=== PATIENT | female | born 1960 | race Caucasian/White ===

== ENCOUNTER 2016-11-09 13:39 | Emergency (ER) | payer BC ==
[~2016-11-09 13:39] MED LIST: ALPR0.5T6 PO; CALC-316 PO; RALO60TA PO; VENTOLIN HFA18 GM IH; VITA1CAP PO
--- NOTE | 2016-11-09 14:18 | RAD ---
Portable chest, 11/09/2016: History: Cough Comparison is made to a study from 11/04/2015. The patient positioning is lordotic. The heart size and pulmonary vascularity are normal. There is a calcified granuloma in the left base. No acute infiltrates are seen. There is no evidence of pleural fluid. The bony structures are unremarkable. IMPRESSION: No acute cardiopulmonary abnormality is detected.
[2016-11-09 14:31] LABS: OBC FLU VALID
[2016-11-09] MEDS ORDERED: FENTANYL PF 100 MCG/2 ML VIAL. IV ONE (14:45)
[2016-11-09 15:07] LABS: BASO # 0.1 x10^3/uL (0.0-0.2); BASO % 1 % (0-3); EOS % 1 % (0-3); HEMATOCRIT 35.2 % (36.0-47.0); HEMOGLOBIN 12.2 g/dL (12.0-15.5); LYMPH # 1.9 x10^3/uL (1.0-4.8); LYMPH % 22 % (24-48); MEAN CORPUSCULAR HEMOGLOBIN 34 pg (25-35); MEAN CORPUSCULAR HGB CONC 35 g/dL (31-37); MEAN CORPUSCULAR VOLUME 97 fL (79-100); MONO % 12 % (0-9); NEUT % 64 % (31-73); PLATELET COUNT 367 x10^3/uL (140-400); RED BLOOD COUNT 3.64 x10^6/uL (3.50-5.40); RED CELL DISTRIBUTION WIDTH 11.9 % (11.5-14.5); WHITE BLOOD COUNT 8.4 x10^3/uL (4.0-11.0)
--- NOTE | 2016-11-09 15:09 | EKG ---
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
[2016-11-09 15:19] LABS: CALCIUM 8.9 mg/dL (8.5-10.1); CREATININE 0.7 mg/dL (0.6-1.0); GFR 86.2; POTASSIUM 4.9 mmol/L (3.5-5.1)
[2016-11-09] MEDS ORDERED: IOHEXOL 300 MG/ML 75 ML VIAL IV ONE (16:00)
[2016-11-09] MEDS ORDERED: CONTRAST GIVEN MC PRN (16:00)
--- NOTE | 2016-11-09 16:47 | RAD ---
Indication: Left-sided chest pain and rib pain. Axial imaging through the chest was performed after the administration of intravenous contrast and utilizing the CT angiography protocol. Multiplanar, 3-D and MIP reformations were also performed. Evaluation of the pulmonary arterial system is without evidence of thromboembolism. No filling defects are identified. The thoracic aorta is unremarkable. No dissection is identified. No axillary, hilar or mediastinal lymphadenopathy is seen. There are calcified lymph nodes in the left hilum consistent with prior granulomatous exposure. No pericardial or pleural fluid is identified. Parenchymal evaluation demonstrate a calcified granuloma in the left lower lobe. No infiltrates are identified. There is a tiny subpleural nodule in the right upper lobe laterally, image 39. The upper abdomen is unremarkable. The bony structures are nonacute. Impression: No evidence of pulmonary embolism or thoracic aortic dissection. PQRS Compliance Statement: One or more of the following individualized dose reduction techniques were utilized for this examination: 1. Automated exposure control 2. Adjustment of the mA and/or kV according to patient size 3. Use of iterative reconstruction technique
[2016-11-09] MEDS ORDERED: IBUP-1060 PO (17:10)
--- NOTE | 2016-11-09 17:11 | PHYS DOC ---
Past Medical History Past Medical History: No Pertinent History, Bronchitis Past Surgical History: Cholecystectomy, , Hysterectomy, Tonsillectomy Alcohol Use: Occasionally Drug Use: None Adult General Chief Complaint Chief Complaint: FEVER HPI HPI 55-year-old female who's had significant left chest wall pain that she states is worse with deep breathing. She states this is been present for the last several days. She denies any significant cough. Patient does state she has an albuterol inhaler that she uses as needed. She does state she has mild shortness of breath with her symptoms. She denies any history of cardiac disease. Patient denies any significant smoking history. Currently she rates her pain a 7 out of 10 on the pain scale. Review of Systems Review of Systems Constitutional: Denies fever or chills [] Eyes: Denies change in visual acuity, redness, or eye pain [] HENT: Denies nasal congestion or sore throat [] Respiratory: Denies cough, has shortness of breath [] Cardiovascular: No additional information not addressed in HPI [] GI: Denies abdominal pain, nausea, vomiting, bloody stools or diarrhea [] : Denies dysuria or hematuria [] Musculoskeletal: Denies back pain or joint pain [] Integument: Denies rash or skin lesions [] Neurologic: Denies headache, focal weakness or sensory changes [] Endocrine: Denies polyuria or polydipsia [] Current Medications Current Medications Current Medications Medications (Trade) Dose Ordered Sig/[facility] Start Time Stop Time Status Last Admin Dose Admin Fentanyl Citrate (Fentanyl 2ml Vial) 50 mcg 1X ONCE 11/09/16 14:45 11/09/16 14:46 DC 11/09/16 15:29 50 MCG Info (Do NOT chart on this entry -- for MONITORING) 1 each PRN DAILY PRN 11/09/16 16:00 11/11/16 15:59 Iohexol (Omnipaque 300 Mg/ml) 75 ml 1X ONCE 11/09/16 16:00 11/09/16 16:01 DC 11/09/16 16:28 75 ML Allergies Allergies Allergies Coded Allergies Type Severity Reaction Last Updated Verified No Known Drug Allergies 09/28/16 No Physical Exam Physical Exam Constitutional: Well developed, well nourished, no acute distress, non-toxic appearance. [] HENT: Normocephalic, atraumatic, bilateral external ears normal, oropharynx moist, no oral exudates, nose normal. [] Eyes: PERRLA, EOMI, conjunctiva normal, no discharge. [] Neck: Normal range of motion, no tenderness, supple, no stridor. [] Cardiovascular:Heart rate regular rhythm, no murmur [] Lungs & Thorax: Bilateral breath sounds clear to auscultation [] Abdomen: Bowel sounds normal, soft, no tenderness, no masses, no pulsatile masses. [] Skin: Warm, dry, no erythema, no rash. [] Back: No tenderness, no CVA tenderness. [] Extremities: No tenderness, no cyanosis, no clubbing, ROM intact, no edema. [] Neurologic: Alert and oriented X 3, normal motor function, normal sensory function, no focal deficits noted. [] Psychologic: Affect normal, judgement normal, mood normal. [] Current Patient Data Vital Signs Vital Signs Date Time Temp Pulse Resp B/P Pulse Ox O2 Delivery O2 Flow Rate FiO2 11/09/16 15:30 80 99 Room Air 11/09/16 13:49 98.0 20 98.0 Lab Values Laboratory Tests Test 11/09/16 14:00 11/09/16 14:55 Influenza Type A Antigen Negative (NEGATIVE) Influenza Type B Antigen Negative (NEGATIVE) White Blood Count 8.4x10^3/uL (4.0-11.0) Red Blood Count 3.64x10^6/uL (3.50-5.40) Hemoglobin 12.2g/dL (12.0-15.5) Hematocrit 35.2% (36.0-47.0) L Mean Corpuscular Volume 97fL (79-100) Mean Corpuscular Hemoglobin 34pg (25-35) Mean Corpuscular Hemoglobin Concent 35g/dL (31-37) Red Cell Distribution Width 11.9% (11.5-14.5) Platelet Count 367x10^3/uL (140-400) Neutrophils (%) (Auto) 64% (31-73) Lymphocytes (%) (Auto) 22% (24-48) L Monocytes (%) (Auto) 12% (0-9) H Eosinophils (%) (Auto) 1% (0-3) Basophils (%) (Auto) 1% (0-3) Neutrophils # (Auto) 5.4x10^3uL (1.8-7.7) Lymphocytes # (Auto) 1.9x10^3/uL (1.0-4.8) Monocytes # (Auto) 1.0x10^3/uL (0.0-1.1) Eosinophils # (Auto) 0.1x10^3/uL (0.0-0.7) Basophils # (Auto) 0.1x10^3/uL (0.0-0.2) D-Dimer (Herlinda) 0.55ug/mlFEU (0.00-0.50) H Sodium Level 131mmol/L (136-145) L Potassium Level 4.9mmol/L (3.5-5.1) Chloride Level 95mmol/L (98-107) L Carbon Dioxide Level 26mmol/L (21-32) Anion Gap 10 (6-14) Blood Urea Nitrogen 11mg/dL (7-20) Creatinine 0.7mg/dL (0.6-1.0) Estimated GFR (Cockcroft-Gault) 86.2 Glucose Level 99mg/dL (70-99) Calcium Level 8.9mg/dL (8.5-10.1) Troponin I Quantitative < 0.017ng/mL (0.000-0.055) Laboratory Tests 11/09/16 14:55 Laboratory Tests 11/09/16 14:55 EKG EKG EKG as interpreted by fl shows a sinus rhythm with a rightward axis and an approximate rate of 82 bpm. There are no acute ischemic findings on this EKG. Radiology/Procedures Radiology/Procedures CTA of the chest as interpreted by the radiologist: Axial imaging through the chest was performed after the administration of intravenous contrast and utilizing the CT angiography protocol. Multiplanar, 3-D and MIP reformations were also performed. Evaluation of the pulmonary arterial system is without evidence of thromboembolism. No filling defects are identified. The thoracic aorta is unremarkable. No dissection is identified. No axillary, hilar or mediastinal lymphadenopathy is seen. There are calcified lymph nodes in the left hilum consistent with prior granulomatous exposure. No pericardial or pleural fluid is identified. Parenchymal evaluation demonstrate a calcified granuloma in the left lower lobe. No infiltrates are identified. There is a tiny subpleural nodule in the right upper lobe laterally, image 39. The upper abdomen is unremarkable. The bony structures are nonacute. One view of the chest as interpreted by me did not reveal an acute cardiopulmonary process. Course & Med Decision Making Course & Med Decision Making Pertinent Labs and Imaging studies reviewed. (See chart for details) This 55-year-old female who is having ongoing pleuritic type chest pain and a positive d-dimer had a CT of her chest that was negative for any acute abnormality including pulmonary embolism. A portable 1 view her chest also did not reveal any acute abnormalities. EKG reveal any acute signs of ischemia. Her laboratory workup including a set of cardiac enzymes was also negative. I'll be discharging patient home to follow closely with her primary care doctor next several days as I believe her symptoms are likely inflammatory in nature and will be treated with Motrin with strict instruction return if she notes any worsening of her pain or shortness of breath. She should continue to use her inhaler at home as needed. Upon my reassessment, the patient feels much improved after a dose of fentanyl. Patient is still very concerned that she is having ongoing chest pain and would like something to help her rest tonight. For this I will prescribe a course of [place]. I also offered admission to the patient as I stated I could not be 100 percent certain that her symptoms are not cardiac in etiology. She states she would not like to stay in the hospital at this time and I counseled her that she should return if she develops any worsening of her chest pain and to follow closely with Dr. Bender. Additionally, Dr. eBnder was contacted and the department and the case was discussed. He is very agreeable this plan. She was discharged without incident. Dragon Disclaimer Dragon Disclaimer This electronic medical record was generated, in whole or in part, using a voice recognition dictation system. Departure Departure Impression: Primary Impression: Chest pain Disposition: HOME, SELF-CARE Condition: STABLE Referrals: FEMI BENDER MD (PCP) Patient Instructions: Chest Wall Pain, Costochondritis, [id number] Additional Instructions: Please take your motrin as needed for your pain. Continue to take your inhaler as needed. Return to the ER if you develop any worsening of your symptoms. Scripts Hydrocodone/Apap 5-325 ([place] 5-325 Tablet)1 Each Tablet1 Tab PO PRN Q6HRS PRN PAIN #8 TAB Prov:SY BREAUX DO 11/09/16 Ibuprofen 800 Mg [id number] Mg PO PRN Q6HRS PRN INFLAMMATION #14 TAB Prov:SY BREAUX DO 11/09/16 SY BREAUX DO Nov 09, 2016 17:11
[2016-11-09] MEDS ORDERED: HYDR-971 PO (17:25)
[2016-11-09 17:30] VITALS: BP 122/70
--- NOTE | 2016-11-10 06:35 | EKG ---
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
== END 2016-11-09 17:48 | disposition home or self-care (01) ==
LOC: ER 13:39
DX: R07.89 Other chest pain (principal)
CPT/HCPCS: 36415; 71010; 71275; 80048; 84484; 85027; 85379; 87804; 93005; 96374; 99285; J3010; Q9967

== ENCOUNTER → 2018-02-09 | Outpatient (CLI) | payer BC | END | disposition home or self-care (01) | LOC: KCIC US 13:22 | DX: I65.23 Occlusion and stenosis of bilateral carotid arteries (principal); Z87.891 Personal history of nicotine dependence | CPT/HCPCS: 93880 ==

== ENCOUNTER → 2018-02-25 | Outpatient (CLI) | payer BC ==
[2018-02-25] MEDS: REGADENOSON 0.4 MG/5 ML DISP.SYRIN. IV (09:47)
== END | disposition home or self-care (01) ==
LOC: NM 07:10
DX: F43.9 Reaction to severe stress, unspecified (principal); R55 Syncope and collapse; R61 Generalized hyperhidrosis; Z87.891 Personal history of nicotine dependence
CPT/HCPCS: 78452; 93017; 96374; 96375; 96376; A9500; J2785

== ENCOUNTER → 2018-07-11 | Outpatient (CLI) | payer BC ==
[2018-07-07 11:00] VITALS: BP 142/108
[~2018-07-11] MED LIST changes: +GABA-585 PO; +HYDR-971 PO; +IBUP-1060 PO; +PROAIR HFA8.5 GM INH
== END | disposition home or self-care (01) ==
LOC: PMGWOUND 08:08
PROVIDERS: ATTEND Emergency Medicine Undersea and Hyperbaric Medicine
DX: T81.31XD Disruption of external operation (surgical) wound, not elsewhere classified, subsequent encounter (principal); F41.9 Anxiety disorder, unspecified; F17.210 Nicotine dependence, cigarettes, uncomplicated; J43.9 Emphysema, unspecified; M81.0 Age-related osteoporosis without current pathological fracture; M19.90 Unspecified osteoarthritis, unspecified site; Z90.49 Acquired absence of other specified parts of digestive tract; Z90.710 Acquired absence of both cervix and uterus; Y83.8 Other surgical procedures as the cause of abnormal reaction of the patient, or of later complication, without mention of misadventure at the time of the procedure
CPT/HCPCS: 97605

== ENCOUNTER → 2018-07-13 | Outpatient (CLI) | payer BC ==
[2018-07-07 11:00] VITALS: BP 142/108
== END | disposition home or self-care (01) ==
LOC: PMGWOUND 09:03
PROVIDERS: ATTEND Preventive Medicine Undersea and Hyperbaric Medicine
DX: T81.31XD Disruption of external operation (surgical) wound, not elsewhere classified, subsequent encounter (principal); F41.9 Anxiety disorder, unspecified; F17.210 Nicotine dependence, cigarettes, uncomplicated; J43.9 Emphysema, unspecified; M19.90 Unspecified osteoarthritis, unspecified site; Z90.49 Acquired absence of other specified parts of digestive tract; M81.0 Age-related osteoporosis without current pathological fracture; Z90.710 Acquired absence of both cervix and uterus; Y83.8 Other surgical procedures as the cause of abnormal reaction of the patient, or of later complication, without mention of misadventure at the time of the procedure
CPT/HCPCS: 97605

== ENCOUNTER → 2018-07-15 | Outpatient (CLI) | payer BC ==
[2018-07-07 11:00] VITALS: BP 142/108
== END | disposition home or self-care (01) ==
LOC: PMGWOUND 07:57
PROVIDERS: ATTEND Preventive Medicine Undersea and Hyperbaric Medicine
DX: T81.31XD Disruption of external operation (surgical) wound, not elsewhere classified, subsequent encounter (principal); F41.9 Anxiety disorder, unspecified; F17.210 Nicotine dependence, cigarettes, uncomplicated; J43.9 Emphysema, unspecified; M19.90 Unspecified osteoarthritis, unspecified site; M81.0 Age-related osteoporosis without current pathological fracture; Z90.49 Acquired absence of other specified parts of digestive tract; Z90.710 Acquired absence of both cervix and uterus; Y83.8 Other surgical procedures as the cause of abnormal reaction of the patient, or of later complication, without mention of misadventure at the time of the procedure
CPT/HCPCS: 97605

== ENCOUNTER → 2018-07-18 | Outpatient (CLI) | payer BC ==
[2018-07-07 11:00] VITALS: BP 142/108
== END | disposition home or self-care (01) ==
LOC: PMGWOUND 07:54
PROVIDERS: ATTEND Emergency Medicine Undersea and Hyperbaric Medicine
DX: T81.31XD Disruption of external operation (surgical) wound, not elsewhere classified, subsequent encounter (principal); F41.9 Anxiety disorder, unspecified; J43.9 Emphysema, unspecified; F17.210 Nicotine dependence, cigarettes, uncomplicated; M19.90 Unspecified osteoarthritis, unspecified site; M81.0 Age-related osteoporosis without current pathological fracture; Z90.710 Acquired absence of both cervix and uterus; Z90.49 Acquired absence of other specified parts of digestive tract; Y83.5 Amputation of limb(s) as the cause of abnormal reaction of the patient, or of later complication, without mention of misadventure at the time of the procedure
CPT/HCPCS: 97605

== ENCOUNTER → 2018-07-20 | Outpatient (CLI) | payer BC ==
[2018-07-07 11:00] VITALS: BP 142/108
== END | disposition home or self-care (01) ==
LOC: PMGWOUND 07:42
PROVIDERS: ATTEND Emergency Medicine Undersea and Hyperbaric Medicine
DX: T81.31XD Disruption of external operation (surgical) wound, not elsewhere classified, subsequent encounter (principal); F41.9 Anxiety disorder, unspecified; F17.210 Nicotine dependence, cigarettes, uncomplicated; J43.9 Emphysema, unspecified; M19.90 Unspecified osteoarthritis, unspecified site; M81.0 Age-related osteoporosis without current pathological fracture; Z90.49 Acquired absence of other specified parts of digestive tract; Z90.710 Acquired absence of both cervix and uterus; Y83.8 Other surgical procedures as the cause of abnormal reaction of the patient, or of later complication, without mention of misadventure at the time of the procedure
CPT/HCPCS: 97605

== ENCOUNTER → 2018-07-22 | Outpatient (CLI) | payer BC ==
[2018-07-07 11:00] VITALS: BP 142/108
== END | disposition home or self-care (01) ==
LOC: PMGWOUND 07:56
PROVIDERS: ATTEND Preventive Medicine Undersea and Hyperbaric Medicine
DX: T81.31XD Disruption of external operation (surgical) wound, not elsewhere classified, subsequent encounter (principal); F41.9 Anxiety disorder, unspecified; J43.9 Emphysema, unspecified; M19.90 Unspecified osteoarthritis, unspecified site; M81.0 Age-related osteoporosis without current pathological fracture; F17.210 Nicotine dependence, cigarettes, uncomplicated; Z90.49 Acquired absence of other specified parts of digestive tract; Z90.710 Acquired absence of both cervix and uterus; Y83.8 Other surgical procedures as the cause of abnormal reaction of the patient, or of later complication, without mention of misadventure at the time of the procedure
CPT/HCPCS: 97605

== ENCOUNTER → 2018-07-25 | Outpatient (CLI) | payer BC ==
[2018-07-07 11:00] VITALS: BP 142/108
== END | disposition home or self-care (01) ==
LOC: PMGWOUND 07:44
PROVIDERS: ATTEND Emergency Medicine Undersea and Hyperbaric Medicine
DX: T81.31XD Disruption of external operation (surgical) wound, not elsewhere classified, subsequent encounter (principal); F41.9 Anxiety disorder, unspecified; F17.210 Nicotine dependence, cigarettes, uncomplicated; J43.9 Emphysema, unspecified; M19.90 Unspecified osteoarthritis, unspecified site; M81.0 Age-related osteoporosis without current pathological fracture; Z90.710 Acquired absence of both cervix and uterus; Z90.49 Acquired absence of other specified parts of digestive tract; Z90.79 Acquired absence of other genital organ(s); Z90.722 Acquired absence of ovaries, bilateral; Y83.8 Other surgical procedures as the cause of abnormal reaction of the patient, or of later complication, without mention of misadventure at the time of the procedure
CPT/HCPCS: 97605

== ENCOUNTER → 2018-07-27 | Outpatient (CLI) | payer BC ==
[2018-07-07 11:00] VITALS: BP 142/108
== END | disposition home or self-care (01) ==
LOC: PMGWOUND 08:01
PROVIDERS: ATTEND Preventive Medicine Undersea and Hyperbaric Medicine
DX: T81.31XD Disruption of external operation (surgical) wound, not elsewhere classified, subsequent encounter (principal); F41.9 Anxiety disorder, unspecified; J43.9 Emphysema, unspecified; F17.210 Nicotine dependence, cigarettes, uncomplicated; M19.90 Unspecified osteoarthritis, unspecified site; M81.0 Age-related osteoporosis without current pathological fracture; Z90.710 Acquired absence of both cervix and uterus; Z90.89 Acquired absence of other organs; Z90.49 Acquired absence of other specified parts of digestive tract; Z90.722 Acquired absence of ovaries, bilateral; Y83.8 Other surgical procedures as the cause of abnormal reaction of the patient, or of later complication, without mention of misadventure at the time of the procedure
CPT/HCPCS: 97605

== ENCOUNTER → 2018-07-29 | Outpatient (CLI) | payer BC ==
[2018-07-07 11:00] VITALS: BP 142/108
== END | disposition home or self-care (01) ==
LOC: PMGWOUND 07:34
PROVIDERS: ATTEND Preventive Medicine Undersea and Hyperbaric Medicine
DX: T81.31XD Disruption of external operation (surgical) wound, not elsewhere classified, subsequent encounter (principal); F41.9 Anxiety disorder, unspecified; J43.9 Emphysema, unspecified; F17.210 Nicotine dependence, cigarettes, uncomplicated; M19.90 Unspecified osteoarthritis, unspecified site; M81.0 Age-related osteoporosis without current pathological fracture; Z90.49 Acquired absence of other specified parts of digestive tract; Z90.710 Acquired absence of both cervix and uterus; Z90.89 Acquired absence of other organs; Z90.722 Acquired absence of ovaries, bilateral; Y83.8 Other surgical procedures as the cause of abnormal reaction of the patient, or of later complication, without mention of misadventure at the time of the procedure
CPT/HCPCS: 97605

== ENCOUNTER → 2018-08-01 | Outpatient (CLI) | payer BC ==
[2018-07-07 11:00] VITALS: BP 142/108
== END | disposition home or self-care (01) ==
LOC: PMGWOUND 07:54
PROVIDERS: ATTEND Emergency Medicine Undersea and Hyperbaric Medicine
DX: T81.31XD Disruption of external operation (surgical) wound, not elsewhere classified, subsequent encounter (principal); F41.9 Anxiety disorder, unspecified; J43.9 Emphysema, unspecified; F17.210 Nicotine dependence, cigarettes, uncomplicated; M19.90 Unspecified osteoarthritis, unspecified site; M81.0 Age-related osteoporosis without current pathological fracture; Z90.49 Acquired absence of other specified parts of digestive tract; Z90.710 Acquired absence of both cervix and uterus; Y83.8 Other surgical procedures as the cause of abnormal reaction of the patient, or of later complication, without mention of misadventure at the time of the procedure
CPT/HCPCS: 97605

== ENCOUNTER → 2018-08-03 | Outpatient (CLI) | payer BC ==
[2018-07-07 11:00] VITALS: BP 142/108
== END | disposition home or self-care (01) ==
LOC: PMGWOUND 07:49
PROVIDERS: ATTEND Preventive Medicine Undersea and Hyperbaric Medicine
DX: T81.31XD Disruption of external operation (surgical) wound, not elsewhere classified, subsequent encounter (principal); F41.9 Anxiety disorder, unspecified; F17.210 Nicotine dependence, cigarettes, uncomplicated; J43.9 Emphysema, unspecified; M81.0 Age-related osteoporosis without current pathological fracture; M19.90 Unspecified osteoarthritis, unspecified site; Z90.710 Acquired absence of both cervix and uterus; Z90.49 Acquired absence of other specified parts of digestive tract; Y83.8 Other surgical procedures as the cause of abnormal reaction of the patient, or of later complication, without mention of misadventure at the time of the procedure
CPT/HCPCS: 97605

== ENCOUNTER → 2018-08-05 | Outpatient (CLI) | payer BC ==
[2018-07-07 11:00] VITALS: BP 142/108
== END | disposition home or self-care (01) ==
LOC: PMGWOUND 07:36
PROVIDERS: ATTEND Preventive Medicine Undersea and Hyperbaric Medicine
DX: T81.31XD Disruption of external operation (surgical) wound, not elsewhere classified, subsequent encounter (principal); F41.9 Anxiety disorder, unspecified; J43.9 Emphysema, unspecified; F17.210 Nicotine dependence, cigarettes, uncomplicated; M81.0 Age-related osteoporosis without current pathological fracture; M19.90 Unspecified osteoarthritis, unspecified site; Z90.710 Acquired absence of both cervix and uterus; Z90.49 Acquired absence of other specified parts of digestive tract; Y83.8 Other surgical procedures as the cause of abnormal reaction of the patient, or of later complication, without mention of misadventure at the time of the procedure
CPT/HCPCS: 99213

== ENCOUNTER → 2018-08-08 | Outpatient (CLI) | payer BC ==
[2018-07-07 11:00] VITALS: BP 142/108
== END | disposition home or self-care (01) ==
LOC: PMGWOUND 08:03
PROVIDERS: ATTEND Emergency Medicine Undersea and Hyperbaric Medicine
DX: T81.31XD Disruption of external operation (surgical) wound, not elsewhere classified, subsequent encounter (principal); F41.9 Anxiety disorder, unspecified; J43.9 Emphysema, unspecified; F17.210 Nicotine dependence, cigarettes, uncomplicated; M81.0 Age-related osteoporosis without current pathological fracture; M19.90 Unspecified osteoarthritis, unspecified site; Z90.710 Acquired absence of both cervix and uterus; Z90.49 Acquired absence of other specified parts of digestive tract; Y83.8 Other surgical procedures as the cause of abnormal reaction of the patient, or of later complication, without mention of misadventure at the time of the procedure
CPT/HCPCS: 97605

== ENCOUNTER → 2018-08-10 | Outpatient (CLI) | payer BC ==
[2018-07-07 11:00] VITALS: BP 142/108
== END | disposition home or self-care (01) ==
LOC: PMGWOUND 07:59
PROVIDERS: ATTEND Preventive Medicine Undersea and Hyperbaric Medicine
DX: T81.31XD Disruption of external operation (surgical) wound, not elsewhere classified, subsequent encounter (principal); F41.9 Anxiety disorder, unspecified; J43.9 Emphysema, unspecified; F17.210 Nicotine dependence, cigarettes, uncomplicated; M19.90 Unspecified osteoarthritis, unspecified site; M81.0 Age-related osteoporosis without current pathological fracture; Z90.710 Acquired absence of both cervix and uterus; Z90.49 Acquired absence of other specified parts of digestive tract; X58.XXXD Exposure to other specified factors, subsequent encounter
CPT/HCPCS: 97605

== ENCOUNTER → 2018-08-12 | Outpatient (CLI) | payer BC ==
[2018-07-07 11:00] VITALS: BP 142/108
== END | disposition home or self-care (01) ==
LOC: PMGWOUND 07:52
PROVIDERS: ATTEND Preventive Medicine Undersea and Hyperbaric Medicine
DX: T81.31XD Disruption of external operation (surgical) wound, not elsewhere classified, subsequent encounter (principal); F41.9 Anxiety disorder, unspecified; J43.9 Emphysema, unspecified; F17.210 Nicotine dependence, cigarettes, uncomplicated; M19.90 Unspecified osteoarthritis, unspecified site; M81.0 Age-related osteoporosis without current pathological fracture; Z90.710 Acquired absence of both cervix and uterus; Z90.49 Acquired absence of other specified parts of digestive tract; Y83.8 Other surgical procedures as the cause of abnormal reaction of the patient, or of later complication, without mention of misadventure at the time of the procedure
CPT/HCPCS: 97605

== ENCOUNTER → 2018-08-15 | Outpatient (CLI) | payer BC ==
[2018-07-07 11:00] VITALS: BP 142/108
== END | disposition home or self-care (01) ==
LOC: PMGWOUND 08:06
PROVIDERS: ATTEND Emergency Medicine Undersea and Hyperbaric Medicine
DX: T81.31XD Disruption of external operation (surgical) wound, not elsewhere classified, subsequent encounter (principal); F41.9 Anxiety disorder, unspecified; J43.9 Emphysema, unspecified; M19.90 Unspecified osteoarthritis, unspecified site; M81.0 Age-related osteoporosis without current pathological fracture; F17.210 Nicotine dependence, cigarettes, uncomplicated; Z90.710 Acquired absence of both cervix and uterus; Z90.49 Acquired absence of other specified parts of digestive tract; Y83.8 Other surgical procedures as the cause of abnormal reaction of the patient, or of later complication, without mention of misadventure at the time of the procedure
CPT/HCPCS: 97605

== ENCOUNTER → 2018-08-17 | Outpatient (CLI) | payer BC ==
[2018-07-07 11:00] VITALS: BP 142/108
== END | disposition home or self-care (01) ==
LOC: PMGWOUND 07:57
PROVIDERS: ATTEND Preventive Medicine Undersea and Hyperbaric Medicine
DX: T81.31XD Disruption of external operation (surgical) wound, not elsewhere classified, subsequent encounter (principal); F41.9 Anxiety disorder, unspecified; J43.9 Emphysema, unspecified; F17.210 Nicotine dependence, cigarettes, uncomplicated; M81.0 Age-related osteoporosis without current pathological fracture; M19.90 Unspecified osteoarthritis, unspecified site; Z90.710 Acquired absence of both cervix and uterus; Z90.49 Acquired absence of other specified parts of digestive tract
CPT/HCPCS: 97605

== ENCOUNTER → 2018-08-19 | Outpatient (CLI) | payer BC ==
[2018-07-07 11:00] VITALS: BP 142/108
== END | disposition home or self-care (01) ==
LOC: PMGWOUND 07:57
PROVIDERS: ATTEND Preventive Medicine Undersea and Hyperbaric Medicine
DX: T81.31XD Disruption of external operation (surgical) wound, not elsewhere classified, subsequent encounter (principal); F41.9 Anxiety disorder, unspecified; J43.9 Emphysema, unspecified; M19.90 Unspecified osteoarthritis, unspecified site; F17.210 Nicotine dependence, cigarettes, uncomplicated; M81.0 Age-related osteoporosis without current pathological fracture; Z90.710 Acquired absence of both cervix and uterus; Z90.49 Acquired absence of other specified parts of digestive tract; Y83.8 Other surgical procedures as the cause of abnormal reaction of the patient, or of later complication, without mention of misadventure at the time of the procedure
CPT/HCPCS: 97605

== ENCOUNTER → 2018-08-22 | Outpatient (CLI) | payer BC ==
[2018-07-07 11:00] VITALS: BP 142/108
== END | disposition home or self-care (01) ==
LOC: PMGWOUND 07:58
PROVIDERS: ATTEND Emergency Medicine Undersea and Hyperbaric Medicine
DX: T81.31XD Disruption of external operation (surgical) wound, not elsewhere classified, subsequent encounter (principal); F41.9 Anxiety disorder, unspecified; J43.9 Emphysema, unspecified; M19.90 Unspecified osteoarthritis, unspecified site; M81.0 Age-related osteoporosis without current pathological fracture; F17.210 Nicotine dependence, cigarettes, uncomplicated; Z90.710 Acquired absence of both cervix and uterus; Z90.49 Acquired absence of other specified parts of digestive tract; Y83.8 Other surgical procedures as the cause of abnormal reaction of the patient, or of later complication, without mention of misadventure at the time of the procedure
CPT/HCPCS: 97597

== ENCOUNTER → 2018-08-24 | Outpatient (CLI) | payer BC ==
[2018-07-07 11:00] VITALS: BP 142/108
== END | disposition home or self-care (01) ==
LOC: PMGWOUND 07:57
PROVIDERS: ATTEND Preventive Medicine Undersea and Hyperbaric Medicine
DX: T81.31XD Disruption of external operation (surgical) wound, not elsewhere classified, subsequent encounter (principal); F41.9 Anxiety disorder, unspecified; J43.9 Emphysema, unspecified; M19.90 Unspecified osteoarthritis, unspecified site; M81.0 Age-related osteoporosis without current pathological fracture; F17.210 Nicotine dependence, cigarettes, uncomplicated; Z90.710 Acquired absence of both cervix and uterus; Z90.49 Acquired absence of other specified parts of digestive tract; Y83.8 Other surgical procedures as the cause of abnormal reaction of the patient, or of later complication, without mention of misadventure at the time of the procedure
CPT/HCPCS: 97605

== ENCOUNTER → 2018-08-26 | Outpatient (CLI) | payer BC ==
[2018-07-07 11:00] VITALS: BP 142/108
== END | disposition home or self-care (01) ==
LOC: PMGWOUND 07:50
PROVIDERS: ATTEND Preventive Medicine Undersea and Hyperbaric Medicine
DX: T81.31XD Disruption of external operation (surgical) wound, not elsewhere classified, subsequent encounter (principal); F41.9 Anxiety disorder, unspecified; J43.9 Emphysema, unspecified; M19.90 Unspecified osteoarthritis, unspecified site; F17.210 Nicotine dependence, cigarettes, uncomplicated; M81.0 Age-related osteoporosis without current pathological fracture; Z90.710 Acquired absence of both cervix and uterus; Z90.49 Acquired absence of other specified parts of digestive tract; Y83.8 Other surgical procedures as the cause of abnormal reaction of the patient, or of later complication, without mention of misadventure at the time of the procedure
CPT/HCPCS: 97605

== ENCOUNTER → 2018-08-29 | Outpatient (CLI) | payer BC ==
[2018-07-07 11:00] VITALS: BP 142/108
[~2018-08-29] MED LIST changes: +HYDR-3164 PO; -HYDR-971 PO
== END | disposition home or self-care (01) ==
LOC: PMGWOUND 08:05
PROVIDERS: ATTEND Emergency Medicine Undersea and Hyperbaric Medicine
DX: T81.31XD Disruption of external operation (surgical) wound, not elsewhere classified, subsequent encounter (principal); F41.9 Anxiety disorder, unspecified; J43.9 Emphysema, unspecified; M19.90 Unspecified osteoarthritis, unspecified site; F17.210 Nicotine dependence, cigarettes, uncomplicated; M81.0 Age-related osteoporosis without current pathological fracture; Z90.710 Acquired absence of both cervix and uterus; Z90.49 Acquired absence of other specified parts of digestive tract; Y83.8 Other surgical procedures as the cause of abnormal reaction of the patient, or of later complication, without mention of misadventure at the time of the procedure
CPT/HCPCS: 97605

== ENCOUNTER → 2018-09-01 | Outpatient (CLI) | payer BC ==
[2018-07-07 11:00] VITALS: BP 142/108
== END | disposition home or self-care (01) ==
LOC: PMGWOUND 08:18
PROVIDERS: ATTEND Emergency Medicine Undersea and Hyperbaric Medicine
DX: T81.31XD Disruption of external operation (surgical) wound, not elsewhere classified, subsequent encounter (principal); F41.9 Anxiety disorder, unspecified; J43.9 Emphysema, unspecified; M19.90 Unspecified osteoarthritis, unspecified site; F17.210 Nicotine dependence, cigarettes, uncomplicated; I25.10 Atherosclerotic heart disease of native coronary artery without angina pectoris; Z90.710 Acquired absence of both cervix and uterus; Z90.49 Acquired absence of other specified parts of digestive tract; Y83.8 Other surgical procedures as the cause of abnormal reaction of the patient, or of later complication, without mention of misadventure at the time of the procedure
CPT/HCPCS: 97605

== ENCOUNTER → 2018-09-05 | Outpatient (CLI) | payer BC ==
[2018-07-07 11:00] VITALS: BP 142/108
== END | disposition home or self-care (01) ==
LOC: PMGWOUND 08:09
PROVIDERS: ATTEND Emergency Medicine Undersea and Hyperbaric Medicine
DX: T81.31XD Disruption of external operation (surgical) wound, not elsewhere classified, subsequent encounter (principal); F41.9 Anxiety disorder, unspecified; J43.9 Emphysema, unspecified; M19.90 Unspecified osteoarthritis, unspecified site; F17.210 Nicotine dependence, cigarettes, uncomplicated; M81.0 Age-related osteoporosis without current pathological fracture; I25.10 Atherosclerotic heart disease of native coronary artery without angina pectoris; Z90.710 Acquired absence of both cervix and uterus; Z90.49 Acquired absence of other specified parts of digestive tract; Y83.8 Other surgical procedures as the cause of abnormal reaction of the patient, or of later complication, without mention of misadventure at the time of the procedure
CPT/HCPCS: 99214; G0463

== ENCOUNTER → 2018-09-07 | Outpatient (CLI) | payer BC ==
[2018-07-07 11:00] VITALS: BP 142/108
== END | disposition home or self-care (01) ==
LOC: PMGWOUND 08:03
PROVIDERS: ATTEND Preventive Medicine Undersea and Hyperbaric Medicine
DX: T81.31XD Disruption of external operation (surgical) wound, not elsewhere classified, subsequent encounter (principal); F41.9 Anxiety disorder, unspecified; J43.9 Emphysema, unspecified; M19.90 Unspecified osteoarthritis, unspecified site; F17.210 Nicotine dependence, cigarettes, uncomplicated; I25.10 Atherosclerotic heart disease of native coronary artery without angina pectoris; M81.0 Age-related osteoporosis without current pathological fracture; Z90.710 Acquired absence of both cervix and uterus; Z90.49 Acquired absence of other specified parts of digestive tract; Y83.8 Other surgical procedures as the cause of abnormal reaction of the patient, or of later complication, without mention of misadventure at the time of the procedure
CPT/HCPCS: 97605

== ENCOUNTER → 2018-09-12 | Outpatient (CLI) | payer BC ==
[2018-07-07 11:00] VITALS: BP 142/108
== END | disposition home or self-care (01) ==
LOC: PMGWOUND 08:02
PROVIDERS: ATTEND Emergency Medicine Undersea and Hyperbaric Medicine
DX: T81.31XD Disruption of external operation (surgical) wound, not elsewhere classified, subsequent encounter (principal); F41.9 Anxiety disorder, unspecified; J43.9 Emphysema, unspecified; F17.210 Nicotine dependence, cigarettes, uncomplicated; M19.90 Unspecified osteoarthritis, unspecified site; M81.0 Age-related osteoporosis without current pathological fracture; I25.10 Atherosclerotic heart disease of native coronary artery without angina pectoris; Z90.710 Acquired absence of both cervix and uterus; Z90.49 Acquired absence of other specified parts of digestive tract; Y83.8 Other surgical procedures as the cause of abnormal reaction of the patient, or of later complication, without mention of misadventure at the time of the procedure
CPT/HCPCS: 99213

== ENCOUNTER → 2018-09-14 | Outpatient (CLI) | payer BC ==
[2018-07-07 11:00] VITALS: BP 142/108
== END | disposition home or self-care (01) ==
LOC: PMGWOUND 07:59
PROVIDERS: ATTEND Preventive Medicine Undersea and Hyperbaric Medicine
DX: T81.31XD Disruption of external operation (surgical) wound, not elsewhere classified, subsequent encounter (principal); F41.9 Anxiety disorder, unspecified; J43.9 Emphysema, unspecified; F17.210 Nicotine dependence, cigarettes, uncomplicated; M19.90 Unspecified osteoarthritis, unspecified site; M81.0 Age-related osteoporosis without current pathological fracture; I25.10 Atherosclerotic heart disease of native coronary artery without angina pectoris; Z90.710 Acquired absence of both cervix and uterus; Z90.49 Acquired absence of other specified parts of digestive tract; Y83.8 Other surgical procedures as the cause of abnormal reaction of the patient, or of later complication, without mention of misadventure at the time of the procedure
CPT/HCPCS: 99214; G0463

== ENCOUNTER → 2018-09-19 | Outpatient (CLI) | payer BC ==
[2018-07-07 11:00] VITALS: BP 142/108
[~2018-09-19] MED LIST changes: +CONTRAST GIVEN. MC PRN; +IOHEXOL 240 MG/ML 50ML VIAL. PO ONE; +IOHEXOL 300 MG/ML 100ML VIAL. IV ONE
--- NOTE | 2018-09-19 15:52 | KCIC ---
CT abdomen and pelvis with contrast 09/19/2018 CLINICAL INDICATION: Rectal abscess, lower abdominal pain. COMPARISON: CT abdomen pelvis 06/27/2018. TECHNIQUE: Multiple CT images of the abdomen and pelvis were obtained following intravenous ministration of 67 mL Omnipaque 300. *One or more of the following individualized dose reduction techniques were utilized for this examination: 1. Automated exposure control. 2. Adjustment of the mA and/or kV according to patient size. 3. Use of iterative reconstruction technique. FINDINGS: Heart size is normal with coronary artery calcifications. There is a calcified granuloma in the posterior left lower lobe. Liver unremarkable. Cholecystectomy. No biliary ductal dilatation. Spleen is normal in size with multiple punctate calcified granulomas. Adrenal glands, pancreas and kidneys are unremarkable. Abdominal aorta normal in caliber with moderate aortoiliac calcified plaque. Major portal veins are patent. The small and large bowel loops are normal in caliber without obstruction. No abdominal free fluid. Moderately distended unopacified urinary bladder unremarkable. Hysterectomy with the vaginal cuff unremarkable. Resolution in perineal soft tissue gas. There is a residual left gluteal cleft broad-based ulcer with adjacent soft tissue extending adjacent to the left aspect of the anus, the left posterior perineal soft tissues and near the initial tuberosity without associated osteolysis or significant fluid component. Hypertrophic changes of the medial right pubis. Chronic moderate L2 compression deformity. IMPRESSION: 1. Significant improvement in left posterior perianal/perineal gas gas with residual left gluteal cleft ulcer and adjacent soft tissue thickening. If there is concern for perianal/perirectal fistula, MRI is recommended. Electronically signed by: Javi Mosley MD (09/19/2018 3:48 PM) [id number]
== END | disposition home or self-care (01) ==
LOC: KCIC CT 09:01
PROVIDERS: ATTEND Family Medicine
DX: K61.1 Rectal abscess (principal); R10.30 Lower abdominal pain, unspecified; Z90.49 Acquired absence of other specified parts of digestive tract
CPT/HCPCS: 74177; Q9966; Q9967

== ENCOUNTER → 2018-09-19 | Outpatient (CLI) | payer BC ==
[2018-07-07 11:00] VITALS: BP 142/108
[~2018-09-19] MED LIST changes: -CONTRAST GIVEN. MC PRN; -IOHEXOL 240 MG/ML 50ML VIAL. PO ONE; -IOHEXOL 300 MG/ML 100ML VIAL. IV ONE
== END | disposition home or self-care (01) ==
LOC: PMGWOUND 07:57
PROVIDERS: ATTEND Emergency Medicine Undersea and Hyperbaric Medicine
DX: T81.31XD Disruption of external operation (surgical) wound, not elsewhere classified, subsequent encounter (principal); F41.9 Anxiety disorder, unspecified; J43.9 Emphysema, unspecified; F17.210 Nicotine dependence, cigarettes, uncomplicated; M19.90 Unspecified osteoarthritis, unspecified site; M81.0 Age-related osteoporosis without current pathological fracture; I25.10 Atherosclerotic heart disease of native coronary artery without angina pectoris; Z90.710 Acquired absence of both cervix and uterus; Z90.49 Acquired absence of other specified parts of digestive tract; Y83.8 Other surgical procedures as the cause of abnormal reaction of the patient, or of later complication, without mention of misadventure at the time of the procedure
CPT/HCPCS: 99213

== ENCOUNTER → 2018-09-26 | Outpatient (CLI) | payer BC ==
[2018-07-07 11:00] VITALS: BP 142/108
== END | disposition home or self-care (01) ==
LOC: PMGWOUND 07:59
PROVIDERS: ATTEND Emergency Medicine Undersea and Hyperbaric Medicine
DX: T81.31XD Disruption of external operation (surgical) wound, not elsewhere classified, subsequent encounter (principal); F41.9 Anxiety disorder, unspecified; J43.9 Emphysema, unspecified; F32.9 Major depressive disorder, single episode, unspecified; M19.90 Unspecified osteoarthritis, unspecified site; F17.210 Nicotine dependence, cigarettes, uncomplicated; M81.0 Age-related osteoporosis without current pathological fracture; I25.10 Atherosclerotic heart disease of native coronary artery without angina pectoris; Z90.49 Acquired absence of other specified parts of digestive tract; Z90.710 Acquired absence of both cervix and uterus; Y83.8 Other surgical procedures as the cause of abnormal reaction of the patient, or of later complication, without mention of misadventure at the time of the procedure
CPT/HCPCS: 99214; G0463

== ENCOUNTER → 2018-10-03 | Outpatient (CLI) | payer BC ==
[2018-07-07 11:00] VITALS: BP 142/108
[~2018-10-03] MED LIST changes: +AMOX1TAB11 PO; +OXYC1TAB7 PO; +UMEC62.5 INH
--- NOTE | 2018-10-05 18:11 | HP ---
ADMIT DATE: 10/05/2018 CHIEF COMPLAINT: Perineal pain. HISTORY OF PRESENT ILLNESS: A 57-year-old white female had a large perineal abscess developed and required opening and drainage about 3 months ago at [place]. A culture was sent, polymicrobial. She received IV Unasyn for several weeks and wound VAC from June until about 5 weeks ago when the wound has nearly healed. She has been feeling very well until about 5 days ago when increasing pelvic pain prompted her to see in wound care clinic. She was placed on Augmentin 2 days ago, but her pain is not improved at all and she was seen again in the office and admitted. There has been no drainage, trauma, blood, pelvic or urinary or rectal symptoms or any other obvious component of the pain. PAST MEDICAL HISTORY: She had hysterectomy and cholecystectomy. ALLERGIES: She has no drug allergies. MEDICATIONS: She takes inhalers and Xanax. She has a history of anemia of chronic disease first found in January and was never evaluated with endoscopy. Last colonoscopy was in 2011 and EGD at that time as well. SOCIAL HISTORY: She is about a half pack a day smoker, smoked most of her life. She has a known diagnosis of COPD and nondrinker. She is employed, . FAMILY HISTORY: Unremarkable. REVIEW OF SYSTEMS: No other complaints. OBJECTIVE: ENT: Mild pallor, otherwise unremarkable. NECK: No nodes, masses or thyroid enlargement. LUNGS: Clear with decreased breath sounds. CARDIOVASCULAR: Regular rate. No tachycardia or murmur. BREASTS: Not examined. ABDOMEN: Soft, benign and nontender. Perineum, she is very tender in the area with around a 6 mm wound opening in the right perineal area. There is definite tenderness extending outward from that area, though there is no overt induration or fluctuance and no redness is seen in the gluteal area itself, unremarkable. RECTAL: Not done. NEUROLOGIC: Physiologic and nonfocal. ASSESSMENT: Recurrent perineal pain after large abscess drain and is nearly healed. Suspect most likely would be staphylococcal bacteria recurrence and would not be responsive to Augmentin. She also has underlying chronic obstructive pulmonary disease and anemia of chronic disease and relatively poor nutrition. PLAN: IV vancomycin and Unasyn. Pending clinical response, laboratory evaluation and ID consult. FEMI OSPINA MD DR: MYRA/kade JOB#: [id number] / [id number]
== END | disposition home or self-care (01) ==
LOC: PMGWOUND 08:24
PROVIDERS: ATTEND Emergency Medicine Undersea and Hyperbaric Medicine
DX: T81.31XD Disruption of external operation (surgical) wound, not elsewhere classified, subsequent encounter (principal); J43.9 Emphysema, unspecified; F41.9 Anxiety disorder, unspecified; F32.9 Major depressive disorder, single episode, unspecified; F17.210 Nicotine dependence, cigarettes, uncomplicated; M19.90 Unspecified osteoarthritis, unspecified site; M81.0 Age-related osteoporosis without current pathological fracture; I25.10 Atherosclerotic heart disease of native coronary artery without angina pectoris; Z90.49 Acquired absence of other specified parts of digestive tract; Z90.710 Acquired absence of both cervix and uterus; Y83.8 Other surgical procedures as the cause of abnormal reaction of the patient, or of later complication, without mention of misadventure at the time of the procedure
CPT/HCPCS: 99214; G0463

== ENCOUNTER → 2018-10-12 | Outpatient (CLI) | payer BC ==
[2018-10-06 19:00] VITALS: BP 143/54
[~2018-10-12] MED LIST changes: +ALBU2.5V8 INH; -PROAIR HFA8.5 GM INH
== END | disposition home or self-care (01) ==
LOC: PMGWOUND 08:50
PROVIDERS: ATTEND Preventive Medicine Undersea and Hyperbaric Medicine
DX: T81.31XD Disruption of external operation (surgical) wound, not elsewhere classified, subsequent encounter (principal); J43.9 Emphysema, unspecified; F41.9 Anxiety disorder, unspecified; M19.90 Unspecified osteoarthritis, unspecified site; F17.210 Nicotine dependence, cigarettes, uncomplicated; F32.9 Major depressive disorder, single episode, unspecified; M81.0 Age-related osteoporosis without current pathological fracture; I25.10 Atherosclerotic heart disease of native coronary artery without angina pectoris; Z90.49 Acquired absence of other specified parts of digestive tract; Z90.710 Acquired absence of both cervix and uterus; Y83.8 Other surgical procedures as the cause of abnormal reaction of the patient, or of later complication, without mention of misadventure at the time of the procedure
CPT/HCPCS: 97605

== ENCOUNTER → 2018-10-14 | Outpatient (CLI) | payer BC ==
[2018-10-06 19:00] VITALS: BP 143/54
[~2018-10-14] MED LIST changes: +GADOBUTROL 7.5 MMOL/7.5 ML VIAL IV ONE
--- NOTE | 2018-10-14 13:58 | RAD ---
MR of the right gluteal region with and without contrast HISTORY: Perirectal wound, post debridement and wound care. TECHNIQUE: Routine pre and postcontrast imaging is obtained. FINDINGS: There is a perirectal ulcer and cavity involving the perirectal skin, and extending laterally toward the ischium. The ulcer and cavity measure about 4.5 cm wide by 3.5 cm AP by 5.5 cm height. Mild enhancement within the surrounding soft tissues. The wound extends nearly to the cortical surface of the ischium with about 5 mm soft tissue. No evidence of bone marrow edema or significant marrow change within the ischium to indicate osteomyelitis. No evidence of an organized fluid collection or drainable abscess. There is distention of the urinary bladder. IMPRESSION: Well-defined perirectal wound with cavity. This approaches the ischium, but no evidence of acute osteomyelitis. No drainable abscess. Electronically signed by: Jonathan Sharp MD (10/14/2018 11:48 AM) [id number]
== END | disposition home or self-care (01) ==
LOC: PMGWOUND 07:47
PROVIDERS: ATTEND Preventive Medicine Undersea and Hyperbaric Medicine
DX: T81.31XD Disruption of external operation (surgical) wound, not elsewhere classified, subsequent encounter (principal); K61.1 Rectal abscess; J43.9 Emphysema, unspecified; F41.9 Anxiety disorder, unspecified; F32.9 Major depressive disorder, single episode, unspecified; G47.33 Obstructive sleep apnea (adult) (pediatric); M19.90 Unspecified osteoarthritis, unspecified site; M81.0 Age-related osteoporosis without current pathological fracture; F17.210 Nicotine dependence, cigarettes, uncomplicated; I25.10 Atherosclerotic heart disease of native coronary artery without angina pectoris; Z90.710 Acquired absence of both cervix and uterus; Z90.49 Acquired absence of other specified parts of digestive tract; Y83.8 Other surgical procedures as the cause of abnormal reaction of the patient, or of later complication, without mention of misadventure at the time of the procedure
CPT/HCPCS: 72197; 97605

== ENCOUNTER → 2018-10-17 | Outpatient (CLI) | payer BC ==
[2018-10-06 19:00] VITALS: BP 143/54
[~2018-10-17] MED LIST changes: -GADOBUTROL 7.5 MMOL/7.5 ML VIAL IV ONE
== END | disposition home or self-care (01) ==
LOC: PMGWOUND 07:51
PROVIDERS: ATTEND Emergency Medicine Undersea and Hyperbaric Medicine
DX: T81.31XD Disruption of external operation (surgical) wound, not elsewhere classified, subsequent encounter (principal); K61.1 Rectal abscess; J43.9 Emphysema, unspecified; F41.9 Anxiety disorder, unspecified; M10.9 Gout, unspecified; F32.9 Major depressive disorder, single episode, unspecified; M81.0 Age-related osteoporosis without current pathological fracture; F17.210 Nicotine dependence, cigarettes, uncomplicated; M19.90 Unspecified osteoarthritis, unspecified site; G47.33 Obstructive sleep apnea (adult) (pediatric); I25.10 Atherosclerotic heart disease of native coronary artery without angina pectoris; Z90.710 Acquired absence of both cervix and uterus; Z90.49 Acquired absence of other specified parts of digestive tract; Y83.8 Other surgical procedures as the cause of abnormal reaction of the patient, or of later complication, without mention of misadventure at the time of the procedure
CPT/HCPCS: 97605

== ENCOUNTER → 2018-10-19 | Outpatient (CLI) | payer BC ==
[2018-10-06 19:00] VITALS: BP 143/54
== END | disposition home or self-care (01) ==
LOC: PMGWOUND 08:00
PROVIDERS: ATTEND Preventive Medicine Undersea and Hyperbaric Medicine
DX: T81.31XD Disruption of external operation (surgical) wound, not elsewhere classified, subsequent encounter (principal); K61.1 Rectal abscess; F41.9 Anxiety disorder, unspecified; M10.9 Gout, unspecified; G47.33 Obstructive sleep apnea (adult) (pediatric); J43.9 Emphysema, unspecified; F32.9 Major depressive disorder, single episode, unspecified; M81.0 Age-related osteoporosis without current pathological fracture; F17.210 Nicotine dependence, cigarettes, uncomplicated; M19.90 Unspecified osteoarthritis, unspecified site; I25.10 Atherosclerotic heart disease of native coronary artery without angina pectoris; Z90.710 Acquired absence of both cervix and uterus; Z90.49 Acquired absence of other specified parts of digestive tract; Y83.8 Other surgical procedures as the cause of abnormal reaction of the patient, or of later complication, without mention of misadventure at the time of the procedure
CPT/HCPCS: 97605

== ENCOUNTER → 2018-10-21 | Outpatient (CLI) | payer BC ==
[2018-10-06 19:00] VITALS: BP 143/54
== END | disposition home or self-care (01) ==
LOC: PMGWOUND 08:02
PROVIDERS: ATTEND Preventive Medicine Undersea and Hyperbaric Medicine
DX: T81.31XD Disruption of external operation (surgical) wound, not elsewhere classified, subsequent encounter (principal); K61.1 Rectal abscess; F41.9 Anxiety disorder, unspecified; F32.9 Major depressive disorder, single episode, unspecified; M81.0 Age-related osteoporosis without current pathological fracture; J43.9 Emphysema, unspecified; M10.9 Gout, unspecified; G47.33 Obstructive sleep apnea (adult) (pediatric); M19.90 Unspecified osteoarthritis, unspecified site; F17.210 Nicotine dependence, cigarettes, uncomplicated; I25.10 Atherosclerotic heart disease of native coronary artery without angina pectoris; Z90.710 Acquired absence of both cervix and uterus; Z90.49 Acquired absence of other specified parts of digestive tract; Y83.8 Other surgical procedures as the cause of abnormal reaction of the patient, or of later complication, without mention of misadventure at the time of the procedure
CPT/HCPCS: 97605

== ENCOUNTER → 2018-10-24 | Outpatient (CLI) | payer BC ==
[2018-10-06 19:00] VITALS: BP 143/54
== END | disposition home or self-care (01) ==
LOC: PMGWOUND 08:02
PROVIDERS: ATTEND Emergency Medicine Undersea and Hyperbaric Medicine
DX: T81.31XD Disruption of external operation (surgical) wound, not elsewhere classified, subsequent encounter (principal); F41.9 Anxiety disorder, unspecified; F32.9 Major depressive disorder, single episode, unspecified; M81.0 Age-related osteoporosis without current pathological fracture; M19.90 Unspecified osteoarthritis, unspecified site; J43.9 Emphysema, unspecified; K61.1 Rectal abscess; M10.9 Gout, unspecified; F17.210 Nicotine dependence, cigarettes, uncomplicated; G47.33 Obstructive sleep apnea (adult) (pediatric); I25.10 Atherosclerotic heart disease of native coronary artery without angina pectoris; Z90.710 Acquired absence of both cervix and uterus; Z90.49 Acquired absence of other specified parts of digestive tract; Y83.8 Other surgical procedures as the cause of abnormal reaction of the patient, or of later complication, without mention of misadventure at the time of the procedure
CPT/HCPCS: 97605

== ENCOUNTER → 2018-10-26 | Outpatient (CLI) | payer BC ==
[2018-10-06 19:00] VITALS: BP 143/54
== END | disposition home or self-care (01) ==
LOC: PMGWOUND 08:00
PROVIDERS: ATTEND Emergency Medicine Undersea and Hyperbaric Medicine
DX: T81.31XD Disruption of external operation (surgical) wound, not elsewhere classified, subsequent encounter (principal); K61.1 Rectal abscess; J43.9 Emphysema, unspecified; F41.9 Anxiety disorder, unspecified; M10.9 Gout, unspecified; F32.9 Major depressive disorder, single episode, unspecified; F17.210 Nicotine dependence, cigarettes, uncomplicated; M81.0 Age-related osteoporosis without current pathological fracture; M19.90 Unspecified osteoarthritis, unspecified site; I25.10 Atherosclerotic heart disease of native coronary artery without angina pectoris; Z90.49 Acquired absence of other specified parts of digestive tract; Z90.710 Acquired absence of both cervix and uterus; Y83.8 Other surgical procedures as the cause of abnormal reaction of the patient, or of later complication, without mention of misadventure at the time of the procedure
CPT/HCPCS: 97597; 97605

== ENCOUNTER → 2018-10-28 | Outpatient (CLI) | payer BC ==
[2018-10-06 19:00] VITALS: BP 143/54
== END ==
LOC: PMGWOUND 07:50
PROVIDERS: ATTEND Preventive Medicine Undersea and Hyperbaric Medicine
DX: T81.31XD Disruption of external operation (surgical) wound, not elsewhere classified, subsequent encounter (principal); K61.1 Rectal abscess; M10.9 Gout, unspecified; J43.9 Emphysema, unspecified; F41.9 Anxiety disorder, unspecified; M19.90 Unspecified osteoarthritis, unspecified site; G47.33 Obstructive sleep apnea (adult) (pediatric); F17.210 Nicotine dependence, cigarettes, uncomplicated; F32.9 Major depressive disorder, single episode, unspecified; M81.0 Age-related osteoporosis without current pathological fracture; I25.10 Atherosclerotic heart disease of native coronary artery without angina pectoris; Z90.710 Acquired absence of both cervix and uterus; Z90.49 Acquired absence of other specified parts of digestive tract; Z71.0 Person encountering health services to consult on behalf of another person; Y83.8 Other surgical procedures as the cause of abnormal reaction of the patient, or of later complication, without mention of misadventure at the time of the procedure
CPT/HCPCS: 97605

== ENCOUNTER → 2018-10-31 | Outpatient (CLI) | payer BC ==
[2018-10-06 19:00] VITALS: BP 143/54
[~2018-10-31] MED LIST changes: +SULF1TAB24 PO; +THIA100T43 PO
== END | disposition home or self-care (01) ==
LOC: PMGWOUND 07:59
PROVIDERS: ATTEND Emergency Medicine Undersea and Hyperbaric Medicine
DX: T81.31XD Disruption of external operation (surgical) wound, not elsewhere classified, subsequent encounter (principal); K61.1 Rectal abscess; F41.9 Anxiety disorder, unspecified; F32.9 Major depressive disorder, single episode, unspecified; J43.9 Emphysema, unspecified; M10.9 Gout, unspecified; G47.33 Obstructive sleep apnea (adult) (pediatric); I25.10 Atherosclerotic heart disease of native coronary artery without angina pectoris; M19.90 Unspecified osteoarthritis, unspecified site; M81.0 Age-related osteoporosis without current pathological fracture; F17.210 Nicotine dependence, cigarettes, uncomplicated; Z90.49 Acquired absence of other specified parts of digestive tract; Z90.710 Acquired absence of both cervix and uterus; Y83.8 Other surgical procedures as the cause of abnormal reaction of the patient, or of later complication, without mention of misadventure at the time of the procedure
CPT/HCPCS: 97605

== ENCOUNTER → 2018-11-02 | Outpatient (CLI) | payer BC ==
[2018-10-06 19:00] VITALS: BP 143/54
[~2018-11-02] MED LIST changes: -SULF1TAB24 PO; -THIA100T43 PO
== END | disposition home or self-care (01) ==
LOC: PMGWOUND 07:56
PROVIDERS: ATTEND Preventive Medicine Undersea and Hyperbaric Medicine
DX: T81.31XD Disruption of external operation (surgical) wound, not elsewhere classified, subsequent encounter (principal); K61.1 Rectal abscess; F41.9 Anxiety disorder, unspecified; M10.9 Gout, unspecified; J43.9 Emphysema, unspecified; F32.9 Major depressive disorder, single episode, unspecified; F17.210 Nicotine dependence, cigarettes, uncomplicated; M81.0 Age-related osteoporosis without current pathological fracture; G47.33 Obstructive sleep apnea (adult) (pediatric); I25.10 Atherosclerotic heart disease of native coronary artery without angina pectoris; M19.90 Unspecified osteoarthritis, unspecified site; Z90.710 Acquired absence of both cervix and uterus; Z90.49 Acquired absence of other specified parts of digestive tract; Y83.8 Other surgical procedures as the cause of abnormal reaction of the patient, or of later complication, without mention of misadventure at the time of the procedure
CPT/HCPCS: 97605

== ENCOUNTER → 2018-11-04 | Outpatient (CLI) | payer BC ==
[2018-10-06 19:00] VITALS: BP 143/54
== END | disposition home or self-care (01) ==
LOC: PMGWOUND 07:52
PROVIDERS: ATTEND Preventive Medicine Undersea and Hyperbaric Medicine
DX: T81.31XD Disruption of external operation (surgical) wound, not elsewhere classified, subsequent encounter (principal); K61.1 Rectal abscess; F41.9 Anxiety disorder, unspecified; F32.9 Major depressive disorder, single episode, unspecified; J43.9 Emphysema, unspecified; M10.9 Gout, unspecified; M81.0 Age-related osteoporosis without current pathological fracture; F17.210 Nicotine dependence, cigarettes, uncomplicated; G47.33 Obstructive sleep apnea (adult) (pediatric); M19.90 Unspecified osteoarthritis, unspecified site; I25.10 Atherosclerotic heart disease of native coronary artery without angina pectoris; Z90.49 Acquired absence of other specified parts of digestive tract; Z90.710 Acquired absence of both cervix and uterus; Y83.8 Other surgical procedures as the cause of abnormal reaction of the patient, or of later complication, without mention of misadventure at the time of the procedure
CPT/HCPCS: 97605

== ENCOUNTER → 2018-11-07 | Outpatient (CLI) | payer BC ==
[2018-10-06 19:00] VITALS: BP 143/54
== END | disposition home or self-care (01) ==
LOC: PMGWOUND 07:55
PROVIDERS: ATTEND Emergency Medicine Undersea and Hyperbaric Medicine
DX: T81.31XD Disruption of external operation (surgical) wound, not elsewhere classified, subsequent encounter (principal); K61.1 Rectal abscess; J43.9 Emphysema, unspecified; F41.9 Anxiety disorder, unspecified; F17.210 Nicotine dependence, cigarettes, uncomplicated; M19.90 Unspecified osteoarthritis, unspecified site; F32.9 Major depressive disorder, single episode, unspecified; M81.0 Age-related osteoporosis without current pathological fracture; M10.9 Gout, unspecified; I25.10 Atherosclerotic heart disease of native coronary artery without angina pectoris; Z90.710 Acquired absence of both cervix and uterus; Z90.49 Acquired absence of other specified parts of digestive tract; Y83.8 Other surgical procedures as the cause of abnormal reaction of the patient, or of later complication, without mention of misadventure at the time of the procedure
CPT/HCPCS: 97605

== ENCOUNTER → 2018-11-10 | Outpatient (CLI) | payer BC ==
[2018-10-06 19:00] VITALS: BP 143/54
== END | disposition home or self-care (01) ==
LOC: PMGWOUND 08:04
PROVIDERS: ATTEND Emergency Medicine Undersea and Hyperbaric Medicine
DX: T81.31XD Disruption of external operation (surgical) wound, not elsewhere classified, subsequent encounter (principal); F41.9 Anxiety disorder, unspecified; J43.9 Emphysema, unspecified; M10.9 Gout, unspecified; K61.1 Rectal abscess; F32.9 Major depressive disorder, single episode, unspecified; F17.210 Nicotine dependence, cigarettes, uncomplicated; M81.0 Age-related osteoporosis without current pathological fracture; M19.90 Unspecified osteoarthritis, unspecified site; I25.10 Atherosclerotic heart disease of native coronary artery without angina pectoris; Z90.49 Acquired absence of other specified parts of digestive tract; Z90.710 Acquired absence of both cervix and uterus; Y83.8 Other surgical procedures as the cause of abnormal reaction of the patient, or of later complication, without mention of misadventure at the time of the procedure
CPT/HCPCS: 97605

== ENCOUNTER → 2018-11-23 | Outpatient (CLI) | payer BC ==
[2018-11-18 11:29] VITALS: BP 114/76
== END | disposition home or self-care (01) ==
LOC: PMGWOUND 08:14
PROVIDERS: ATTEND Preventive Medicine Undersea and Hyperbaric Medicine
DX: T81.31XD Disruption of external operation (surgical) wound, not elsewhere classified, subsequent encounter (principal); K61.1 Rectal abscess; F41.9 Anxiety disorder, unspecified; F32.9 Major depressive disorder, single episode, unspecified; J43.9 Emphysema, unspecified; M10.9 Gout, unspecified; G47.33 Obstructive sleep apnea (adult) (pediatric); M19.90 Unspecified osteoarthritis, unspecified site; M81.0 Age-related osteoporosis without current pathological fracture; I25.10 Atherosclerotic heart disease of native coronary artery without angina pectoris; F17.210 Nicotine dependence, cigarettes, uncomplicated; Z88.8 Allergy status to other drugs, medicaments and biological substances; Z90.710 Acquired absence of both cervix and uterus; Z90.49 Acquired absence of other specified parts of digestive tract; Z79.899 Other long term (current) drug therapy; Y83.8 Other surgical procedures as the cause of abnormal reaction of the patient, or of later complication, without mention of misadventure at the time of the procedure
CPT/HCPCS: 99214; G0463

== ENCOUNTER → 2018-11-25 | Outpatient (CLI) | payer BC ==
[2018-11-18 11:29] VITALS: BP 114/76
[~2018-11-25] MED LIST changes: +SULF1TAB24 PO; +THIA100T43 PO
== END | disposition home or self-care (01) ==
LOC: PMGWOUND 07:57
PROVIDERS: ATTEND Preventive Medicine Undersea and Hyperbaric Medicine
DX: T81.31XD Disruption of external operation (surgical) wound, not elsewhere classified, subsequent encounter (principal); K61.1 Rectal abscess; F41.9 Anxiety disorder, unspecified; F32.9 Major depressive disorder, single episode, unspecified; J43.9 Emphysema, unspecified; M10.9 Gout, unspecified; G47.33 Obstructive sleep apnea (adult) (pediatric); M19.90 Unspecified osteoarthritis, unspecified site; M81.0 Age-related osteoporosis without current pathological fracture; I25.10 Atherosclerotic heart disease of native coronary artery without angina pectoris; F17.210 Nicotine dependence, cigarettes, uncomplicated; Z88.8 Allergy status to other drugs, medicaments and biological substances; Z90.710 Acquired absence of both cervix and uterus; Z90.49 Acquired absence of other specified parts of digestive tract; Z79.899 Other long term (current) drug therapy; Y83.8 Other surgical procedures as the cause of abnormal reaction of the patient, or of later complication, without mention of misadventure at the time of the procedure
CPT/HCPCS: 99214; G0463

== ENCOUNTER → 2018-11-28 | Outpatient (CLI) | payer BC ==
[2018-11-18 11:29] VITALS: BP 114/76
== END | disposition home or self-care (01) ==
LOC: PMGWOUND 08:04
PROVIDERS: ATTEND Emergency Medicine Undersea and Hyperbaric Medicine
DX: T81.31XD Disruption of external operation (surgical) wound, not elsewhere classified, subsequent encounter (principal); F41.9 Anxiety disorder, unspecified; K61.1 Rectal abscess; M10.9 Gout, unspecified; J43.9 Emphysema, unspecified; G47.33 Obstructive sleep apnea (adult) (pediatric); M19.90 Unspecified osteoarthritis, unspecified site; F17.210 Nicotine dependence, cigarettes, uncomplicated; F32.9 Major depressive disorder, single episode, unspecified; I25.10 Atherosclerotic heart disease of native coronary artery without angina pectoris; Z90.710 Acquired absence of both cervix and uterus; Z90.49 Acquired absence of other specified parts of digestive tract; Y83.8 Other surgical procedures as the cause of abnormal reaction of the patient, or of later complication, without mention of misadventure at the time of the procedure
CPT/HCPCS: 99214; G0463

== ENCOUNTER → 2018-11-30 | Outpatient (CLI) | payer BC ==
[2018-11-18 11:29] VITALS: BP 114/76
== END | disposition home or self-care (01) ==
LOC: PMGWOUND 08:00
PROVIDERS: ATTEND Preventive Medicine Undersea and Hyperbaric Medicine
DX: T81.31XD Disruption of external operation (surgical) wound, not elsewhere classified, subsequent encounter (principal); F17.210 Nicotine dependence, cigarettes, uncomplicated; K61.1 Rectal abscess; M10.9 Gout, unspecified; J43.9 Emphysema, unspecified; F41.9 Anxiety disorder, unspecified; G47.33 Obstructive sleep apnea (adult) (pediatric); F32.9 Major depressive disorder, single episode, unspecified; M19.90 Unspecified osteoarthritis, unspecified site; M81.0 Age-related osteoporosis without current pathological fracture; I25.10 Atherosclerotic heart disease of native coronary artery without angina pectoris; Z90.710 Acquired absence of both cervix and uterus; Z90.49 Acquired absence of other specified parts of digestive tract; Y83.8 Other surgical procedures as the cause of abnormal reaction of the patient, or of later complication, without mention of misadventure at the time of the procedure
CPT/HCPCS: 99214; G0463

== ENCOUNTER → 2018-12-02 | Outpatient (CLI) | payer BC ==
[2018-11-18 11:29] VITALS: BP 114/76
[~2018-12-02] MED LIST changes: -SULF1TAB24 PO; -THIA100T43 PO
== END | disposition home or self-care (01) ==
LOC: PMGWOUND 08:08
PROVIDERS: ATTEND Preventive Medicine Undersea and Hyperbaric Medicine
DX: T81.31XD Disruption of external operation (surgical) wound, not elsewhere classified, subsequent encounter (principal); K61.1 Rectal abscess; M10.9 Gout, unspecified; J43.9 Emphysema, unspecified; I25.2 Old myocardial infarction; F41.9 Anxiety disorder, unspecified; M19.90 Unspecified osteoarthritis, unspecified site; G47.33 Obstructive sleep apnea (adult) (pediatric); F17.210 Nicotine dependence, cigarettes, uncomplicated; F32.9 Major depressive disorder, single episode, unspecified; M81.0 Age-related osteoporosis without current pathological fracture; I25.10 Atherosclerotic heart disease of native coronary artery without angina pectoris; Z90.49 Acquired absence of other specified parts of digestive tract; Z90.710 Acquired absence of both cervix and uterus; Y83.8 Other surgical procedures as the cause of abnormal reaction of the patient, or of later complication, without mention of misadventure at the time of the procedure
CPT/HCPCS: 99213

== ENCOUNTER → 2018-12-05 | Outpatient (CLI) | payer BC ==
[2018-11-18 11:29] VITALS: BP 114/76
== END | disposition home or self-care (01) ==
LOC: PMGWOUND 08:00
PROVIDERS: ATTEND Emergency Medicine Undersea and Hyperbaric Medicine
DX: T81.31XD Disruption of external operation (surgical) wound, not elsewhere classified, subsequent encounter (principal); K61.1 Rectal abscess; F41.9 Anxiety disorder, unspecified; M10.9 Gout, unspecified; J43.9 Emphysema, unspecified; I25.2 Old myocardial infarction; G47.33 Obstructive sleep apnea (adult) (pediatric); M19.90 Unspecified osteoarthritis, unspecified site; F17.210 Nicotine dependence, cigarettes, uncomplicated; F32.9 Major depressive disorder, single episode, unspecified; M81.0 Age-related osteoporosis without current pathological fracture; Z90.49 Acquired absence of other specified parts of digestive tract; Z90.710 Acquired absence of both cervix and uterus; Y83.8 Other surgical procedures as the cause of abnormal reaction of the patient, or of later complication, without mention of misadventure at the time of the procedure
CPT/HCPCS: 99213

== ENCOUNTER → 2018-12-07 | Outpatient (CLI) | payer BC ==
[2018-11-18 11:29] VITALS: BP 114/76
[~2018-12-07] MED LIST changes: +SULF1TAB24 PO; +THIA100T43 PO
== END | disposition home or self-care (01) ==
LOC: PMGWOUND 08:00
PROVIDERS: ATTEND Preventive Medicine Undersea and Hyperbaric Medicine
DX: T81.31XD Disruption of external operation (surgical) wound, not elsewhere classified, subsequent encounter (principal); K61.1 Rectal abscess; M10.9 Gout, unspecified; J43.9 Emphysema, unspecified; I25.2 Old myocardial infarction; F41.9 Anxiety disorder, unspecified; G47.33 Obstructive sleep apnea (adult) (pediatric); M19.90 Unspecified osteoarthritis, unspecified site; F17.210 Nicotine dependence, cigarettes, uncomplicated; F32.9 Major depressive disorder, single episode, unspecified; I25.10 Atherosclerotic heart disease of native coronary artery without angina pectoris; M81.0 Age-related osteoporosis without current pathological fracture; Z90.49 Acquired absence of other specified parts of digestive tract; Z90.710 Acquired absence of both cervix and uterus; Y83.8 Other surgical procedures as the cause of abnormal reaction of the patient, or of later complication, without mention of misadventure at the time of the procedure
CPT/HCPCS: 99214; G0463

== ENCOUNTER → 2018-12-09 | Outpatient (CLI) | payer BC ==
[2018-11-18 11:29] VITALS: BP 114/76
== END | disposition home or self-care (01) ==
LOC: PMGWOUND 07:58
PROVIDERS: ATTEND Preventive Medicine Undersea and Hyperbaric Medicine
DX: T81.31XD Disruption of external operation (surgical) wound, not elsewhere classified, subsequent encounter (principal); K61.1 Rectal abscess; M10.9 Gout, unspecified; J43.9 Emphysema, unspecified; I25.2 Old myocardial infarction; F41.9 Anxiety disorder, unspecified; G47.33 Obstructive sleep apnea (adult) (pediatric); M19.90 Unspecified osteoarthritis, unspecified site; F17.210 Nicotine dependence, cigarettes, uncomplicated; F32.9 Major depressive disorder, single episode, unspecified; M81.0 Age-related osteoporosis without current pathological fracture; I25.10 Atherosclerotic heart disease of native coronary artery without angina pectoris; Z90.49 Acquired absence of other specified parts of digestive tract; Z90.710 Acquired absence of both cervix and uterus; Y83.8 Other surgical procedures as the cause of abnormal reaction of the patient, or of later complication, without mention of misadventure at the time of the procedure
CPT/HCPCS: 99214; G0463

== ENCOUNTER → 2018-12-12 | Outpatient (CLI) | payer BC ==
[2018-11-18 11:29] VITALS: BP 114/76
== END | disposition home or self-care (01) ==
LOC: PMGWOUND 07:56
PROVIDERS: ATTEND Emergency Medicine Undersea and Hyperbaric Medicine
DX: T81.31XD Disruption of external operation (surgical) wound, not elsewhere classified, subsequent encounter (principal); K61.1 Rectal abscess; M10.9 Gout, unspecified; J43.9 Emphysema, unspecified; I25.2 Old myocardial infarction; F41.9 Anxiety disorder, unspecified; G47.33 Obstructive sleep apnea (adult) (pediatric); M19.90 Unspecified osteoarthritis, unspecified site; F17.210 Nicotine dependence, cigarettes, uncomplicated; F32.9 Major depressive disorder, single episode, unspecified; M81.0 Age-related osteoporosis without current pathological fracture; I25.10 Atherosclerotic heart disease of native coronary artery without angina pectoris; Z90.710 Acquired absence of both cervix and uterus; Z90.49 Acquired absence of other specified parts of digestive tract; Y83.8 Other surgical procedures as the cause of abnormal reaction of the patient, or of later complication, without mention of misadventure at the time of the procedure
CPT/HCPCS: 99213; G0463

== ENCOUNTER → 2018-12-14 | Outpatient (CLI) | payer BC ==
[2018-11-18 11:29] VITALS: BP 114/76
== END | disposition home or self-care (01) ==
LOC: PMGWOUND 07:58
PROVIDERS: ATTEND Preventive Medicine Undersea and Hyperbaric Medicine
DX: T81.31XD Disruption of external operation (surgical) wound, not elsewhere classified, subsequent encounter (principal); K61.1 Rectal abscess; M10.9 Gout, unspecified; J43.9 Emphysema, unspecified; I25.2 Old myocardial infarction; F41.9 Anxiety disorder, unspecified; G47.33 Obstructive sleep apnea (adult) (pediatric); M19.90 Unspecified osteoarthritis, unspecified site; F17.210 Nicotine dependence, cigarettes, uncomplicated; F32.9 Major depressive disorder, single episode, unspecified; M81.0 Age-related osteoporosis without current pathological fracture; I25.10 Atherosclerotic heart disease of native coronary artery without angina pectoris; Z90.710 Acquired absence of both cervix and uterus; Z90.49 Acquired absence of other specified parts of digestive tract; Y83.8 Other surgical procedures as the cause of abnormal reaction of the patient, or of later complication, without mention of misadventure at the time of the procedure
CPT/HCPCS: 99214; G0463

== ENCOUNTER → 2018-12-16 | Outpatient (CLI) | payer BC ==
[2018-11-18 11:29] VITALS: BP 114/76
== END | disposition home or self-care (01) ==
LOC: PMGWOUND 07:55
PROVIDERS: ATTEND Preventive Medicine Undersea and Hyperbaric Medicine
DX: T81.31XD Disruption of external operation (surgical) wound, not elsewhere classified, subsequent encounter (principal); K61.1 Rectal abscess; M10.9 Gout, unspecified; J43.9 Emphysema, unspecified; I25.2 Old myocardial infarction; F41.9 Anxiety disorder, unspecified; G47.33 Obstructive sleep apnea (adult) (pediatric); M19.90 Unspecified osteoarthritis, unspecified site; F17.210 Nicotine dependence, cigarettes, uncomplicated; F32.9 Major depressive disorder, single episode, unspecified; M81.0 Age-related osteoporosis without current pathological fracture; I25.10 Atherosclerotic heart disease of native coronary artery without angina pectoris; Z90.710 Acquired absence of both cervix and uterus; Z90.49 Acquired absence of other specified parts of digestive tract; Y83.8 Other surgical procedures as the cause of abnormal reaction of the patient, or of later complication, without mention of misadventure at the time of the procedure
CPT/HCPCS: 99213; G0463

== ENCOUNTER → 2018-12-19 | Outpatient (CLI) | payer BC ==
[2018-11-18 11:29] VITALS: BP 114/76
== END | disposition home or self-care (01) ==
LOC: PMGWOUND 07:51
PROVIDERS: ATTEND Preventive Medicine Undersea and Hyperbaric Medicine
DX: T81.31XD Disruption of external operation (surgical) wound, not elsewhere classified, subsequent encounter (principal); K61.1 Rectal abscess; M10.9 Gout, unspecified; J43.9 Emphysema, unspecified; I25.2 Old myocardial infarction; F41.9 Anxiety disorder, unspecified; G47.33 Obstructive sleep apnea (adult) (pediatric); F17.210 Nicotine dependence, cigarettes, uncomplicated; F32.9 Major depressive disorder, single episode, unspecified; M81.0 Age-related osteoporosis without current pathological fracture; M19.90 Unspecified osteoarthritis, unspecified site; I25.10 Atherosclerotic heart disease of native coronary artery without angina pectoris; Z90.710 Acquired absence of both cervix and uterus; Z90.49 Acquired absence of other specified parts of digestive tract; Y83.8 Other surgical procedures as the cause of abnormal reaction of the patient, or of later complication, without mention of misadventure at the time of the procedure
CPT/HCPCS: 99213; G0463

== ENCOUNTER → 2018-12-21 | Outpatient (CLI) | payer BC ==
[2018-11-18 11:29] VITALS: BP 114/76
== END | disposition home or self-care (01) ==
LOC: PMGWOUND 07:57
PROVIDERS: ATTEND Preventive Medicine Undersea and Hyperbaric Medicine
DX: T81.31XD Disruption of external operation (surgical) wound, not elsewhere classified, subsequent encounter (principal); K61.1 Rectal abscess; M10.9 Gout, unspecified; I25.2 Old myocardial infarction; J43.9 Emphysema, unspecified; F41.9 Anxiety disorder, unspecified; G47.33 Obstructive sleep apnea (adult) (pediatric); M19.90 Unspecified osteoarthritis, unspecified site; F17.210 Nicotine dependence, cigarettes, uncomplicated; F32.9 Major depressive disorder, single episode, unspecified; M81.0 Age-related osteoporosis without current pathological fracture; I25.10 Atherosclerotic heart disease of native coronary artery without angina pectoris; Z90.710 Acquired absence of both cervix and uterus; Z90.49 Acquired absence of other specified parts of digestive tract; Y83.8 Other surgical procedures as the cause of abnormal reaction of the patient, or of later complication, without mention of misadventure at the time of the procedure
CPT/HCPCS: 99213; G0463

== ENCOUNTER 2019-03-17 13:37 | Emergency (ER) | payer BC ==
[~2019-03-17] VITALS: Ht 160 cm; Wt 47.6 kg
[~2019-03-17 13:37] MED LIST changes: -SULF1TAB24 PO; -THIA100T43 PO
[2019-03-17 14:26] LABS: BASO % 1 % (0-3); EOS # 0.1 x10^3/uL (0.0-0.7); EOS % 2 % (0-3); HEMATOCRIT 36.4 % (36.0-47.0); HEMOGLOBIN 12.6 g/dL (12.0-15.5); LYMPH # 2.6 x10^3/uL (1.0-4.8); LYMPH % 34 % (24-48); MEAN CORPUSCULAR HEMOGLOBIN 31 pg (25-35); MEAN CORPUSCULAR HGB CONC 35 g/dL (31-37); MEAN CORPUSCULAR VOLUME 91 fL (79-100); MONO # 0.9 x10^3/uL (0.0-1.1); MONO % 13 % (0-9); NEUT # 3.8 x10^3uL (1.8-7.7); NEUT % 51 % (31-73); PLATELET COUNT 417 x10^3/uL (140-400); PROTHROMBIN TIME PATIENT 12.2 SEC (11.7-14.0); RED BLOOD COUNT 4.02 x10^6/uL (3.50-5.40); RED CELL DISTRIBUTION WIDTH 13.1 % (11.5-14.5); WHITE BLOOD COUNT 7.5 x10^3/uL (4.0-11.0)
--- NOTE | 2019-03-17 14:28 | RAD ---
CT HEAD INDICATION: Neuro deficit COMPARISON: None Available. Exposure: One or more of the following individualized dose reduction techniques were utilized for this examination: 1. Automated exposure control 2. Adjustment of the mA and/or kV according to patient size 3. Use of iterative reconstruction technique TECHNIQUE: 5 mm contiguous axial images were obtained from the skull base to the vertex in both bone and soft tissue algorithm. FINDINGS: Mild bilateral periventricular white matter hypodensities likely chronic small vessel ischemic disease. No evidence of acute intracranial hemorrhage. No extra-axial fluid collections. No mass effect or midline shift. Ventricular size is appropriate. Basal cisterns are patent. No fractures identified.[place]-white differentiation is preserved.Globes and orbits are within normal limits. Paranasal sinuses and mastoid air cells are clear. IMPRESSION: No acute intracranial findings. Electronically signed by: Vikas Harper MD (03/17/2019 2:25 PM) [place] [id number]
[2019-03-17 14:41] LABS: CALCIUM 9.4 mg/dL (8.5-10.1); CREATININE 0.6 mg/dL (0.6-1.0); POTASSIUM 4.2 mmol/L (3.5-5.1)
[2019-03-17 14:49] LABS: ALBUMIN 4.1 g/dL (3.4-5.0); ALBUMIN/GLOBULIN RATIO 1.1 (1.0-1.7); TOTAL BILIRUBIN 0.2 mg/dL (0.2-1.0); TOTAL PROTEIN 7.7 g/dL (6.4-8.2)
--- NOTE | 2019-03-17 14:54 | EKG ---
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
[2019-03-17 16:00] VITALS: BP 143/62
[2019-03-17] MEDS ORDERED: IV NORMAL SALINE 1000ML BAG 1,000 ML IV ONE (16:00)
[2019-03-17 16:09] LABS: BILIRUBIN,URINE NEGATIVE (NEG); CLARITY,URINE CLOUDY; COLOR,URINE YELLOW; NITRITE,URINE NEGATIVE (NEG); PH,URINE 6.5; PROTEIN,URINE NEGATIVE (NEG-TRACE); UROBILINOGEN,URINE 0.2 mg/dL (0.2 mg/dL)
--- NOTE | 2019-03-17 16:21 | PHYS DOC ---
Past Medical History Past Medical History: Anxiety, Bronchitis Past Surgical History: Cholecystectomy, , Hysterectomy, Tonsillectomy, Other Alcohol Use: Occasionally Drug Use: None Adult General Chief Complaint Chief Complaint: NEURO SYMPTOMS/DEFICITS HPI HPI Patient is a 58 year old female who presents with complaining of hand and leg numbness. Patient complaining of chronic numbness of bilateral hands and left leg that getting worse gradually for the last 1 week and today she was not able to walk without limping because of numbness of left lower extremity. Patient denies weakness, headache, nausea and vomiting, urinary symptoms, diarrhea and constipation. Patient taking gabapentin for chronic neuropathy currently. Review of Systems Review of Systems Constitutional: Denies fever or chills [] Eyes: Denies change in visual acuity, redness, or eye pain [] HENT: Denies nasal congestion or sore throat [] Respiratory: Denies cough or shortness of breath [] Cardiovascular: No additional information not addressed in HPI [] GI: Denies abdominal pain, nausea, vomiting, bloody stools or diarrhea [] : Denies dysuria or hematuria [] Musculoskeletal: Denies back pain or joint pain [] Integument: Denies rash or skin lesions [] Neurologic: Denies headache, focal weakness, reports sensory changes [] Endocrine: Denies polyuria or polydipsia [] All other systems were reviewed and found to be within normal limits, except as documented in this note. Current Medications Current Medications Current Medications Medications (Trade) Dose Ordered Sig/Tania Start Time Stop Time Status Last Admin Dose Admin Sodium Chloride 1,000 ml @ 1,000 mls/hr 1X ONCE 03/17/19 16:00 03/17/19 16:59 03/17/19 16:01 1,000 MLS/HR Allergies Allergies Allergies Coded Allergies Type Severity Reaction Last Updated Verified morphine Allergy Intermediate Rash 11/12/18 Yes Physical Exam Physical Exam Constitutional: Well developed, well nourished, mild distress, non-toxic appearance. [] HENT: Normocephalic, atraumatic. Eyes: PERRLA, EOMI, conjunctiva normal, no discharge. [] Neck: Normal range of motion, no tenderness, supple, no stridor. [] Cardiovascular:Heart rate regular rhythm, no murmur [] Lungs & Thorax: Bilateral breath sounds clear to auscultation [] Abdomen: Bowel sounds normal, soft, no tenderness, no masses, no pulsatile masses. [] Skin: Warm, dry, no erythema, no rash. [] Back: No tenderness, no CVA tenderness. [] Extremities: No tenderness, no cyanosis, no clubbing, ROM intact, no edema. [] Neurologic: Alert and oriented X 3, normal motor function, normal sensory function, no focal deficits noted, NIHSS of 0. [] Psychologic: Affect normal, judgement normal, mood normal. [] Current Patient Data Vital Signs Vital Signs Date Time Temp Pulse Resp B/P (MAP) Pulse Ox O2 Delivery O2 Flow Rate FiO2 03/17/19 15:00 76 20 91 03/17/19 13:41 98.4 124/65 (84) Room Air 98.4 Lab Values Laboratory Tests Test 03/17/19 14:00 White Blood Count 7.5 x10^3/uL (4.0-11.0) Red Blood Count 4.02 x10^6/uL (3.50-5.40) Hemoglobin 12.6 g/dL (12.0-15.5) Hematocrit 36.4 % (36.0-47.0) Mean Corpuscular Volume 91 fL (79-100) Mean Corpuscular Hemoglobin 31 pg (25-35) Mean Corpuscular Hemoglobin Concent 35 g/dL (31-37) Red Cell Distribution Width 13.1 % (11.5-14.5) Platelet Count 417 x10^3/uL (140-400) H Neutrophils (%) (Auto) 51 % (31-73) Lymphocytes (%) (Auto) 34 % (24-48) Monocytes (%) (Auto) 13 % (0-9) H Eosinophils (%) (Auto) 2 % (0-3) Basophils (%) (Auto) 1 % (0-3) Neutrophils # (Auto) 3.8 x10^3uL (1.8-7.7) Lymphocytes # (Auto) 2.6 x10^3/uL (1.0-4.8) Monocytes # (Auto) 0.9 x10^3/uL (0.0-1.1) Eosinophils # (Auto) 0.1 x10^3/uL (0.0-0.7) Basophils # (Auto) 0.0 x10^3/uL (0.0-0.2) Prothrombin Time 12.2 SEC (11.7-14.0) Prothrombin Time INR 0.9 (0.8-1.1) PTT 30 SEC (24-38) Sodium Level 129 mmol/L (136-145) L Potassium Level 4.2 mmol/L (3.5-5.1) Chloride Level 93 mmol/L (98-107) L Carbon Dioxide Level 26 mmol/L (21-32) Anion Gap 10 (6-14) Blood Urea Nitrogen 7 mg/dL (7-20) Creatinine 0.6 mg/dL (0.6-1.0) Estimated GFR (Cockcroft-Gault) 102.0 BUN/Creatinine Ratio 12 (6-20) Glucose Level 91 mg/dL (70-99) Lactic Acid Level 0.8 mmol/L (0.4-2.0) Calcium Level 9.4 mg/dL (8.5-10.1) Magnesium Level 2.0 mg/dL (1.8-2.4) Total Bilirubin 0.2 mg/dL (0.2-1.0) Aspartate Amino Transferase (AST) 22 U/L (15-37) Alanine Aminotransferase (ALT) 26 U/L (14-59) Alkaline Phosphatase 84 U/L (46-116) Creatine Kinase 184 U/L (26-192) Troponin I Quantitative < 0.017 ng/mL (0.000-0.055) TR-Icp-G-Type Natriuretic Peptide 127 pg/mL (0-124) H Total Protein 7.7 g/dL (6.4-8.2) Albumin 4.1 g/dL (3.4-5.0) Albumin/Globulin Ratio 1.1 (1.0-1.7) Laboratory Tests 03/17/19 14:00 Laboratory Tests 03/17/19 14:00 EKG EKG EKG interpreted by me. EKG at 1349 showed normal sinus rhythm at rate of 81, normal AL and QT intervals, poor R-wave progress in anteroseptal leads, no acute ST and T-wave abnormalities. Radiology/Procedures Radiology/Procedures [facility] [address] [place] [address] IMAGING REPORT Signed PATIENT: SHANIKA KHALIL ACCOUNT: [id number] : 1960 LOCATION: ER AGE: 58 SEX: F EXAM STATUS: REG ER ORD. PHYSICIAN: REGINA CONWAY MD REASON: neurodeficit PROCEDURE: CT HEAD WO CONTRAST CT HEAD INDICATION: Neuro deficit COMPARISON: None Available. Exposure: One or more of the following individualized dose reduction techniques were utilized for this examination: 1. Automated exposure control 2. Adjustment of the mA and/or kV according to patient size 3. Use of iterative reconstruction technique TECHNIQUE: 5 mm contiguous axial images were obtained from the skull base to the vertex in both bone and soft tissue algorithm. FINDINGS: Mild bilateral periventricular white matter hypodensities likely chronic small vessel ischemic disease. No evidence of acute intracranial hemorrhage. No extra-axial fluid collections. No mass effect or midline shift. Ventricular size is appropriate. Basal cisterns are patent. No fractures identified.Carrasquillo-white differentiation is preserved.Globes and orbits are within normal limits. Paranasal sinuses and mastoid air cells are clear. IMPRESSION: No acute intracranial findings. Electronically signed by: Vikas Harper MD (03/17/2019 2:25 PM) [facility] DICTATED and SIGNED BY: VIKAS HARPER MD DATE: 03/17/19 1425 Course & Med Decision Making Course & Med Decision Making Pertinent Labs and Imaging studies reviewed. (See chart for details) [] Dragon Disclaimer Dragon Disclaimer This electronic medical record was generated, in whole or in part, using a voice recognition dictation system. Departure Departure Impression: Primary Impression: Hyponatremia Additional Impressions: Urinary tract infection Paresthesia Tobacco abuse Tobacco abuse counseling Disposition: HOME, SELF-CARE (at 1648) Condition: IMPROVED Referrals: FEMI OSPINA MD (PCP) Patient Instructions: Hyponatremia, Paresthesia, Urinary Tract Infection Additional Instructions: Do not drink plain water or ice tea, drink plenty of Gatorade Follow-up with your primary care physician in 3-5 days Return to ER if not getting better Scripts Thiamine HCl (B-1) 100 Mg Tablet 100 MG PO DAILY, #30 TAB Prov: REGINA CONWAY MD 03/17/19 Sulfamethoxazole/Trimethoprim (BACTRIM DS TABLET) 1 Each Tablet 1 TAB PO BID for infection, #14 TAB Prov: REGINA CONWAY MD 03/17/19 Problem Qualifiers Additional Impressions: Urinary tract infection Urinary tract infection type: site unspecified Hematuria presence: without hematuria Qualified Codes: N39.0 - Urinary tract infection, site not specified REGINA CONWAY MD March 17, 2019 16:21
[2019-03-17 16:26] LABS: AMPHETAMINE/METHAMPHETAMINE NEG (NEG); BARBITURATES NEG (NEG); BENZODIAZEPINES POS (NEG); CANNABINOIDS NEG (NEG); COCAINE NEG (NEG); METHADONE NEG (NEG); OPIATES NEG (NEG); PHENCYCLIDINE NEG (NEG)
[2019-03-17 16:32] LABS: BACTERIA,URINE MODERATE /HPF (0-FEW); SQUAMOUS EPITHELIAL CELL,UR FEW /LPF; WBC,URINE >40 /HPF (0-4)
[2019-03-17 16:33] LABS: TRICHOMONAS,URINE PRESENT
[2019-03-17] MEDS ORDERED: cefTRIAXone IV Push 1 GM VIAL. IVP ONE (16:45)
[2019-03-17] MEDS ORDERED: THIA100T43 PO (16:51)
[2019-03-17] MEDS ORDERED: SULF1TAB24 PO (16:51)
== END 2019-03-17 17:08 | disposition home or self-care (01) ==
LOC: ER 13:37
DX: N39.0 Urinary tract infection, site not specified (principal); R20.2 Paresthesia of skin; E87.1 Hypo-osmolality and hyponatremia; Z71.6 Tobacco abuse counseling; G62.89 Other specified polyneuropathies; F41.9 Anxiety disorder, unspecified; Z90.49 Acquired absence of other specified parts of digestive tract; Z98.890 Other specified postprocedural states; Z90.710 Acquired absence of both cervix and uterus; Z90.89 Acquired absence of other organs; Z88.5 Allergy status to narcotic agent
CPT/HCPCS: 36415; 70450; 80053; 80307; 81001; 82550; 83605; 83735; 83880; 84484; 85025; 85610; 85730; 87086; 93005; 96374; 99285; J0696; J7030; 87186

== ENCOUNTER 2019-03-20 12:06 | Inpatient (IN) | payer BC ==
[~2019-03-20] VITALS: Ht 160 cm; Wt 47.8 kg
[~2019-03-20 12:06] MED LIST changes: +SULF1TAB24 PO; +THIA100T43 PO
--- NOTE | 2019-03-20 14:28 | HP ---
ADMIT DATE: 03/20/2019 CHIEF COMPLAINT: Inability to walk. HISTORY OF PRESENT ILLNESS: A 58-year-old white female who over the last 2 or 3 weeks has had increasing inability to operate her arms and legs normally with increasing numbness in both arms, sensation of weakness in her arms and legs, increasing difficulty with weakness to walk. She was seen in the ER 3 days prior to admission, low sodium was noted at 129, but no treatment made or diagnosis given and admission was not offered. In the office, she showed evidence of diffuse weakness, hyperreflexia and questions about the diagnosis and she was admitted for further evaluation and treatment. She has had some ongoing neck pain, but does not recall an injury to her neck or any recent headaches, speech difficulty, visual difficulty, bladder or bowel symptoms. She has never had evaluation of her neck for ____ before. PAST HISTORY: MEDICATIONS: Listed per the chart. No new medications. SOCIAL HISTORY: Smoker for many years; , not employed, not physically active because of her COPD, nondrinker. FAMILY HISTORY: Unremarkable. REVIEW OF SYSTEMS: No other notable problems. OBJECTIVE: ENT: All within normal limits. NECK: Decreased range of motion, nontender, no masses, or bruits were noted. LUNGS: Clear. CARDIOVASCULAR: Regular rate. No irregular beat or murmur. ABDOMEN: Scaphoid, soft, benign and nontender. NEUROLOGIC: She has evidence of hyperreflexia both in her arms and her legs at all reflexes areas tested. She had positive Isaias's sign; 2-3 beat clonus in both lower legs, generalized weakness and reduced sensation primarily in the legs more than the arms. Cerebellar function, cranial nerves and mental status all appear to be intact. Gait was impaired symmetrically. GENITOURINARY: Deferred. RECTAL: Deferred. Sphincter tone was not assessed. ASSESSMENT: Generalized weakness with evidence of upper motor neuron source, some degree of quadriplegia. Possibilities would include cervical lesion such as degenerative joint disease of her disk or perhaps even something like multiple sclerosis. Brain lesion seems less likely given the symmetrical findings. She also has ongoing chronic obstructive pulmonary disease, protein calorie malnutrition and mild hyponatremia, but suspect the sodium levels not involved in her current symptoms. PLAN: MRI of the brain and cervical cord both, neurologic consultation and further evaluation for diagnosis and treatment. FEMI OSPINA MD DR: Tiki JOB#: [id number] / [id number]
[2019-03-20 14:41] VITALS: BP 129/73
[2019-03-20] MEDS ORDERED: IBUPROFEN 400 MG TABLET. PO PRN (14:45)
[2019-03-20] MEDS ORDERED: oxyCODONE/APAP 5/325 1 TAB TABLET PO PRN (14:45)
[2019-03-20] MEDS ORDERED: ALBUTEROL SULFATE 2.5 MG/3 ML NEBU. INH PRN (14:45)
[2019-03-20] MEDS ORDERED: THIAMINE HCL 100 MG PO SCH (15:30)
[2019-03-20] MEDS ORDERED: THIAMINE 100 MG TABLET. PO SCH (15:30)
[2019-03-20] MEDS ORDERED: GABAPENTIN 100 MG CAPSULE. PO SCH (15:30)
[2019-03-20 15:39] LABS: HEMATOCRIT 35.5 % (36.0-47.0); HEMOGLOBIN 12.4 g/dL (12.0-15.5); RED BLOOD COUNT 3.93 x10^6/uL (3.50-5.40); RED CELL DISTRIBUTION WIDTH 13.1 % (11.5-14.5); WHITE BLOOD COUNT 8.5 x10^3/uL (4.0-11.0)
[2019-03-20 15:55] LABS: ALBUMIN 3.8 g/dL (3.4-5.0); ALBUMIN/GLOBULIN RATIO 1.1 (1.0-1.7); CALCIUM 9.1 mg/dL (8.5-10.1); CREATININE 0.8 mg/dL (0.6-1.0); GFR 73.2; POTASSIUM 4.4 mmol/L (3.5-5.1); TOTAL BILIRUBIN 0.3 mg/dL (0.2-1.0); TOTAL PROTEIN 7.2 g/dL (6.4-8.2)
[2019-03-20] MEDS ORDERED: traMADol 50 MG TABLET PO PRN (16:00)
[2019-03-20] MEDS: IPRATRPIUM/ALBUTEROL 0.5/2.5MG 3 ML NEBU. NEB SCH ×2 (16:08→20:29)
[2019-03-20] MEDS: NICOTINE 21MG PATCH. TD SCH (16:16)
[2019-03-20] MEDS ORDERED: SERTRALINE 50 MG TABLET. PO SCH (16:30)
--- NOTE | 2019-03-20 17:08 | PDOC2 ---
NEUROLOGY CONSULT Date of Admission Date of Admission DATE: 03/20/19 TIME: 16:58 Reason for Consult Reason for Consult: Weakness and hyperreflexia Referring Physician Referring Physician: Dr. Bender Source Source: Chart review, Patient History of Present Illness History of Present Illness The patient is a 58-year-old right-handed female who first started noticing some left leg numbness as long as 2 months ago. Over the past several weeks she has had increasing trouble with coordination of her arms and legs with numbness spreading in the both arms. She denies any neck pain. She was in the emergency department 3 days prior to admission where she was found to have hyponatremia, and she was sent home. The patient denies any head or spine injuries or any history of stroke, seizure, or head injury. In the past she has had no trouble with numbness, weakness, diplopia, dysphagia, dysarthria, cognitive change, or incontinence. Past Medical History Pulmonary: COPD Psych: Anxiety Musculoskeletal: Osteoarthritis Past Surgical History Past Surgical History: Appendectomy, Cholecystectomy, (2), Hysterect santiago, Other (resection of duodenal ulcer, buttocks wound infection) Family History Family History: Cancer Social History Social History , works at the [employer], quit smoking, occasional beer Current Medications Current Medications Current Medications Nicotine (Nicoderm Cq 21mg) 1 patch DAILY TD Last administered on 03/20/19at 16:16; Start 03/20/19 at 14:00 Albuterol Sulfate (Ventolin Neb Soln) 2.5 mg PRN Q6HRS PRN INH SHORTNESS OF BREATH; Start 03/20/19 at 14:45 Alprazolam (Xanax) 0.5 mg PRN TID PRN PO ANXIETY / AGITATION; Start 03/20/19 at 14:45 Gabapentin (Neurontin) 100 mg TID PO ; Start 03/20/19 at 15:30; Stop 03/20/19 at 15:53; Status DC Oxycodone/ Acetaminophen (Percocet 5/325) 1 tab PRN Q4HRS PRN PO PAIN; Start 03/20/19 at 14:45; Status Cancel Trimethoprim/ Sulfamethoxazole (Bactrim Ds) 1 tab BID PO ; Start 03/20/19 at 21:00 Ibuprofen (Motrin) 800 mg PRN Q6HRS PRN PO INFLAMMATION; Start 03/20/19 at 14:45; Status Cancel Non-Formulary Medication (Thiamine HCl (B-1)) 100 mg DAILY PO ; Start 03/20/19 at 15:30; Stop 03/20/19 at 15:30; Status DC Non-Formulary Medication (Umeclidinium Belford (Incruse Ellipta)) 1 puff DAILY INH ; Start 03/21/19 at 09:00; Status UNV Thiamine Mononitrate (Vitamin B-1) 100 mg DAILY PO ; Start 03/20/19 at 15:30 Albuterol/ Ipratropium (Duoneb) 3 ml RTQID NEB Last administered on 03/20/19at 16:08; Start 03/20/19 at 16:00 Gabapentin (Neurontin) 400 mg [id number] PO ; Start 03/20/19 at 17:00 Sertraline HCl (Zoloft) 50 mg DAILY PO ; Start 03/20/19 at 16:30 Tramadol HCl (Ultram) 50 mg PRN Q8HRS PRN PO PAIN; Start 03/20/19 at 16:00 Active Scripts Active B-1 (Thiamine HCl) 100 Mg Tablet 100 Mg PO DAILY Bactrim Ds Tablet (Sulfamethoxazole/Trimethoprim) 1 Each Tablet 1 Tab PO BID Ibuprofen 800 Mg Tablet 800 Mg PO PRN Q6HRS PRN Reported Incruse Ellipta (Umeclidinium Belford) 62.5 Mcg Blst.w.dev 1 Puff INH DAILY Oxycodone-Acetaminophen 5-325 (Oxycodone Hcl/Acetaminophen) 1 Each Tablet 1 Tab PO PRN Q4HRS PRN Proair Hfa Inhaler (Albuterol Sulfate) 8.5 Gm Hfa.aer.ad 1 Puff INH PRN Q6HRS PRN Gabapentin (Gabapentin) 100 Mg Capsule 100 Mg PO TID Alprazolam 0.5 Mg Tablet 0.5 Mg PO TID PRN Allergies Allergies: Coded Allergies: morphine (Verified Allergy, Intermediate, Rash, 11/12/18) Has tolerated oxycodone, hydrocodone, and hydromorphone ROS Review of System Negative for fever, chills, weight loss, chest pain, indigestion, hematochezia, melena, and dysuria. Positive for dyspnea. Full 14-point review of systems is negative. Physical Exam Physical Examination General: Well-developed, well-nourished white female in no acute distress HEENT: Normocephalic andatraumatic. Temporal arteriespulsatile and nontender. Neck: Supple without bruit, no meningismus Musculoskeletal: Stability:see neurologic. Gait exam:see neurologic. Tone:see neurologic.Strength:see neurologic. Neurological: Mental Status:intact, orientation, memory, attention span/concentration, language, fund of knowledge normal. Cranial Nerves:Pupils equal and reactive to light, extraocular movements areintact, visual olsen are full to confrontation. Facial sensation is normal. There is no facial asymmetry. Vestibulo-ocular reflex is intact. Palate elevates and tongue protrudes in midline. All other cranial related problems are negative except as mentioned before.Reflexes:2+, 3+ at knees, and symmetric with flexor plantar responses. Motor:5/5 strength with increased tone in legs, normal bulk. Coordination:Finger-nose finger and [id number]-[id number] testing are normal. Rapid alternating movements and fine finger movements are intact. Gait: spastic. Sensory:Stocking-glove loss Vitals VITALS Vital Signs Date Time Temp Pulse Resp B/P (MAP) Pulse Ox O2 Delivery O2 Flow Rate FiO2 03/20/19 16:48 Room Air 03/20/19 16:10 92 03/20/19 14:41 97.9 85 18 129/73 (91) 97.9 Labs Labs Laboratory Tests Test 03/20/19 15:30 White Blood Count 8.5 x10^3/uL (4.0-11.0) Red Blood Count 3.93 x10^6/uL (3.50-5.40) Hemoglobin 12.4 g/dL (12.0-15.5) Hematocrit 35.5 % (36.0-47.0) Mean Corpuscular Volume 90 fL (79-100) Mean Corpuscular Hemoglobin 31 pg (25-35) Mean Corpuscular Hemoglobin Concent 35 g/dL (31-37) Red Cell Distribution Width 13.1 % (11.5-14.5) Platelet Count 400 x10^3/uL (140-400) Sodium Level 131 mmol/L (136-145) Potassium Level 4.4 mmol/L (3.5-5.1) Chloride Level 96 mmol/L (98-107) Carbon Dioxide Level 26 mmol/L (21-32) Anion Gap 9 (6-14) Blood Urea Nitrogen 7 mg/dL (7-20) Creatinine 0.8 mg/dL (0.6-1.0) Estimated GFR (Cockcroft-Gault) 73.2 BUN/Creatinine Ratio 9 (6-20) Glucose Level 101 mg/dL (70-99) Calcium Level 9.1 mg/dL (8.5-10.1) Total Bilirubin 0.3 mg/dL (0.2-1.0) Aspartate Amino Transf (AST/SGOT) 25 U/L (15-37) Alanine Aminotransferase (ALT/SGPT) 27 U/L (14-59) Alkaline Phosphatase 81 U/L (46-116) Total Protein 7.2 g/dL (6.4-8.2) Albumin 3.8 g/dL (3.4-5.0) Albumin/Globulin Ratio 1.1 (1.0-1.7) Vitamin B12 Level 626 pg/mL (247-911) Thyroid Stimulating Hormone (TSH) 1.385 uIU/mL (0.358-3.74) Laboratory Tests Test 03/20/19 15:30 White Blood Count 8.5 x10^3/uL (4.0-11.0) Red Blood Count 3.93 x10^6/uL (3.50-5.40) Hemoglobin 12.4 g/dL (12.0-15.5) Hematocrit 35.5 % (36.0-47.0) Mean Corpuscular Volume 90 fL (79-100) Mean Corpuscular Hemoglobin 31 pg (25-35) Mean Corpuscular Hemoglobin Concent 35 g/dL (31-37) Red Cell Distribution Width 13.1 % (11.5-14.5) Platelet Count 400 x10^3/uL (140-400) Sodium Level 131 mmol/L (136-145) Potassium Level 4.4 mmol/L (3.5-5.1) Chloride Level 96 mmol/L (98-107) Carbon Dioxide Level 26 mmol/L (21-32) Anion Gap 9 (6-14) Blood Urea Nitrogen 7 mg/dL (7-20) Creatinine 0.8 mg/dL (0.6-1.0) Estimated GFR (Cockcroft-Gault) 73.2 BUN/Creatinine Ratio 9 (6-20) Glucose Level 101 mg/dL (70-99) Calcium Level 9.1 mg/dL (8.5-10.1) Total Bilirubin 0.3 mg/dL (0.2-1.0) Aspartate Amino Transf (AST/SGOT) 25 U/L (15-37) Alanine Aminotransferase (ALT/SGPT) 27 U/L (14-59) Alkaline Phosphatase 81 U/L (46-116) Total Protein 7.2 g/dL (6.4-8.2) Albumin 3.8 g/dL (3.4-5.0) Albumin/Globulin Ratio 1.1 (1.0-1.7) Vitamin B12 Level 626 pg/mL (247-911) Thyroid Stimulating Hormone (TSH) 1.385 uIU/mL (0.358-3.74) Images Images MRI of the brain is negative to my view, radiology interpretation pending, upper cervical spine looks normal too Assessment/Plan Assessment/Plan Impression: Signs and symptoms of cervical myelopathy. Also keep in consideration neuropathy with hyperreflexia related to anxiety, or even totally nonorganic cause. Recommendations: She will need sedation to complete the cervical MRI. Symptoms have been going on for up to several months, I think that it is safe to wait until tomorrow to accomplish this. I will check plain xray of cervical spine tonight I'm also holding off on empiric steroids Neurochecks Rehabilitation modalities. Thank you for letting me help with the patient's care. NEFTALY STOKES MD Mar 20, 2019 17:08
[2019-03-20] MEDS ORDERED: diazePAM 5 MG TABLET PO ONE (17:15)
[2019-03-20] MEDS: GABAPENTIN 400 MG CAPSULE. PO SCH ×2 (17:44→19:49)
--- NOTE | 2019-03-20 18:45 | RAD ---
EXAM: Chest, single view. HISTORY: Weakness. COMPARISON: 07/04/2018 FINDINGS: A frontal view of the chest is obtained. There is hyperinflation likely due to emphysema. There are few calcified granulomas. The heart is normal in size. There are healed rib fractures. There is no infiltrate, pleural effusion or pneumothorax. IMPRESSION: No acute pulmonary finding. Electronically signed by: Marleny Holcomb MD (03/20/2019 6:42 PM) [facility]
--- NOTE | 2019-03-20 18:47 | RAD ---
EXAM: Cervical spine, 3 views. HISTORY: Cervical myelopathy. COMPARISON: None. FINDINGS: 3 views of the cervical spine are obtained. There is moderate to severe anterolisthesis of C4 on C5, measuring 6 mm. There is disruption of the posterior laminar line and facet joints at this level. This appears to be chronic. There is bone demineralization. There is mild anterolisthesis of C5 on C6, measuring 3 mm. There is degenerative endplate remodeling with disc space narrowing and facet arthropathy predominantly at C4-C5, and to lesser extent, C6-C7. IMPRESSION: 1. Moderate to severe anterolisthesis of C4 on C5 with associated disruption of the posterior laminar line and facet joints. This is chronic in appearance. If there has been a history of recent trauma, CT or MRI is recommended to exclude concomitant fracture or ligamentous injury at assess spinal cord integrity. 2. Multilevel degenerative change of the cervical spine, primarily at C4-C5 and C6-C7. Electronically signed by: Marleny Holcomb MD (03/20/2019 6:45 PM) [facility]
[2019-03-20 19:00] VITALS: BP 115/59
[2019-03-20] MEDS: ALPRAZolam 0.5 MG TABLET PO PRN (19:49)
[2019-03-20] MEDS: SERTRALINE 50 MG TABLET. PO SCH (19:49)
[2019-03-20] MEDS ORDERED: SMZ/TMP 800/160MG TABLET. PO SCH (21:00)
[2019-03-20] MEDS: DEXAMETHASONE SOD PHOS 4 MG/ML VIAL IV SCH (21:58)
[2019-03-20 23:00] VITALS: BP 105/65
[2019-03-21] MEDS: DEXAMETHASONE SOD PHOS 4 MG/ML VIAL IV SCH ×4 (00:06→18:00)
[2019-03-21 03:00] VITALS: BP 105/36
[2019-03-21] MEDS: NICOTINE 21MG PATCH. TD SCH (06:25)
[2019-03-21] MEDS: ALPRAZolam 0.5 MG TABLET PO PRN ×2 (06:25→19:54)
[2019-03-21 07:00] VITALS: BP 124/70
[2019-03-21] MEDS: IPRATRPIUM/ALBUTEROL 0.5/2.5MG 3 ML NEBU. NEB SCH ×4 (07:01→19:24)
[2019-03-21] MEDS: GABAPENTIN 400 MG CAPSULE. PO SCH ×4 (08:35→19:54)
[2019-03-21] MEDS ORDERED: NON FORMULARY ITEM (Umeclidinium Bromide (Incruse Ellipta) 1 PUFF) INH SCH (09:00)
--- NOTE | 2019-03-21 09:03 | PDOC ---
Provider Note Provider Note pain and weakness less re decadron, UMN reflexes same but less clonus - discussed cerv source of sxs, NS consult and mri pending- cont same meds for now- NEEDS TO BE IN HOSPITAL as risk of op management/fall would be catastrophic re quadriplegia outcome FEMI OSPINA MD Mar 21, 2019 09:03
--- NOTE | 2019-03-21 09:42 | PDOC ---
PROGRESS NOTES Assessment Cervical spondylosis with myelopathy. Plan Cervical MRI with sedation. I have started dexamethasone. Await brain MRI radiologist's report Neurosurgery consulted [facility] modalities. Discussed with Dr. Bender Subjective feels better, but thinks she's always better in the morning Objective Vital Signs Date Time Temp Pulse Resp B/P (MAP) Pulse Ox O2 Delivery O2 Flow Rate FiO2 03/21/19 07:01 95 Room Air 03/21/19 07:00 98.1 109 18 124/70 (88) 98.1 Intake and Output 03/21/19 06:59 Intake Total 400 ml Balance 400 ml Intake Oral 400 ml # Voids 1 PHYSICAL EXAM Alert. Oriented to time, place and person. PERRL. EOMI. CN: no focal findings. Muscle tone: less spastic in legs Muscle strength: 5/5 DTR: 2+, 3+ at knees Plantar reflex: flexor Gait: not examined in bed. Sensory exam: stocking glove loss. No cerebellar signs elicited. Review of Relevant I have reviewed the following items amrit (where applicable) has been applied. Labs Laboratory Tests Test 03/20/19 15:30 White Blood Count 8.5 x10^3/uL (4.0-11.0) Red Blood Count 3.93 x10^6/uL (3.50-5.40) Hemoglobin 12.4 g/dL (12.0-15.5) Hematocrit 35.5 % (36.0-47.0) Mean Corpuscular Volume 90 fL (79-100) Mean Corpuscular Hemoglobin 31 pg (25-35) Mean Corpuscular Hemoglobin Concent 35 g/dL (31-37) Red Cell Distribution Width 13.1 % (11.5-14.5) Platelet Count 400 x10^3/uL (140-400) Sodium Level 131 mmol/L (136-145) Potassium Level 4.4 mmol/L (3.5-5.1) Chloride Level 96 mmol/L (98-107) Carbon Dioxide Level 26 mmol/L (21-32) Anion Gap 9 (6-14) Blood Urea Nitrogen 7 mg/dL (7-20) Creatinine 0.8 mg/dL (0.6-1.0) Estimated GFR (Cockcroft-Gault) 73.2 BUN/Creatinine Ratio 9 (6-20) Glucose Level 101 mg/dL (70-99) Calcium Level 9.1 mg/dL (8.5-10.1) Total Bilirubin 0.3 mg/dL (0.2-1.0) Aspartate Amino Transf (AST/SGOT) 25 U/L (15-37) Alanine Aminotransferase (ALT/SGPT) 27 U/L (14-59) Alkaline Phosphatase 81 U/L (46-116) Total Protein 7.2 g/dL (6.4-8.2) Albumin 3.8 g/dL (3.4-5.0) Albumin/Globulin Ratio 1.1 (1.0-1.7) Vitamin B12 Level 626 pg/mL (247-911) Thyroid Stimulating Hormone (TSH) 1.385 uIU/mL (0.358-3.74) Laboratory Tests Test 03/20/19 15:30 White Blood Count 8.5 x10^3/uL (4.0-11.0) Red Blood Count 3.93 x10^6/uL (3.50-5.40) Hemoglobin 12.4 g/dL (12.0-15.5) Hematocrit 35.5 % (36.0-47.0) Mean Corpuscular Volume 90 fL (79-100) Mean Corpuscular Hemoglobin 31 pg (25-35) Mean Corpuscular Hemoglobin Concent 35 g/dL (31-37) Red Cell Distribution Width 13.1 % (11.5-14.5) Platelet Count 400 x10^3/uL (140-400) Sodium Level 131 mmol/L (136-145) Potassium Level 4.4 mmol/L (3.5-5.1) Chloride Level 96 mmol/L (98-107) Carbon Dioxide Level 26 mmol/L (21-32) Anion Gap 9 (6-14) Blood Urea Nitrogen 7 mg/dL (7-20) Creatinine 0.8 mg/dL (0.6-1.0) Estimated GFR (Cockcroft-Gault) 73.2 BUN/Creatinine Ratio 9 (6-20) Glucose Level 101 mg/dL (70-99) Calcium Level 9.1 mg/dL (8.5-10.1) Total Bilirubin 0.3 mg/dL (0.2-1.0) Aspartate Amino Transf (AST/SGOT) 25 U/L (15-37) Alanine Aminotransferase (ALT/SGPT) 27 U/L (14-59) Alkaline Phosphatase 81 U/L (46-116) Total Protein 7.2 g/dL (6.4-8.2) Albumin 3.8 g/dL (3.4-5.0) Albumin/Globulin Ratio 1.1 (1.0-1.7) Vitamin B12 Level 626 pg/mL (247-911) Thyroid Stimulating Hormone (TSH) 1.385 uIU/mL (0.358-3.74) Medications Current Medications Nicotine (Nicoderm Cq 21mg) 1 patch DAILY TD Last administered on 03/21/19at 06:25; Start 03/20/19 at 14:00 Albuterol Sulfate (Ventolin Neb Soln) 2.5 mg PRN Q6HRS PRN INH SHORTNESS OF BREATH; Start 03/20/19 at 14:45 Alprazolam (Xanax) 0.5 mg PRN TID PRN PO ANXIETY / AGITATION Last administered on 03/21/19at 06:25; Start 03/20/19 at 14:45; Stop 03/21/19 at 09:01; Status DC Gabapentin (Neurontin) 100 mg TID PO ; Start 03/20/19 at 15:30; Stop 03/20/19 at 15:53; Status DC Oxycodone/ Acetaminophen (Percocet 5/325) 1 tab PRN Q4HRS PRN PO PAIN; Start 03/20/19 at 14:45; Status Cancel Trimethoprim/ Sulfamethoxazole (Bactrim Ds) 1 tab BID PO Last administered on 03/20/19at 19:49; Start 03/20/19 at 21:00; Stop 03/21/19 at 08:26; Status DC Ibuprofen (Motrin) 800 mg PRN Q6HRS PRN PO INFLAMMATION; Start 03/20/19 at 14:45; Status Cancel Non-Formulary Medication (Thiamine HCl (B-1)) 100 mg DAILY PO ; Start 03/20/19 at 15:30; Stop 03/20/19 at 15:30; Status DC Non-Formulary Medication (Umeclidinium [place] (Incruse Ellipta)) 1 puff DAILY INH ; Start 03/21/19 at 09:00; Status UNV Thiamine Mononitrate (Vitamin B-1) 100 mg DAILY PO Last administered on 03/20/19at 17:44; Start 03/20/19 at 15:30; Stop 03/21/19 at 08:26; Status DC Albuterol/ Ipratropium (Duoneb) 3 ml RTQID NEB Last administered on 03/21/19at 07:01; Start 03/20/19 at 16:00 Gabapentin (Neurontin) 400 mg [id number] PO Last administered on 03/21/19at 08:35; Start 03/20/19 at 17:00 Sertraline HCl (Zoloft) 50 mg DAILY PO ; Start 03/20/19 at 16:30; Stop 03/20/19 at 17:56; Status DC Tramadol HCl (Ultram) 50 mg PRN Q8HRS PRN PO PAIN Last administered on 03/20/19at 22:01; Start 03/20/19 at 16:00; Stop 03/21/19 at 09:01; Status DC Diazepam (Valium) 10 mg 1X ONCE PO ; Start 03/20/19 at 17:15; Stop 03/20/19 at 17:16; Status Cancel Sertraline HCl (Zoloft) 50 mg QHS PO Last administered on 03/20/19at 19:49; Start 03/20/19 at 21:00 Diazepam (Valium) 10 mg PRN 1X PRN 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, 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; Start 03/20/19 at 18:00 Dexamethasone Sodium Phosphate (Decadron) 4 mg Q6HRS IV Last administered on 03/21/19at 05:51; Start 03/20/19 at 21:30 Alprazolam (Xanax) 0.5 mg PRN Q4HRS PRN PO ANXIETY / AGITATION; Start 03/21/19 at 09:00 Tramadol HCl (Ultram) 100 mg PRN Q8HRS PRN PO PAIN; Start 03/21/19 at 09:00 Active Scripts Active B-1 (Thiamine HCl) 100 Mg Tablet 100 Mg PO DAILY Bactrim Ds Tablet (Sulfamethoxazole/Trimethoprim) 1 Each Tablet 1 Tab PO BID Ibuprofen 800 Mg Tablet 800 Mg PO PRN Q6HRS PRN Reported Incruse Ellipta (Umeclidinium [place]) 62.5 Mcg Blst.w.dev 1 Puff INH DAILY Oxycodone-Acetaminophen 5-325 (Oxycodone Hcl/Acetaminophen) 1 Each Tablet 1 Tab PO PRN Q4HRS PRN Proair Hfa Inhaler (Albuterol Sulfate) 8.5 Gm Hfa.aer.ad 1 Puff INH PRN Q6HRS PRN Gabapentin (Gabapentin) 100 Mg Capsule 100 Mg PO TID Alprazolam 0.5 Mg Tablet 0.5 Mg PO TID PRN Vitals/I & O Vital Sign - Last 24 Hours 03/20/19 03/20/19 03/20/19 03/20/19 14:41 16:10 16:48 19:00 Temp 97.9 97.9 Pulse 85 Resp 18 B/P (MAP) 129/73 (91) Pulse Ox 94 92 O2 Delivery Room Air Room Air Room Air Room Air 03/20/19 03/20/19 03/20/19 03/20/19 19:00 20:30 22:01 22:46 Temp 98.5 98.5 Pulse 82 Resp 18 16 16 B/P (MAP) 115/59 (77) Pulse Ox 91 97 97 97 O2 Delivery Room Air Room Air Room Air Room Air 03/20/19 03/21/19 03/21/19 03/21/19 23:00 03:00 07:00 07:01 Temp 98.2 98.4 98.1 98.2 98.4 98.1 Pulse 82 94 109 Resp 18 18 18 B/P (MAP) 105/65 (78) 105/36 (59) 124/70 (88) Pulse Ox 91 91 90 95 O2 Delivery Room Air Room Air Room Air Room Air Intake and Output 03/20/19 03/20/19 03/21/19 14:59 22:59 06:59 Intake Total 300 ml 100 ml Balance 300 ml 100 ml Images C spine plain xrays: 1. Moderate to severe anterolisthesis of C4 on C5 with associated disruption of the posterior laminar line and facet joints. This is chronic in appearance. If there has been a history of recent trauma, CT or MRI is recommended to exclude concomitant fracture or ligamentous injury at assess spinal cord integrity. 2. Multilevel degenerative change of the cervical spine, primarily at C4-C5 and C6-C7. NEFTALY STOKES MD Mar 21, 2019 09:42
[2019-03-21 11:00] VITALS: BP 141/70
[2019-03-21] MEDS: diazePAM 5 MG TABLET PO PRN ×2 (11:15→12:05)
[2019-03-21] MEDS: traMADol 50 MG TABLET PO PRN ×2 (11:17→17:24)
[2019-03-21] MEDS ORDERED: GADOTERATE 5 MMOL/10ML VIAL. IVP ONE (12:15)
[2019-03-21 15:00] VITALS: BP 125/65
--- NOTE | 2019-03-21 16:54 | PDOC ---
Provider Note Provider Note patient seen and examined cervical myelopathy there is severe stenosis at C4-5 She is on steroids discussed surgical options will follow MICHELLE POE MD Mar 21, 2019 16:54
[2019-03-21 19:00] VITALS: BP 112/70
[2019-03-21] MEDS: SERTRALINE 50 MG TABLET. PO SCH (19:55)
[2019-03-21 23:00] VITALS: BP 93/51
[2019-03-22 03:00] VITALS: BP 124/70
[2019-03-22] MEDS: ALPRAZolam 0.5 MG TABLET PO PRN ×4 (03:40→20:05)
[2019-03-22] MEDS: NICOTINE 21MG PATCH. TD SCH (03:40)
[2019-03-22] MEDS: traMADol 50 MG TABLET PO PRN ×2 (05:57→14:05)
[2019-03-22] MEDS: DEXAMETHASONE SOD PHOS 4 MG/ML VIAL IV SCH ×4 (05:57→17:51)
[2019-03-22 07:00] VITALS: BP 128/82
[2019-03-22] MEDS: IPRATRPIUM/ALBUTEROL 0.5/2.5MG 3 ML NEBU. NEB SCH ×4 (07:49→19:23)
--- NOTE | 2019-03-22 08:23 | PDOC ---
Provider Note Provider Note vss, no temp- urine cult R to septra, add cipro 3 days- surg consult in progress, sxs better re decadron, no more clonus and hyperreflexia less- fall or injury would be catastrophic, NEEEDS TO BE IN HOSPITAL. FEMI OSPINA MD Mar 22, 2019 08:23
[2019-03-22] MEDS: FAMOTIDINE 20 MG TABLET. PO SCH ×2 (08:44→20:05)
[2019-03-22] MEDS: GABAPENTIN 400 MG CAPSULE. PO SCH ×4 (08:44→20:05)
[2019-03-22] MEDS: CIPROFLOXACIN HCL 250 MG TABLET. PO SCH ×2 (08:44→20:05)
[2019-03-22] MEDS ORDERED: LOPERAMIDE 2 MG CAPSULE PO ONE (09:00)
--- NOTE | 2019-03-22 09:04 | RAD ---
MRI of the Brain without and with Contrast 03/20/2019 Clinical History: Weakness and hyperreflexia. Technique: Unenhanced T1-weighted and FLAIR sagittal and axial and T2-weighted, gradient echo and diffusion-weighted axial images of the brain were obtained. After the intravenous administration of 10 cc of Dotarem, enhanced T1-weighted axial and coronal images of the brain were obtained. Findings: Comparison is made to the patient's CT scan of the head dated 03/17/2019. Some of the images are degraded by patient motion. There is generalized parenchymal atrophy. Patchy and small scattered areas of abnormally increased signal intensity are seen within the periventricular and subcortical white matter of both cerebral hemispheres on the FLAIR and T2-weighted images consistent with areas of mild small vessel ischemic disease. No acute parenchymal abnormality is seen. No abnormal area of contrast enhancement is noted. No extra-axial fluid collection is seen. There is no MRI evidence of acute ischemia/infarction. Mild mucosal thickening in seen scattered throughout the paranasal sinuses. Normal flow voids are seen within the major vascular structures surrounding the brain parenchyma. Impression: No acute parenchymal abnormality is seen. Electronically signed by: González Lott MD (03/22/2019 9:01 AM) [id number]
--- NOTE | 2019-03-22 09:34 | RAD ---
MRI of the cervical spine without and with contrast 03/21/2019 CLINICAL HISTORY: Weakness and hyperreflexia. TECHNIQUE: Unenhanced T1-weighted, T2-weighted and inversion recovery sagittal and gradient echo, T1-weighted and T2-weighted axial images of the cervical spine were obtained. After the intravenous administration of 10 cc of Dotarem, enhanced T1-weighted sagittal and axial images of the cervical spine were obtained. FINDINGS: Comparison is made to radiographs of the cervical spine dated 03/20/2019. There is straightening of the normal cervical lordosis. Moderate anterolisthesis of C4 in relation to C5 is seen. Degenerative signal changes are seen involving all of the disks of the cervical spine. Loss of height of the C4-5, C5-6 and C6-7 discs is noted. Degenerative signal changes are seen within the marrow surrounding these discs. Increased signal intensity is seen involving the cervical spinal cord which extends from the C3-4 through C5-6 levels consistent with cord edema/myelomalacia. This measures 2.5 cm in greatest diameter. No additional area of abnormal signal intensity is seen involving the cervical spinal cord. No area of abnormal contrast enhancement is noted. At the C2-3 disc space there is a mild generalized disc bulge. Degenerative changes are seen involving the uncovertebral and facet joints bilaterally. These findings do not result in significant central spinal canal or neural foraminal stenosis. At the C3-4 disc space there is a mild to moderate generalized disc bulge. Superimposed on this disc bulge is a focal central disc protrusion. This measures 3 mm in AP diameter. Degenerative changes are seen involving the uncovertebral and facet joints bilaterally. These findings efface the anterior and posterior CSF resulting in mild central spinal canal stenosis with mild cord impingement. No neural foraminal stenosis is seen. At the C4-5 disc space there is a moderate generalized disc bulge. Degenerative changes are seen involving the uncovertebral and facet joints bilaterally. There appears to be ossification of the ligamentum flavum. These findings when combined with the moderate anterolisthesis at this level result in severe central spinal canal stenosis with severe cord impingement. Moderate to severe left greater than right neural foraminal stenosis is seen. At the C5-6 disc space there is a mild generalized disc bulge. Superimposed on the disc bulge is a right paracentral focal disc protrusion. This measures 3 mm in AP diameter. Degenerative changes are seen involving the uncovertebral and facet joints, left greater than right. These findings result in mild right greater than left central spinal canal stenosis without significant cord impingement. Mild to moderate left greater than right neural foraminal stenosis is seen. At the C6-7 disc space there is a mild generalized disc bulge. Degenerative changes are seen involving the uncovertebral and facet joints. These findings efface the anterior CSF without resulting in significant central spinal canal stenosis. Mild right neural foraminal stenosis is seen. The left neural foramen is patent. At the C7-T1 disc space there is a minimal generalized disc bulge. Degenerative changes are seen involving the facet joints bilaterally. These findings do not result in significant central spinal canal or neural foraminal stenosis. IMPRESSION: Degenerative changes are seen throughout the cervical spine. These findings result in mild central spinal canal stenosis with mild cord impingement at C3-4, severe central spinal canal stenosis with severe cord impingement at C4-5 and mild right greater than left central spinal canal stenosis without significant cord impingement at C5-6. Multilevel neural foraminal stenosis of varying severity is seen as discussed above. Increased signal intensity consistent with cord edema/myelomalacia is seen involving the cervical spinal cord extending from C3-C4 through C5-6 levels. No area of abnormal contrast enhancement is seen. Electronically signed by: González Lott MD (03/22/2019 9:31 AM) [id number]
[2019-03-22 11:00] VITALS: BP 127/64
--- NOTE | 2019-03-22 11:40 | PDOC ---
PROGRESS NOTES Assessment Cervical spondylosis with myelopathy: mild cord impingement at C3-4, severe central spinal canal stenosis with severe cord impingement at C4-5, cord edema/myelomalacia from C3-C4 through C5-6, mild right greater than left central spinal canal stenosis without significant cord impingement at C5-6, multilevel neural foramin al stenoses. Plan Dexamethasone. Neurosurgery consult appreciated Neurochecks Rehabilitation modalities. Subjective Feel stronger, motivated to have the surgery as soon as possible Objective Vital Signs Date Time Temp Pulse Resp B/P (MAP) Pulse Ox O2 Delivery O2 Flow Rate FiO2 03/22/19 11:35 Room Air 03/22/19 11:00 98.1 61 16 127/64 (85) 97 98.1 Intake and Output 03/22/19 06:59 Intake Total 960 ml Balance 960 ml Intake Oral 960 ml # Voids 9 PHYSICAL EXAM Alert. Oriented to time, place and person. PERRL. EOMI. CN: no focal findings. Muscle tone: less spastic in legs Muscle strength: 5/5 DTR: 2+, 3+ at knees Plantar reflex: flexor Gait: not examined in bed. Sensory exam: stocking glove loss. No cerebellar signs elicited. Review of Relevant I have reviewed the following items amrit (where applicable) has been applied. Labs Laboratory Tests Test 03/20/19 15:30 White Blood Count 8.5 x10^3/uL (4.0-11.0) Red Blood Count 3.93 x10^6/uL (3.50-5.40) Hemoglobin 12.4 g/dL (12.0-15.5) Hematocrit 35.5 % (36.0-47.0) Mean Corpuscular Volume 90 fL (79-100) Mean Corpuscular Hemoglobin 31 pg (25-35) Mean Corpuscular Hemoglobin Concent 35 g/dL (31-37) Red Cell Distribution Width 13.1 % (11.5-14.5) Platelet Count 400 x10^3/uL (140-400) Sodium Level 131 mmol/L (136-145) Potassium Level 4.4 mmol/L (3.5-5.1) Chloride Level 96 mmol/L (98-107) Carbon Dioxide Level 26 mmol/L (21-32) Anion Gap 9 (6-14) Blood Urea Nitrogen 7 mg/dL (7-20) Creatinine 0.8 mg/dL (0.6-1.0) Estimated GFR (Cockcroft-Gault) 73.2 BUN/Creatinine Ratio 9 (6-20) Glucose Level 101 mg/dL (70-99) Calcium Level 9.1 mg/dL (8.5-10.1) Total Bilirubin 0.3 mg/dL (0.2-1.0) Aspartate Amino Transf (AST/SGOT) 25 U/L (15-37) Alanine Aminotransferase (ALT/SGPT) 27 U/L (14-59) Alkaline Phosphatase 81 U/L (46-116) Total Protein 7.2 g/dL (6.4-8.2) Albumin 3.8 g/dL (3.4-5.0) Albumin/Globulin Ratio 1.1 (1.0-1.7) Vitamin B12 Level 626 pg/mL (247-911) Thyroid Stimulating Hormone (TSH) 1.385 uIU/mL (0.358-3.74) Medications Current Medications Nicotine (Nicoderm Cq 21mg) 1 patch DAILY TD Last administered on 03/22/19at 03:40; Start 03/20/19 at 14:00 Albuterol Sulfate (Ventolin Neb Soln) 2.5 mg PRN Q6HRS PRN INH SHORTNESS OF BREATH; Start 03/20/19 at 14:45 Alprazolam (Xanax) 0.5 mg PRN TID PRN PO ANXIETY / AGITATION Last administered on 03/21/19at 06:25; Start 03/20/19 at 14:45; Stop 03/21/19 at 09:01; Status DC Gabapentin (Neurontin) 100 mg TID PO ; Start 03/20/19 at 15:30; Stop 03/20/19 at 15:53; Status DC Oxycodone/ Acetaminophen (Percocet 5/325) 1 tab PRN Q4HRS PRN PO PAIN; Start 03/20/19 at 14:45; Status Cancel Trimethoprim/ Sulfamethoxazole (Bactrim Ds) 1 tab BID PO Last administered on 03/20/19at 19:49; Start 03/20/19 at 21:00; Stop 03/21/19 at 08:26; Status DC Ibuprofen (Motrin) 800 mg PRN Q6HRS PRN PO INFLAMMATION; Start 03/20/19 at 14:45; Status Cancel Non-Formulary Medication (Thiamine HCl (B-1)) 100 mg DAILY PO ; Start 03/20/19 at 15:30; Stop 03/20/19 at 15:30; Status DC Non-Formulary Medication (Umeclidinium [place] (Incruse Ellipta)) 1 puff DAILY INH ; Start 03/21/19 at 09:00; Status UNV Thiamine Mononitrate (Vitamin B-1) 100 mg DAILY PO Last administered on 03/20/19at 17:44; Start 03/20/19 at 15:30; Stop 03/21/19 at 08:26; Status DC Albuterol/ Ipratropium (Duoneb) 3 ml RTQID NEB Last administered on 03/22/19at 11:34; Start 03/20/19 at 16:00 Gabapentin (Neurontin) 400 mg [id number] PO Last administered on 03/22/19 08:44; Start 03/20/19 at 17:00 Sertraline HCl (Zoloft) 50 mg DAILY PO ; Start 03/20/19 at 16:30; Stop 03/20/19 at 17:56; Status DC Tramadol HCl (Ultram) 50 mg PRN Q8HRS PRN PO PAIN Last administered on 03/20/19at 22:01; Start 03/20/19 at 16:00; Stop 03/21/19 at 09:01; Status DC Diazepam (Valium) 10 mg 1X ONCE PO ; Start 03/20/19 at 17:15; Stop 03/20/19 at 17:16; Status Cancel Sertraline HCl (Zoloft) 50 mg QHS PO Last administered on 03/21/19at 19:55; Start 03/20/19 at 21:00 Diazepam (Valium) 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 PRN 1X 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, 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 Last administered on 03/21/19at 12:05; Start 03/20/19 at 18:00 Dexamethasone Sodium Phosphate (Decadron) 4 mg Q6HRS IV Last administered on 03/22/19at 05:57; Start 03/20/19 at 21:30 Alprazolam (Xanax) 0.5 mg PRN Q4HRS PRN PO ANXIETY / AGITATION Last administered on 03/22/19 09:19; Start 03/21/19 at 09:00 Tramadol HCl (Ultram) 100 mg PRN Q8HRS PRN PO PAIN Last administered on 03/22/19at 05:57; Start 03/21/19 at 09:00 Gadoterate Meglumine (Dotarem) 10 ml 1X ONCE IVP Last administered on 03/21/19at 12:45; Start 03/21/19 at 12:15; Stop 03/21/19 at 12:18; Status DC Ciprofloxacin (Cipro) 250 mg BID PO Last administered on 03/22/19at 08:44; Start 03/22/19 at 09:00 Famotidine (Pepcid) 20 mg BID PO Last administered on 03/22/19at 08:44; Start 03/22/19 at 09:00 Loperamide HCl (Imodium) 2 mg 1X ONCE PO Last administered on 03/22/19at 09:19; Start 03/22/19 at 09:00; Stop 03/22/19 at 09:01; Status DC Active Scripts Active B-1 (Thiamine HCl) 100 Mg Tablet 100 Mg PO DAILY Bactrim Ds Tablet (Sulfamethoxazole/Trimethoprim) 1 Each Tablet 1 Tab PO BID Ibuprofen 800 Mg Tablet 800 Mg PO PRN Q6HRS PRN Reported Incruse Ellipta (Umeclidinium [place]) 62.5 Mcg Blst.w.dev 1 Puff INH DAILY Oxycodone-Acetaminophen 5-325 (Oxycodone Hcl/Acetaminophen) 1 Each Tablet 1 Tab PO PRN Q4HRS PRN Proair Hfa Inhaler (Albuterol Sulfate) 8.5 Gm Hfa.aer.ad 1 Puff INH PRN Q6HRS PRN Gabapentin (Gabapentin) 100 Mg Capsule 100 Mg PO TID Alprazolam 0.5 Mg Tablet 0.5 Mg PO TID PRN Vitals/I & O Vital Sign - Last 24 Hours 03/21/19 03/21/19 03/21/19 03/21/19 11:41 15:00 15:13 17:24 Temp 98.1 98.1 Pulse 88 Resp 14 18 B/P (MAP) 125/65 (85) Pulse Ox 91 95 95 95 O2 Delivery Room Air Room Air Room Air Room Air 03/21/19 03/21/19 03/21/19 03/21/19 18:24 19:00 19:25 19:45 Temp 98.0 98.0 Pulse 99 Resp 16 20 B/P (MAP) 112/70 (84) Pulse Ox 95 96 94 O2 Delivery Room Air Room Air Room Air 03/21/19 03/22/19 03/22/19 03/22/19 23:00 03:00 05:57 07:00 Temp 97.5 97.7 97.5 97.7 Pulse 77 78 Resp 20 20 B/P (MAP) 93/51 (65) 124/70 (88) Pulse Ox 98 96 O2 Delivery Room Air Room Air Room Air Room Air 03/22/19 03/22/19 03/22/19 03/22/19 07:00 07:49 07:50 11:00 Temp 98.9 98.1 98.9 98.1 Pulse 91 61 Resp 18 16 B/P (MAP) 128/82 (97) 127/64 (85) Pulse Ox 100 94 97 O2 Delivery Room Air Room Air Room Air Room Air 03/22/19 11:35 O2 Delivery Room Air Intake and Output 03/21/19 03/21/19 03/22/19 14:59 22:59 06:59 Intake Total 120 ml 440 ml 400 ml Balance 120 ml 440 ml 400 ml Images MRI of the Brain without and with Contrast 03/20/2019 Clinical History: Weakness and hyperreflexia. Technique: Unenhanced T1-weighted and FLAIR sagittal and axial and T2-weighted, gradient echo and diffusion-weighted axial images of the brain were obtained. After the intravenous administration of 10 cc of Dotarem, enhanced T1-weighted axial and coronal images of the brain were obtained. Findings: Comparison is made to the patient's CT scan of the head dated 03/17/2019. Some of the images are degraded by patient motion. There is generalized parenchymal atrophy. Patchy and small scattered areas of abnormally increased signal intensity are seen within the periventricular and subcortical white matter of both cerebral hemispheres on the FLAIR and T2-weighted images consistent with areas of mild small vessel ischemic disease. No acute parenchymal abnormality is seen. No abnormal area of contrast enhancement is noted. No extra-axial fluid collection is seen. There is no MRI evidence of acute ischemia/infarction. Mild mucosal thickening in seen scattered throughout the paranasal sinuses. Normal flow voids are seen within the major vascular structures surrounding the brain parenchyma. Impression: No acute parenchymal abnormality is seen. MRI of the cervical spine without and with contrast 03/21/2019 CLINICAL HISTORY: Weakness and hyperreflexia. TECHNIQUE: Unenhanced T1-weighted, T2-weighted and inversion recovery sagittal and gradient echo, T1-weighted and T2-weighted axial images of the cervical spine were obtained. After the intravenous administration of 10 cc of Dotarem, enhanced T1-weighted sagittal and axial images of the cervical spine were obtained. FINDINGS: Comparison is made to radiographs of the cervical spine dated 03/20/2019. There is straightening of the normal cervical lordosis. Moderate anterolisthesis of C4 in relation to C5 is seen. Degenerative signal changes are seen involving all of the disks of the cervical spine. Loss of height of the C4-5, C5-6 and C6-7 discs is noted. Degenerative signal changes are seen within the marrow surrounding these discs. Increased signal intensity is seen involving the cervical spinal cord which extends from the C3-4 through C5-6 levels consistent with cord edema/myelomalacia. This measures 2.5 cm in greatest diameter. No additional area of abnormal signal intensity is seen involving the cervical spinal cord. No area of abnormal contrast enhancement is noted. At the C2-3 disc space there is a mild generalized disc bulge. Degenerative changes are seen involving the uncovertebral and facet joints bilaterally. These findings do not result in significant central spinal canal or neural foraminal stenosis. At the C3-4 disc space there is a mild to moderate generalized disc bulge. Superimposed on this disc bulge is a focal central disc protrusion. This measures 3 mm in AP diameter. Degenerative changes are seen involving the uncovertebral and facet joints bilaterally. These findings efface the anterior and posterior CSF resulting in mild central spinal canal stenosis with mild cord impingement. No neural foraminal stenosis is seen. At the C4-5 disc space there is a moderate generalized disc bulge. Degenerative changes are seen involving the uncovertebral and facet joints bilaterally. There appears to be ossification of the ligamentum flavum. These findings when combined with the moderate anterolisthesis at this level result in severe central spinal canal stenosis with severe cord impingement. Moderate to severe left greater than right neural foraminal stenosis is seen. At the C5-6 disc space there is a mild generalized disc bulge. Superimposed on the disc bulge is a right paracentral focal disc protrusion. This measures 3 mm in AP diameter. Degenerative changes are seen involving the uncovertebral and facet joints, left greater than right. These findings result in mild right greater than left central spinal canal stenosis without significant cord impingement. Mild to moderate left greater than right neural foraminal stenosis is seen. At the C6-7 disc space there is a mild generalized disc bulge. Degenerative changes are seen involving the uncovertebral and facet joints. These findings efface the anterior CSF without resulting in significant central spinal canal stenosis. Mild right neural foraminal stenosis is seen. The left neural foramen is patent. At the C7-T1 disc space there is a minimal generalized disc bulge. Degenerative changes are seen involving the facet joints bilaterally. These findings do not result in significant central spinal canal or neural foraminal stenosis. IMPRESSION: Degenerative changes are seen throughout the cervical spine. These findings result in mild central spinal canal stenosis with mild cord impingement at C3-4, severe central spinal canal stenosis with severe cord impingement at C4-5 and mild right greater than left central spinal canal stenosis without significant cord impingement at C5-6. Multilevel neural foraminal stenosis of varying severity is seen as discussed above. Increased signal intensity consistent with cord edema/myelomalacia is seen involving the cervical spinal cord extending from C3-C4 through C5-6 levels. No area of abnormal contrast enhancement is seen. NEFTALY STOKES MD Mar 22, 2019 11:40
--- NOTE | 2019-03-22 13:20 | PDOC ---
RYAN SHAW WASTE PICKER 03/22/19 1320: PROGRESS NOTES Subjective Subjective no new complaints continued numbness in upper and lower extremities Objective Objective Vital Signs Date Time Temp Pulse Resp B/P (MAP) Pulse Ox O2 Delivery O2 Flow Rate FiO2 03/22/19 11:35 Room Air 03/22/19 11:00 98.1 61 16 127/64 (85) 97 98.1 Intake and Output 03/22/19 07:00 Intake Total 960 ml Balance 960 ml Intake Oral 960 ml # Voids 9 Physical Exam General: Alert, Oriented X3, Cooperative, No acute distress Neuro: Other (no change in exam ) Plan Plan of Care severe cervical stenosis C4-5 with myelopathy continue steroids plan for OR Saturday 03/24 Comment Review of Relevant I have reviewed the following items amrit (where applicable) has been applied. Labs Laboratory Tests Test 03/20/19 15:30 White Blood Count 8.5 x10^3/uL (4.0-11.0) Red Blood Count 3.93 x10^6/uL (3.50-5.40) Hemoglobin 12.4 g/dL (12.0-15.5) Hematocrit 35.5 % (36.0-47.0) Mean Corpuscular Volume 90 fL (79-100) Mean Corpuscular Hemoglobin 31 pg (25-35) Mean Corpuscular Hemoglobin Concent 35 g/dL (31-37) Red Cell Distribution Width 13.1 % (11.5-14.5) Platelet Count 400 x10^3/uL (140-400) Sodium Level 131 mmol/L (136-145) Potassium Level 4.4 mmol/L (3.5-5.1) Chloride Level 96 mmol/L (98-107) Carbon Dioxide Level 26 mmol/L (21-32) Anion Gap 9 (6-14) Blood Urea Nitrogen 7 mg/dL (7-20) Creatinine 0.8 mg/dL (0.6-1.0) Estimated GFR (Cockcroft-Gault) 73.2 BUN/Creatinine Ratio 9 (6-20) Glucose Level 101 mg/dL (70-99) Calcium Level 9.1 mg/dL (8.5-10.1) Total Bilirubin 0.3 mg/dL (0.2-1.0) Aspartate Amino Transf (AST/SGOT) 25 U/L (15-37) Alanine Aminotransferase (ALT/SGPT) 27 U/L (14-59) Alkaline Phosphatase 81 U/L (46-116) Total Protein 7.2 g/dL (6.4-8.2) Albumin 3.8 g/dL (3.4-5.0) Albumin/Globulin Ratio 1.1 (1.0-1.7) Vitamin B12 Level 626 pg/mL (247-911) Thyroid Stimulating Hormone (TSH) 1.385 uIU/mL (0.358-3.74) Medications Current Medications Nicotine (Nicoderm Cq 21mg) 1 patch DAILY TD Last administered on 03/22/19at 03:40; Start 03/20/19 at 14:00 Albuterol Sulfate (Ventolin Neb Soln) 2.5 mg PRN Q6HRS PRN INH SHORTNESS OF BREATH; Start 03/20/19 at 14:45 Alprazolam (Xanax) 0.5 mg PRN TID PRN PO ANXIETY / AGITATION Last administered on 03/21/19at 06:25; Start 03/20/19 at 14:45; Stop 03/21/19 at 09:01; Status DC Gabapentin (Neurontin) 100 mg TID PO ; Start 03/20/19 at 15:30; Stop 03/20/19 at 15:53; Status DC Oxycodone/ Acetaminophen (Percocet 5/325) 1 tab PRN Q4HRS PRN PO PAIN; Start 03/20/19 at 14:45; Status Cancel Trimethoprim/ Sulfamethoxazole (Bactrim Ds) 1 tab BID PO Last administered on 03/20/19at 19:49; Start 03/20/19 at 21:00; Stop 03/21/19 at 08:26; Status DC Ibuprofen (Motrin) 800 mg PRN Q6HRS PRN PO INFLAMMATION; Start 03/20/19 at 14:45; Status Cancel Non-Formulary Medication (Thiamine HCl (B-1)) 100 mg DAILY PO ; Start 03/20/19 at 15:30; Stop 03/20/19 at 15:30; Status DC Non-Formulary Medication (Umeclidinium [place] (Incruse Ellipta)) 1 puff DAILY INH ; Start 03/21/19 at 09:00; Status UNV Thiamine Mononitrate (Vitamin B-1) 100 mg DAILY PO Last administered on 03/20/19 17:44; Start 03/20/19 at 15:30; Stop 03/21/19 at 08:26; Status DC Albuterol/ Ipratropium (Duoneb) 3 ml RTQID NEB Last administered on 03/22/19 11:34; Start 03/20/19 at 16:00 Gabapentin (Neurontin) 400 mg [id number] PO Last administered on 03/22/19 08:44; Start 03/20/19 at 17:00 Sertraline HCl (Zoloft) 50 mg DAILY PO ; Start 03/20/19 at 16:30; Stop 03/20/19 at 17:56; Status DC Tramadol HCl (Ultram) 50 mg PRN Q8HRS PRN PO PAIN Last administered on 03/20/19 22:01; Start 03/20/19 at 16:00; Stop 03/21/19 at 09:01; Status DC Diazepam (Valium) 10 mg 1X ONCE PO ; Start 03/20/19 at 17:15; Stop 03/20/19 at 17:16; Status Cancel Sertraline HCl (Zoloft) 50 mg QHS PO Last administered on 03/21/19 19:55; Start 03/20/19 at 21:00 Diazepam (Valium) 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, 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 Last administered on 03/21/19 12:05; Start 03/20/19 at 18:00; Stop 03/22/19 at 12:55; Status DC Dexamethasone Sodium Phosphate (Decadron) 4 mg Q6HRS IV Last administered on 12:13; Start 03/20/19 at 21:30 Alprazolam (Xanax) 0.5 mg PRN Q4HRS PRN PO ANXIETY / AGITATION Last administered on 03/22/19 09:19; Start 03/21/19 at 09:00 Tramadol HCl (Ultram) 100 mg PRN Q8HRS PRN PO PAIN Last administered on 03/22/19 05:57; Start 03/21/19 at 09:00 Gadoterate Meglumine (Dotarem) 10 ml 1X ONCE IVP Last administered on 03/21/19at 12:45; Start 03/21/19 at 12:15; Stop 03/21/19 at 12:18; Status DC Ciprofloxacin (Cipro) 250 mg BID PO Last administered on 03/22/19at 08:44; Start 03/22/19 at 09:00; Stop 03/24/19 at 21:01 Famotidine (Pepcid) 20 mg BID PO Last administered on 03/22/19at 08:44; Start 03/22/19 at 09:00 Loperamide HCl (Imodium) 2 mg 1X ONCE PO Last administered on 03/22/19at 09:19; Start 03/22/19 at 09:00; Stop 03/22/19 at 09:01; Status DC Lactobacillus Rhamnosus (Culturelle) 1 cap BID PO ; Start 03/22/19 at 21:00 Active Scripts Active B-1 (Thiamine HCl) 100 Mg Tablet 100 Mg PO DAILY Bactrim Ds Tablet (Sulfamethoxazole/Trimethoprim) 1 Each Tablet 1 Tab PO BID Ibuprofen 800 Mg Tablet 800 Mg PO PRN Q6HRS PRN Reported Incruse Ellipta (Umeclidinium [place]) 62.5 Mcg Blst.w.dev 1 Puff INH DAILY Oxycodone-Acetaminophen 5-325 (Oxycodone Hcl/Acetaminophen) 1 Each Tablet 1 Tab PO PRN Q4HRS PRN Proair Hfa Inhaler (Albuterol Sulfate) 8.5 Gm Hfa.aer.ad 1 Puff INH PRN Q6HRS PRN Gabapentin (Gabapentin) 100 Mg Capsule 100 Mg PO TID Alprazolam 0.5 Mg Tablet 0.5 Mg PO TID PRN Vitals/I & O Vital Sign - Last 24 Hours 03/21/19 03/21/19 03/21/19 03/21/19 15:00 15:13 17:24 18:24 Temp 98.1 98.1 Pulse 88 Resp 14 18 16 B/P (MAP) 125/65 (85) Pulse Ox 95 95 95 95 O2 Delivery Room Air Room Air Room Air 03/21/19 03/21/19 03/21/19 03/21/19 19:00 19:25 19:45 23:00 Temp 98.0 97.5 98.0 97.5 Pulse 99 77 Resp 20 20 B/P (MAP) 112/70 (84) 93/51 (65) Pulse Ox 96 94 98 O2 Delivery Room Air Room Air Room Air Room Air 03/22/19 03/22/19 03/22/19 03/22/19 03:00 05:57 07:00 07:00 Temp 97.7 98.9 97.7 98.9 Pulse 78 91 Resp 20 18 B/P (MAP) 124/70 (88) 128/82 (97) Pulse Ox 96 100 O2 Delivery Room Air Room Air Room Air Room Air 03/22/19 03/22/19 03/22/19 03/22/19 07:49 07:50 11:00 11:35 Temp 98.1 98.1 Pulse 61 Resp 16 B/P (MAP) 127/64 (85) Pulse Ox 94 97 O2 Delivery Room Air Room Air Room Air Room Air Intake and Output 03/21/19 03/21/19 03/22/19 15:00 23:00 07:00 Intake Total 120 ml 440 ml 400 ml Balance 120 ml 440 ml 400 ml MICHELLE POE MD 03/22/19 1610: PROGRESS NOTES Plan Plan of Care Plan for cervical laminectomy and lateral mass fusion with instrumentation C4-5 on 03/24 RYAN SHAW APRN Mar 22, 2019 13:20 MICHELLE POE MD Mar 22, 2019 16:10
[2019-03-22 15:00] VITALS: BP 124/94
[2019-03-22 19:00] VITALS: BP 131/62
[2019-03-22] MEDS: LACTOBACILLUS RHAMNOSUS GG 1 CAPSULE. PO SCH (20:05)
[2019-03-22] MEDS: SERTRALINE 50 MG TABLET. PO SCH (20:05)
[2019-03-22] MEDS: HYDROcodone/APAP 5/325MG 1 TAB TABLET PO PRN (20:16)
[2019-03-22 22:47] VITALS: BP 113/65
[2019-03-23 02:34] VITALS: BP 120/67
[2019-03-23] MEDS: NICOTINE 21MG PATCH. TD SCH (03:40)
[2019-03-23] MEDS: ALPRAZolam 0.5 MG TABLET PO PRN ×4 (03:40→17:40)
[2019-03-23] MEDS: DEXAMETHASONE SOD PHOS 4 MG/ML VIAL IV SCH ×4 (06:00→17:38)
[2019-03-23] MEDS ORDERED: ceFAZolin 2GM PREMIX 2 GM/50 ML BAG IV ONE (06:00)
[2019-03-23 07:00] VITALS: BP 125/61
[2019-03-23] MEDS: IPRATRPIUM/ALBUTEROL 0.5/2.5MG 3 ML NEBU. NEB SCH ×4 (07:07→20:19)
--- NOTE | 2019-03-23 08:28 | PDOC ---
Provider Note Provider Note status stable, still weak and fall risk- surg planned 03/24, meds /tx same FEMI OSPINA MD Mar 23, 2019 08:28
[2019-03-23] MEDS ORDERED: LOPERAMIDE 2 MG CAPSULE PO PRN (08:45)
[2019-03-23] MEDS: CIPROFLOXACIN HCL 250 MG TABLET. PO SCH ×2 (08:48→20:26)
[2019-03-23] MEDS: LACTOBACILLUS RHAMNOSUS GG 1 CAPSULE. PO SCH ×2 (08:48→20:26)
[2019-03-23] MEDS: GABAPENTIN 400 MG CAPSULE. PO SCH ×4 (08:48→20:26)
[2019-03-23] MEDS: FAMOTIDINE 20 MG TABLET. PO SCH ×2 (08:49→20:26)
[2019-03-23] MEDS: HYDROcodone/APAP 5/325MG 1 TAB TABLET PO PRN ×3 (08:50→17:41)
[2019-03-23] MEDS: traMADol 50 MG TABLET PO PRN ×2 (08:50→17:40)
[2019-03-23 11:00] VITALS: BP 135/68
--- NOTE | 2019-03-23 14:42 | PDOC ---
PROGRESS NOTES Subjective Subjective patient seen and examined at 1330 no new complaints Objective Objective Vital Signs Date Time Temp Pulse Resp B/P (MAP) Pulse Ox O2 Delivery O2 Flow Rate FiO2 03/23/19 13:20 20 92 Room Air 03/23/19 11:00 98.7 90 135/68 (90) 98.7 Intake and Output 03/23/19 07:00 Intake Total 1090 ml Balance 1090 ml Intake Oral 1090 ml # Voids 3 Physical Exam General: Alert, Oriented X3, Cooperative MUSCULOSKELETAL: Other (PERALTA) Neuro: Other (no change) Plan Plan of Care continue steroids plan for cervical laminectomy and fusion tomorrow discussed surgery rationale, technique, risks and expected post op course with patient and all questions answered Comment Review of Relevant I have reviewed the following items amrit (where applicable) has been applied. Medications Current Medications Nicotine (Nicoderm Cq 21mg) 1 patch DAILY TD Last administered on 03/23/19at 03:40; Start 03/20/19 at 14:00 Albuterol Sulfate (Ventolin Neb Soln) 2.5 mg PRN Q6HRS PRN INH SHORTNESS OF BREATH; Start 03/20/19 at 14:45 Alprazolam (Xanax) 0.5 mg PRN TID PRN PO ANXIETY / AGITATION Last administered on 03/21/19at 06:25; Start 03/20/19 at 14:45; Stop 03/21/19 at 09:01; Status DC Gabapentin (Neurontin) 100 mg TID PO ; Start 03/20/19 at 15:30; Stop 03/20/19 at 15:53; Status DC Oxycodone/ Acetaminophen (Percocet 5/325) 1 tab PRN Q4HRS PRN PO PAIN; Start 03/20/19 at 14:45; Status Cancel Trimethoprim/ Sulfamethoxazole (Bactrim Ds) 1 tab BID PO Last administered on 03/20/19at 19:49; Start 03/20/19 at 21:00; Stop 03/21/19 at 08:26; Status DC Ibuprofen (Motrin) 800 mg PRN Q6HRS PRN PO INFLAMMATION; Start 03/20/19 at 14:45; Status Cancel Non-Formulary Medication (Thiamine HCl (B-1)) 100 mg DAILY PO ; Start 03/20/19 at 15:30; Stop 03/20/19 at 15:30; Status DC Non-Formulary Medication (Umeclidinium [place] (Incruse Ellipta)) 1 puff DAILY INH ; Start 03/21/19 at 09:00; Status UNV Thiamine Mononitrate (Vitamin B-1) 100 mg DAILY PO Last administered on 03/20/19at 17:44; Start 03/20/19 at 15:30; Stop 03/21/19 at 08:26; Status DC Albuterol/ Ipratropium (Duoneb) 3 ml RTQID NEB Last administered on 03/23/19 11:59; Start 03/20/19 at 16:00 Gabapentin (Neurontin) 400 mg [id number] PO Last administered on 03/23/19 13:20; Start 03/20/19 at 17:00 Sertraline HCl (Zoloft) 50 mg DAILY PO ; Start 03/20/19 at 16:30; Stop 03/20/19 at 17:56; Status DC Tramadol HCl (Ultram) 50 mg PRN Q8HRS PRN PO PAIN Last administered on 03/20/19at 22:01; Start 03/20/19 at 16:00; Stop 03/21/19 at 09:01; Status DC Diazepam (Valium) 10 mg 1X ONCE PO ; Start 03/20/19 at 17:15; Stop 03/20/19 at 17:16; Status Cancel Sertraline HCl (Zoloft) 50 mg QHS PO Last administered on 03/22/19at 20:05; Start 03/20/19 at 21:00 Diazepam (Valium) 10 mg PRN 1X PRN PO supervisor 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 MRI, 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 Last administered on 03/21/19 12:05; Start 03/20/19 at 18:00; Stop 03/22/19 at 12:55; Status DC Dexamethasone Sodium Phosphate (Decadron) 4 mg Q6HRS IV Last administered on 03/23/19 12:13; Start 03/20/19 at 21:30 Alprazolam (Xanax) 0.5 mg PRN Q4HRS PRN PO ANXIETY / AGITATION Last administered on 03/23/19 13:20; Start 03/21/19 at 09:00 Tramadol HCl (Ultram) 100 mg PRN Q8HRS PRN PO MILD PAIN 1-3 Last administered on 03/23/19at 08:50; Start 03/21/19 at 09:00 Gadoterate Meglumine (Dotarem) 10 ml 1X ONCE IVP Last administered on 03/21/19at 12:45; Start 03/21/19 at 12:15; Stop 03/21/19 at 12:18; Status DC Ciprofloxacin (Cipro) 250 mg BID PO Last administered on 03/23/19 08:48; Start 03/22/19 at 09:00; Stop 03/24/19 at 21:01 Famotidine (Pepcid) 20 mg BID PO Last administered on 03/23/19at 08:49; Start 03/22/19 at 09:00 Loperamide HCl (Imodium) 2 mg 1X ONCE PO Last administered on 03/22/19 09:19; Start 03/22/19 at 09:00; Stop 03/22/19 at 09:01; Status DC Lactobacillus Rhamnosus (Culturelle) 1 cap BID PO Last administered on 03/23/19at 08:48; Start 03/22/19 at 21:00 Acetaminophen/ Hydrocodone Bitart (Lortab 5/325) 1 tab PRN Q4HRS PRN PO MODERATE PAIN, SEVERE PAIN Last administered on 03/23/19at 13:20; Start 03/22/19 at 20:00 Loperamide HCl (Imodium) 2 mg PRN TID PRN PO DIARRHEA Last administered on 03/23/19at 08:57; Start 03/23/19 at 08:45 Bacitracin 41696 unit/Sodium Chloride 1,000 ml @ 1,000 mls/hr 1X ONCE IRR ; Start 03/24/19 at 06:00; Stop 03/24/19 at 06:59 Active Scripts Active B-1 (Thiamine HCl) 100 Mg Tablet 100 Mg PO DAILY Bactrim Ds Tablet (Sulfamethoxazole/Trimethoprim) 1 Each Tablet 1 Tab PO BID Ibuprofen 800 Mg Tablet 800 Mg PO PRN Q6HRS PRN Reported Incruse Ellipta (Umeclidinium [place]) 62.5 Mcg Blst.w.dev 1 Puff INH DAILY Oxycodone-Acetaminophen 5-325 (Oxycodone Hcl/Acetaminophen) 1 Each Tablet 1 Tab PO PRN Q4HRS PRN Proair Hfa Inhaler (Albuterol Sulfate) 8.5 Gm Hfa.aer.ad 1 Puff INH PRN Q6HRS PRN Gabapentin (Gabapentin) 100 Mg Capsule 100 Mg PO TID Alprazolam 0.5 Mg Tablet 0.5 Mg PO TID PRN Vitals/I & O Vital Sign - Last 24 Hours 03/22/19 03/22/19 03/22/19 03/22/19 15:00 15:31 19:00 19:23 Temp 98.2 99.8 98.2 99.8 Pulse 94 100 Resp 16 18 B/P (MAP) 124/94 (104) 131/62 (85) Pulse Ox 98 92 96 O2 Delivery Room Air Room Air Room Air Room Air 03/22/19 03/22/19 03/22/19 03/23/19 19:30 20:16 22:47 02:34 Temp 98.0 98.0 Pulse 77 89 Resp 18 B/P (MAP) 113/65 (81) 120/67 (84) Pulse Ox 94 O2 Delivery Room Air Room Air Room Air 03/23/19 03/23/19 03/23/19 03/23/19 07:00 07:08 08:50 08:50 Temp 98.4 98.4 Pulse 87 Resp 16 20 20 B/P (MAP) 125/61 (82) Pulse Ox 93 93 93 93 O2 Delivery Room Air Room Air Room Air Room Air 03/23/19 03/23/19 03/23/19 03/23/19 09:50 09:50 11:00 11:59 Temp 98.7 98.7 Pulse 90 Resp 20 20 16 B/P (MAP) 135/68 (90) Pulse Ox 92 92 92 O2 Delivery Room Air Room Air Room Air Room Air 03/23/19 13:20 Resp 20 Pulse Ox 92 O2 Delivery Room Air Intake and Output 03/22/19 03/22/19 03/23/19 15:00 23:00 07:00 Intake Total 850 ml 240 ml Balance 850 ml 240 ml MICHELLE POE MD Mar 23, 2019 14:42
--- NOTE | 2019-03-23 14:55 | PDOC ---
PROGRESS NOTES Assessment Cervical spondylosis with myelopathy: mild cord impingement at C3-4, severe central spinal canal stenosis with severe cord impingement at C4-5, cord edema/myelomalacia from C3-C4 through C5-6, mild right greater than left central spinal canal stenosis without significant cord impingement at C5-6, multilevel neural foramin al stenoses. Plan Dexamethasone, taper after surgery. Neurosurgery consult appreciated, note plans for decompression tomorrow afternoon Neurochecks Rehabilitation modalities. Subjective Starting to feel her chronic pain in her right hand again Objective Vital Signs Date Time Temp Pulse Resp B/P (MAP) Pulse Ox O2 Delivery O2 Flow Rate FiO2 03/23/19 13:20 20 92 Room Air 03/23/19 11:00 98.7 90 135/68 (90) 98.7 Intake and Output 03/23/19 07:00 Intake Total 1090 ml Balance 1090 ml Intake Oral 1090 ml # Voids 3 PHYSICAL EXAM Alert. Oriented to time, place and person. PERRL. EOMI. CN: no focal findings. Muscle tone: less spastic in legs Muscle strength: 5/5 DTR: 2+, 3+ at knees Plantar reflex: flexor Gait: not examined in bed. Sensory exam: stocking glove loss, but improved from admission. No cerebellar signs elicited. Review of Relevant I have reviewed the following items amrit (where applicable) has been applied. Medications Current Medications Nicotine (Nicoderm Cq 21mg) 1 patch DAILY TD Last administered on 03/23/19at 03:40; Start 03/20/19 at 14:00 Albuterol Sulfate (Ventolin Neb Soln) 2.5 mg PRN Q6HRS PRN INH SHORTNESS OF BREATH; Start 03/20/19 at 14:45 Alprazolam (Xanax) 0.5 mg PRN TID PRN PO ANXIETY / AGITATION Last administered on 03/21/19at 06:25; Start 03/20/19 at 14:45; Stop 03/21/19 at 09:01; Status DC Gabapentin (Neurontin) 100 mg TID PO ; Start 03/20/19 at 15:30; Stop 03/20/19 at 15:53; Status DC Oxycodone/ Acetaminophen (Percocet 5/325) 1 tab PRN Q4HRS PRN PO PAIN; Start 03/20/19 at 14:45; Status Cancel Trimethoprim/ Sulfamethoxazole (Bactrim Ds) 1 tab BID PO Last administered on 03/20/19 19:49; Start 03/20/19 at 21:00; Stop 03/21/19 at 08:26; Status DC Ibuprofen (Motrin) 800 mg PRN Q6HRS PRN PO INFLAMMATION; Start 03/20/19 at 14:45; Status Cancel Non-Formulary Medication (Thiamine HCl (B-1)) 100 mg DAILY PO ; Start 03/20/19 at 15:30; Stop 03/20/19 at 15:30; Status DC Non-Formulary Medication (Umeclidinium [place] (Incruse Ellipta)) 1 puff DAILY INH ; Start 03/21/19 at 09:00; Status UNV Thiamine Mononitrate (Vitamin B-1) 100 mg DAILY PO Last administered on 03/20/19at 17:44; Start 03/20/19 at 15:30; Stop 03/21/19 at 08:26; Status DC Albuterol/ Ipratropium (Duoneb) 3 ml RTQID NEB Last administered on 03/23/19at 11:59; Start 03/20/19 at 16:00 Gabapentin (Neurontin) 400 mg [id number] PO Last administered on 03/23/19at 13:20; Start 03/20/19 at 17:00 Sertraline HCl (Zoloft) 50 mg DAILY PO ; Start 03/20/19 at 16:30; Stop 03/20/19 at 17:56; Status DC Tramadol HCl (Ultram) 50 mg PRN Q8HRS PRN PO PAIN Last administered on 03/20/19at 22:01; Start 03/20/19 at 16:00; Stop 03/21/19 at 09:01; Status DC Diazepam (Valium) 10 mg 1X ONCE PO ; Start 03/20/19 at 17:15; Stop 03/20/19 at 17:16; Status Cancel Sertraline HCl (Zoloft) 50 mg QHS PO Last administered on 03/22/19at 20:05; Start 03/20/19 at 21:00 Diazepam (Valium) 10 mg PRN 1X PRN PO 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, 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 Last administered on 03/21/19at 12:05; Start 03/20/19 at 18:00; Stop 03/22/19 at 12:55; Status DC Dexamethasone Sodium Phosphate (Decadron) 4 mg Q6HRS IV Last administered on 03/23/19 12:13; Start 03/20/19 at 21:30 Alprazolam (Xanax) 0.5 mg PRN Q4HRS PRN PO ANXIETY / AGITATION Last administered on 03/23/19 13:20; Start 03/21/19 at 09:00 Tramadol HCl (Ultram) 100 mg PRN Q8HRS PRN PO MILD PAIN 1-3 Last administered on 03/23/19 08:50; Start 03/21/19 at 09:00 Gadoterate Meglumine (Dotarem) 10 ml 1X ONCE IVP Last administered on 03/21/19 12:45; Start 03/21/19 at 12:15; Stop 03/21/19 at 12:18; Status DC Ciprofloxacin (Cipro) 250 mg BID PO Last administered on 03/23/19 08:48; Start 03/22/19 at 09:00; Stop 03/24/19 at 21:01 Famotidine (Pepcid) 20 mg BID PO Last administered on 03/23/19 08:49; Start 03/22/19 at 09:00 Loperamide HCl (Imodium) 2 mg 1X ONCE PO Last administered on 03/22/19 09:19; Start 03/22/19 at 09:00; Stop 03/22/19 at 09:01; Status DC Lactobacillus Rhamnosus (Culturelle) 1 cap BID PO Last administered on 03/23/19 08:48; Start 03/22/19 at 21:00 Acetaminophen/ Hydrocodone Bitart (Lortab 5/325) 1 tab PRN Q4HRS PRN PO MODERATE PAIN, SEVERE PAIN Last administered on 03/23/19 13:20; Start 03/22/19 at 20:00 Loperamide HCl (Imodium) 2 mg PRN TID PRN PO DIARRHEA Last administered on 03/23/19 08:57; Start 03/23/19 at 08:45 Bacitracin 82138 unit/Sodium Chloride 1,000 ml @ 1,000 mls/hr 1X ONCE IRR ; Start 03/24/19 at 06:00; Stop 03/24/19 at 06:59 Cefazolin Sodium/ Dextrose 50 ml @ 100 mls/hr 1X PREOP IV ; Start 03/23/19 at 14:45; Stop 03/24/19 at 18:00 Active Scripts Active B-1 (Thiamine HCl) 100 Mg Tablet 100 Mg PO DAILY Bactrim Ds Tablet (Sulfamethoxazole/Trimethoprim) 1 Each Tablet 1 Tab PO BID Ibuprofen 800 Mg Tablet 800 Mg PO PRN Q6HRS PRN Reported Incruse Ellipta (Umeclidinium [place]) 62.5 Mcg Blst.w.dev 1 Puff INH DAILY Oxycodone-Acetaminophen 5-325 (Oxycodone Hcl/Acetaminophen) 1 Each Tablet 1 Tab PO PRN Q4HRS PRN Proair Hfa Inhaler (Albuterol Sulfate) 8.5 Gm Hfa.aer.ad 1 Puff INH PRN Q6HRS PRN Gabapentin (Gabapentin) 100 Mg Capsule 100 Mg PO TID Alprazolam 0.5 Mg Tablet 0.5 Mg PO TID PRN Vitals/I & O Vital Sign - Last 24 Hours 03/22/19 03/22/19 03/22/19 03/22/19 15:00 15:31 19:00 19:23 Temp 98.2 99.8 98.2 99.8 Pulse 94 100 Resp 16 18 B/P (MAP) 124/94 (104) 131/62 (85) Pulse Ox 98 92 96 O2 Delivery Room Air Room Air Room Air Room Air 03/22/19 03/22/19 03/22/19 03/23/19 19:30 20:16 22:47 02:34 Temp 98.0 98.0 Pulse 77 89 Resp 18 B/P (MAP) 113/65 (81) 120/67 (84) Pulse Ox 94 O2 Delivery Room Air Room Air Room Air 03/23/19 03/23/19 03/23/19 03/23/19 07:00 07:08 08:50 08:50 Temp 98.4 98.4 Pulse 87 Resp 16 20 20 B/P (MAP) 125/61 (82) Pulse Ox 93 93 93 93 O2 Delivery Room Air Room Air Room Air Room Air 6/6/19 6/6/19 6/6/19 6/6/19 09:50 09:50 11:00 11:59 Temp 98.7 98.7 Pulse 90 Resp 20 20 16 B/P (MAP) 135/68 (90) Pulse Ox 92 92 92 O2 Delivery Room Air Room Air Room Air Room Air 03/23/19 13:20 Resp 20 Pulse Ox 92 O2 Delivery Room Air Intake and Output 03/22/19 03/22/19 03/23/19 15:00 23:00 07:00 Intake Total 850 ml 240 ml Balance 850 ml 240 ml NEFTALY STOKES MD Mar 23, 2019 14:55
[2019-03-23 15:00] VITALS: BP 130/67
[2019-03-23 19:00] VITALS: BP 137/71
[2019-03-23] MEDS: fentaNYL PF VIAL 100 MCG/2 ML VIAL IV PRN (20:24)
[2019-03-23] MEDS: SERTRALINE 50 MG TABLET. PO SCH (20:26)
[2019-03-23 23:00] VITALS: BP 103/65
[2019-03-24] VITALS (10 sets, daily range): BP systolic 112–139; BP diastolic 61–82
[2019-03-24] MEDS: DEXAMETHASONE SOD PHOS 4 MG/ML VIAL IV SCH ×3 (00:24→23:44)
[2019-03-24] MEDS: ALPRAZolam 0.5 MG TABLET PO PRN ×3 (03:15→23:44)
[2019-03-24] MEDS: NICOTINE 21MG PATCH. TD SCH (03:16)
[2019-03-24] MEDS: fentaNYL PF VIAL 100 MCG/2 ML VIAL IV PRN ×8 (03:16→22:46)
[2019-03-24] MEDS ORDERED: BACITRACIN 50,000 UNIT in IV NORMAL SALINE 1000ML BAG 1,000 ML IRR ONE (06:00)
[2019-03-24] MEDS ORDERED: BUPIVAC MPF-EPI 0.5%-1:200000 30 ML VIAL. ONE (06:31)
[2019-03-24] MEDS ORDERED: GELATIN SPONGE SIZE 12-7MM SPONGE. ONE (06:31)
[2019-03-24] MEDS ORDERED: THROMBIN TOPICAL 20,000 UNIT SPRAY.SYRN KIT TP ONE (06:31)
[2019-03-24] MEDS ORDERED: KETOROLAC 60 MG/2 ML INJ FOR OR. ONE (06:31)
[2019-03-24] MEDS ORDERED: MORPHINE SULFATE 2 MG/ML VIAL. IV PRN (07:00)
[2019-03-24] MEDS ORDERED: ONDANSETRON PF 4 MG/2 ML VIAL. IV PRN (07:00)
[2019-03-24] MEDS ORDERED: fentaNYL PF VIAL 100 MCG/2 ML VIAL IV PRN (07:00)
[2019-03-24] MEDS ORDERED: LIDOCAINE 1% PF 2 ML VIAL. ID PRN (07:00)
[2019-03-24] MEDS: IPRATRPIUM/ALBUTEROL 0.5/2.5MG 3 ML NEBU. NEB SCH ×3 (07:28→15:40)
--- NOTE | 2019-03-24 08:12 | PDOC ---
Provider Note Provider Note for surg today, then dispo per FEMI Jenkins MD Mar 24, 2019 08:12
[2019-03-24] MEDS: GABAPENTIN 400 MG CAPSULE. PO SCH ×4 (09:00→21:00)
[2019-03-24] MEDS: LACTOBACILLUS RHAMNOSUS GG 1 CAPSULE. PO SCH ×2 (09:00→21:00)
[2019-03-24] MEDS: FAMOTIDINE 20 MG TABLET. PO SCH ×2 (09:00→21:00)
[2019-03-24] MEDS: CIPROFLOXACIN HCL 250 MG TABLET. PO SCH ×2 (09:00→20:05)
[2019-03-24] MEDS ORDERED: ONDANSETRON PF 4 MG/2 ML VIAL. ONE (10:32)
[2019-03-24] MEDS ORDERED: REMIFENTANIL 2 MG VIAL. IV ONE (10:32)
[2019-03-24] MEDS ORDERED: PROPOFOL 50 ML IV ONE ×3 (10:32→15:50)
[2019-03-24] MEDS ORDERED: DEXAMETHASONE SOD PHOS 20 MG/5 ML VIAL. ONE (10:32)
[2019-03-24] MEDS ORDERED: ROCURONIUM 50 MG/5 ML VIAL. ONE (10:32)
[2019-03-24] MEDS ORDERED: SUCCINYLCHOLINE 200 MG/10 ML VIAL. ONE (10:32)
[2019-03-24] MEDS ORDERED: PHENYLEPHRINE 10 MG/ML VIAL. ONE (10:32)
[2019-03-24] MEDS ORDERED: PROPOFOL 20 ML IV ONE ×2 (10:32→13:54)
[2019-03-24] MEDS ORDERED: LIDOCAINE 2% PF 5 ML VIAL. ONE (10:32)
[2019-03-24] MEDS ORDERED: MIDAZOLAM HCL/PF 2 MG/2 ML VIAL. ONE (10:32)
[2019-03-24] MEDS ORDERED: DESFLURANE > 120 MINUTES IH ONE (10:40)
--- NOTE | 2019-03-24 10:45 | PDOC ---
Provider Note Provider Note patient out of room on rounds, checked 2x. Steroid taper written NEFTALY STOKES MD Mar 24, 2019 10:45
[2019-03-24] MEDS ORDERED: MINERAL OIL/PETROLATUM,WHITE OPHTH OINT 3.5GM TUBE. ONE (11:47)
[2019-03-24] MEDS: IV RINGERS,LACTATED 1000ML 1,000 ML IV SCH ×2 (12:30→18:09)
[2019-03-24] MEDS ORDERED: GLYCOPYRROLATE 1 MG/5 ML VIAL. ONE (13:48)
[2019-03-24] MEDS ORDERED: fentaNYL PF VIAL 100 MCG/2 ML VIAL ONE (16:55)
[2019-03-24] MEDS: HYDROmorphone 2 MG/ML VIAL IV PRN ×3 (17:30→18:14)
[2019-03-24] MEDS: PROCHLORPERAZINE 10 MG/2 ML VIAL. IV PRN ×2 (17:30→17:42)
[2019-03-24] MEDS: SERTRALINE 50 MG TABLET. PO SCH (20:05)
[2019-03-24] MEDS: HYDROcodone/APAP 5/325MG 1 TAB TABLET PO PRN (23:44)
[2019-03-25] MEDS: fentaNYL PF VIAL 100 MCG/2 ML VIAL IV PRN ×9 (02:19→22:17)
[2019-03-25 03:07] VITALS: BP 129/82
[2019-03-25] MEDS: ALPRAZolam 0.5 MG TABLET PO PRN ×5 (03:46→19:54)
[2019-03-25] MEDS: HYDROcodone/APAP 5/325MG 1 TAB TABLET PO PRN ×2 (03:46→07:45)
[2019-03-25] MEDS: DEXAMETHASONE SOD PHOS 4 MG/ML VIAL IV SCH ×4 (05:50→23:56)
[2019-03-25 07:00] VITALS: BP 150/85
[2019-03-25] MEDS: IPRATRPIUM/ALBUTEROL 0.5/2.5MG 3 ML NEBU. NEB SCH ×4 (07:28→20:00)
[2019-03-25] MEDS: GABAPENTIN 400 MG CAPSULE. PO SCH ×4 (08:32→19:52)
[2019-03-25] MEDS: FAMOTIDINE 20 MG TABLET. PO SCH ×2 (08:32→19:52)
[2019-03-25] MEDS: LACTOBACILLUS RHAMNOSUS GG 1 CAPSULE. PO SCH ×3 (08:32→19:59)
[2019-03-25] MEDS ORDERED: oxyCODONE/APAP 5/325 1 TAB TABLET PO PRN (09:15)
[2019-03-25] MEDS: oxyCODONE/APAP 5/325 1 TAB TABLET PO PRN ×4 (09:30→22:18)
[2019-03-25] MEDS: METHOCARBAMOL 750 MG TABLET PO PRN (09:55)
[2019-03-25] MEDS: NICOTINE 21MG PATCH. TD SCH (09:55)
--- NOTE | 2019-03-25 10:04 | PDOC ---
Provider Note Provider Note vss, no temp, feels ok-really good neuro recovery so far- dispo per FEMI Roland MD Mar 25, 2019 10:04
[2019-03-25 10:53] VITALS: BP 155/84
--- NOTE | 2019-03-25 13:01 | PDOC ---
PROGRESS NOTES Subjective Subjective POD #1 s/p cervical laminectomy numbness in upper and lower extremities has resolved c/o neck/ incisional pain Objective Objective Vital Signs Date Time Temp Pulse Resp B/P (MAP) Pulse Ox O2 Delivery O2 Flow Rate FiO2 03/25/19 12:38 94 Room Air 03/25/19 12:36 2.0 03/25/19 10:53 98.1 99 18 155/84 (107) 98.1 Intake and Output 03/25/19 07:00 Intake Total 1850 ml Output Total 975 ml Balance 875 ml IV Total 1850 ml Output Urine Total 900 ml Estimated Blood Loss 75 ml # Voids 1 Physical Exam General: Alert, Oriented X3, Cooperative MUSCULOSKELETAL: Other (PERALTA) Neck: Other (collar on) Neuro: Normal speech Skin: Other (dressing intact) Plan Plan of Care will order better fitting collar continue PT, encouraged increased activity as tolerated change PO pain medication Comment Review of Relevant I have reviewed the following items amrit (where applicable) has been applied. Medications Current Medications Nicotine (Nicoderm Cq 21mg) 1 patch DAILY TD Last administered on 03/25/19at 09:55; Start 03/20/19 at 14:00 Albuterol Sulfate (Ventolin Neb Soln) 2.5 mg PRN Q6HRS PRN INH SHORTNESS OF BREATH; Start 03/20/19 at 14:45 Alprazolam (Xanax) 0.5 mg PRN TID PRN PO ANXIETY / AGITATION Last administered on 03/21/19at 06:25; Start 03/20/19 at 14:45; Stop 03/21/19 at 09:01; Status DC Gabapentin (Neurontin) 100 mg TID PO ; Start 03/20/19 at 15:30; Stop 03/20/19 at 15:53; Status DC Oxycodone/ Acetaminophen (Percocet 5/325) 1 tab PRN Q4HRS PRN PO PAIN; Start 03/20/19 at 14:45; Status Cancel Trimethoprim/ Sulfamethoxazole (Bactrim Ds) 1 tab BID PO Last administered on 03/20/19at 19:49; Start 03/20/19 at 21:00; Stop 03/21/19 at 08:26; Status DC Ibuprofen (Motrin) 800 mg PRN Q6HRS PRN PO INFLAMMATION; Start 03/20/19 at 14:45; Status Cancel Non-Formulary Medication (Thiamine HCl (B-1)) 100 mg DAILY PO ; Start 03/20/19 at 15:30; Stop 03/20/19 at 15:30; Status DC Non-Formulary Medication (Umeclidinium [place] (Incruse Ellipta)) 1 puff DAILY INH ; Start 03/21/19 at 09:00; Status UNV Thiamine Mononitrate (Vitamin B-1) 100 mg DAILY PO Last administered on 03/20/19at 17:44; Start 03/20/19 at 15:30; Stop 03/21/19 at 08:26; Status DC Albuterol/ Ipratropium (Duoneb) 3 ml RTQID NEB Last administered on 03/25/19at 12:36; Start 03/20/19 at 16:00 Gabapentin (Neurontin) 400 mg [id number] PO Last administered on 03/23/19at 20:26; Start 03/20/19 at 17:00 Sertraline HCl (Zoloft) 50 mg DAILY PO ; Start 03/20/19 at 16:30; Stop 03/20/19 at 17:56; Status DC Tramadol HCl (Ultram) 50 mg PRN Q8HRS PRN PO PAIN Last administered on 03/20/19at 22:01; Start 03/20/19 at 16:00; Stop 03/21/19 at 09:01; Status DC Diazepam (Valium) 10 mg 1X ONCE PO ; Start 03/20/19 at 17:15; Stop 03/20/19 at 17:16; Status Cancel Sertraline HCl (Zoloft) 50 mg QHS PO Last administered on 03/24/19at 20:05; Start 03/20/19 at 21:00 Diazepam (Valium) 10 mg PRN 1X PRN PO 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, 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 Last administered on 03/21/19at 12:05; Start 03/20/19 at 18:00; Stop 03/22/19 at 12:55; Status DC Dexamethasone Sodium Phosphate (Decadron) 4 mg Q6HRS IV Last administered on 03/24/19at 06:16; Start 03/20/19 at 21:30; Stop 03/24/19 at 14:57; Status DC Alprazolam (Xanax) 0.5 mg PRN Q4HRS PRN PO ANXIETY / AGITATION Last administered on 03/25/19 12:07; Start 03/21/19 at 09:00 Tramadol HCl (Ultram) 100 mg PRN Q8HRS PRN PO MILD PAIN 1-3 Last administered on 03/23/19 17:40; Start 03/21/19 at 09:00 Gadoterate Meglumine (Dotarem) 10 ml 1X ONCE IVP Last administered on 03/21/19 12:45; Start 03/21/19 at 12:15; Stop 03/21/19 at 12:18; Status DC Ciprofloxacin (Cipro) 250 mg BID PO Last administered on 03/24/19 20:05; Start 03/22/19 at 09:00; Stop 03/24/19 at 21:01; Status DC Famotidine (Pepcid) 20 mg BID PO Last administered on 03/23/19 20:26; Start 03/22/19 at 09:00 Loperamide HCl (Imodium) 2 mg 1X ONCE PO Last administered on 03/22/19 09:19; Start 03/22/19 at 09:00; Stop 03/22/19 at 09:01; Status DC Lactobacillus Rhamnosus (Culturelle) 1 cap BID PO Last administered on 03/23/19 20:26; Start 03/22/19 at 21:00 Acetaminophen/ Hydrocodone Bitart (Lortab 5/325) 1 tab PRN Q4HRS PRN PO MODERATE PAIN, SEVERE PAIN Last administered on 03/25/19 07:45; Start 03/22/19 at 20:00; Stop 03/25/19 at 09:07; Status DC Loperamide HCl (Imodium) 2 mg PRN TID PRN PO DIARRHEA Last administered on 03/23/19 08:57; Start 03/23/19 at 08:45 Bacitracin 18056 unit/Sodium Chloride 1,000 ml @ 1,000 mls/hr 1X ONCE IRR Last administered on 03/24/19 14:08; Start 03/24/19 at 06:00; Stop 03/24/19 at 07:00; Status DC Cefazolin Sodium/ Dextrose 50 ml @ 100 mls/hr 1X PREOP IV Last administered on 03/24/19at 17:32; Start 03/23/19 at 14:45; Stop 03/24/19 at 18:00; Status DC Fentanyl Citrate (Fentanyl 2ml Vial) 50 mcg PRN Q2HR PRN IV PAIN Last administered on 03/25/19at 12:08; Start 03/23/19 at 16:45 Ondansetron HCl (Zofran) 4 mg PRN Q6HRS PRN IV NAUSEA/VOMITING; Start 03/24/19 at 07:00; Stop 03/25/19 at 06:59; Status DC Fentanyl Citrate (Fentanyl 2ml Vial) 25 mcg PRN Q5MIN PRN IV MILD PAIN 1-3; Start 03/24/19 at 07:00; Stop 03/25/19 at 06:59; Status DC Fentanyl Citrate (Fentanyl 2ml Vial) 50 mcg PRN Q5MIN PRN IV MODERATE TO SEVERE PAIN Last administered on 03/24/19at 18:05; Start 03/24/19 at 07:00; Stop 03/25/19 at 06:59; Status DC Morphine Sulfate (Morphine Sulfate) 1 mg PRN Q10MIN PRN IV SEVERE PAIN 7-10; Start 03/24/19 at 07:00; Stop 03/25/19 at 06:59; Status UNV Ringer's Solution 1,000 ml @ 30 mls/hr Q24H IV Last administered on 03/24/19at 18:09; Start 03/24/19 at 07:00; Stop 03/24/19 at 18:59; Status DC Lidocaine HCl (Xylocaine-Mpf 1% 2ml Vial) 2 ml PRN 1X PRN ID PRIOR TO IV START; Start 03/24/19 at 07:00; Stop 03/25/19 at 06:59; Status DC Hydromorphone HCl (Dilaudid) 0.5 mg PRN Q10MIN PRN IV SEV PAIN, Second choice Last administered on 03/24/19at 18:14; Start 03/24/19 at 07:00; Stop 03/25/19 at 06:59; Status DC Prochlorperazine Edisylate (Compazine) 5 mg PACU PRN PRN IV NAUSEA, MRX1 Last administered on 03/24/19at 17:42; Start 03/24/19 at 07:00; Stop 03/25/19 at 06:59; Status DC Bupivacaine HCl/ Epinephrine Bitart (Sensorcain-Mpf Epi 0.5%-1:[id number]) 30 ml STK-MED ONCE .ROUTE Last administered on 03/24/19 14:08; Start 03/24/19 at 06:31; Stop 03/24/19 at 07:31; Status DC Gelatin (Gelfoam Size 12-7mm) 1 each STK-MED ONCE .ROUTE Last administered on 03/24/19at 14:08; Start 03/24/19 at 06:31; Stop 03/24/19 at 07:31; Status DC Ketorolac Tromethamine (Toradol For Or Only) 60 mg STK-MED ONCE .ROUTE Last administered on 03/24/19 14:08; Start 03/24/19 at 06:31; Stop 03/24/19 at 07:31; Status DC Thrombin 20,000 unit STK-MED ONCE TP Last administered on 03/24/19at 14:08; Start 03/24/19 at 06:31; Stop 03/24/19 at 07:32; Status DC Propofol 20 ml @ As Directed STK-MED ONCE IV ; Start 03/24/19 at 10:32; Stop 03/24/19 at 10:33; Status DC Dexamethasone Sodium Phosphate (Decadron) 20 mg STK-MED ONCE .ROUTE ; Start 03/24/19 at 10:32; Stop 03/24/19 at 10:33; Status DC Lidocaine HCl (Lidocaine Pf 2% Vial) 5 ml STK-MED ONCE .ROUTE ; Start 03/24/19 at 10:32; Stop 03/24/19 at 10:33; Status DC Ondansetron HCl (Zofran) 4 mg STK-MED ONCE .ROUTE ; Start 03/24/19 at 10:32; Stop 03/24/19 at 10:33; Status DC Phenylephrine HCl (Keanu-Synephrine Inj) 10 mg STK-MED ONCE .ROUTE ; Start 03/24/19 at 10:32; Stop 03/24/19 at 10:33; Status DC Propofol 50 ml @ As Directed STK-MED ONCE IV ; Start 03/24/19 at 10:32; Stop 03/24/19 at 10:33; Status DC Succinylcholine Chloride (Anectine) 200 mg STK-MED ONCE .ROUTE ; Start 03/24/19 at 10:32; Stop 03/24/19 at 10:33; Status DC Rocuronium [place] (Zemuron) 50 mg STK-MED ONCE .ROUTE ; Start 03/24/19 at 10:32; Stop 03/24/19 at 10:33; Status DC Midazolam HCl (Versed) 2 mg STK-MED ONCE .ROUTE ; Start 03/24/19 at 10:32; Stop 03/24/19 at 10:33; Status DC Remifentanil HCl (Ultiva) 2 mg STK-MED ONCE IV ; Start 03/24/19 at 10:32; Stop 03/24/19 at 10:33; Status DC Desflurane (Suprane) 90 ml STK-MED ONCE IH ; Start 03/24/19 at 10:40; Stop 03/24/19 at 10:41; Status DC Multi-Ingred Cream/Lotion/Oil/ Oint (Artificial Tears Eye Ointment) 7 nicolasa STK- MED ONCE .ROUTE ; Start 03/24/19 at 11:47; Stop 03/24/19 at 11:48; Status DC Glycopyrrolate (Robinul) 1 mg STK-MED ONCE .ROUTE ; Start 03/24/19 at 13:48; Stop 03/24/19 at 13:49; Status DC Propofol 20 ml @ As Directed STK-MED ONCE IV ; Start 03/24/19 at 13:54; Stop 03/24/19 at 13:55; Status DC Propofol 50 ml @ As Directed STK-MED ONCE IV ; Start 03/24/19 at 13:58; Stop 03/24/19 at 13:59; Status DC Dexamethasone Sodium Phosphate (Decadron) 2 mg Q6HRS IV Last administered on 03/25/19at 12:07; Start 03/25/19 at 00:00; Stop 03/26/19 at 00:00 Dexamethasone Sodium Phosphate (Decadron) 2 mg Q12HR IV ; Start 03/26/19 at 00:00; Stop 03/26/19 at 21:01 Cefazolin Sodium/ Dextrose (Ancef 2gm Premix) 2 gm STK-MED ONCE IV ; Start 03/23/19 at 06:00; Stop 03/24/19 at 15:19; Status DC Propofol 50 ml @ As Directed STK-MED ONCE IV ; Start 03/24/19 at 15:50; Stop 03/24/19 at 15:51; Status DC Fentanyl Citrate (Fentanyl 2ml Vial) 100 mcg STK-MED ONCE .ROUTE ; Start 03/24/19 at 16:55; Stop 03/24/19 at 16:56; Status DC Methocarbamol (Robaxin) 750 mg PRN TID PRN PO MUSCLE SPASMS Last administered on 03/25/19at 09:55; Start 03/24/19 at 17:15 Oxycodone/ Acetaminophen (Percocet 5/325) 1 tab PRN Q4HRS PRN PO MODERATE PAIN; Start 03/25/19 at 09:15 Oxycodone/ Acetaminophen (Percocet 5/325) 2 tab PRN Q4HRS PRN PO SEVERE PAIN Last administered on 03/25/19at 09:30; Start 03/25/19 at 09:15 Active Scripts Active B-1 (Thiamine HCl) 100 Mg Tablet 100 Mg PO DAILY Bactrim Ds Tablet (Sulfamethoxazole/Trimethoprim) 1 Each Tablet 1 Tab PO BID Ibuprofen 800 Mg Tablet 800 Mg PO PRN Q6HRS PRN Reported Incruse Ellipta (Umeclidinium [place]) 62.5 Mcg Blst.w.dev 1 Puff INH DAILY Oxycodone-Acetaminophen 5-325 (Oxycodone Hcl/Acetaminophen) 1 Each Tablet 1 Tab PO PRN Q4HRS PRN Proair Hfa Inhaler (Albuterol Sulfate) 8.5 Gm Hfa.aer.ad 1 Puff INH PRN Q6HRS PRN Gabapentin (Gabapentin) 100 Mg Capsule 100 Mg PO TID Alprazolam 0.5 Mg Tablet 0.5 Mg PO TID PRN Vitals/I & O Vital Sign - Last 24 Hours 03/24/19 03/24/19 03/24/19 03/24/19 17:18 17:18 17:30 17:33 Temp 97.9 97.9 Pulse 116 Resp 20 20 20 B/P (MAP) 151/77 Pulse Ox 94 95 99 O2 Delivery Simple Mask Mask Simple Mask Room Air O2 Flow Rate 10 10 10.0 03/24/19 03/24/19 03/24/19 03/24/19 17:33 17:41 17:45 18:00 Temp 97.9 97.9 Pulse 116 90 90 Resp 20 20 20 16 B/P (MAP) 147/71 117/65 116/66 Pulse Ox 94 86 94 94 O2 Delivery Nasal Cannula Room Air Nasal Cannula Nasal Cannula O2 Flow Rate 2 2 03/24/19 03/24/19 03/24/19 03/24/19 18:05 18:14 18:15 18:45 Temp 97.9 98.4 97.9 98.4 Pulse 88 88 Resp 16 14 16 18 B/P (MAP) 104/70 120/69 (86) Pulse Ox 94 96 95 96 O2 Delivery Room Air Nasal Cannula Nasal Cannula Nasal Cannula O2 Flow Rate 2.0 2.0 2.0 2.0 03/24/19 03/24/19 03/24/19 03/24/19 19:00 19:30 19:55 20:00 Temp 98.6 98.6 98.6 98.6 Pulse 86 87 Resp 20 B/P (MAP) 112/69 (83) 116/69 (85) Pulse Ox 96 96 95 O2 Delivery Nasal Cannula Nasal Cannula Nasal Cannula Nasal Cannula O2 Flow Rate 2.0 2.0 2.0 2.0 03/24/19 03/24/19 03/24/19 03/24/19 20:00 21:00 22:00 22:46 Temp 98.6 98.6 98.0 98.6 98.6 98.0 Pulse 86 85 86 Resp 20 20 20 B/P (MAP) 130/82 (98) 132/80 (97) 130/69 (89) Pulse Ox 97 97 97 95 O2 Delivery Nasal Cannula Nasal Cannula Nasal Cannula Nasal Cannula O2 Flow Rate 2.0 2.0 2.0 2.0 03/24/19 03/24/19 03/25/19 03/25/19 23:05 23:44 02:19 03:07 Temp 97.6 98.0 97.6 98.0 Pulse 88 78 Resp 20 20 B/P (MAP) 112/61 (78) 129/82 (98) Pulse Ox 95 95 95 95 O2 Delivery Room Air Nasal Cannula Nasal Cannula Nasal Cannula O2 Flow Rate 2.0 2.0 03/25/19 03/25/19 03/25/19 03/25/19 03:46 04:46 05:50 07:00 Temp 97.9 97.9 Pulse 92 Resp 18 B/P (MAP) 150/85 (106) Pulse Ox 95 95 95 91 O2 Delivery Nasal Cannula Nasal Cannula Nasal Cannula Nasal Cannula O2 Flow Rate 2.0 2.0 2.0 2.0 03/25/19 03/25/19 03/25/19 03/25/19 07:33 07:45 07:45 08:00 Pulse Ox 97 97 97 O2 Delivery Room Air Nasal Cannula Nasal Cannula Room Air O2 Flow Rate 2.0 2.0 03/25/19 03/25/19 03/25/19 03/25/19 09:30 10:53 12:08 12:35 Temp 98.1 98.1 Pulse 99 Resp 18 B/P (MAP) 155/84 (107) Pulse Ox 97 98 98 98 O2 Delivery Nasal Cannula Nasal Cannula Room Air Room Air O2 Flow Rate 2.0 2.0 2.0 2.0 03/25/19 03/25/19 12:36 12:38 Pulse Ox 98 94 O2 Delivery Room Air Room Air O2 Flow Rate 2.0 Intake and Output 03/24/19 03/24/19 03/25/19 15:00 23:00 07:00 Intake Total 1850 ml Output Total 975 ml 0 ml Balance 875 ml 0 ml MICHELLE POE MD Mar 25, 2019 13:01
[2019-03-25 15:00] VITALS: BP 149/80
[2019-03-25] MEDS: SERTRALINE 50 MG TABLET. PO SCH (19:52)
[2019-03-25 19:59] VITALS: BP 146/91
--- NOTE | 2019-03-25 21:48 | PDOC ---
PROGRESS NOTES Assessment 1. Patient with severe cervical spinal stenosis with cervical myelopathy who underwent decompression one day ago. Her symptoms are much improved. The arm symptoms of numbness and tingling has resolved. The right leg is much better but the left leg continues to have some numbness although is less. Reflexes continue to be quite brisk in the legs. She has not had any neurologic worsening since surgery. 2. Dr. Christie has written a steroid taper. She is tolerating the taper thus far. 3. Patient is experiencing discomfort. The nurse has put in a call to the neurosurgeon to consider modifying the pain regimen. Plan 1. She will continue close observation. She will likely need to be transferred to a rehabilitation facility prior to going home. 2. The goal be to control the postoperative pain as best as possible. 3. She desires to take off her cervical collar. This will be to the discretion of the neurosurgeon. Subjective I am unable to get comfortable. I want to take off the cervical collar. The neurosurgeons that I could do so while I'm in bed. Objective Vital Signs Date Time Temp Pulse Resp B/P (MAP) Pulse Ox O2 Delivery O2 Flow Rate FiO2 03/25/19 20:21 Room Air 03/25/19 17:37 92 2.0 03/25/19 15:00 97.5 104 18 149/80 (103) 97.5 Intake and Output 03/25/19 07:00 Intake Total 1850 ml Output Total 975 ml Balance 875 ml IV Total 1850 ml Output Urine Total 900 ml Estimated Blood Loss 75 ml # Voids 1 PHYSICAL EXAM She was alert, awake and cooperative. Speech was fluent and clear. She good fund of recent and remote knowledge. Attention and concentration was intact. She appeared well-groomed and well-nourished. She was fully oriented. Cranial nerves II through XII are intact. Muscle bulk and tone was normal. She did not have spasticity. Power was generally diminished in upper and lower extremities the left leg worse than the right. Power was 4/5 in the legs. Reflexes were quite brisk at the knees but not at the ankles. There was sensory shading in the left leg more than the right. Review of Relevant I have reviewed the following items amrit (where applicable) has been applied. Medications Current Medications Nicotine (Nicoderm Cq 21mg) 1 patch DAILY TD Last administered on 03/25/19at 09:55; Start 03/20/19 at 14:00 Albuterol Sulfate (Ventolin Neb Soln) 2.5 mg PRN Q6HRS PRN INH SHORTNESS OF BREATH; Start 03/20/19 at 14:45 Alprazolam (Xanax) 0.5 mg PRN TID PRN PO ANXIETY / AGITATION Last administered on 03/21/19at 06:25; Start 03/20/19 at 14:45; Stop 03/21/19 at 09:01; Status DC Gabapentin (Neurontin) 100 mg TID PO ; Start 03/20/19 at 15:30; Stop 03/20/19 at 15:53; Status DC Oxycodone/ Acetaminophen (Percocet 5/325) 1 tab PRN Q4HRS PRN PO PAIN; Start 03/20/19 at 14:45; Status Cancel Trimethoprim/ Sulfamethoxazole (Bactrim Ds) 1 tab BID PO Last administered on 03/20/19at 19:49; Start 03/20/19 at 21:00; Stop 03/21/19 at 08:26; Status DC Ibuprofen (Motrin) 800 mg PRN Q6HRS PRN PO INFLAMMATION; Start 03/20/19 at 14:45; Status Cancel Non-Formulary Medication (Thiamine HCl (B-1)) 100 mg DAILY PO ; Start 03/20/19 at 15:30; Stop 03/20/19 at 15:30; Status DC Non-Formulary Medication (Umeclidinium Llano (Incruse Ellipta)) 1 puff DAILY INH ; Start 03/21/19 at 09:00; Status UNV Thiamine Mononitrate (Vitamin B-1) 100 mg DAILY PO Last administered on 03/20/19at 17:44; Start 03/20/19 at 15:30; Stop 03/21/19 at 08:26; Status DC Albuterol/ Ipratropium (Duoneb) 3 ml RTQID NEB Last administered on 03/25/19at 20:00; Start 03/20/19 at 16:00 Gabapentin (Neurontin) 400 mg [id number] PO Last administered on 03/23/19 20:26; Start 03/20/19 at 17:00 Sertraline HCl (Zoloft) 50 mg DAILY PO ; Start 03/20/19 at 16:30; Stop 03/20/19 at 17:56; Status DC Tramadol HCl (Ultram) 50 mg PRN Q8HRS PRN PO PAIN Last administered on 03/20/19 22:01; Start 03/20/19 at 16:00; Stop 03/21/19 at 09:01; Status DC Diazepam (Valium) 10 mg 1X ONCE PO ; Start 03/20/19 at 17:15; Stop 03/20/19 at 17:16; Status Cancel Sertraline HCl (Zoloft) 50 mg QHS PO Last administered on 03/25/19 19:52; Start 03/20/19 at 21:00 Diazepam (Valium) 10 mg PRN 1X PRN 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, 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 Last administered on 03/21/19 12:05; Start 03/20/19 at 18:00; Stop 03/22/19 at 12:55; Status DC Dexamethasone Sodium Phosphate (Decadron) 4 mg Q6HRS IV Last administered on 03/24/19 06:16; Start 03/20/19 at 21:30; Stop 03/24/19 at 14:57; Status DC Alprazolam (Xanax) 0.5 mg PRN Q4HRS PRN PO ANXIETY / AGITATION Last administered on 03/25/19 19:54; Start 03/21/19 at 09:00 Tramadol HCl (Ultram) 100 mg PRN Q8HRS PRN PO MILD PAIN 1-3 Last administered on 03/23/19 17:40; Start 03/21/19 at 09:00 Gadoterate Meglumine (Dotarem) 10 ml 1X ONCE IVP Last administered on 03/21/19 12:45; Start 03/21/19 at 12:15; Stop 03/21/19 at 12:18; Status DC Ciprofloxacin (Cipro) 250 mg BID PO Last administered on 03/24/19 20:05; Start 03/22/19 at 09:00; Stop 03/24/19 at 21:01; Status DC Famotidine (Pepcid) 20 mg BID PO Last administered on 03/25/19 19:52; Start 03/22/19 at 09:00 Loperamide HCl (Imodium) 2 mg 1X ONCE PO Last administered on 03/22/19at 09:19; Start 03/22/19 at 09:00; Stop 03/22/19 at 09:01; Status DC Lactobacillus Rhamnosus (Culturelle) 1 cap BID PO Last administered on 03/23/19at 20:26; Start 03/22/19 at 21:00 Acetaminophen/ Hydrocodone Bitart (Lortab 5/325) 1 tab PRN Q4HRS PRN PO MODERATE PAIN, SEVERE PAIN Last administered on 03/25/19at 07:45; Start 03/22/19 at 20:00; Stop 03/25/19 at 09:07; Status DC Loperamide HCl (Imodium) 2 mg PRN TID PRN PO DIARRHEA Last administered on 03/23/19at 08:57; Start 03/23/19 at 08:45 Bacitracin [id number] unit/Sodium Chloride 1,000 ml @ 1,000 mls/hr 1X ONCE IRR Last administered on 03/24/19at 14:08; Start 03/24/19 at 06:00; Stop 03/24/19 at 07:00; Status DC Cefazolin Sodium/ Dextrose 50 ml @ 100 mls/hr 1X PREOP IV Last administered on 03/24/19at 17:32; Start 03/23/19 at 14:45; Stop 03/24/19 at 18:00; Status DC Fentanyl Citrate (Fentanyl 2ml Vial) 50 mcg PRN Q2HR PRN IV PAIN Last administered on 03/25/19at 19:51; Start 03/23/19 at 16:45 Ondansetron HCl (Zofran) 4 mg PRN Q6HRS PRN IV NAUSEA/VOMITING; Start 03/24/19 at 07:00; Stop 03/25/19 at 06:59; Status DC Fentanyl Citrate (Fentanyl 2ml Vial) 25 mcg PRN Q5MIN PRN IV MILD PAIN 1-3; Start 03/24/19 at 07:00; Stop 03/25/19 at 06:59; Status DC Fentanyl Citrate (Fentanyl 2ml Vial) 50 mcg PRN Q5MIN PRN IV MODERATE TO SEVERE PAIN Last administered on 03/24/19at 18:05; Start 03/24/19 at 07:00; Stop 03/25/19 at 06:59; Status DC Morphine Sulfate (Morphine Sulfate) 1 mg PRN Q10MIN PRN IV SEVERE PAIN 7-10; Start 03/24/19 at 07:00; Stop 03/25/19 at 06:59; Status UNV Ringer's Solution 1,000 ml @ 30 mls/hr Q24H IV Last administered on 03/24/19 18:09; Start 03/24/19 at 07:00; Stop 03/24/19 at 18:59; Status DC Lidocaine HCl (Xylocaine-Mpf 1% 2ml Vial) 2 ml PRN 1X PRN ID PRIOR TO IV START; Start 03/24/19 at 07:00; Stop 03/25/19 at 06:59; Status DC Hydromorphone HCl (Dilaudid) 0.5 mg PRN Q10MIN PRN IV SEV PAIN, Second choice Last administered on 03/24/19 18:14; Start 03/24/19 at 07:00; Stop 03/25/19 at 06:59; Status DC Prochlorperazine Edisylate (Compazine) 5 mg PACU PRN PRN IV NAUSEA, MRX1 Last administered on 03/24/19 17:42; Start 03/24/19 at 07:00; Stop 03/25/19 at 06:59; Status DC Bupivacaine HCl/ Epinephrine Bitart (Sensorcain-Mpf Epi 0.5%-[id number]) 30 ml STK-MED ONCE .ROUTE Last administered on 03/24/19 14:08; Start 03/24/19 at 06:31; Stop 03/24/19 at 07:31; Status DC Gelatin (Gelfoam Size 12-7mm) 1 each STK-MED ONCE .ROUTE Last administered on 03/24/19 14:08; Start 03/24/19 at 06:31; Stop 03/24/19 at 07:31; Status DC Ketorolac Tromethamine (Toradol For Or Only) 60 mg STK-MED ONCE .ROUTE Last administered on 03/24/19 14:08; Start 03/24/19 at 06:31; Stop 03/24/19 at 07:31; Status DC Thrombin 20,000 unit STK-MED ONCE TP Last administered on 03/24/19 14:08; Star t 03/24/19 at 06:31; Stop 03/24/19 at 07:32; Status DC Propofol 20 ml @ As Directed STK-MED ONCE IV ; Start 03/24/19 at 10:32; Stop 03/24/19 at 10:33; Status DC Dexamethasone Sodium Phosphate (Decadron) 20 mg STK-MED ONCE .ROUTE ; Start 03/24/19 at 10:32; Stop 03/24/19 at 10:33; Status DC Lidocaine HCl (Lidocaine Pf 2% Vial) 5 ml STK-MED ONCE .ROUTE ; Start 03/24/19 at 10:32; Stop 03/24/19 at 10:33; Status DC Ondansetron HCl (Zofran) 4 mg STK-MED ONCE .ROUTE ; Start 03/24/19 at 10:32; Stop 03/24/19 at 10:33; Status DC Phenylephrine HCl (Keanu-Synephrine Inj) 10 mg STK-MED ONCE .ROUTE ; Start 03/24/19 at 10:32; Stop 03/24/19 at 10:33; Status DC Propofol 50 ml @ As Directed STK-MED ONCE IV ; Start 03/24/19 at 10:32; Stop 03/24/19 at 10:33; Status DC Succinylcholine Chloride (Anectine) 200 mg STK-MED ONCE .ROUTE ; Start 03/24/19 at 10:32; Stop 03/24/19 at 10:33; Status DC Rocuronium Ll[place] (Zemuron) 50 mg STK-MED ONCE .ROUTE ; Start 03/24/19 at 10:32; Stop 03/24/19 at 10:33; Status DC Midazolam HCl (Versed) 2 mg STK-MED ONCE .ROUTE ; Start 03/24/19 at 10:32; Stop 03/24/19 at 10:33; Status DC Remifentanil HCl (Ultiva) 2 mg STK-MED ONCE IV ; Start 03/24/19 at 10:32; Stop 03/24/19 at 10:33; Status DC Desflurane (Suprane) 90 ml STK-MED ONCE IH ; Start 03/24/19 at 10:40; Stop at 10:41; Status DC Multi-Ingred Cream/Lotion/Oil/ Oint (Artificial Tears Eye Ointment) 7 nicolasa STK- MED ONCE .ROUTE ; Start 03/24/19 at 11:47; Stop 03/24/19 at 11:48; Status DC Glycopyrrolate (Robinul) 1 mg STK-MED ONCE .ROUTE ; Start 03/24/19 at 13:48; S top 03/24/19 at 13:49; Status DC Propofol 20 ml @ As Directed STK-MED ONCE IV ; Start 03/24/19 at 13:54; Stop 03/24/19 at 13:55; Status DC Propofol 50 ml @ As Directed STK-MED ONCE IV ; Start 03/24/19 at 13:58; Stop 03/24/19 at 13:59; Status DC Dexamethasone Sodium Phosphate (Decadron) 2 mg Q6HRS IV Last administered on 03/25/19at 17:37; Start 03/25/19 at 00:00; Stop 03/26/19 at 00:00 Dexamethasone Sodium Phosphate (Decadron) 2 mg Q12HR IV ; Start 03/26/19 at 00:00; Stop 03/26/19 at 21:01 Cefazolin Sodium/ Dextrose (Ancef 2gm Premix) 2 gm STK-MED ONCE IV ; Start 03/23/19 at 06:00; Stop 03/24/19 at 15:19; Status DC Propofol 50 ml @ As Directed STK-MED ONCE IV ; Start 03/24/19 at 15:50; Stop 03/24/19 at 15:51; Status DC Fentanyl Citrate (Fentanyl 2ml Vial) 100 mcg STK-MED ONCE .ROUTE ; Start 03/24/19 at 16:55; Stop 03/24/19 at 16:56; Status DC Methocarbamol (Robaxin) 750 mg PRN TID PRN PO MUSCLE SPASMS Last administered on 03/25/19at 09:55; Start 03/24/19 at 17:15 Oxycodone/ Acetaminophen (Percocet 5/325) 1 tab PRN Q4HRS PRN PO MODERATE PAIN; Start 03/25/19 at 09:15 Oxycodone/ Acetaminophen (Percocet 5/325) 2 tab PRN Q4HRS PRN PO SEVERE PAIN Last administered on 03/25/19at 17:37; Start 03/25/19 at 09:15 Active Scripts Active B-1 (Thiamine HCl) 100 Mg Tablet 100 Mg PO DAILY Bactrim Ds Tablet (Sulfamethoxazole/Trimethoprim) 1 Each Tablet 1 Tab PO BID Ibuprofen 800 Mg Tablet 800 Mg PO PRN Q6HRS PRN Reported Incruse Ellipta (Umeclidinium [place]) 62.5 Mcg Blst.w.dev 1 Puff INH DAILY Oxycodone-Acetaminophen 5-325 (Oxycodone Hcl/Acetaminophen) 1 Each Tablet 1 Tab PO PRN Q4HRS PRN Proair Hfa Inhaler (Albuterol Sulfate) 8.5 Gm Hfa.aer.ad 1 Puff INH PRN Q6HRS PRN Gabapentin (Gabapentin) 100 Mg Capsule 100 Mg PO TID Alprazolam 0.5 Mg Tablet 0.5 Mg PO TID PRN Vitals/I & O Vital Sign - Last 24 Hours 03/24/19 03/24/19 03/24/19 03/24/19 22:00 22:46 23:05 23:44 Temp 98.0 97.6 98.0 97.6 Pulse 86 88 Resp 20 20 B/P (MAP) 130/69 (89) 112/61 (78) Pulse Ox 97 95 95 95 O2 Delivery Nasal Cannula Nasal Cannula Room Air Nasal Cannula O2 Flow Rate 2.0 2.0 2.0 03/25/19 03/25/19 03/25/19 03/25/19 02:19 03:07 03:46 04:46 Temp 98.0 98.0 Pulse 78 Resp 20 B/P (MAP) 129/82 (98) Pulse Ox 95 95 95 95 O2 Delivery Nasal Cannula Nasal Cannula Nasal Cannula Nasal Cannula O2 Flow Rate 2.0 2.0 2.0 03/25/19 03/25/19 03/25/19 03/25/19 05:50 07:00 07:33 07:45 Temp 97.9 97.9 Pulse 92 Resp 18 B/P (MAP) 150/85 (106) Pulse Ox 95 91 97 97 O2 Delivery Nasal Cannula Nasal Cannula Room Air Nasal Cannula O2 Flow Rate 2.0 2.0 2.0 03/25/19 03/25/19 03/25/19 03/25/19 07:45 08:00 09:30 10:53 Temp 98.1 98.1 Pulse 99 Resp 18 B/P (MAP) 155/84 (107) Pulse Ox 97 97 98 O2 Delivery Nasal Cannula Room Air Nasal Cannula Nasal Cannula O2 Flow Rate 2.0 2.0 2.0 03/25/19 03/25/19 03/25/19 03/25/19 12:08 12:38 13:36 14:23 Pulse Ox 98 94 94 94 O2 Delivery Room Air Room Air Room Air Room Air O2 Flow Rate 2.0 2.0 2.0 03/25/19 03/25/19 03/25/19 03/25/19 14:42 15:00 16:17 16:48 Temp 97.5 97.5 Pulse 104 Resp 18 B/P (MAP) 149/80 (103) Pulse Ox 94 92 92 92 O2 Delivery Room Air Room Air Room Air O2 Flow Rate 2.0 2.0 2.0 2.0 03/25/19 03/25/19 03/25/19 17:37 19:51 20:21 Pulse Ox 92 O2 Delivery Room Air Room Air Room Air O2 Flow Rate 2.0 Intake and Output 03/24/19 03/24/19 03/25/19 15:00 23:00 07:00 Intake Total 1850 ml Output Total 975 ml 0 ml Balance 875 ml 0 ml NINO GOMEZ MD Mar 25, 2019 21:48
[2019-03-25 23:59] VITALS: BP 140/89
[2019-03-26] MEDS: METHOCARBAMOL 750 MG TABLET PO PRN ×2 (00:02→08:07)
[2019-03-26] MEDS: DEXAMETHASONE SOD PHOS 4 MG/ML VIAL IV SCH ×3 (00:04→21:52)
[2019-03-26] MEDS: fentaNYL PF VIAL 100 MCG/2 ML VIAL IV PRN ×2 (01:27→04:01)
[2019-03-26 03:59] VITALS: BP 136/85
[2019-03-26] MEDS: ALPRAZolam 0.5 MG TABLET PO PRN ×5 (04:01→22:01)
[2019-03-26] MEDS: oxyCODONE/APAP 5/325 1 TAB TABLET PO PRN ×2 (04:02→08:07)
[2019-03-26 07:00] VITALS: BP 154/72
[2019-03-26] MEDS: IPRATRPIUM/ALBUTEROL 0.5/2.5MG 3 ML NEBU. NEB SCH ×4 (07:30→19:36)
[2019-03-26] MEDS: NICOTINE 21MG PATCH. TD SCH (08:07)
[2019-03-26] MEDS: FAMOTIDINE 20 MG TABLET. PO SCH ×2 (08:07→21:54)
[2019-03-26] MEDS: LACTOBACILLUS RHAMNOSUS GG 1 CAPSULE. PO SCH ×2 (08:08→21:53)
[2019-03-26] MEDS: GABAPENTIN 400 MG CAPSULE. PO SCH ×4 (08:08→21:53)
--- NOTE | 2019-03-26 08:38 | PDOC ---
PROGRESS NOTES Subjective Subjective POD #2 numbness in upper extremities resolved, still minimal numbness in right lower extremity c/o neck/ incisional pain Objective Objective Vital Signs Date Time Temp Pulse Resp B/P (MAP) Pulse Ox O2 Delivery O2 Flow Rate FiO2 03/26/19 08:07 96 Room Air 2.0 03/26/19 07:00 97.9 97 18 154/72 (99) 97.9 Intake and Output 03/26/19 07:00 Intake Total 740 ml Output Total 800 ml Balance -60 ml Intake Oral 740 ml Output Urine Total 800 ml # Voids 1 Physical Exam General: Alert, Oriented X3, Cooperative MUSCULOSKELETAL: Other (PERALTA) Neck: Other Neuro: Normal speech Skin: Other (dressing dry and intact) Plan Plan of Care cervical collar on when up encouraged increased activity as tolerated change pain medication, encouraged use of PO pain medication SCDs PT possibly home tomorrow d/w RN Comment Review of Relevant I have reviewed the following items amrit (where applicable) has been applied. Medications Current Medications Nicotine (Nicoderm Cq 21mg) 1 patch DAILY TD Last administered on 03/26/19at 08:07; Start 03/20/19 at 14:00 Albuterol Sulfate (Ventolin Neb Soln) 2.5 mg PRN Q6HRS PRN INH SHORTNESS OF BREATH; Start 03/20/19 at 14:45 Alprazolam (Xanax) 0.5 mg PRN TID PRN PO ANXIETY / AGITATION Last administered on 03/21/19at 06:25; Start 03/20/19 at 14:45; Stop 03/21/19 at 09:01; Status DC Gabapentin (Neurontin) 100 mg TID PO ; Start 03/20/19 at 15:30; Stop 03/20/19 at 15:53; Status DC Oxycodone/ Acetaminophen (Percocet 5/325) 1 tab PRN Q4HRS PRN PO PAIN; Start 03/20/19 at 14:45; Status Cancel Trimethoprim/ Sulfamethoxazole (Bactrim Ds) 1 tab BID PO Last administered on 03/20/19at 19:49; Start 03/20/19 at 21:00; Stop 03/21/19 at 08:26; Status DC Ibuprofen (Motrin) 800 mg PRN Q6HRS PRN PO INFLAMMATION; Start 03/20/19 at 14:4 5; Status Cancel Non-Formulary Medication (Thiamine HCl (B-1)) 100 mg DAILY PO ; Start 03/20/19 at 15:30; Stop 03/20/19 at 15:30; Status DC Non-Formulary Medication (Umeclidinium May (Incruse Ellipta)) 1 puff DAILY INH ; Start 03/21/19 at 09:00; Status UNV Thiamine Mononitrate (Vitamin B-1) 100 mg DAILY PO Last administered on 03/20/19at 17:44; Start 03/20/19 at 15:30; Stop 03/21/19 at 08:26; Status DC Albuterol/ Ipratropium (Duoneb) 3 ml RTQID NEB Last administered on 03/25/19at 20:00; Start 03/20/19 at 16:00 Gabapentin (Neurontin) 400 mg [id number] PO Last administered on 03/26/19at 08:08; Start 03/20/19 at 17:00 Sertraline HCl (Zoloft) 50 mg DAILY PO ; Start 03/20/19 at 16:30; Stop 03/20/19 at 17:56; Status DC Tramadol HCl (Ultram) 50 mg PRN Q8HRS PRN PO PAIN Last administered on 03/20/19at 22:01; Start 03/20/19 at 16:00; Stop 03/21/19 at 09:01; Status DC Diazepam (Valium) 10 mg 1X ONCE PO ; Start 03/20/19 at 17:15; Stop 03/20/19 at 17:16; Status Cancel Sertraline HCl (Zoloft) 50 mg QHS PO Last administered on 03/25/19at 19:52; Start 03/20/19 at 21:00 Diazepam (Valium) 10 mg PRN 1X 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, 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 Last administered on 03/21/19at 12:05; Start 03/20/19 at 18:00; Stop 03/22/19 at 12:55; Status DC Dexamethasone Sodium Phosphate (Decadron) 4 mg Q6HRS IV Last administered on 03/24/19at 06:16; Start 03/20/19 at 21:30; Stop 03/24/19 at 14:57; Status DC Alprazolam (Xanax) 0.5 mg PRN Q4HRS PRN PO ANXIETY / AGITATION Last administered on 03/26/19 08:07; Start 03/21/19 at 09:00 Tramadol HCl (Ultram) 100 mg PRN Q8HRS PRN PO MILD PAIN 1-3 Last administered on 03/23/19 17:40; Start 03/21/19 at 09:00; Stop 03/26/19 at 08:33; Status DC Gadoterate Meglumine (Dotarem) 10 ml 1X ONCE IVP Last administered on 03/21/19 12:45; Start 03/21/19 at 12:15; Stop 03/21/19 at 12:18; Status DC Ciprofloxacin (Cipro) 250 mg BID PO Last administered on 03/24/19 20:05; Start 03/22/19 at 09:00; Stop 03/24/19 at 21:01; Status DC Famotidine (Pepcid) 20 mg BID PO Last administered on 03/26/19at 08:07; Start 03/22/19 at 09:00 Loperamide HCl (Imodium) 2 mg 1X ONCE PO Last administered on 03/22/19 09:19; Start 03/22/19 at 09:00; Stop 03/22/19 at 09:01; Status DC Lactobacillus Rhamnosus (Culturelle) 1 cap BID PO Last administered on 03/23/19 20:26; Start 03/22/19 at 21:00 Acetaminophen/ Hydrocodone Bitart (Lortab 5/325) 1 tab PRN Q4HRS PRN PO MODERATE PAIN, SEVERE PAIN Last administered on 03/25/19 07:45; Start 03/22/19 at 20:00; Stop 03/25/19 at 09:07; Status DC Loperamide HCl (Imodium) 2 mg PRN TID PRN PO DIARRHEA Last administered on 03/23/19 08:57; Start 03/23/19 at 08:45 Bacitracin 49946 unit/Sodium Chloride 1,000 ml @ 1,000 mls/hr 1X ONCE IRR Last administered on 03/24/19at 14:08; Start 03/24/19 at 06:00; Stop 03/24/19 at 07:00; Status DC Cefazolin Sodium/ Dextrose 50 ml @ 100 mls/hr 1X PREOP IV Last administered on 03/24/19at 17:32; Start 03/23/19 at 14:45; Stop 03/24/19 at 18:00; Status DC Fentanyl Citrate (Fentanyl 2ml Vial) 50 mcg PRN Q2HR PRN IV PAIN Last administered on 03/26/19at 04:01; Start 03/23/19 at 16:45 Ondansetron HCl (Zofran) 4 mg PRN Q6HRS PRN IV NAUSEA/VOMITING; Start 03/24/19 at 07:00; Stop 03/25/19 at 06:59; Status DC Fentanyl Citrate (Fentanyl 2ml Vial) 25 mcg PRN Q5MIN PRN IV MILD PAIN 1-3; Start 03/24/19 at 07:00; Stop 03/25/19 at 06:59; Status DC Fentanyl Citrate (Fentanyl 2ml Vial) 50 mcg PRN Q5MIN PRN IV MODERATE TO SEVERE PAIN Last administered on 03/24/19at 18:05; Start 03/24/19 at 07:00; Stop 03/25/19 at 06:59; Status DC Morphine Sulfate (Morphine Sulfate) 1 mg PRN Q10MIN PRN IV SEVERE PAIN 7-10; Start 03/24/19 at 07:00; Stop 03/25/19 at 06:59; Status UNV Ringer's Solution 1,000 ml @ 30 mls/hr Q24H IV Last administered on 03/24/19at 18:09; Start 03/24/19 at 07:00; Stop 03/24/19 at 18:59; Status DC Lidocaine HCl (Xylocaine-Mpf 1% 2ml Vial) 2 ml PRN 1X PRN ID PRIOR TO IV START; Start 03/24/19 at 07:00; Stop 03/25/19 at 06:59; Status DC Hydromorphone HCl (Dilaudid) 0.5 mg PRN Q10MIN PRN IV SEV PAIN, Second choice Last administered on 03/24/19at 18:14; Start 03/24/19 at 07:00; Stop 03/25/19 at 06:59; Status DC Prochlorperazine Edisylate (Compazine) 5 mg PACU PRN PRN IV NAUSEA, MRX1 Last administered on 03/24/19at 17:42; Start 03/24/19 at 07:00; Stop 03/25/19 at 06:59; Status DC Bupivacaine HCl/ Epinephrine Bitart (Sensorcain-Mpf Epi 0.5%-1:[id number]) 30 ml STK-MED ONCE .ROUTE Last administered on 03/24/19 14:08; Start 03/24/19 at 06:31; Stop 03/24/19 at 07:31; Status DC Gelatin (Gelfoam Size 12-7mm) 1 each STK-MED ONCE .ROUTE Last administered on 03/24/19at 14:08; Start 03/24/19 at 06:31; Stop 03/24/19 at 07:31; Status DC Ketorolac Tromethamine (Toradol For Or Only) 60 mg STK-MED ONCE .ROUTE Last administered on 03/24/19 14:08; Start 03/24/19 at 06:31; Stop 03/24/19 at 07:31; Status DC Thrombin 20,000 unit STK-MED ONCE TP Last administered on 03/24/19at 14:08; Start 03/24/19 at 06:31; Stop 03/24/19 at 07:32; Status DC Propofol 20 ml @ As Directed STK-MED ONCE IV ; Start 03/24/19 at 10:32; Stop 03/24/19 at 10:33; Status DC Dexamethasone Sodium Phosphate (Decadron) 20 mg STK-MED ONCE .ROUTE ; Start 03/24/19 at 10:32; Stop 03/24/19 at 10:33; Status DC Lidocaine HCl (Lidocaine Pf 2% Vial) 5 ml STK-MED ONCE .ROUTE ; Start 03/24/19 at 10:32; Stop 03/24/19 at 10:33; Status DC Ondansetron HCl (Zofran) 4 mg STK-MED ONCE .ROUTE ; Start 03/24/19 at 10:32; Stop 03/24/19 at 10:33; Status DC Phenylephrine HCl (Keanu-Synephrine Inj) 10 mg STK-MED ONCE .ROUTE ; Start 03/24/19 at 10:32; Stop 03/24/19 at 10:33; Status DC Propofol 50 ml @ As Directed STK-MED ONCE IV ; Start 03/24/19 at 10:32; Stop 03/24/19 at 10:33; Status DC Succinylcholine Chloride (Anectine) 200 mg STK-MED ONCE .ROUTE ; Start 03/24/19 at 10:32; Stop 03/24/19 at 10:33; Status DC Rocuronium May (Zemuron) 50 mg STK-MED ONCE .ROUTE ; Start 03/24/19 at 10:32; Stop 03/24/19 at 10:33; Status DC Midazolam HCl (Versed) 2 mg STK-MED ONCE .ROUTE ; Start 03/24/19 at 10:32; Stop 03/24/19 at 10:33; Status DC Remifentanil HCl (Ultiva) 2 mg STK-MED ONCE IV ; Start 03/24/19 at 10:32; Stop 03/24/19 at 10:33; Status DC Desflurane (Suprane) 90 ml STK-MED ONCE IH ; Start 03/24/19 at 10:40; Stop 03/24/19 at 10:41; Status DC Multi-Ingred Cream/Lotion/Oil/ Oint (Artificial Tears Eye Ointment) 7 nicolasa STK- MED ONCE .ROUTE ; Start 03/24/19 at 11:47; Stop 03/24/19 at 11:48; Status DC Glycopyrrolate (Robinul) 1 mg STK-MED ONCE .ROUTE ; Start 03/24/19 at 13:48; Stop 03/24/19 at 13:49; Status DC Propofol 20 ml @ As Directed STK-MED ONCE IV ; Start 03/24/19 at 13:54; Stop 03/24/19 at 13:55; Status DC Propofol 50 ml @ As Directed STK-MED ONCE IV ; Start 03/24/19 at 13:58; Stop 03/24/19 at 13:59; Status DC Dexamethasone Sodium Phosphate (Decadron) 2 mg Q6HRS IV Last administered on 03/26/19at 00:04; Start 03/25/19 at 00:00; Stop 03/26/19 at 00:00; Status DC Dexamethasone Sodium Phosphate (Decadron) 2 mg Q12HR IV Last administered on 03/26/19at 08:08; Start 03/26/19 at 00:00; Stop 03/26/19 at 21:01 Cefazolin Sodium/ Dextrose (Ancef 2gm Premix) 2 gm STK-MED ONCE IV ; Start 03/23/19 at 06:00; Stop 03/24/19 at 15:19; Status DC Propofol 50 ml @ As Directed STK-MED ONCE IV ; Start 03/24/19 at 15:50; Stop 03/24/19 at 15:51; Status DC Fentanyl Citrate (Fentanyl 2ml Vial) 100 mcg STK-MED ONCE .ROUTE ; Start 03/24/19 at 16:55; Stop 03/24/19 at 16:56; Status DC Methocarbamol (Robaxin) 750 mg PRN TID PRN PO MUSCLE SPASMS Last administered on 03/26/19at 08:07; Start 03/24/19 at 17:15 Oxycodone/ Acetaminophen (Percocet 5/325) 1 tab PRN Q4HRS PRN PO MODERATE PAIN; Start 03/25/19 at 09:15; Stop 03/26/19 at 08:33; Status DC Oxycodone/ Acetaminophen (Percocet 5/325) 2 tab PRN Q4HRS PRN PO SEVERE PAIN Last administered on 03/26/19at 08:07; Start 03/25/19 at 09:15; Stop 03/26/19 at 08:33; Status DC Oxycodone HCl (OxyCONTIN) 10 mg Q12HR PO ; Start 03/26/19 at 09:00; Status UNV Oxycodone/ Acetaminophen (Percocet 7.5/ 325) 1 tab PRN Q4HRS PRN PO PAIN; Start 03/26/19 at 08:45; Status UNV Oxycodone/ Acetaminophen (Percocet 7.5/ 325) 2 tab PRN Q6HRS PRN PO PAIN; Start 03/26/19 at 08:45; Status UNV Active Scripts Active B-1 (Thiamine HCl) 100 Mg Tablet 100 Mg PO DAILY Bactrim Ds Tablet (Sulfamethoxazole/Trimethoprim) 1 Each Tablet 1 Tab PO BID Ibuprofen 800 Mg Tablet 800 Mg PO PRN Q6HRS PRN Reported Incruse Ellipta (Umeclidinium May) 62.5 Mcg Blst.w.dev 1 Puff INH DAILY Oxycodone-Acetaminophen 5-325 (Oxycodone Hcl/Acetaminophen) 1 Each Tablet 1 Tab PO PRN Q4HRS PRN Proair Hfa Inhaler (Albuterol Sulfate) 8.5 Gm Hfa.aer.ad 1 Puff INH PRN Q6HRS PRN Gabapentin (Gabapentin) 100 Mg Capsule 100 Mg PO TID Alprazolam 0.5 Mg Tablet 0.5 Mg PO TID PRN Vitals/I & O Vital Sign - Last 24 Hours 03/25/19 03/25/19 03/25/19 03/25/19 09:30 10:53 12:08 12:38 Temp 98.1 98.1 Pulse 99 Resp 18 B/P (MAP) 155/84 (107) Pulse Ox 97 98 98 94 O2 Delivery Nasal Cannula Nasal Cannula Room Air Room Air O2 Flow Rate 2.0 2.0 2.0 03/25/19 03/25/19 03/25/19 03/25/19 13:36 14:23 14:42 15:00 Temp 97.5 97.5 Pulse 104 Resp 18 B/P (MAP) 149/80 (103) Pulse Ox 94 94 94 92 O2 Delivery Room Air Room Air Room Air O2 Flow Rate 2.0 2.0 2.0 2.0 03/25/19 03/25/19 03/25/19 03/25/19 16:17 16:48 17:37 19:51 Pulse Ox 92 92 92 O2 Delivery Room Air Room Air Room Air O2 Flow Rate 2.0 2.0 2.0 03/25/19 03/25/19 03/25/19 03/25/19 19:59 20:00 22:17 22:18 Temp 97.6 97.6 Pulse 102 Resp 17 B/P (MAP) 146/91 (109) Pulse Ox 91 O2 Delivery Room Air Room Air Room Air Room Air 03/25/19 03/26/19 03/26/19 03/26/19 23:59 01:27 03:59 04:01 Temp 97.6 98.6 97.6 98.6 Pulse 84 94 Resp 18 19 B/P (MAP) 140/89 (106) 136/85 (102) Pulse Ox 94 92 O2 Delivery Room Air Room Air Room Air Room Air 03/26/19 03/26/19 03/26/19 03/26/19 04:02 04:35 05:02 07:00 Temp 97.9 97.9 Pulse 97 Resp 18 B/P (MAP) 154/72 (99) Pulse Ox 96 O2 Delivery Room Air Room Air Room Air Room Air 03/26/19 08:07 Pulse Ox 96 O2 Delivery Room Air O2 Flow Rate 2.0 Intake and Output 03/25/19 03/25/19 03/26/19 15:00 23:00 07:00 Intake Total 240 ml 500 ml Output Total 800 ml Balance 240 ml -800 ml 500 ml RYAN SHAW [employer] TECHNICIAN Mar 26, 2019 08:38
[2019-03-26] MEDS: oxyCODONE ER 10 MG TAB.ER.12H PO SCH ×2 (08:50→21:53)
[2019-03-26 10:47] VITALS: BP 118/73
--- NOTE | 2019-03-26 11:40 | PDOC ---
Provider Note Provider Note stable, good neuro status, no new sxs- plan home am likely FEMI OSPINA MD Mar 26, 2019 11:40
[2019-03-26] MEDS: oxyCODONE/APAP 7.5/325 1 TAB TABLET PO PRN ×2 (12:11→18:17)
[2019-03-26 19:00] VITALS: BP 91/52
[2019-03-26] MEDS: SERTRALINE 50 MG TABLET. PO SCH (21:53)
[2019-03-26 22:44] VITALS: BP 89/53
[2019-03-27 02:42] VITALS: BP 116/68
[2019-03-27] MEDS: oxyCODONE/APAP 7.5/325 1 TAB TABLET PO PRN ×5 (02:53→22:12)
[2019-03-27] MEDS: ALPRAZolam 0.5 MG TABLET PO PRN ×3 (02:55→22:12)
[2019-03-27] MEDS: METHOCARBAMOL 750 MG TABLET PO PRN (03:04)
[2019-03-27 06:49] VITALS: BP 112/72
[2019-03-27] MEDS: IPRATRPIUM/ALBUTEROL 0.5/2.5MG 3 ML NEBU. NEB SCH ×4 (07:41→20:24)
--- NOTE | 2019-03-27 08:20 | PDOC ---
Provider Note Provider Note [id number] FEMI OSPINA MD Mar 27, 2019 08:19
[2019-03-27 08:58] LABS: BASO # 0.1 x10^3/uL (0.0-0.2); BASO % 1 % (0-3); EOS % 0 % (0-3); HEMATOCRIT 39.5 % (36.0-47.0); HEMOGLOBIN 13.4 g/dL (12.0-15.5); LYMPH # 3.1 x10^3/uL (1.0-4.8); LYMPH % 26 % (24-48); MEAN CORPUSCULAR HEMOGLOBIN 31 pg (25-35); MEAN CORPUSCULAR HGB CONC 34 g/dL (31-37); MEAN CORPUSCULAR VOLUME 92 fL (79-100); MONO # 1.5 x10^3/uL (0.0-1.1); MONO % 13 % (0-9); NEUT # 7.2 x10^3uL (1.8-7.7); NEUT % 60 % (31-73); PLATELET COUNT 547 x10^3/uL (140-400); RED CELL DISTRIBUTION WIDTH 13.1 % (11.5-14.5)
[2019-03-27] MEDS: NICOTINE 21MG PATCH. TD SCH (09:13)
[2019-03-27] MEDS: LACTOBACILLUS RHAMNOSUS GG 1 CAPSULE. PO SCH ×2 (09:14→20:46)
[2019-03-27] MEDS: FAMOTIDINE 20 MG TABLET. PO SCH ×2 (09:14→20:46)
[2019-03-27] MEDS: GABAPENTIN 400 MG CAPSULE. PO SCH ×4 (09:14→20:47)
[2019-03-27 09:17] LABS: ALBUMIN 3.6 g/dL (3.4-5.0); ALBUMIN/GLOBULIN RATIO 0.8 (1.0-1.7); CALCIUM 9.6 mg/dL (8.5-10.1); CREATININE 0.7 mg/dL (0.6-1.0); GFR 85.4; POTASSIUM 3.2 mmol/L (3.5-5.1); TOTAL BILIRUBIN 0.5 mg/dL (0.2-1.0); TOTAL PROTEIN 8.1 g/dL (6.4-8.2)
[2019-03-27] MEDS: oxyCODONE ER 10 MG TAB.ER.12H PO SCH ×2 (09:17→20:47)
--- NOTE | 2019-03-27 10:19 | DS ---
DATE OF DISCHARGE: 03/27/2019 HOSPITAL SUMMARY: A 58-year-old white female came in with increasingly severe weakness in all extremities. Numbness and tingling in both legs, more than arms and hyperreflexia, suspicious of an upper motor neuron process. Chest x-ray was clear. Cervical spine x-ray showed severe spondylolisthesis of C4 on C5, and MRI confirmed that finding with severe central canal spinal stenosis at that level and cord edema and mild malaise. She was seen as well. MRI of the brain was unremarkable. She underwent neurologic evaluation and IV Decadron started to improve her symptoms, and Dr. Heriberto Saha performed surgical procedure on 03/24 to stabilize and improve the spinal defect. She is doing better and more comfortable at this point with much better neurologic status from the steroids and the surgery, and she is comfortable to go home and be followed as an outpatient. All laboratory studies were unremarkable and previous urine culture had shown Klebsiella sensitive to Cipro, which was given. FINAL DIAGNOSES: 1. Severe quadrant paresis secondary to anterior spondylolisthesis of C4 on C5 with secondary cord edema and encephalomalacia. 2. Urinary tract infection. OPERATIONS AND PROCEDURES: Cervical spinal surgery. COMPLICATIONS: None. CONSULTATIONS: Dr. Saha. Dr. Stearns. DISPOSITION: Meds listed continue at home and then Dr. Saha will provide oxycodone and Decadron prescriptions as soon as she is fit. Office followup with Dr. Saha in 1-2 weeks, Dr. Bender on an as needed basis. Limited activity and complete tobacco avoidance and high-calorie, high-protein intake to improve her malnutrition. FEMI BENDER MD DR: MYRA/kade JOB#: [id number] / [id number]
[2019-03-27 10:57] VITALS: BP 138/68
--- NOTE | 2019-03-27 11:28 | PDOC ---
PROGRESS NOTES Subjective Subjective POD #3 S/P cervical laminectomy and fusion neck/ incisional pain better controlled but was unable to work with PT this morning d/t pain Objective Objective Vital Signs Date Time Temp Pulse Resp B/P (MAP) Pulse Ox O2 Delivery O2 Flow Rate FiO2 03/27/19 11:10 18 Room Air 03/27/19 10:57 98.1 96 138/68 (91) 96 98.1 03/27/19 09:17 2.0 Intake and Output 03/27/19 06:59 Intake Total 1500 ml Balance 1500 ml Intake Oral 1500 ml # Voids 1 Physical Exam General: Alert, Oriented X3, Cooperative MUSCULOSKELETAL: Other (PERALTA) Neuro: Normal speech Skin: Other (dressing C,D,I flat) Plan Plan of Care d/w Liza, physical therapy. Patient was unable to do stairs and only ambulated in room. She was unable to place cervical collar without assist. continue current medications will ask Dr. Rosa to see her to evaluate for SNF Comment Review of Relevant I have reviewed the following items amrit (where applicable) has been applied. Labs Laboratory Tests Test 03/27/19 08:50 White Blood Count 12.0 x10^3/uL (4.0-11.0) Red Blood Count 4.30 x10^6/uL (3.50-5.40) Hemoglobin 13.4 g/dL (12.0-15.5) Hematocrit 39.5 % (36.0-47.0) Mean Corpuscular Volume 92 fL (79-100) Mean Corpuscular Hemoglobin 31 pg (25-35) Mean Corpuscular Hemoglobin Concent 34 g/dL (31-37) Red Cell Distribution Width 13.1 % (11.5-14.5) Platelet Count 547 x10^3/uL (140-400) Neutrophils (%) (Auto) 60 % (31-73) Lymphocytes (%) (Auto) 26 % (24-48) Monocytes (%) (Auto) 13 % (0-9) Eosinophils (%) (Auto) 0 % (0-3) Basophils (%) (Auto) 1 % (0-3) Neutrophils # (Auto) 7.2 x10^3uL (1.8-7.7) Lymphocytes # (Auto) 3.1 x10^3/uL (1.0-4.8) Monocytes # (Auto) 1.5 x10^3/uL (0.0-1.1) Eosinophils # (Auto) 0.0 x10^3/uL (0.0-0.7) Basophils # (Auto) 0.1 x10^3/uL (0.0-0.2) Sodium Level 133 mmol/L (136-145) Potassium Level 3.2 mmol/L (3.5-5.1) Chloride Level 95 mmol/L (98-107) Carbon Dioxide Level 26 mmol/L (21-32) Anion Gap 12 (6-14) Blood Urea Nitrogen 13 mg/dL (7-20) Creatinine 0.7 mg/dL (0.6-1.0) Estimated GFR (Cockcroft-Gault) 85.4 BUN/Creatinine Ratio 19 (6-20) Glucose Level 87 mg/dL (70-99) Calcium Level 9.6 mg/dL (8.5-10.1) Total Bilirubin 0.5 mg/dL (0.2-1.0) Aspartate Amino Transf (AST/SGOT) 48 U/L (15-37) Alanine Aminotransferase (ALT/SGPT) 78 U/L (14-59) Alkaline Phosphatase 86 U/L (46-116) Total Protein 8.1 g/dL (6.4-8.2) Albumin 3.6 g/dL (3.4-5.0) Albumin/Globulin Ratio 0.8 (1.0-1.7) Laboratory Tests Test 03/27/19 08:50 White Blood Count 12.0 x10^3/uL (4.0-11.0) Red Blood Count 4.30 x10^6/uL (3.50-5.40) Hemoglobin 13.4 g/dL (12.0-15.5) Hematocrit 39.5 % (36.0-47.0) Mean Corpuscular Volume 92 fL (79-100) Mean Corpuscular Hemoglobin 31 pg (25-35) Mean Corpuscular Hemoglobin Concent 34 g/dL (31-37) Red Cell Distribution Width 13.1 % (11.5-14.5) Platelet Count 547 x10^3/uL (140-400) Neutrophils (%) (Auto) 60 % (31-73) Lymphocytes (%) (Auto) 26 % (24-48) Monocytes (%) (Auto) 13 % (0-9) Eosinophils (%) (Auto) 0 % (0-3) Basophils (%) (Auto) 1 % (0-3) Neutrophils # (Auto) 7.2 x10^3uL (1.8-7.7) Lymphocytes # (Auto) 3.1 x10^3/uL (1.0-4.8) Monocytes # (Auto) 1.5 x10^3/uL (0.0-1.1) Eosinophils # (Auto) 0.0 x10^3/uL (0.0-0.7) Basophils # (Auto) 0.1 x10^3/uL (0.0-0.2) Sodium Level 133 mmol/L (136-145) Potassium Level 3.2 mmol/L (3.5-5.1) Chloride Level 95 mmol/L (98-107) Carbon Dioxide Level 26 mmol/L (21-32) Anion Gap 12 (6-14) Blood Urea Nitrogen 13 mg/dL (7-20) Creatinine 0.7 mg/dL (0.6-1.0) Estimated GFR (Cockcroft-Gault) 85.4 BUN/Creatinine Ratio 19 (6-20) Glucose Level 87 mg/dL (70-99) Calcium Level 9.6 mg/dL (8.5-10.1) Total Bilirubin 0.5 mg/dL (0.2-1.0) Aspartate Amino Transf (AST/SGOT) 48 U/L (15-37) Alanine Aminotransferase (ALT/SGPT) 78 U/L (14-59) Alkaline Phosphatase 86 U/L (46-116) Total Protein 8.1 g/dL (6.4-8.2) Albumin 3.6 g/dL (3.4-5.0) Albumin/Globulin Ratio 0.8 (1.0-1.7) Medications Current Medications Nicotine (Nicoderm Cq 21mg) 1 patch DAILY TD Last administered on 03/27/19at 09:13; Start 03/20/19 at 14:00 Albuterol Sulfate (Ventolin Neb Soln) 2.5 mg PRN Q6HRS PRN INH SHORTNESS OF BREATH; Start 03/20/19 at 14:45 Alprazolam (Xanax) 0.5 mg PRN TID PRN PO ANXIETY / AGITATION Last administered on 03/21/19at 06:25; Start 03/20/19 at 14:45; Stop 03/21/19 at 09:01; Status DC Gabapentin (Neurontin) 100 mg TID PO ; Start 03/20/19 at 15:30; Stop 03/20/19 at 15:53; Status DC Oxycodone/ Acetaminophen (Percocet 5/325) 1 tab PRN Q4HRS PRN PO PAIN; Start 03/20/19 at 14:45; Status Cancel Trimethoprim/ Sulfamethoxazole (Bactrim Ds) 1 tab BID PO Last administered on 03/20/19at 19:49; Start 03/20/19 at 21:00; Stop 03/21/19 at 08:26; Status DC Ibuprofen (Motrin) 800 mg PRN Q6HRS PRN PO INFLAMMATION; Start 03/20/19 at 14:45; Status Cancel Non-Formulary Medication (Thiamine HCl (B-1)) 100 mg DAILY PO ; Start 03/20/19 at 15:30; Stop 03/20/19 at 15:30; Status DC Non-Formulary Medication (Umeclidinium [place] (Incruse Ellipta)) 1 puff DAILY INH ; Start 03/21/19 at 09:00; Status UNV Thiamine Mononitrate (Vitamin B-1) 100 mg DAILY PO Last administered on at 17:44; Start 03/20/19 at 15:30; Stop 03/21/19 at 08:26; Status DC Albuterol/ Ipratropium (Duoneb) 3 ml RTQID NEB Last administered on 03/27/19at 07:41; Start 03/20/19 at 16:00 Gabapentin (Neurontin) 400 mg [id number] PO Last administered on 03/27/19at 09:14; Start 03/20/19 at 17:00 Sertraline HCl (Zoloft) 50 mg DAILY PO ; Start 03/20/19 at 16:30; Stop 03/20/19 at 17:56; Status DC Tramadol HCl (Ultram) 50 mg PRN Q8HRS PRN PO PAIN Last administered on 03/20/19at 22:01; Start 03/20/19 at 16:00; Stop 03/21/19 at 09:01; Status DC Diazepam (Valium) 10 mg 1X ONCE PO ; Start 03/20/19 at 17:15; Stop 03/20/19 at 17:16; Status Cancel Sertraline HCl (Zoloft) 50 mg QHS PO Last administered on 03/26/19at 21:53; Start 03/20/19 at 21:00 Diazepam (Valium) 10 mg PRN 1X PRN PO professional services specialist to MRI, 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 Last administered on 03/21/19at 12:05; Start 03/20/19 at 18:00; Stop 03/22/19 at 12:55; Status DC Dexamethasone Sodium Phosphate (Decadron) 4 mg Q6HRS IV Last administered on 03/24/19at 06:16; Start 03/20/19 at 21:30; Stop 03/24/19 at 14:57; Status DC Alprazolam (Xanax) 0.5 mg PRN Q4HRS PRN PO ANXIETY / AGITATION Last administered on 03/27/19at 02:55; Start 03/21/19 at 09:00 Tramadol HCl (Ultram) 100 mg PRN Q8HRS PRN PO MILD PAIN 1-3 Last administered on 03/23/19at 17:40; Start 03/21/19 at 09:00; Stop 03/26/19 at 08:33; Status DC Gadoterate Meglumine (Dotarem) 10 ml 1X ONCE IVP Last administered on 03/21/19at 12:45; Start 03/21/19 at 12:15; Stop 03/21/19 at 12:18; Status DC Ciprofloxacin (Cipro) 250 mg BID PO Last administered on 03/24/19at 20:05; Start 03/22/19 at 09:00; Stop 03/24/19 at 21:01; Status DC Famotidine (Pepcid) 20 mg BID PO Last administered on 03/27/19at 09:14; Start 03/22/19 at 09:00 Loperamide HCl (Imodium) 2 mg 1X ONCE PO Last administered on 03/22/19at 09:19; Start 03/22/19 at 09:00; Stop 03/22/19 at 09:01; Status DC Lactobacillus Rhamnosus (Culturelle) 1 cap BID PO Last administered on 03/27/19at 09:14; Start 03/22/19 at 21:00 Acetaminophen/ Hydrocodone Bitart (Lortab 5/325) 1 tab PRN Q4HRS PRN PO MODERATE PAIN, SEVERE PAIN Last administered on 03/25/19at 07:45; Start 03/22/19 at 20:00; Stop 03/25/19 at 09:07; Status DC Loperamide HCl (Imodium) 2 mg PRN TID PRN PO DIARRHEA Last administered on 03/23/19at 08:57; Start 03/23/19 at 08:45 Bacitracin [id number] unit/Sodium Chloride 1,000 ml @ 1,000 mls/hr 1X ONCE IRR Last administered on 03/24/19at 14:08; Start 03/24/19 at 06:00; Stop 03/24/19 at 07:00; Status DC Cefazolin Sodium/ Dextrose 50 ml @ 100 mls/hr 1X PREOP IV Last administered on 03/24/19at 17:32; Start 03/23/19 at 14:45; Stop 03/24/19 at 18:00; Status DC Fentanyl Citrate (Fentanyl 2ml Vial) 50 mcg PRN Q2HR PRN IV PAIN Last administered on 03/26/19at 04:01; Start 03/23/19 at 16:45 Ondansetron HCl (Zofran) 4 mg PRN Q6HRS PRN IV NAUSEA/VOMITING; Start 03/24/19 at 07:00; Stop 03/25/19 at 06:59; Status DC Fentanyl Citrate (Fentanyl 2ml Vial) 25 mcg PRN Q5MIN PRN IV MILD PAIN 1-3; Start 03/24/19 at 07:00; Stop 03/25/19 at 06:59; Status DC Fentanyl Citrate (Fentanyl 2ml Vial) 50 mcg PRN Q5MIN PRN IV MODERATE TO SEVERE PAIN Last administered on 03/24/19at 18:05; Start 03/24/19 at 07:00; Stop 03/25/19 at 06:59; Status DC Morphine Sulfate (Morphine Sulfate) 1 mg PRN Q10MIN PRN IV SEVERE PAIN 7-10; Start 03/24/19 at 07:00; Stop 03/25/19 at 06:59; Status UNV Ringer's Solution 1,000 ml @ 30 mls/hr Q24H IV Last administered on 03/24/19 18:09; Start 03/24/19 at 07:00; Stop 03/24/19 at 18:59; Status DC Lidocaine HCl (Xylocaine-Mpf 1% 2ml Vial) 2 ml PRN 1X PRN ID PRIOR TO IV START; Start 03/24/19 at 07:00; Stop 03/25/19 at 06:59; Status DC Hydromorphone HCl (Dilaudid) 0.5 mg PRN Q10MIN PRN IV SEV PAIN, Second choice Last administered on 03/24/19 18:14; Start 03/24/19 at 07:00; Stop 03/25/19 at 06:59; Status DC Prochlorperazine Edisylate (Compazine) 5 mg PACU PRN PRN IV NAUSEA, MRX1 Last administered on 03/24/19 17:42; Start 03/24/19 at 07:00; Stop 03/25/19 at 06:59; Status DC Bupivacaine HCl/ Epinephrine Bitart (Sensorcain-Mpf Epi 0.5%-[id number]) 30 ml STK-MED ONCE .ROUTE Last administered on 03/24/19 14:08; Start 03/24/19 at 06:31; Stop 03/24/19 at 07:31; Status DC Gelatin (Gelfoam Size 12-7mm) 1 each STK-MED ONCE .ROUTE Last administered on 03/24/19 14:08; Start 03/24/19 at 06:31; Stop 03/24/19 at 07:31; Status DC Ketorolac Tromethamine (Toradol For Or Only) 60 mg STK-MED ONCE .ROUTE Last administered on 03/24/19 14:08; Start 03/24/19 at 06:31; Stop 03/24/19 at 07:31; Status DC Thrombin 20,000 unit STK-MED ONCE TP Last administered on 03/24/19 14:08; Start 03/24/19 at 06:31; Stop 03/24/19 at 07:32; Status DC Propofol 20 ml @ As Directed STK-MED ONCE IV ; Start 03/24/19 at 10:32; Stop 03/24/19 at 10:33; Status DC Dexamethasone Sodium Phosphate (Decadron) 20 mg STK-MED ONCE .ROUTE ; Start 03/24/19 at 10:32; Stop 03/24/19 at 10:33; Status DC Lidocaine HCl (Lidocaine Pf 2% Vial) 5 ml STK-MED ONCE .ROUTE ; Start 03/24/19 at 10:32; Stop 03/24/19 at 10:33; Status DC Ondansetron HCl (Zofran) 4 mg STK-MED ONCE .ROUTE ; Start 03/24/19 at 10:32; S top 03/24/19 at 10:33; Status DC Phenylephrine HCl (Keanu-Synephrine Inj) 10 mg STK-MED ONCE .ROUTE ; Start 03/24/19 at 10:32; Stop 03/24/19 at 10:33; Status DC Propofol 50 ml @ As Directed STK-MED ONCE IV ; Start 03/24/19 at 10:32; Stop 03/24/19 at 10:33; Status DC Succinylcholine Chloride (Anectine) 200 mg STK-MED ONCE .ROUTE ; Start 03/24/19 at 10:32; Stop 03/24/19 at 10:33; Status DC Rocuronium [place] (Zemuron) 50 mg STK-MED ONCE .ROUTE ; Start 03/24/19 at 10:32; Stop 03/24/19 at 10:33; Status DC Midazolam HCl (Versed) 2 mg STK-MED ONCE .ROUTE ; Start 03/24/19 at 10:32; Stop 03/24/19 at 10:33; Status DC Remifentanil HCl (Ultiva) 2 mg STK-MED ONCE IV ; Start 03/24/19 at 10:32; Stop 03/24/19 at 10:33; Status DC Desflurane (Suprane) 90 ml STK-MED ONCE IH ; Start 03/24/19 at 10:40; Stop 03/24/19 at 10:41; Status DC Multi-Ingred Cream/Lotion/Oil/ Oint (Artificial Tears Eye Ointment) 7 nicolasa STK- MED ONCE .ROUTE ; Start 03/24/19 at 11:47; Stop 03/24/19 at 11:48; Status DC Glycopyrrolate (Robinul) 1 mg STK-MED ONCE .ROUTE ; Start 03/24/19 at 13:48; Stop 03/24/19 at 13:49; Status DC Propofol 20 ml @ As Directed STK-MED ONCE IV ; Start 03/24/19 at 13:54; Stop 03/24/19 at 13:55; Status DC Propofol 50 ml @ As Directed STK-MED ONCE IV ; Start 03/24/19 at 13:58; Stop 03/24/19 at 13:59; Status DC Dexamethasone Sodium Phosphate (Decadron) 2 mg Q6HRS IV Last administered on 03/26/19at 00:04; Start 03/25/19 at 00:00; Stop 03/26/19 at 00:00; Status DC Dexamethasone Sodium Phosphate (Decadron) 2 mg Q12HR IV Last administered on 03/26/19at 21:52; Start 03/26/19 at 00:00; Stop 03/26/19 at 21:01; Status DC Cefazolin Sodium/ Dextrose (Ancef 2gm Premix) 2 gm STK-MED ONCE IV ; Start 03/23/19 at 06:00; Stop 03/24/19 at 15:19; Status DC Propofol 50 ml @ As Directed STK-MED ONCE IV ; Start 03/24/19 at 15:50; Stop 03/24/19 at 15:51; Status DC Fentanyl Citrate (Fentanyl 2ml Vial) 100 mcg STK-MED ONCE .ROUTE ; Start 03/24/19 at 16:55; Stop 03/24/19 at 16:56; Status DC Methocarbamol (Robaxin) 750 mg PRN TID PRN PO MUSCLE SPASMS Last administered on 03/27/19at 03:04; Start 03/24/19 at 17:15 Oxycodone/ Acetaminophen (Percocet 5/325) 1 tab PRN Q4HRS PRN PO MODERATE PAIN; Start 03/25/19 at 09:15; Stop 03/26/19 at 08:33; Status DC Oxycodone/ Acetaminophen (Percocet 5/325) 2 tab PRN Q4HRS PRN PO SEVERE PAIN Last administered on 03/26/19at 08:07; Start 03/25/19 at 09:15; Stop 03/26/19 at 08:33; Status DC Oxycodone HCl (OxyCONTIN) 10 mg Q12HR PO Last administered on 03/27/19at 09:17; Start 03/26/19 at 09:00 Oxycodone/ Acetaminophen (Percocet 7.5/ 325) 1 tab PRN Q4HRS PRN PO MODERATE PAIN Last administered on 03/27/19at 11:10; Start 03/26/19 at 08:45 Oxycodone/ Acetaminophen (Percocet 7.5/ 325) 2 tab PRN Q6HRS PRN PO SEVERE PAIN Last administered on 03/27/19at 02:53; Start 03/26/19 at 08:45 Active Scripts Active Ibuprofen 800 Mg Tablet 800 Mg PO PRN Q6HRS PRN Reported Incruse Ellipta (Umeclidinium [place]) 62.5 Mcg Blst.w.dev 1 Puff INH DAILY Oxycodone-Acetaminophen 5-325 (Oxycodone Hcl/Acetaminophen) 1 Each Tablet 1 Tab PO PRN Q4HRS PRN Proair Hfa Inhaler (Albuterol Sulfate) 8.5 Gm Hfa.aer.ad 1 Puff INH PRN Q6HRS PRN Gabapentin (Gabapentin) 100 Mg Capsule 100 Mg PO TID Alprazolam 0.5 Mg Tablet 0.5 Mg PO TID PRN Vitals/I & O Vital Sign - Last 24 Hours 03/26/19 03/26/19 03/26/19 03/26/19 11:41 12:11 18:17 19:00 Temp 98.1 98.1 Pulse 106 Resp 16 B/P (MAP) 91/52 (65) Pulse Ox 94 94 94 O2 Delivery Room Air Room Air Room Air Room Air O2 Flow Rate 2.0 2.0 03/26/19 03/26/19 03/26/19 03/26/19 19:38 20:00 21:53 22:44 Temp 98.0 98.0 Pulse 91 Resp 15 B/P (MAP) 89/53 (65) Pulse Ox 94 94 O2 Delivery Room Air Room Air Room Air Room Air 03/27/19 03/27/19 03/27/19 03/27/19 01:53 02:42 02:53 03:53 Temp 98.3 98.3 Pulse 98 Resp 16 B/P (MAP) 116/68 (84) Pulse Ox 95 O2 Delivery Room Air Room Air Room Air Room Air 03/27/19 03/27/19 03/27/19 03/27/19 06:49 07:42 07:44 09:17 Temp 98.0 98.0 Pulse 94 Resp 17 16 B/P (MAP) 112/72 (85) Pulse Ox 94 98 98 98 O2 Delivery Room Air Room Air Room Air Room Air O2 Flow Rate 2.0 03/27/19 03/27/19 10:57 11:10 Temp 98.1 98.1 Pulse 96 Resp 18 18 B/P (MAP) 138/68 (91) Pulse Ox 96 O2 Delivery Room Air Room Air Intake and Output0 03/26/19 03/26/19 03/27/19 14:59 22:59 06:59 Intake Total 600 ml 300 ml 600 ml Balance 600 ml 300 ml 600 ml RYAN SHAW [employer] Mar 27, 2019 11:28
[2019-03-27] MEDS ORDERED: MAGNESIUM CITRATE 296 ML SOLUTION. PO PRN (14:15)
[2019-03-27] MEDS ORDERED: BISACODYL 10 MG SUPP.RECT. PR PRN (14:15)
[2019-03-27] MEDS ORDERED: DOCUSATE SODIUM 283 MG/5 ML ENEMA. PR PRN (14:15)
[2019-03-27 15:00] VITALS: BP 134/70
[2019-03-27] MEDS: BISACODYL 5 MG TABLET.DR. PO SCH (15:00)
[2019-03-27] MEDS: POLYETHYLENE GLYCOL 3350 17 GM PACKET. PO SCH (15:40)
--- NOTE | 2019-03-27 17:18 | PDOC ---
PROGRESS NOTES Assessment Assessment IMPRESSION: Severe C-spine cord C4-C5 impingement. Cervical myelopathy. C-spine stenosis. S/p cervical laminectomy and fusion. Neck pain. Generalized weakness not able to walk before surgery. Numbness, tingling and pain before surgery. RECOMMENDATIONS/PLAN: Pain control. Narcotics per NS and IM. Continue Neurontin. OT/PT. Past Medical History Pulmonary: COPD Psych: Anxiety Musculoskeletal: Osteoarthritis Past Surgical History Appendectomy, Cholecystectomy, (2), Hysterectomy, Other (resection of duodenal ulcer, buttocks wound infection) Family History Cancer Social History , works at the [employer], quit smoking, occasional beer Allergies Coded Allergies: Morphine (Verified Allergy, Intermediate, Rash, 11/12/18) Has tolerated oxycodone, hydrocodone, and hydromorphone ROS Negative for fever, chills, weight loss, chest pain, indigestion, hematochezia, melena, and dysuria. Positive for dyspnea. Full 14-point review of systems is negative. PHYSICAL EXAMINATION: General appearance in subacute distress. HEENT: Normocephalic and nontraumatic. Eyes, nose, ears, and throat are unremarkable. Neck is supple. No lymphadenopathy. No Crepitus. Cardiovascular: S1, S2, regular rate and rhythm. Pulmonary: Clear to auscultation bilaterally. Abdomen: Bowel sounds are positive. Abdomen is soft, nontender, and nondistended. Extremities: No rash, lesions, or edema. No restriction of range of motion NEUROLOGICAL EXAMINATION: Alert. Oriented to time, place and person. PERRL. EOMI. CN: no focal findings. Muscle tone: within normal. Muscle strength: 4 DTR: Very brisky at knees. Plantar reflex: Neutral response bilaterally Gait: not examined in chair. Sensory exam: no subjective abnormal findings. No cerebellar signs elicited. F-T-N test fine. Objective Objective Vital Signs Date Time Temp Pulse Resp B/P (MAP) Pulse Ox O2 Delivery O2 Flow Rate FiO2 03/27/19 15:48 18 Room Air 03/27/19 15:00 98.0 92 134/70 (91) 96 98.0 03/27/19 09:17 2.0 Intake and Output 03/27/19 07:00 Intake Total 1500 ml Balance 1500 ml Intake Oral 1500 ml # Voids 1 Vitals Signs Vitals VS - Last 72 Hours, by Label Date Time Temp Pulse Resp B/P (MAP) Pulse Ox O2 Delivery O2 Flow Rate FiO2 03/27/19 15:48 18 Room Air 03/27/19 15:23 Room Air 03/27/19 15:00 98.0 92 18 134/70 (91) 96 Room Air 98.0 03/27/19 13:17 18 03/27/19 12:17 16 Room Air 03/27/19 12:10 16 Room Air 03/27/19 11:24 Room Air 03/27/19 11:17 16 Room Air 03/27/19 10:57 98.1 96 18 138/68 (91) 96 Room Air 98.1 03/27/19 09:17 16 98 Room Air 2.0 03/27/19 07:44 98 Room Air 03/27/19 07:42 98 Room Air 03/27/19 06:49 98.0 94 17 112/72 (85) 94 Room Air 98.0 03/27/19 02:53 Room Air 03/27/19 02:42 98.3 98 16 116/68 (84) 95 Room Air 98.3 03/27/19 01:53 Room Air 03/26/19 22:44 98.0 91 15 89/53 (65) 94 Room Air 98.0 03/26/19 21:53 Room Air 03/26/19 20:00 Room Air 03/26/19 19:38 94 Room Air 03/26/19 19:00 98.1 106 16 91/52 (65) 94 Room Air 98.1 03/26/19 18:17 94 Room Air 2.0 03/26/19 12:11 94 Room Air 2.0 03/26/19 11:41 Room Air 03/26/19 10:47 97.8 95 18 118/73 (88) 94 Room Air 97.8 03/26/19 08:50 96 Room Air 2.0 03/26/19 08:07 96 Room Air 2.0 03/26/19 08:00 Room Air 03/26/19 07:00 97.9 97 18 154/72 (99) 96 Room Air 97.9 Laboratory Laboratory Laboratory Tests Test 03/27/19 08:50 White Blood Count 12.0 x10^3/uL (4.0-11.0) Red Blood Count 4.30 x10^6/uL (3.50-5.40) Hemoglobin 13.4 g/dL (12.0-15.5) Hematocrit 39.5 % (36.0-47.0) Mean Corpuscular Volume 92 fL (79-100) Mean Corpuscular Hemoglobin 31 pg (25-35) Mean Corpuscular Hemoglobin Concent 34 g/dL (31-37) Red Cell Distribution Width 13.1 % (11.5-14.5) Platelet Count 547 x10^3/uL (140-400) Neutrophils (%) (Auto) 60 % (31-73) Lymphocytes (%) (Auto) 26 % (24-48) Monocytes (%) (Auto) 13 % (0-9) Eosinophils (%) (Auto) 0 % (0-3) Basophils (%) (Auto) 1 % (0-3) Neutrophils # (Auto) 7.2 x10^3uL (1.8-7.7) Lymphocytes # (Auto) 3.1 x10^3/uL (1.0-4.8) Monocytes # (Auto) 1.5 x10^3/uL (0.0-1.1) Eosinophils # (Auto) 0.0 x10^3/uL (0.0-0.7) Basophils # (Auto) 0.1 x10^3/uL (0.0-0.2) Sodium Level 133 mmol/L (136-145) Potassium Level 3.2 mmol/L (3.5-5.1) Chloride Level 95 mmol/L (98-107) Carbon Dioxide Level 26 mmol/L (21-32) Anion Gap 12 (6-14) Blood Urea Nitrogen 13 mg/dL (7-20) Creatinine 0.7 mg/dL (0.6-1.0) Estimated GFR (Cockcroft-Gault) 85.4 BUN/Creatinine Ratio 19 (6-20) Glucose Level 87 mg/dL (70-99) Calcium Level 9.6 mg/dL (8.5-10.1) Total Bilirubin 0.5 mg/dL (0.2-1.0) Aspartate Amino Transf (AST/SGOT) 48 U/L (15-37) Alanine Aminotransferase (ALT/SGPT) 78 U/L (14-59) Alkaline Phosphatase 86 U/L (46-116) Total Protein 8.1 g/dL (6.4-8.2) Albumin 3.6 g/dL (3.4-5.0) Albumin/Globulin Ratio 0.8 (1.0-1.7) Medication Medications Current Medications Bisacodyl (Dulcolax Supp) 10 mg PRN DAILY PRN ND CONSTIPATION, 1ST CHOICE ND; Start 03/27/19 at 14:15 Bisacodyl (Dulcolax Tab) 10 mg DAILY PO ; Start 03/27/19 at 15:00 Docusate Sodium (Enemeez) 283 mg PRN DAILY PRN ND CONSTIPATION, 2ND CHOICE ND; Start 03/27/19 at 14:15 Magnesium Citrate (Citroma) 296 ml PRN 1X PRN PO CONSTIPATION; Start 03/27/19 at 14:15 Methocarbamol (Robaxin) 750 mg Q8HRS PO ; Start 03/27/19 at 22:00 Polyethylene Glycol (miraLAX PACKET) 17 gm DAILY PO Last administered on 03/27/19at 15:40; Start 03/27/19 at 15:00 Senna/Docusate Sodium (Senna Plus) 1 tab BID PO ; Start 03/27/19 at 21:00 Tramadol HCl (Ultram) 100 mg PRN Q6HRS PRN PO MILD PAIN 1-3; Start 03/27/19 at 14:15 Comment Review of Relevant I have reviewed the following items marit (where applicable) has been applied. MICHELET REYNOLDS MD Mar 27, 2019 17:18
[2019-03-27 19:00] VITALS: BP 100/63
--- NOTE | 2019-03-27 19:56 | OP ---
DATE OF SURGERY: 03/24/2019 PREOPERATIVE DIAGNOSIS: Anterolisthesis, C4 on C5 with severe cervical spinal stenosis and cervical myelopathy. POSTOPERATIVE DIAGNOSIS: Anterolisthesis, C4 on C5 with severe cervical spinal stenosis and cervical myelopathy. OPERATION PERFORMED: Laminectomy, inferior C3, C4 and C5 with lateral mass instrumentation, C3, C4, C5, C6 with lateral mass/facet fusion. The operation was done with multimodality monitoring including EMG, motor evoked potentials, somatosensory evoked potentials. Fluoroscopy was also used, as was microscopy and microscopic dissection. SURGEON: Heriberto Poe M.D.. SUPERVISOR CLAIMS: ERICK Rosas assisted with the surgery. She assisted with exposure, the decompression, laminectomy, instrumentation and closure. OPERATIVE INDICATIONS: The patient is a pleasant 58-year-old who developed progressive problems with numbness in her extremities along with loss of coordination and feelings of weakness. On examination, she was found to have spasticity and on imaging studies, there was an anterolisthesis of C4 seen on C5 with significant/severe spinal stenosis at C4-C5. I recommended a cervical laminectomy, and I discussed this with her in detail. I did review these films with Dr. Wm Teresa, chief of Neurosurgery at [facility]. We discussed the pros and cons of various approaches. DESCRIPTION OF PROCEDURE: Following general endotracheal anesthesia, which was done very carefully in a neutral position, electrophysiologic testing was obtained, we obtained baseline. She was then flipped in the Acharya pins in a prone position and she was retested and found to have no changes. She was then prepped and draped in the standard fashion. LUIS hose and AV impulse boots were applied for DVT prophylaxis. The microscope was draped. Fluoroscopy was draped and brought into the field. Monitoring was established. Ancef 2 g was given less than 1 hour prior to initiation of surgery. Using fluoroscopic guidance, a midline incision was made from C2 through C7. Dissection was carried down to skin and subcutaneous tissue and the paraspinal muscles were reflected. We did follow an avascular plane down to this location. Once this was accomplished, then the lateral mass screws were placed by first drilling dispatcher ship pilot holes in C3, C4, C5 and C6 bilaterally. I then hand-drilled using standard coordinates at superolateral manner followed by tapping followed by 12 x 3.5 mm screw placement at C3, C4, C5 and C6. A 78 mm minnie was placed and nuts were placed in the system and the construct was torqued. I used [employer] instrumentation. Prior to this; however, the facets were drilled with a high speed air drill. Pieces of spinous process were then trimmed and packed into the facets bilaterally. Once the construct was torqued, I then brought in the microscope and using high speed air drill, I burred troughs down and drilled bilaterally at C4 and C5. I then trimmed across the midline at C5-C6 and at C3-C4 and then lifted away the C4 and C5 lamina. I did use a 2 mm micro Kerrison and worked laterally to fully decompress the cord. I then worked superiorly and trimmed the posterior midline into the inferior aspect of C3 in that there was some residual stenosis at this level, which I eliminated. With the placement of the instrumentation and torquing, there was no untoward movement of the spine. Films revealed excellent alignment at this point. I irrigated copiously. Hemostasis was excellent. I felt that I had an excellent decompression and reduction of her spondylolisthesis. I then removed the self-retaining retractor and obtained hemostasis in the muscle, irrigated copiously and then, I closed the wound in layers with absorbable suture. The skin was closed with skin amauri. The operation went very well and the patient was taken to the recovery room in excellent condition with normal strength in her extremities. I did place a hard cervical collar on her at the termination of the case and again, I felt the operation went very well. HERIBERTO POE MD DR: HELADIO/kade JOB#: [id number] / [id number] ALONSO
[2019-03-27] MEDS: SERTRALINE 50 MG TABLET. PO SCH (20:47)
[2019-03-27] MEDS: METHOCARBAMOL 750 MG TABLET PO SCH (20:47)
[2019-03-27] MEDS: SENNOSIDES/DOCUSATE 8.6/50MG TABLET. PO SCH (20:48)
[2019-03-27 22:49] VITALS: BP 112/61
--- NOTE | 2019-03-27 23:39 | CONS ---
DATE OF CONSULTATION: 03/27/2019 ATTENDING PHYSICIAN: Dr. Jose Manuel Bender. The patient was seen at the request of Dr. Saha for rehab evaluation. LOCATION: [facility]. HISTORY OF PRESENT ILLNESS: This is a 58-year-old right-handed female having increasing difficulty for the last 2-3 weeks, inability to use her arms and legs normally with increasing numbness in both arms and sensation of weakness in her arms and legs, and increasing difficulty to walk. She was seen in the Emergency Room 3 days prior to her hospitalization on 03/20/2019, was noted with hyponatremia. In the office of Dr. Bender, she presented with diffuse weakness, hyperreflexia and questioned about the diagnosis. She was admitted for further evaluation and treatment. She had ongoing neck pain, does not recall any injury to her neck, recent headaches or speech difficulty or problems with her vision or bowel or bladder control. She never had an evaluation of her neck pain before. The patient is a smoker for many years, , works at a [employer] and also had chronic obstructive pulmonary disease. She is a nondrinker. She is known allergic to MORPHINE. The patient since admission was found with cervical spinal stenosis and underwent cervical decompression and laminectomy done on 03/24/2019. Postop, she admits continued neck and shoulder area pain with numbness in her arms and legs. She denies any trouble with her bladder control or swallowing or speech, but admits continued pain in her neck and shoulder area and also constipated. The patient had several steps to manage to enter the house plus inside and her works during the daytime. PHYSICAL EXAMINATION: Today revealed a middle-aged female. She is alert, oriented to time, place, person, and circumstance, follows commands appropriately, moves all 4 extremities voluntarily where she had 4+/5 grade muscle strength and deep tendon reflexes are decreased in the upper extremities, exaggerated at both knees with left knee clonus and absent at both ankles. She had equal perception of touch and pinprick sensation bilaterally. She had painful limited movements of her cervical spine. She had dressing to her cervical spine posterior aspect. She had tenderness to palpation over cervical paraspinal muscles extending over to posterior shoulder girdle muscles. The patient had significant pain while rolling from side to side or coming to a sitting position. As per physical therapy notes dated 03/27/2019, she is walking with a roller walker with cues for safe hand placement, standby assistance and contact guard assistance. She walked for about 40 feet, slow torin, narrow base of support. She requires standby assistance rolling from side to side; moderate assistance supine to sit, sit to supine standby assistance; standby assistance for transfers; sit to stand type of transfer using a roller walker. Occupational therapy has not seen her since 03/22/2019. ASSESSMENT: A middle-aged female status post cervical decompression laminectomy for treatment of cervical spinal stenosis with residual significant cervical paraspinal and posterior shoulder girdle muscle strain and neck pain. No clinical evidence of ongoing cervical or lumbar radiculopathy. She still presents with hyperreflexia at her knees, also presents with clinical evidence of peripheral neuropathy. RECOMMENDATIONS: As she had several steps to manage, she is not safe to go home at this time. To arrange for screen and transfer to snf care unit for continued care. I have offered her about going to inpatient rehab program, but she does not want to go to [facility] for inpatient rehabilitation. Dr. Saha, I appreciate asking me to participate in the care of this interesting patient. I will be glad to follow her with you as needed for her rehabilitation. CLIFF BALDERAS MD DR: BARBARA/kade JOB#: [id number] / [id number] ALONSO
--- NOTE | 2019-03-28 01:18 | CONS ---
DATE OF CONSULTATION: 03/21/2019 REASON FOR CONSULTATION: Cervical stenosis. HISTORY OF PRESENT ILLNESS: The patient is a pleasant 58-year-old woman who about 2 months prior to admission to the hospital noted some loss of sensation in her left leg. This slowly progressed to numbness in both of her arms and hands along with feelings of loss of coordination. She said she drops objects frequently. She says she feels unsteady. The problem was progressive. She was evaluated and admitted to the hospital. PAST MEDICAL HISTORY: Includes COPD, anxiety, degenerative arthritis. PAST SURGICAL HISTORY: Appendectomy, cholecystectomy, and hysterectomy. FAMILY HISTORY: Cancer. SOCIAL HISTORY: She is . She works at the [employer]. She does not smoke, rarely drinks alcohol. MEDICATIONS: Available in the chart and are noncontributory. Reviewed on the [facility]. ALLERGIES: She reports allergies to MORPHINE which is rash; however, she has tolerated, oxycodone, hydrocodone and hydromorphone. REVIEW OF SYSTEMS: Twelve points was performed and was negative other than outlined above. PHYSICAL EXAMINATION: GENERAL: She is pleasant, alert, cooperative, in no distress. HEENT: Normocephalic, atraumatic. NECK: Supple. NEUROLOGIC: She was alert and oriented x 3 with normal fluent speech. Pupils were equal and reactive to light and accommodation. Extraocular motor function was intact. Facial motor examination was normal. Facial sensory examination was unremarkable. Tongue everted at the midline with normal elevation of the palate. Motor exam, her strength was 5/5 in upper and lower extremities. On sensory examination, she was intact to light touch except for stocking-glove sensory loss involving both hands and feet. On cerebellar testing, [id number] to finger and [id number] testing were normal. Rapid alternating movements were normal. Her gait was spastic. Reflexes were 2+ in upper extremities, 3+ at the knees and ankles, there were no pathologic reflexes. IMAGING: I reviewed plain cervical spine as well as an MRI of the cervical spine, there is an offset of C4 on C5 with an anterolisthesis of several millimeters. This is associated with severe spinal canal stenosis. PLAN: The patient has developed severe cervical spinal stenosis. She is currently on Decadron. I explained to her that surgery is recommended to decompress her spinal cord. We will make arrangements for this. MICHELLE POE MD DR: HELADIO/kade JOB#: [id number] / [id number] ALONSO
[2019-03-28 03:00] VITALS: BP 122/72
[2019-03-28] MEDS: METHOCARBAMOL 750 MG TABLET PO SCH ×2 (05:55→12:53)
[2019-03-28] MEDS: oxyCODONE/APAP 7.5/325 1 TAB TABLET PO PRN ×3 (05:56→17:02)
[2019-03-28] MEDS: ALPRAZolam 0.5 MG TABLET PO PRN ×3 (06:01→17:00)
[2019-03-28] MEDS: NICOTINE 21MG PATCH. TD SCH (06:01)
[2019-03-28] MEDS: IPRATRPIUM/ALBUTEROL 0.5/2.5MG 3 ML NEBU. NEB SCH ×3 (07:37→15:46)
[2019-03-28] MEDS: POLYETHYLENE GLYCOL 3350 17 GM PACKET. PO SCH (09:00)
[2019-03-28] MEDS: BISACODYL 5 MG TABLET.DR. PO SCH (09:00)
--- NOTE | 2019-03-28 09:30 | PDOC ---
PROGRESS NOTES Subjective Subjective She feels better with muscle relaxant medication on schedule and she remains constipated. Objective Objective Vital Signs Date Time Temp Pulse Resp B/P (MAP) Pulse Ox O2 Delivery O2 Flow Rate FiO2 03/28/19 07:37 95 Room Air 03/28/19 06:55 16 03/28/19 03:00 98.4 61 122/72 (89) 2.0 98.4 Intake and Output 03/28/19 07:00 Intake Total 900 ml Balance 900 ml Intake Oral 900 ml # Voids 2 Physical Exam Physical Exam She is alert and comfortable supine in bed and she got up and walked to bathroom last night with roller walker. She continues with painfully limited cervical spine ROM with diffuse tenderness to palpation over cervical paraspinal and posterior shoulder girdle muscles and hyper reflexia at both knees. Plan Plan of Care Waiting for SNF transfer until she feels confident with her ability to go home. Comment Review of Relevant I have reviewed the following items amrit (where applicable) has been applied. Labs Laboratory Tests Test 03/27/19 08:50 White Blood Count 12.0 x10^3/uL (4.0-11.0) Red Blood Count 4.30 x10^6/uL (3.50-5.40) Hemoglobin 13.4 g/dL (12.0-15.5) Hematocrit 39.5 % (36.0-47.0) Mean Corpuscular Volume 92 fL (79-100) Mean Corpuscular Hemoglobin 31 pg (25-35) Mean Corpuscular Hemoglobin Concent 34 g/dL (31-37) Red Cell Distribution Width 13.1 % (11.5-14.5) Platelet Count 547 x10^3/uL (140-400) Neutrophils (%) (Auto) 60 % (31-73) Lymphocytes (%) (Auto) 26 % (24-48) Monocytes (%) (Auto) 13 % (0-9) Eosinophils (%) (Auto) 0 % (0-3) Basophils (%) (Auto) 1 % (0-3) Neutrophils # (Auto) 7.2 x10^3uL (1.8-7.7) Lymphocytes # (Auto) 3.1 x10^3/uL (1.0-4.8) Monocytes # (Auto) 1.5 x10^3/uL (0.0-1.1) Eosinophils # (Auto) 0.0 x10^3/uL (0.0-0.7) Basophils # (Auto) 0.1 x10^3/uL (0.0-0.2) Sodium Level 133 mmol/L (136-145) Potassium Level 3.2 mmol/L (3.5-5.1) Chloride Level 95 mmol/L (98-107) Carbon Dioxide Level 26 mmol/L (21-32) Anion Gap 12 (6-14) Blood Urea Nitrogen 13 mg/dL (7-20) Creatinine 0.7 mg/dL (0.6-1.0) Estimated GFR (Cockcroft-Gault) 85.4 BUN/Creatinine Ratio 19 (6-20) Glucose Level 87 mg/dL (70-99) Calcium Level 9.6 mg/dL (8.5-10.1) Total Bilirubin 0.5 mg/dL (0.2-1.0) Aspartate Amino Transf (AST/SGOT) 48 U/L (15-37) Alanine Aminotransferase (ALT/SGPT) 78 U/L (14-59) Alkaline Phosphatase 86 U/L (46-116) Total Protein 8.1 g/dL (6.4-8.2) Albumin 3.6 g/dL (3.4-5.0) Albumin/Globulin Ratio 0.8 (1.0-1.7) Medications Current Medications Nicotine (Nicoderm Cq 21mg) 1 patch DAILY TD Last administered on 03/28/19at 06:01; Start 03/20/19 at 14:00 Albuterol Sulfate (Ventolin Neb Soln) 2.5 mg PRN Q6HRS PRN INH SHORTNESS OF BREATH; Start 03/20/19 at 14:45 Alprazolam (Xanax) 0.5 mg PRN TID PRN PO ANXIETY / AGITATION Last administered on 03/21/19at 06:25; Start 03/20/19 at 14:45; Stop 03/21/19 at 09:01; Status DC Gabapentin (Neurontin) 100 mg TID PO ; Start 03/20/19 at 15:30; Stop 03/20/19 at 15:53; Status DC Oxycodone/ Acetaminophen (Percocet 5/325) 1 tab PRN Q4HRS PRN PO PAIN; Start 03/20/19 at 14:45; Status Cancel Trimethoprim/ Sulfamethoxazole (Bactrim Ds) 1 tab BID PO Last administered on 03/20/19at 19:49; Start 03/20/19 at 21:00; Stop 03/21/19 at 08:26; Status DC Ibuprofen (Motrin) 800 mg PRN Q6HRS PRN PO INFLAMMATION; Start 03/20/19 at 14:45; Status Cancel Non-Formulary Medication (Thiamine HCl (B-1)) 100 mg DAILY PO ; Start 03/20/19 at 15:30; Stop 03/20/19 at 15:30; Status DC Non-Formulary Medication (Umeclidinium [place] (Incruse Ellipta)) 1 puff DAILY INH ; Start 03/21/19 at 09:00; Status UNV Thiamine Mononitrate (Vitamin B-1) 100 mg DAILY PO Last administered on 03/20/19at 17:44; Start 03/20/19 at 15:30; Stop 03/21/19 at 08:26; Status DC Albuterol/ Ipratropium (Duoneb) 3 ml RTQID NEB Last administered on 03/28/19at 07:37; Start 03/20/19 at 16:00 Gabapentin (Neurontin) 400 mg [id number] PO Last administered on 03/27/19at 20:47; Start 03/20/19 at 17:00 Sertraline HCl (Zoloft) 50 mg DAILY PO ; Start 03/20/19 at 16:30; Stop 03/20/19 at 17:56; Status DC Tramadol HCl (Ultram) 50 mg PRN Q8HRS PRN PO PAIN Last administered on 03/20/19at 22:01; Start 03/20/19 at 16:00; Stop 03/21/19 at 09:01; Status DC Diazepam (Valium) 10 mg 1X ONCE PO ; Start 03/20/19 at 17:15; Stop 03/20/19 at 17:16; Status Cancel Sertraline HCl (Zoloft) 50 mg QHS PO Last administered on 03/27/19at 20:47; Start 03/20/19 at 21:00 Diazepam (Valium) 10 mg PRN 1X PRN PO wet cotton feeder to MRI, 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 Last administered on 03/21/19 12:05; Start 03/20/19 at 18:00; Stop 03/22/19 at 12:55; Status DC Dexamethasone Sodium Phosphate (Decadron) 4 mg Q6HRS IV Last administered on 03/24/19at 06:16; Start 03/20/19 at 21:30; Stop 03/24/19 at 14:57; Status DC Alprazolam (Xanax) 0.5 mg PRN Q4HRS PRN PO ANXIETY / AGITATION Last administered on 03/28/19at 06:01; Start 03/21/19 at 09:00 Tramadol HCl (Ultram) 100 mg PRN Q8HRS PRN PO MILD PAIN 1-3 Last administered on 03/23/19 17:40; Start 03/21/19 at 09:00; Stop 03/26/19 at 08:33; Status DC Gadoterate Meglumine (Dotarem) 10 ml 1X ONCE IVP Last administered on 03/21/19at 12:45; Start 03/21/19 at 12:15; Stop 03/21/19 at 12:18; Status DC Ciprofloxacin (Cipro) 250 mg BID PO Last administered on 03/24/19 20:05; Start 03/22/19 at 09:00; Stop 03/24/19 at 21:01; Status DC Famotidine (Pepcid) 20 mg BID PO Last administered on 03/27/19 20:46; Start 03/22/19 at 09:00; Stop 03/28/19 at 08:13; Status DC Loperamide HCl (Imodium) 2 mg 1X ONCE PO Last administered on 03/22/19at 09:19; Start 03/22/19 at 09:00; Stop 03/22/19 at 09:01; Status DC Lactobacillus Rhamnosus (Culturelle) 1 cap BID PO Last administered on 03/27/19at 20:46; Start 03/22/19 at 21:00 Acetaminophen/ Hydrocodone Bitart (Lortab 5/325) 1 tab PRN Q4HRS PRN PO MODERATE PAIN, SEVERE PAIN Last administered on 03/25/19 07:45; Start 03/22/19 at 20:00; Stop 03/25/19 at 09:07; Status DC Loperamide HCl (Imodium) 2 mg PRN TID PRN PO DIARRHEA Last administered on 03/23/19at 08:57; Start 03/23/19 at 08:45 Bacitracin 79409 unit/Sodium Chloride 1,000 ml @ 1,000 mls/hr 1X ONCE IRR Last administered on 03/24/19at 14:08; Start 03/24/19 at 06:00; Stop 03/24/19 at 07:00; Status DC Cefazolin Sodium/ Dextrose 50 ml @ 100 mls/hr 1X PREOP IV Last administered on 03/24/19at 17:32; Start 03/23/19 at 14:45; Stop 03/24/19 at 18:00; Status DC Fentanyl Citrate (Fentanyl 2ml Vial) 50 mcg PRN Q2HR PRN IV PAIN Last administered on 03/26/19at 04:01; Start 03/23/19 at 16:45; Stop 03/28/19 at 08:13; Status DC Ondansetron HCl (Zofran) 4 mg PRN Q6HRS PRN IV NAUSEA/VOMITING; Start 03/24/19 at 07:00; Stop 03/25/19 at 06:59; Status DC Fentanyl Citrate (Fentanyl 2ml Vial) 25 mcg PRN Q5MIN PRN IV MILD PAIN 1-3; Start 03/24/19 at 07:00; Stop 03/25/19 at 06:59; Status DC Fentanyl Citrate (Fentanyl 2ml Vial) 50 mcg PRN Q5MIN PRN IV MODERATE TO SEVERE PAIN Last administered on 03/24/19at 18:05; Start 03/24/19 at 07:00; Stop 03/25/19 at 06:59; Status DC Morphine Sulfate (Morphine Sulfate) 1 mg PRN Q10MIN PRN IV SEVERE PAIN 7-10; Start 03/24/19 at 07:00; Stop 03/25/19 at 06:59; Status UNV Ringer's Solution 1,000 ml @ 30 mls/hr Q24H IV Last administered on 03/24/19at 18:09; Start 03/24/19 at 07:00; Stop 03/24/19 at 18:59; Status DC Lidocaine HCl (Xylocaine-Mpf 1% 2ml Vial) 2 ml PRN 1X PRN ID PRIOR TO IV START; Start 03/24/19 at 07:00; Stop 03/25/19 at 06:59; Status DC Hydromorphone HCl (Dilaudid) 0.5 mg PRN Q10MIN PRN IV SEV PAIN, Second choice Last administered on 03/24/19 18:14; Start 03/24/19 at 07:00; Stop 03/25/19 at 06:59; Status DC Prochlorperazine Edisylate (Compazine) 5 mg PACU PRN PRN IV NAUSEA, MRX1 Last administered on 03/24/19 17:42; Start 03/24/19 at 07:00; Stop 03/25/19 at 06:59; Status DC Bupivacaine HCl/ Epinephrine Bitart (Sensorcain-Mpf Epi 0.5%-[id number]) 30 ml STK-MED ONCE .ROUTE Last administered on 03/24/19 14:08; Start 03/24/19 at 06:31; Stop 03/24/19 at 07:31; Status DC Gelatin (Gelfoam Size 12-7mm) 1 each STK-MED ONCE .ROUTE Last administered on 03/24/19 14:08; Start 03/24/19 at 06:31; Stop 03/24/19 at 07:31; Status DC Ketorolac Tromethamine (Toradol For Or Only) 60 mg STK-MED ONCE .ROUTE Last administered on 03/24/19 14:08; Start 03/24/19 at 06:31; Stop 03/24/19 at 07:31; Status DC Thrombin 20,000 unit STK-MED ONCE TP Last administered on 03/24/19 14:08; Start 03/24/19 at 06:31; Stop 03/24/19 at 07:32; Status DC Propofol 20 ml @ As Directed STK-MED ONCE IV ; Start 03/24/19 at 10:32; Stop 03/24/19 at 10:33; Status DC Dexamethasone Sodium Phosphate (Decadron) 20 mg STK-MED ONCE .ROUTE ; Start 03/24/19 at 10:32; Stop 03/24/19 at 10:33; Status DC Lidocaine HCl (Lidocaine Pf 2% Vial) 5 ml STK-MED ONCE .ROUTE ; Start 03/24/19 at 10:32; Stop 03/24/19 at 10:33; Status DC Ondansetron HCl (Zofran) 4 mg STK-MED ONCE .ROUTE ; Start 03/24/19 at 10:32; S top 03/24/19 at 10:33; Status DC Phenylephrine HCl (Keanu-Synephrine Inj) 10 mg STK-MED ONCE .ROUTE ; Start 03/24/19 at 10:32; Stop 03/24/19 at 10:33; Status DC Propofol 50 ml @ As Directed STK-MED ONCE IV ; Start 03/24/19 at 10:32; Stop 03/24/19 at 10:33; Status DC Succinylcholine Chloride (Anectine) 200 mg STK-MED ONCE .ROUTE ; Start 03/24/19 at 10:32; Stop 03/24/19 at 10:33; Status DC Rocuronium [place] (Zemuron) 50 mg STK-MED ONCE .ROUTE ; Start 03/24/19 at 10:32; Stop 03/24/19 at 10:33; Status DC Midazolam HCl (Versed) 2 mg STK-MED ONCE .ROUTE ; Start 03/24/19 at 10:32; Stop 03/24/19 at 10:33; Status DC Remifentanil HCl (Ultiva) 2 mg STK-MED ONCE IV ; Start 03/24/19 at 10:32; Stop 03/24/19 at 10:33; Status DC Desflurane (Suprane) 90 ml STK-MED ONCE IH ; Start 03/24/19 at 10:40; Stop 03/24/19 at 10:41; Status DC Multi-Ingred Cream/Lotion/Oil/ Oint (Artificial Tears Eye Ointment) 7 nicolasa STK- MED ONCE .ROUTE ; Start 03/24/19 at 11:47; Stop 03/24/19 at 11:48; Status DC Glycopyrrolate (Robinul) 1 mg STK-MED ONCE .ROUTE ; Start 03/24/19 at 13:48; Stop 03/24/19 at 13:49; Status DC Propofol 20 ml @ As Directed STK-MED ONCE IV ; Start 03/24/19 at 13:54; Stop 03/24/19 at 13:55; Status DC Propofol 50 ml @ As Directed STK-MED ONCE IV ; Start 03/24/19 at 13:58; Stop 03/24/19 at 13:59; Status DC Dexamethasone Sodium Phosphate (Decadron) 2 mg Q6HRS IV Last administered on 03/26/19at 00:04; Start 03/25/19 at 00:00; Stop 03/26/19 at 00:00; Status DC Dexamethasone Sodium Phosphate (Decadron) 2 mg Q12HR IV Last administered on 03/26/19at 21:52; Start 03/26/19 at 00:00; Stop 03/26/19 at 21:01; Status DC Cefazolin Sodium/ Dextrose (Ancef 2gm Premix) 2 gm STK-MED ONCE IV ; Start 03/23/19 at 06:00; Stop 03/24/19 at 15:19; Status DC Propofol 50 ml @ As Directed STK-MED ONCE IV ; Start 03/24/19 at 15:50; Stop 03/24/19 at 15:51; Status DC Fentanyl Citrate (Fentanyl 2ml Vial) 100 mcg STK-MED ONCE .ROUTE ; Start 03/24/19 at 16:55; Stop 03/24/19 at 16:56; Status DC Methocarbamol (Robaxin) 750 mg PRN TID PRN PO MUSCLE SPASMS Last administered on 03/27/19at 03:04; Start 03/24/19 at 17:15; Stop 03/27/19 at 14:22; Status DC Oxycodone/ Acetaminophen (Percocet 5/325) 1 tab PRN Q4HRS PRN PO MODERATE PAIN; Start 03/25/19 at 09:15; Stop 03/26/19 at 08:33; Status DC Oxycodone/ Acetaminophen (Percocet 5/325) 2 tab PRN Q4HRS PRN PO SEVERE PAIN Last administered on 03/26/19at 08:07; Start 03/25/19 at 09:15; Stop 03/26/19 at 08:33; Status DC Oxycodone HCl (OxyCONTIN) 10 mg Q12HR PO Last administered on 03/27/19at 20:47; Start 03/26/19 at 09:00 Oxycodone/ Acetaminophen (Percocet 7.5/ 325) 1 tab PRN Q4HRS PRN PO MODERATE PAIN; Start 03/26/19 at 08:45 Oxycodone/ Acetaminophen (Percocet 7.5/ 325) 2 tab PRN Q6HRS PRN PO SEVERE PAIN Last administered on 03/28/19at 05:56; Start 03/26/19 at 08:45 Methocarbamol (Robaxin) 750 mg Q8HRS PO Last administered on 03/28/19at 05:55; Start 03/27/19 at 22:00 Tramadol HCl (Ultram) 100 mg PRN Q6HRS PRN PO MILD PAIN 1-3; Start 03/27/19 at 14:15 Polyethylene Glycol (miraLAX PACKET) 17 gm DAILY PO Last administered on 03/27/19at 15:40; Start 03/27/19 at 15:00 Bisacodyl (Dulcolax Tab) 10 mg DAILY PO ; Start 03/27/19 at 15:00 Bisacodyl (Dulcolax Supp) 10 mg PRN DAILY PRN MA CONSTIPATION, 1ST CHOICE MA; Start 03/27/19 at 14:15 Magnesium Citrate (Citroma) 296 ml PRN 1X PRN PO CONSTIPATION; Start 03/27/19 a t 14:15 Senna/Docusate Sodium (Senna Plus) 1 tab BID PO ; Start 03/27/19 at 21:00 Docusate Sodium (Enemeez) 283 mg PRN DAILY PRN MA CONSTIPATION, 2ND CHOICE MA; Start 03/27/19 at 14:15 Potassium Chloride (Klor-Con) 10 meq TIDAFTMEAL PO ; Start 03/28/19 at 09:00; Stop 03/31/19 at 07:00 Active Scripts Active Ibuprofen 800 Mg Tablet 800 Mg PO PRN Q6HRS PRN Reported Incruse Ellipta (Umeclidinium [place]) 62.5 Mcg Blst.w.dev 1 Puff INH DAILY Oxycodone-Acetaminophen 5-325 (Oxycodone Hcl/Acetaminophen) 1 Each Tablet 1 Tab PO PRN Q4HRS PRN Proair Hfa Inhaler (Albuterol Sulfate) 8.5 Gm Hfa.aer.ad 1 Puff INH PRN Q6HRS PRN Gabapentin (Gabapentin) 100 Mg Capsule 100 Mg PO TID Alprazolam 0.5 Mg Tablet 0.5 Mg PO TID PRN Vitals/I & O Vital Sign - Last 24 Hours 6/1003/27/19 03/27/19 03/27/19 10:57 11:17 11:24 12:10 Temp 98.1 98.1 Pulse 96 Resp 18 16 16 B/P (MAP) 138/68 (91) Pulse Ox 96 O2 Delivery Room Air Room Air Room Air Room Air 03/27/19 03/27/19 03/27/19 03/27/19 15:00 15:23 15:48 19:00 Temp 98.0 98.9 98.0 98.9 Pulse 92 111 Resp 18 18 18 B/P (MAP) 134/70 (91) 100/63 (75) Pulse Ox 96 93 O2 Delivery Room Air Room Air Room Air Room Air 03/27/19 03/27/19 03/27/19 03/27/19 19:05 20:24 20:47 22:12 Resp 16 16 Pulse Ox 96 96 O2 Delivery Room Air Room Air Room Air Room Air 03/27/19 03/28/19 03/28/19 03/28/19 22:49 00:44 03:00 05:56 Temp 99.9 98.4 99.9 98.4 Pulse 103 61 Resp 18 15 18 16 B/P (MAP) 112/61 (78) 122/72 (89) Pulse Ox 91 91 90 90 O2 Delivery Room Air Room Air Room Air Room Air O2 Flow Rate 2.0 2.0 03/28/19 03/28/19 06:55 07:37 Resp 16 Pulse Ox 90 95 O2 Delivery Room Air Room Air Intake and Output 03/27/19 03/27/19 03/28/19 15:00 23:00 07:00 Intake Total 300 ml 300 ml 300 ml Balance 300 ml 300 ml 300 ml CLIFF BALDERAS MD Mar 28, 2019 09:30
[2019-03-28] MEDS: oxyCODONE ER 10 MG TAB.ER.12H PO SCH (09:43)
[2019-03-28] MEDS: traMADol 50 MG TABLET PO PRN ×2 (09:43→17:03)
[2019-03-28] MEDS: GABAPENTIN 400 MG CAPSULE. PO SCH ×3 (09:44→17:08)
[2019-03-28] MEDS: SENNOSIDES/DOCUSATE 8.6/50MG TABLET. PO SCH (09:44)
[2019-03-28] MEDS: POTASSIUM CHLORIDE 10 MEQ TABLET.ER. PO SCH ×3 (09:44→17:08)
[2019-03-28] MEDS: LACTOBACILLUS RHAMNOSUS GG 1 CAPSULE. PO SCH (09:44)
[2019-03-28 11:00] VITALS: BP 145/75
--- NOTE | 2019-03-28 13:15 | PDOC ---
PROGRESS NOTES Subjective Subjective pain improved ambulated around nurses station today Objective Objective Vital Signs Date Time Temp Pulse Resp B/P (MAP) Pulse Ox O2 Delivery O2 Flow Rate FiO2 03/28/19 12:54 16 Room Air 03/28/19 11:00 98.1 90 145/75 (98) 93 98.1 03/28/19 03:00 2.0 Intake and Output 03/28/19 06:59 Intake Total 900 ml Balance 900 ml Intake Oral 900 ml # Voids 2 Physical Exam General: Alert, Oriented X3, Cooperative MUSCULOSKELETAL: Other (PERALTA) Neuro: Normal speech Skin: Other (dressing C,D,I ) Plan Plan of Care plan for dc today to SNF or with HH services f/u 2 weeks Comment Review of Relevant I have reviewed the following items amrit (where applicable) has been applied. Labs Laboratory Tests Test 03/27/19 08:50 White Blood Count 12.0 x10^3/uL (4.0-11.0) Red Blood Count 4.30 x10^6/uL (3.50-5.40) Hemoglobin 13.4 g/dL (12.0-15.5) Hematocrit 39.5 % (36.0-47.0) Mean Corpuscular Volume 92 fL (79-100) Mean Corpuscular Hemoglobin 31 pg (25-35) Mean Corpuscular Hemoglobin Concent 34 g/dL (31-37) Red Cell Distribution Width 13.1 % (11.5-14.5) Platelet Count 547 x10^3/uL (140-400) Neutrophils (%) (Auto) 60 % (31-73) Lymphocytes (%) (Auto) 26 % (24-48) Monocytes (%) (Auto) 13 % (0-9) Eosinophils (%) (Auto) 0 % (0-3) Basophils (%) (Auto) 1 % (0-3) Neutrophils # (Auto) 7.2 x10^3uL (1.8-7.7) Lymphocytes # (Auto) 3.1 x10^3/uL (1.0-4.8) Monocytes # (Auto) 1.5 x10^3/uL (0.0-1.1) Eosinophils # (Auto) 0.0 x10^3/uL (0.0-0.7) Basophils # (Auto) 0.1 x10^3/uL (0.0-0.2) Sodium Level 133 mmol/L (136-145) Potassium Level 3.2 mmol/L (3.5-5.1) Chloride Level 95 mmol/L (98-107) Carbon Dioxide Level 26 mmol/L (21-32) Anion Gap 12 (6-14) Blood Urea Nitrogen 13 mg/dL (7-20) Creatinine 0.7 mg/dL (0.6-1.0) Estimated GFR (Cockcroft-Gault) 85.4 BUN/Creatinine Ratio 19 (6-20) Glucose Level 87 mg/dL (70-99) Calcium Level 9.6 mg/dL (8.5-10.1) Total Bilirubin 0.5 mg/dL (0.2-1.0) Aspartate Amino Transf (AST/SGOT) 48 U/L (15-37) Alanine Aminotransferase (ALT/SGPT) 78 U/L (14-59) Alkaline Phosphatase 86 U/L (46-116) Total Protein 8.1 g/dL (6.4-8.2) Albumin 3.6 g/dL (3.4-5.0) Albumin/Globulin Ratio 0.8 (1.0-1.7) Medications Current Medications Nicotine (Nicoderm Cq 21mg) 1 patch DAILY TD Last administered on 03/28/19at 06:01; Start 03/20/19 at 14:00 Albuterol Sulfate (Ventolin Neb Soln) 2.5 mg PRN Q6HRS PRN INH SHORTNESS OF BREATH; Start 03/20/19 at 14:45 Alprazolam (Xanax) 0.5 mg PRN TID PRN PO ANXIETY / AGITATION Last administered on 03/21/19at 06:25; Start 03/20/19 at 14:45; Stop 03/21/19 at 09:01; Status DC Gabapentin (Neurontin) 100 mg TID PO ; Start 03/20/19 at 15:30; Stop 03/20/19 at 15:53; Status DC Oxycodone/ Acetaminophen (Percocet 5/325) 1 tab PRN Q4HRS PRN PO PAIN; Start 03/20/19 at 14:45; Status Cancel Trimethoprim/ Sulfamethoxazole (Bactrim Ds) 1 tab BID PO Last administered on 03/20/19at 19:49; Start 03/20/19 at 21:00; Stop 03/21/19 at 08:26; Status DC Ibuprofen (Motrin) 800 mg PRN Q6HRS PRN PO INFLAMMATION; Start 03/20/19 at 14:45; Status Cancel Non-Formulary Medication (Thiamine HCl (B-1)) 100 mg DAILY PO ; Start 03/20/19 at 15:30; Stop 03/20/19 at 15:30; Status DC Non-Formulary Medication (Umeclidinium Gladstone (Incruse Ellipta)) 1 puff DAILY INH ; Start 03/21/19 at 09:00; Status UNV Thiamine Mononitrate (Vitamin B-1) 100 mg DAILY PO Last administered on 03/20/19at 17:44; Start 03/20/19 at 15:30; Stop 03/21/19 at 08:26; Status DC Albuterol/ Ipratropium (Duoneb) 3 ml RTQID NEB Last administered on 03/28/19at 11:48; Start 03/20/19 at 16:00 Gabapentin (Neurontin) 400 mg [id number] PO Last administered on 03/28/19at 12:53; Start 03/20/19 at 17:00 Sertraline HCl (Zoloft) 50 mg DAILY PO ; Start 03/20/19 at 16:30; Stop 03/20/19 at 17:56; Status DC Tramadol HCl (Ultram) 50 mg PRN Q8HRS PRN PO PAIN Last administered on 03/20/19at 22:01; Start 03/20/19 at 16:00; Stop 03/21/19 at 09:01; Status DC Diazepam (Valium) 10 mg 1X ONCE PO ; Start 03/20/19 at 17:15; Stop 03/20/19 at 17:16; Status Cancel Sertraline HCl (Zoloft) 50 mg QHS PO Last administered on 03/27/19at 20:47; Start 03/20/19 at 21:00 Diazepam (Valium) 10 mg PRN 1X PRN PO animal surgeon to MRI, 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 Last administered on 03/21/19at 12:05; Start 03/20/19 at 18:00; Stop 03/22/19 at 12:55; Status DC Dexamethasone Sodium Phosphate (Decadron) 4 mg Q6HRS IV Last administered on 03/24/19 06:16; Start 03/20/19 at 21:30; Stop 03/24/19 at 14:57; Status DC Alprazolam (Xanax) 0.5 mg PRN Q4HRS PRN PO ANXIETY / AGITATION Last administered on 03/28/19at 12:57; Start 03/21/19 at 09:00 Tramadol HCl (Ultram) 100 mg PRN Q8HRS PRN PO MILD PAIN 1-3 Last administered on 03/23/19 17:40; Start 03/21/19 at 09:00; Stop 03/26/19 at 08:33; Status DC Gadoterate Meglumine (Dotarem) 10 ml 1X ONCE IVP Last administered on 03/21/19 12:45; Start 03/21/19 at 12:15; Stop 03/21/19 at 12:18; Status DC Ciprofloxacin (Cipro) 250 mg BID PO Last administered on 03/24/19at 20:05; Start 03/22/19 at 09:00; Stop 03/24/19 at 21:01; Status DC Famotidine (Pepcid) 20 mg BID PO Last administered on 03/27/19at 20:46; Start 03/22/19 at 09:00; Stop 03/28/19 at 08:13; Status DC Loperamide HCl (Imodium) 2 mg 1X ONCE PO Last administered on 03/22/19 09:19; Start 03/22/19 at 09:00; Stop 03/22/19 at 09:01; Status DC Lactobacillus Rhamnosus (Culturelle) 1 cap BID PO Last administered on 03/28/19at 09:44; Start 03/22/19 at 21:00 Acetaminophen/ Hydrocodone Bitart (Lortab 5/325) 1 tab PRN Q4HRS PRN PO MODERATE PAIN, SEVERE PAIN Last administered on 03/25/19at 07:45; Start 03/22/19 at 20:00; Stop 03/25/19 at 09:07; Status DC Loperamide HCl (Imodium) 2 mg PRN TID PRN PO DIARRHEA Last administered on 03/23/19at 08:57; Start 03/23/19 at 08:45 Bacitracin [id number] unit/Sodium Chloride 1,000 ml @ 1,000 mls/hr 1X ONCE IRR Last administered on 03/24/19at 14:08; Start 03/24/19 at 06:00; Stop 03/24/19 at 07:00; Status DC Cefazolin Sodium/ Dextrose 50 ml @ 100 mls/hr 1X PREOP IV Last administered on 03/24/19at 17:32; Start 03/23/19 at 14:45; Stop 03/24/19 at 18:00; Status DC Fentanyl Citrate (Fentanyl 2ml Vial) 50 mcg PRN Q2HR PRN IV PAIN Last ad ministered on 03/26/19at 04:01; Start 03/23/19 at 16:45; Stop 03/28/19 at 08:13; Status DC Ondansetron HCl (Zofran) 4 mg PRN Q6HRS PRN IV NAUSEA/VOMITING; Start 03/24/19 at 07:00; Stop 03/25/19 at 06:59; Status DC Fentanyl Citrate (Fentanyl 2ml Vial) 25 mcg PRN Q5MIN PRN IV MILD PAIN 1-3; Start 03/24/19 at 07:00; Stop 03/25/19 at 06:59; Status DC Fentanyl Citrate (Fentanyl 2ml Vial) 50 mcg PRN Q5MIN PRN IV MODERATE TO SEVERE PAIN Last administered on 03/24/19at 18:05; Start 03/24/19 at 07:00; Stop 03/25/19 at 06:59; Status DC Morphine Sulfate (Morphine Sulfate) 1 mg PRN Q10MIN PRN IV SEVERE PAIN 7-10; Start 03/24/19 at 07:00; Stop 03/25/19 at 06:59; Status UNV Ringer's Solution 1,000 ml @ 30 mls/hr Q24H IV Last administered on 03/24/19at 18:09; Start 03/24/19 at 07:00; Stop 03/24/19 at 18:59; Status DC Lidocaine HCl (Xylocaine-Mpf 1% 2ml Vial) 2 ml PRN 1X PRN ID PRIOR TO IV START; Start 03/24/19 at 07:00; Stop 03/25/19 at 06:59; Status DC Hydromorphone HCl (Dilaudid) 0.5 mg PRN Q10MIN PRN IV SEV PAIN, Second choice Last administered on 03/24/19 18:14; Start 03/24/19 at 07:00; Stop 03/25/19 at 06:59; Status DC Prochlorperazine Edisylate (Compazine) 5 mg PACU PRN PRN IV NAUSEA, MRX1 Last administered on 03/24/19 17:42; Start 03/24/19 at 07:00; Stop 03/25/19 at 06:59; Status DC Bupivacaine HCl/ Epinephrine Bitart (Sensorcain-Mpf Epi 0.5%-[id number]) 30 ml STK-MED ONCE .ROUTE Last administered on 03/24/19 14:08; Start 03/24/19 at 06:31; Stop 03/24/19 at 07:31; Status DC Gelatin (Gelfoam Size 12-7mm) 1 each STK-MED ONCE .ROUTE Last administered on 03/24/19 14:08; Start 03/24/19 at 06:31; Stop 03/24/19 at 07:31; Status DC Ketorolac Tromethamine (Toradol For Or Only) 60 mg STK-MED ONCE .ROUTE Last administered on 03/24/19 14:08; Start 03/24/19 at 06:31; Stop 03/24/19 at 07:31; Status DC Thrombin 20,000 unit STK-MED ONCE TP Last administered on 03/24/19 14:08; Start 03/24/19 at 06:31; Stop 03/24/19 at 07:32; Status DC Propofol 20 ml @ As Directed STK-MED ONCE IV ; Start 03/24/19 at 10:32; Stop 03/24/19 at 10:33; Status DC Dexamethasone Sodium Phosphate (Decadron) 20 mg STK-MED ONCE .ROUTE ; Start 03/24/19 at 10:32; Stop 03/24/19 at 10:33; Status DC Lidocaine HCl (Lidocaine Pf 2% Vial) 5 ml STK-MED ONCE .ROUTE ; Start 03/24/19 at 10:32; Stop 03/24/19 at 10:33; Status DC Ondansetron HCl (Zofran) 4 mg STK-MED ONCE .ROUTE ; Start 03/24/19 at 10:32; Stop 03/24/19 at 10:33; Status DC Phenylephrine HCl (Keanu-Synephrine Inj) 10 mg STK-MED ONCE .ROUTE ; Start 03/24/19 at 10:32; Stop 03/24/19 at 10:33; Status DC Propofol 50 ml @ As Directed STK-MED ONCE IV ; Start 03/24/19 at 10:32; Stop 03/24/19 at 10:33; Status DC Succinylcholine Chloride (Anectine) 200 mg STK-MED ONCE .ROUTE ; Start 03/24/19 at 10:32; Stop 03/24/19 at 10:33; Status DC Rocuronium Gladstone (Zemuron) 50 mg STK-MED ONCE .ROUTE ; Start 03/24/19 at 10:32; Stop 03/24/19 at 10:33; Status DC Midazolam HCl (Versed) 2 mg STK-MED ONCE .ROUTE ; Start 03/24/19 at 10:32; Stop 03/24/19 at 10:33; Status DC Remifentanil HCl (Ultiva) 2 mg STK-MED ONCE IV ; Start 03/24/19 at 10:32; Stop 03/24/19 at 10:33; Status DC Desflurane (Suprane) 90 ml STK-MED ONCE IH ; Start 03/24/19 at 10:40; Stop 03/24/19 at 10:41; Status DC Multi-Ingred Cream/Lotion/Oil/ Oint (Artificial Tears Eye Ointment) 7 nicolasa STK- MED ONCE .ROUTE ; Start 03/24/19 at 11:47; Stop 03/24/19 at 11:48; Status DC Glycopyrrolate (Robinul) 1 mg STK-MED ONCE .ROUTE ; Start 03/24/19 at 13:48; Stop 03/24/19 at 13:49; Status DC Propofol 20 ml @ As Directed STK-MED ONCE IV ; Start 03/24/19 at 13:54; Stop 03/24/19 at 13:55; Status DC Propofol 50 ml @ As Directed STK-MED ONCE IV ; Start 03/24/19 at 13:58; Stop 03/24/19 at 13:59; Status DC Dexamethasone Sodium Phosphate (Decadron) 2 mg Q6HRS IV Last administered on 03/26/19at 00:04; Start 03/25/19 at 00:00; Stop 03/26/19 at 00:00; Status DC Dexamethasone Sodium Phosphate (Decadron) 2 mg Q12HR IV Last administered on 03/26/19at 21:52; Start 03/26/19 at 00:00; Stop 03/26/19 at 21:01; Status DC Cefazolin Sodium/ Dextrose (Ancef 2gm Premix) 2 gm STK-MED ONCE IV ; Start 03/23/19 at 06:00; Stop 03/24/19 at 15:19; Status DC Propofol 50 ml @ As Directed STK-MED ONCE IV ; Start 03/24/19 at 15:50; Stop 03/24/19 at 15:51; Status DC Fentanyl Citrate (Fentanyl 2ml Vial) 100 mcg STK-MED ONCE .ROUTE ; Start 03/24/19 at 16:55; Stop 03/24/19 at 16:56; Status DC Methocarbamol (Robaxin) 750 mg PRN TID PRN PO MUSCLE SPASMS Last administered on 03/27/19at 03:04; Start 03/24/19 at 17:15; Stop 03/27/19 at 14:22; Status DC Oxycodone/ Acetaminophen (Percocet 5/325) 1 tab PRN Q4HRS PRN PO MODERATE PAIN; Start 03/25/19 at 09:15; Stop 03/26/19 at 08:33; Status DC Oxycodone/ Acetaminophen (Percocet 5/325) 2 tab PRN Q4HRS PRN PO SEVERE PAIN Last administered on 03/26/19at 08:07; Start 03/25/19 at 09:15; Stop 03/26/19 at 08:33; Status DC Oxycodone HCl (OxyCONTIN) 10 mg Q12HR PO Last administered on 03/28/19at 09:43; Start 03/26/19 at 09:00 Oxycodone/ Acetaminophen (Percocet 7.5/ 325) 1 tab PRN Q4HRS PRN PO MODERATE PAIN; Start 03/26/19 at 08:45 Oxycodone/ Acetaminophen (Percocet 7.5/ 325) 2 tab PRN Q6HRS PRN PO SEVERE PAIN Last administered on 03/28/19at 12:54; Start 03/26/19 at 08:45 Methocarbamol (Robaxin) 750 mg Q8HRS PO Last administered on 03/28/19at 12:53; Start 03/27/19 at 22:00 Tramadol HCl (Ultram) 100 mg PRN Q6HRS PRN PO MILD PAIN 1-3 Last administered on 03/28/19at 09:43; Start 03/27/19 at 14:15 Polyethylene Glycol (miraLAX PACKET) 17 gm DAILY PO Last administered on 03/27/19at 15:40; Start 03/27/19 at 15:00 Bisacodyl (Dulcolax Tab) 10 mg DAILY PO ; Start 03/27/19 at 15:00 Bisacodyl (Dulcolax Supp) 10 mg PRN DAILY PRN [place] CONSTIPATION, 1ST CHOICE [place]; Start 03/27/19 at 14:15 Magnesium Citrate (Citroma) 296 ml PRN 1X PRN PO CONSTIPATION; Start 03/27/19 at 14:15 Senna/Docusate Sodium (Senna Plus) 1 tab BID PO Last administered on 03/28/19at 09:44; Start 03/27/19 at 21:00 Docusate Sodium (Enemeez) 283 mg PRN DAILY PRN [place] CONSTIPATION, 2ND CHOICE [place]; Start 03/27/19 at 14:15 Potassium Chloride (Klor-Con) 10 meq TIDAFTMEAL PO Last administered on 03/28/19at 12:53; Start 03/28/19 at 09:00; Stop 03/31/19 at 07:00 Active Scripts Active Ibuprofen 800 Mg Tablet 800 Mg PO PRN Q6HRS PRN Reported Incruse Ellipta (Umeclidinium Gladstone) 62.5 Mcg Blst.w.dev 1 Puff INH DAILY Oxycodone-Acetaminophen 5-325 (Oxycodone Hcl/Acetaminophen) 1 Each Tablet 1 Tab PO PRN Q4HRS PRN Proair Hfa Inhaler (Albuterol Sulfate) 8.5 Gm Hfa.aer.ad 1 Puff INH PRN Q6HRS PRN Gabapentin (Gabapentin) 100 Mg Capsule 100 Mg PO TID Alprazolam 0.5 Mg Tablet 0.5 Mg PO TID PRN Vitals/I & O Vital Sign - Last 24 Hours 03/27/19 03/27/19 03/27/19 6/10/19 15:00 15:23 15:48 19:00 Temp 98.0 98.9 98.0 98.9 Pulse 92 111 Resp 18 18 18 B/P (MAP) 134/70 (91) 100/63 (75) Pulse Ox 96 93 O2 Delivery Room Air Room Air Room Air Room Air 03/27/19 03/27/19 03/27/19 03/27/19 19:05 20:24 20:47 22:12 Resp 16 16 Pulse Ox 96 96 O2 Delivery Room Air Room Air Room Air Room Air 03/27/19 03/28/19 03/28/19 03/28/19 22:49 00:44 03:00 05:56 Temp 99.9 98.4 99.9 98.4 Pulse 103 61 Resp 18 15 18 16 B/P (MAP) 112/61 (78) 122/72 (89) Pulse Ox 91 91 90 90 O2 Delivery Room Air Room Air Room Air Room Air O2 Flow Rate 2.0 2.0 03/28/19 03/28/19 03/28/19 03/28/19 06:55 07:37 09:43 09:43 Resp 16 18 18 Pulse Ox 90 95 O2 Delivery Room Air Room Air Room Air Room Air 03/28/19 03/28/19 03/28/19 03/28/19 10:43 11:00 11:49 12:54 Temp 98.1 98.1 Pulse 90 Resp 16 18 16 B/P (MAP) 145/75 (98) Pulse Ox 93 O2 Delivery Room Air Room Air Room Air Room Air Intake and Output 03/27/19 03/27/19 03/28/19 14:59 22:59 06:59 Intake Total 300 ml 300 ml 300 ml Balance 300 ml 300 ml 300 ml RYAN SHAW ALLERGIST/MD Mar 28, 2019 13:15
[2019-03-28 15:00] VITALS: BP 134/68
--- NOTE | 2019-03-28 16:25 | RAD ---
Cervical spine, 3 views, 03/28/2019: HISTORY: Follow-up laminectomy Comparison is made to a study from 03/20/2019. The imaging is partially compromised by an a partially radiopaque overlying surgical collar. There has been interval placement of longitudinally oriented bilateral posterior fixation rods attached to C3, C4, C5 and C6 via 2 screws at each level. There appears to be an underlying laminectomy defect. Moderate anterolisthesis at C4-5 appears similar to the preoperative study. The vertebral body alignment is otherwise normal. There are moderate degenerative changes at multiple disc levels. Electronically signed by: Rahul Jain MD (03/28/2019 4:22 PM) [facility]
--- NOTE | 2019-03-28 19:55 | PDOC ---
PROGRESS NOTES Assessment Assessment Severe C-spine cord C4-C5 impingement. Cervical myelopathy. C-spine stenosis. S/p cervical laminectomy and fusion. Neck pain. Generalized weakness not able to walk before surgery. Numbness, tingling and pain before surgery. RECOMMENDATIONS/PLAN: Pain control. Narcotics per NS and IM. Continue Neurontin. OT/PT. FU with NS. FU with PCP. FU with Neurology. Past Medical History Pulmonary: COPD Psych: Anxiety Musculoskeletal: Osteoarthritis Past Surgical History Appendectomy, Cholecystectomy, (2), Hysterectomy, Other (resection of duodenal ulcer, buttocks wound infection) Family History Cancer Social History , works at the [employer], quit smoking, occasional beer Allergies Coded Allergies: Morphine (Verified Allergy, Intermediate, Rash, 11/12/18) Has tolerated oxycodone, hydrocodone, and hydromorphone ROS Negative for fever, chills, weight loss, chest pain, indigestion, hematochezia, melena, and dysuria. Positive for dyspnea. Full 14-point review of systems is negative. PHYSICAL EXAMINATION: General appearance in subacute distress. HEENT: Normocephalic and nontraumatic. Eyes, nose, ears, and throat are unremarkable. Neck is supple. No lymphadenopathy. No Crepitus. Cardiovascular: S1, S2, regular rate and rhythm. Pulmonary: Clear to auscultation bilaterally. Abdomen: Bowel sounds are positive. Abdomen is soft, nontender, and nondistended. Extremities: No rash, lesions, or edema. No restriction of range of motion NEUROLOGICAL EXAMINATION: Alert. Oriented to time, place and person. PERRL. EOMI. CN: no focal findings. Muscle tone: within normal. Muscle strength: 4+ DTR: Very brisky especially at knees. Plantar reflex: Neutral response bilaterally Gait: not examined in chair. Sensory exam: no subjective abnormal findings. No cerebellar signs elicited. F-T-N test fine. Objective Objective Vital Signs Date Time Temp Pulse Resp B/P (MAP) Pulse Ox O2 Delivery O2 Flow Rate FiO2 03/28/19 18:02 16 Room Air 03/28/19 15:00 98.0 88 134/68 (90) 94 98.0 03/28/19 03:00 2.0 Intake and Output 03/28/19 07:00 Intake Total 900 ml Balance 900 ml Intake Oral 900 ml # Voids 2 Vitals Signs Vitals VS - Last 72 Hours, by Label Date Time Temp Pulse Resp B/P (MAP) Pulse Ox O2 Delivery O2 Flow Rate FiO2 03/28/19 18:02 16 Room Air 03/28/19 18:02 16 Room Air 03/28/19 17:03 18 Room Air 03/28/19 17:02 18 Room Air 03/28/19 15:46 Room Air 03/28/19 15:00 98.0 88 18 134/68 (90) 94 Room Air 98.0 03/28/19 13:43 16 Room Air 03/28/19 13:43 16 Room Air 03/28/19 12:54 16 Room Air 03/28/19 11:49 Room Air 03/28/19 11:00 98.1 90 18 145/75 (98) 93 Room Air 98.1 03/28/19 09:43 18 Room Air 03/28/19 09:43 18 Room Air 03/28/19 07:37 95 Room Air 03/28/19 06:55 90 03/28/19 05:56 16 90 Room Air 03/28/19 03:00 98.4 61 18 122/72 (89) 90 Room Air 2.0 98.4 03/28/19 00:44 91 03/27/19 22:49 99.9 103 18 112/61 (78) 91 Room Air 2.0 99.9 03/27/19 22:12 16 96 Room Air 03/27/19 20:47 16 96 Room Air 03/27/19 20:24 Room Air 03/27/19 19:05 Room Air 03/27/19 19:00 98.9 111 18 100/63 (75) 93 Room Air 98.9 03/27/19 15:48 18 Room Air 03/27/19 15:23 Room Air 03/27/19 15:00 98.0 92 18 134/70 (91) 96 Room Air 98.0 03/27/19 11:24 Room Air 03/27/19 11:17 16 Room Air 03/27/19 10:57 98.1 96 18 138/68 (91) 96 Room Air 98.1 03/27/19 09:17 16 98 Room Air 2.0 03/27/19 07:44 98 Room Air 03/27/19 07:42 98 Room Air Medication Medications Current Medications Methocarbamol (Robaxin) 750 mg Q8HRS PO Last administered on 03/28/19at 12:53; Start 03/27/19 at 22:00; Stop 03/28/19 at 18:16; Status DC Potassium Chloride (Klor-Con) 10 meq TIDAFTMEAL PO Last administered on 03/28/19at 17:08; Start 03/28/19 at 09:00; Stop 03/28/19 at 18:16; Status DC Senna/Docusate Sodium (Senna Plus) 1 tab BID PO Last administered on 03/28/19at 09:44; Start 03/27/19 at 21:00; Stop 03/28/19 at 18:16; Status DC Comment Review of Relevant I have reviewed the following items amrit (where applicable) has been applied. MICHELET REYNOLDS MD Mar 28, 2019 19:55
--- NOTE | 2019-03-29 15:06 | PATHOLOGY ---
[facility] Accession Number: [id number] . 01 Material submitted: . vertebral column - CERVICAL DECOMPRESSION . 01 Clinical history: . Severe cervical stenosis, myelopathy . 02 Diagnosis: Segments of fibrocartilaginous, fibroadipose, and skeletal muscle tissue and bone, cervical decompression: - Degenerative changes of fibrocartilaginous tissue. . (JPM:mm; 03/29/2019) [facility]/03/29/2019 . 02 Comment: There is no evidence of an acute inflammatory process or malignancy. . (JPM:mm; 03/29/2019) . 02 Electronically signed: . Juan José Lake MD, Pathologist NPI- [id number] . 01 Gross description: . Received in formalin labeled "Kaylynn Lewis, cervical decompression," are several pieces of glistening, fibrous tissue measuring 5.1 x 3.8 x 0.9 cm in aggregate dimensions, containing small fragments of possible bone. The tissue submitted representatively in cassette A1. (TSD; 03/27/2019) TOB/TOB . 02 Pathologist provided ICD-10: M99.71, G95.9 . 02 CPT . 135109 Specimen Comment: A courtesy copy of this report has been sent to Specimen Comment: [phone], . Specimen Comment: Report sent to / DR OSPINA Performed at: 01 [facility] [address], [place] [id number] MD Jeromy Castellanos MD Phone: [phone] Performed at: 02 [facility] [address], [place] [id number] MD Juan José Lake MD Phone: [phone]
== END 2019-03-28 18:15 | disposition home health service (06) | DRG 471 ==
LOC: 5 NORTH 12:54
PROVIDERS: ADMIT Family Medicine; ATTEND Family Medicine
PROC: 00NW0ZZ Release Cervical Spinal Cord, Open Approach (ICD-10-PCS; principal; 2019-03-27)
PROC: 0RG20J1 Fusion of 2 or more Cervical Vertebral Joints with Synthetic Substitute, Posterior Approach, Posterior Column, Open Approach (ICD-10-PCS; 2019-03-27)
DX: M48.02 Spinal stenosis, cervical region (principal); G82.50 Quadriplegia, unspecified; M47.12 Other spondylosis with myelopathy, cervical region; E46 Unspecified protein-calorie malnutrition; E87.1 Hypo-osmolality and hyponatremia; G95.89 Other specified diseases of spinal cord; N39.0 Urinary tract infection, site not specified; Z68.1 Body mass index [BMI] 19.9 or less, adult; G93.89 Other specified disorders of brain; M43.12 Spondylolisthesis, cervical region; F17.200 Nicotine dependence, unspecified, uncomplicated; F41.9 Anxiety disorder, unspecified; G89.29 Other chronic pain; J44.9 Chronic obstructive pulmonary disease, unspecified; K59.00 Constipation, unspecified; M19.90 Unspecified osteoarthritis, unspecified site; Z87.11 Personal history of peptic ulcer disease; Z88.5 Allergy status to narcotic agent; Z90.710 Acquired absence of both cervix and uterus; Z79.899 Other long term (current) drug therapy; Z88.8 Allergy status to other drugs, medicaments and biological substances; Z90.49 Acquired absence of other specified parts of digestive tract
CPT/HCPCS: 36415; 70450; 70553; 71045; 72040; 72156; 76000; 80053; 80307; 81001; 82550; 82607; 83605; 83735; 83880; 84443; 84484; 85025; 85027; 85610; 85730; 87086; 87186; 88304; 88311; 93005; 94640; 94760; A7015; A9575; C1713; J0330; J0696; J0780; J1100; J1170; J1885; J2001; J2250; J2405; J2704; J3010; J3490; J7030; J7120; J7620; 97110; 97116; 97530; 97535

== ENCOUNTER → 2019-04-05 | Outpatient (CLI) | payer BC ==
[2019-03-28 15:00] VITALS: BP 134/68
--- NOTE | 2019-04-05 17:16 | KCIC ---
CERVICAL SPINE 2-3V History: Cervical fusion Comparison: March 28, 2019 Findings: 3 views of the cervical spine are submitted. There are again posterior lateral mass screws C3, C4, C5, C6 attached to vertical rods, posterior decompression at these levels. There is again approaching grade 2 anterior spondylolisthesis at C4-C5, minimal grade 1 anterior spondylolisthesis C5-6. There is again degenerative disc disease greatest at C4-5 and to lesser degree at C5-6 and C6-7. There are multiple posterior skin clips. Cervical vertebral body stature is maintained. Atlantoaxial distance is within normal limits. There is adequate alignment of the lateral masses C1 relative to C2. Impression: 1. There is intact posterior hardware C3-C6. There is abnormal alignment of the cervical spine with approaching grade 2 anterior spondylolisthesis C4-5 as seen previously. There is degenerative disc disease greatest C4-5 through C6-7. Electronically signed by: Nicola Snyder MD (04/05/2019 5:13 PM) [facility]
== END | disposition home or self-care (01) ==
LOC: KCIC 09:24
PROVIDERS: ATTEND Neurological Surgery
DX: M50.323 Other cervical disc degeneration at C6-C7 level (principal); M43.12 Spondylolisthesis, cervical region; Z98.1 Arthrodesis status
CPT/HCPCS: 72040

== ENCOUNTER → 2019-04-25 | Outpatient (CLI) | payer BC ==
[2019-03-28 15:00] VITALS: BP 134/68
--- NOTE | 2019-04-25 09:46 | KCIC ---
CERVICAL SPINE 2-3V History: Cervical fusion follow-up Comparison: April 05, 2019 Findings: 3 views of the cervical spine are submitted. There is again posterior fusion hardware, posterior lateral mass screws at C3, C4, C5, C6 attached to vertical rods. Position of hardware is similar. Previously seen skin clips have been removed in interval. There has been multilevel posterior decompression C3 to C6-7. There is multilevel cervical facet degenerative change. There is similar degree of approaching grade 2 anterior spondylolisthesis C4-5, also minimal grade 1 anterior spondylolisthesis C5-6 similar. There is again advanced degenerative disc disease C4-5 and to a lesser degree at C5-6 and C6-7. Impression: 1. Radiographic findings are unchanged other than interval removal of previously seen posterior skin clips. There is intact posterior hardware C3-C6. There is abnormal alignment of the cervical spine as seen previously most notable approaching grade 2 anterior spondylolisthesis at C4-5. There is again degenerative disc disease C4-5 to C6-7. Electronically signed by: Nicola Snyder MD (04/25/2019 9:44 AM) [facility]
== END | disposition home or self-care (01) ==
LOC: KCIC 08:14
PROVIDERS: ATTEND Neurological Surgery
DX: M43.12 Spondylolisthesis, cervical region (principal); M50.321 Other cervical disc degeneration at C4-C5 level; Z98.1 Arthrodesis status
CPT/HCPCS: 72040

== ENCOUNTER → 2019-05-22 | Outpatient (CLI) | payer BC ==
--- NOTE | 2019-05-22 17:15 | KCIC ---
Examination: CERVICAL SPINE 2-3V History: Cervical spine fusion Comparison/Correlation: 04/25/2019 cervical spine x-ray exam Findings: Frontal and lateral views of the cervical spine were obtained. Rods and associated screws are present bilaterally from C3 to C6. Anterolisthesis of C4 in relation to C5 is approximately grade 2 extent with significant endplate sclerosis. Disc space narrowing at C5-6 and C6-C7 is moderate. Almost grade 1 anterolisthesis of C5 in relation to C6 again seen. Soft tissues unremarkable. Impression: Postoperative findings are stable. No significant change. Electronically signed by: Mello Caceres MD (05/22/2019 5:13 PM) [facility]
== END | disposition home or self-care (01) ==
LOC: KCIC 10:36
PROVIDERS: ATTEND Neurological Surgery
DX: M43.12 Spondylolisthesis, cervical region (principal); M48.02 Spinal stenosis, cervical region; Z98.1 Arthrodesis status
CPT/HCPCS: 72040

== ENCOUNTER → 2019-06-13 | Outpatient (CLI) | payer BC ==
[~2019-06-13] MED LIST changes: +ALPR0.5T PO; +GADOTERATE 5 MMOL/10ML VIAL. IVP ONE; +METH-38 PO
--- NOTE | 2019-06-14 08:24 | KCIC ---
EXAMINATION: Magnetic resonance imaging (MRI) of the cervical spine with and without contrast 06/13/2019 3:30 PM HISTORY: Cervical stenosis with history of prior surgery and neck pain. TECHNIQUE: Multiplanar multi-weighted MRI of the cervical spine was performed with and without intravenous contrast using the standard cervical spine protocol. Contrast information: 9 cc gadolinium based contrast was administered COMPARISON: MRI cervical spine 03/21/2019, cervical spine radiograph 05/22/2019 FINDINGS: There is grade 1 anterolisthesis of C4 on C5 and C5 on C6. There is moderate disc height loss at C4-C5, C5-C6 and C6-C7 with endplate remodeling most pronounced at C4-C5 and C6-7. There is subtle cord signal alteration at C4-C5 which may reflect myelomalacia with mild focal atrophy of the cord in this region. Vertebral body heights are maintained. Marrow signal intensity is normal on all sequences. No significant prevertebral edema. Posterior fusion is identified from C3 to C6 with bilateral facet screws and dual rods. Laminectomy changes are identified at these levels. Craniocervical junction is intact. Vertebral artery flow voids are maintained. Skull base is intact. Atlantoaxial articulation is intact. C2-C3: There is mild disc bulge which appears progressed since the prior examination from 03/21/2019. There is mild facet arthropathy results in severe uncovertebral joint disease. No significant neuroforaminal or spinal canal stenosis. C3-C4: Disc is normal in configuration. Laminectomy changes are identified. No residual neuroforaminal or spinal canal stenosis. C4-C5: There is a posterior disc osteophyte complex with central disc extrusion. Laminectomy changes are identified with decompression of the thecal sac. There is improved spinal canal stenosis without residual compression of the cord. There is persistent cord signal alteration suggestive of myelomalacia. C5-C6: There is a posterior disc osteophyte complex. There is moderate facet arthropathy and moderate uncovertebral joint disease. This level is fused and decompressed without residual spinal canal stenosis. There is moderate left neuroforaminal stenosis. C6-C7: There is a posterior disc osteophyte complex with central disc extrusion, progressed since prior examination. There is moderate left and mild to moderate right facet arthropathy. There is mild to moderate left and mild right neuroforaminal stenosis. Mild spinal canal stenosis without deformity of the cord. C7-T1: Disc is normal in configuration. There is mild facet arthropathy. No neuroforaminal or spinal canal stenosis. IMPRESSION: 1. Interval posterior fusion from C3 through C6 with laminectomy changes at these levels. There is no residual spinal canal stenosis. There is persistent subtle cord signal alteration at C4-C5 suggestive of myelomalacia. 2. There is subtle progression of degenerative disc disease at C2-C3 and C6-C7. At C6-C7, there is similar degree of mild spinal canal stenosis with effacement of the ventral thecal sac. No cord deformity or cord signal alteration. Electronically signed by: Mahnaz Hampton MD (06/14/2019 8:21 AM) [id number]
== END | disposition home or self-care (01) ==
LOC: KCIC MRI 14:59
PROVIDERS: ATTEND Neurological Surgery
DX: M50.31 Other cervical disc degeneration, high cervical region (principal); M48.02 Spinal stenosis, cervical region; J44.9 Chronic obstructive pulmonary disease, unspecified; F17.200 Nicotine dependence, unspecified, uncomplicated
CPT/HCPCS: 72156; A9575

== ENCOUNTER → 2019-06-28 | Outpatient (CLI) | payer BC ==
[~2019-06-28] MED LIST changes: +GABA600T7 PO; -GADOTERATE 5 MMOL/10ML VIAL. IVP ONE; +OXYC1TAB15 PO; +SERT50TA PO; +TIZA4TAB2 PO; +TRAM50TA PO
[2019-06-28 14:38] LABS: BASO # 0.1 x10^3/uL (0.0-0.2); BASO % 1 % (0-3); EOS # 0.1 x10^3/uL (0.0-0.7); EOS % 1 % (0-3); HEMATOCRIT 39.2 % (36.0-47.0); HEMOGLOBIN 13.5 g/dL (12.0-15.5); LYMPH # 2.9 x10^3/uL (1.0-4.8); LYMPH % 43 % (24-48); MEAN CORPUSCULAR HEMOGLOBIN 31 pg (25-35); MEAN CORPUSCULAR HGB CONC 34 g/dL (31-37); MEAN CORPUSCULAR VOLUME 91 fL (79-100); MONO % 15 % (0-9); NEUT # 2.8 x10^3/uL (1.8-7.7); NEUT % 41 % (31-73); PLATELET COUNT 373 x10^3/uL (140-400); RED BLOOD COUNT 4.31 x10^6/uL (3.50-5.40); RED CELL DISTRIBUTION WIDTH 13.7 % (11.5-14.5); WHITE BLOOD COUNT 6.9 x10^3/uL (4.0-11.0)
[2019-06-28 14:57] LABS: ALBUMIN 4.2 g/dL (3.4-5.0); ALBUMIN/GLOBULIN RATIO 1.1 (1.0-1.7); CALCIUM 9.3 mg/dL (8.5-10.1); CREATININE 0.8 mg/dL (0.6-1.0); GFR 73.2; POTASSIUM 4.7 mmol/L (3.5-5.1); TOTAL BILIRUBIN 0.1 mg/dL (0.2-1.0); TOTAL PROTEIN 7.9 g/dL (6.4-8.2)
--- NOTE | 2019-06-29 07:56 | NUR ---
Lab results, chest xray and EKG results faxed to Dr. Saha.
== END | disposition home or self-care (01) ==
LOC: SURGPAT 13:13
PROVIDERS: ATTEND Neurological Surgery
DX: Z01.818 Encounter for other preprocedural examination (principal); M43.12 Spondylolisthesis, cervical region; M48.02 Spinal stenosis, cervical region; Z88.5 Allergy status to narcotic agent
CPT/HCPCS: 36415; 80053; 85025; 87641

== ENCOUNTER → 2019-07-04 | Outpatient (CLI) | payer BC ==
--- NOTE | 2019-07-05 14:57 | KCIC ---
5 views of the cervical spine compared to radiographs of the cervical spine dated May 22, 2019 for spondylolisthesis, neck pain. FINDINGS: Overall appearance of the spine is stable, with postsurgical changes of pedicle screw and minnie fusion from C3 through C6. There is grade 2 anterolisthesis of C4 on C5, which is grossly stable after accounting for slight variations in rotation. Spine hardware is also grossly stable after accounting for slight variations in rotation. There is severe narrowing of C4-5, with moderate narrowing at C5-6 and C6-7, all stable. Widening of the C3 intervertebral disc spaces stable as well. Dens is intact. Carotid artery calcifications are seen. Atherosclerotic calcifications of the aorta are present. IMPRESSION: 1. Severe degenerative and postsurgical changes of the cervical spine grossly stable, with no acute osseous normality. 2. Aortic and carotid atherosclerosis. Electronically signed by: Bairon Guerra MD (07/05/2019 2:54 PM) [facility]
== END | disposition home or self-care (01) ==
LOC: KCIC 15:34
PROVIDERS: ATTEND Neurological Surgery
DX: M47.812 Spondylosis without myelopathy or radiculopathy, cervical region (principal); M48.02 Spinal stenosis, cervical region; M43.12 Spondylolisthesis, cervical region; I25.10 Atherosclerotic heart disease of native coronary artery without angina pectoris; I70.0 Atherosclerosis of aorta; Z98.890 Other specified postprocedural states
CPT/HCPCS: 72050

== ENCOUNTER 2019-08-01 11:52 | Inpatient (IN) | payer BC ==
[~2019-08-01] VITALS: Ht 160 cm; Wt 53.3 kg
[2019-08-01] MEDS ORDERED: IV NORMAL SALINE 1000ML BAG 1,000 ML IV SCH (12:24)
[2019-08-01] MEDS ORDERED: ONDANSETRON PF 4 MG/2 ML VIAL. IV ONE (12:30)
[2019-08-01 12:37] LABS: BASO % 0 % (0-3); EOS % 0 % (0-3); HEMATOCRIT 44.2 % (36.0-47.0); HEMOGLOBIN 15.4 g/dL (12.0-15.5); LYMPH % 8 % (24-48); MEAN CORPUSCULAR HEMOGLOBIN 32 pg (25-35); MEAN CORPUSCULAR HGB CONC 35 g/dL (31-37); MEAN CORPUSCULAR VOLUME 91 fL (79-100); MONO # 1.4 x10^3/uL (0.0-1.1); MONO % 11 % (0-9); NEUT % 81 % (31-73); PLATELET COUNT 471 x10^3/uL (140-400); RED BLOOD COUNT 4.85 x10^6/uL (3.50-5.40); RED CELL DISTRIBUTION WIDTH 13.3 % (11.5-14.5); WHITE BLOOD COUNT 12.3 x10^3/uL (4.0-11.0)
[2019-08-01 12:50] LABS: CALCIUM 9.8 mg/dL (8.5-10.1); CREATININE 0.9 mg/dL (0.6-1.0); GFR 63.9; POTASSIUM 4.8 mmol/L (3.5-5.1)
[2019-08-01 12:56] LABS: ALBUMIN 4.8 g/dL (3.4-5.0); ALBUMIN/GLOBULIN RATIO 1.3 (1.0-1.7); TOTAL BILIRUBIN 0.6 mg/dL (0.2-1.0); TOTAL PROTEIN 8.6 g/dL (6.4-8.2)
[2019-08-01] MEDS ORDERED: IV NORMAL SALINE 1000ML BAG 1,000 ML IV ONE (13:00)
[2019-08-01] MEDS ORDERED: fentaNYL PF VIAL 100 MCG/2 ML VIAL IVP ONE ×2 (13:00→14:30)
[2019-08-01] MEDS ORDERED: IOHEXOL 240 MG/ML 50ML VIAL. IV ONE (13:15)
[2019-08-01] MEDS ORDERED: CONTRAST GIVEN. MC PRN (13:15)
[2019-08-01] MEDS ORDERED: IOHEXOL 300 MG/ML 100ML VIAL. IV ONE (13:15)
--- NOTE | 2019-08-01 14:06 | PHYS DOC ---
Past Medical History Past Medical History: Anxiety, Bronchitis Past Surgical History: Cholecystectomy, , Hysterectomy, Tonsillectomy, Other Smoking: Cigarettes Alcohol Use: Occasionally Drug Use: None Adult General Chief Complaint Chief Complaint: ABDOMINAL PAIN HPI HPI Patient is a 58 year old female who presents with complaining of abdominal pain and nausea and vomiting. Patient complaining of frequent episodes of vomiting for the last 3 days with 7 or 8 times of nonbloody vomiting per day. Patient complaining of left lower quadrant pain that started yesterday as a constant sharp stabbing pain with radiation to her back and rated her pain 10 over 10. Patient states she had 1 episodes of normal bowel and yesterday but denies passing gas and abdominal distention. Patient denies fever and chills, chest pain, urinary symptoms, history of the same pain. Patient complaining of a norexia. Patient had history of laparotomy because of perforated ulcer right side of her abdomen. Review of Systems Review of Systems Constitutional: Denies fever or chills [] Eyes: Denies change in visual acuity, redness, or eye pain [] HENT: Denies nasal congestion or sore throat [] Respiratory: Denies cough or shortness of breath [] Cardiovascular: No additional information not addressed in HPI [] GI: Reports abdominal pain, reports nausea, vomiting. Musculoskeletal: Denies back pain or joint pain [] Integument: Denies rash or skin lesions [] Neurologic: Denies headache, focal weakness or sensory changes [] Endocrine: Denies polyuria or polydipsia [] All other systems were reviewed and found to be within normal limits, except as documented in this note. Current Medications Current Medications Current Medications Medications (Trade) Dose Ordered Sig/Tania Start Time Stop Time Status Last Admin Dose Admin Ondansetron HCl (Zofran) 4 mg 1X ONCE 08/01/19 12:30 08/01/19 12:31 DC 08/01/19 12:30 4 MG Sodium Chloride 1,000 ml @ 1,000 mls/hr Q1H 08/01/19 12:24 08/01/19 13:23 DC 08/01/19 12:24 1,000 MLS/HR Allergies Allergies Allergies Coded Allergies Type Severity Reaction Last Updated Verified morphine Allergy Intermediate Rash 11/12/18 Yes Physical Exam Physical Exam Constitutional: Well developed, well nourished, mild distress, non-toxic appearance. [] HENT: Normocephalic, atraumatic, dry oral mucosa. Eyes: PERRLA, EOMI, conjunctiva normal, no discharge. [] Neck: Normal range of motion, no tenderness, supple, no stridor. [] Cardiovascular:Heart rate regular rhythm, no murmur [] Lungs & Thorax: Bilateral breath sounds clear to auscultation [] Abdomen: Mildly distended abdomen with gas, left lower quadrant tenderness and rebound tenderness, active bowel sounds, no tenderness. Skin: Warm, dry, no erythema, no rash. [] Back: No tenderness, no CVA tenderness. [] Extremities: No tenderness, no cyanosis, no clubbing, ROM intact, no edema. [] Neurologic: Alert and oriented X 3, no focal deficits noted. [] Psychologic: Affect normal, judgement normal, mood normal. [] Current Patient Data Vital Signs Vital Signs Date Time Temp Pulse Resp B/P (MAP) Pulse Ox O2 Delivery O2 Flow Rate FiO2 08/01/19 12:13 98.8 112 20 120/86 (97) 97 Room Air 98.8 Lab Values Laboratory Tests Test 08/01/19 12:09 White Blood Count 12.3 x10^3/uL (4.0-11.0) H Red Blood Count 4.85 x10^6/uL (3.50-5.40) Hemoglobin 15.4 g/dL (12.0-15.5) Hematocrit 44.2 % (36.0-47.0) Mean Corpuscular Volume 91 fL (79-100) Mean Corpuscular Hemoglobin 32 pg (25-35) Mean Corpuscular Hemoglobin Concent 35 g/dL (31-37) Red Cell Distribution Width 13.3 % (11.5-14.5) Platelet Count 471 x10^3/uL (140-400) H Neutrophils (%) (Auto) 81 % (31-73) H Lymphocytes (%) (Auto) 8 % (24-48) L Monocytes (%) (Auto) 11 % (0-9) H Eosinophils (%) (Auto) 0 % (0-3) Basophils (%) (Auto) 0 % (0-3) Neutrophils # (Auto) 10.0 x10^3/uL (1.8-7.7) H Lymphocytes # (Auto) 1.0 x10^3/uL (1.0-4.8) Monocytes # (Auto) 1.4 x10^3/uL (0.0-1.1) H Eosinophils # (Auto) 0.0 x10^3/uL (0.0-0.7) Basophils # (Auto) 0.0 x10^3/uL (0.0-0.2) Sodium Level 134 mmol/L (136-145) L Potassium Level 4.8 mmol/L (3.5-5.1) Chloride Level 94 mmol/L (98-107) L Carbon Dioxide Level 26 mmol/L (21-32) Anion Gap 14 (6-14) Blood Urea Nitrogen 17 mg/dL (7-20) Creatinine 0.9 mg/dL (0.6-1.0) Estimated GFR (Cockcroft-Gault) 63.9 BUN/Creatinine Ratio 19 (6-20) Glucose Level 127 mg/dL (70-99) H Calcium Level 9.8 mg/dL (8.5-10.1) Total Bilirubin 0.6 mg/dL (0.2-1.0) Aspartate Amino Transferase (AST) 21 U/L (15-37) Alanine Aminotransferase (ALT) 22 U/L (14-59) Alkaline Phosphatase 84 U/L (46-116) Troponin I Quantitative < 0.017 ng/mL (0.000-0.055) Total Protein 8.6 g/dL (6.4-8.2) H Albumin 4.8 g/dL (3.4-5.0) Albumin/Globulin Ratio 1.3 (1.0-1.7) Lipase 89 U/L (73-393) Laboratory Tests 08/01/19 12:09 Laboratory Tests 08/01/19 12:09 EKG EKG [] Radiology/Procedures Radiology/Procedures [][facility] [address] [place] [address] IMAGING REPORT Signed PATIENT: SHANIKA KHALIL ACCOUNT: [id number] : 1960 LOCATION: [facility] AGE: 58 SEX: F EXAM STATUS: ADM IN ORD. PHYSICIAN: REGINA CONWAY MD REASON: abdominal pain PROCEDURE: CT ABD PELV W/ORAL&IV CONTRAST ADDENDUM Addendum: There is wall thickening of the duodenum which could be due to duodenitis. Electronically signed by: Michael Carbajal MD (08/01/2019 4:15 PM) [place] [id number] DICTATED AND SIGNED BY: MICHAEL CARBAJAL MD DATE: 08/01/19 2905 CC: FEMI OSPINA MD; REGINA CONWAY MD ~ CT study of the abdomen and pelvis with contrast Clinical indications: Abdominal pain. TECHNIQUE: After IV infusion of 75 cc of Omnipaque 300, helical CT scanning of the abdomen and pelvis was performed. GI contrast was administered per mouth. PQRS compliance Statement One or more of the following individualized dose reduction techniques were utilized for this study: 1. Automated exposure control 2. Adjustment of the mA and/or kV according to patient size 3. Use of iterative reconstruction technique COMPARISON: November 12, 2018. FINDINGS: The liver and spleen and pancreas are unremarkable. The gallbladder is surgically absent. No extra hepatic biliary ductal dilatation is seen. No adrenal mass is evident. Both kidneys are normal without hydronephrosis or renal mass. No focal aneurysmal dilatation of the abdominal aorta is seen. No enlarged abdominal or pelvic lymphadenopathy is evident. The urinary bladder wall is smooth. There is severe small bowel dilatation with relative decompression of colon consistent with a high-grade small bowel obstruction. Distal small bowel within the right side and anterior abdomen is decompressed as well. Transition point may be located within the distal small bowel in the anterior lower abdomen. No free air or free fluid or mesenteric edema is seen. Chronic ulcer of the upper medial left thigh is again evident. Calcified granuloma of the left lung base is seen. Old compression fracture of L2 and old fracture of the right pubic bone are again evident. IMPRESSION: High-grade distal small bowel obstruction. No free air or free fluid. Electronically signed by: Michael Carbajal MD (08/01/2019 2:57 PM) [place] [id number] DICTATED and SIGNED BY: MICHAEL CARBAJAL MD DATE: 08/01/19 2658 Course & Med Decision Making Course & Med Decision Making Pertinent Labs and Imaging studies reviewed. (See chart for details) Evaluation of patient in ER showed 4-year-old male patient with history of previous abdominal surgery complaining of nausea and vomiting and abdominal pain for the last 2 days. Patient had left lower quadrant tenderness and CT of abdomen and pelvis showed high grade small bowel obstruction. Treated with IV fluid and Zofran and fentanyl with improvement of her condition.Patient requiring admission for further evaluation and treatment. Discussed with Dr. Femi Ospina who is in agreement with admission. Discussed findings and plan with patient and family, who acknowledge understanding and agreement. Dragon Disclaimer Dragon Disclaimer This electronic medical record was generated, in whole or in part, using a voice recognition dictation system. Departure Departure Impression: Primary Impression: Small bowel obstruction due to adhesions Additional Impressions: Abdominal pain Nausea and vomiting Disposition: ADMITTED INPATIENT (at 1715) Admitting Physician: Femi Ospina (accepted admission at 1714) Condition: IMPROVED Referrals: FEMI OSPINA MD (PCP) Problem Qualifiers Additional Impressions: Abdominal pain Abdominal location: left lower quadrant Qualified Codes: R10.32 - Left lower quadrant pain Nausea and vomiting Vomiting type: unspecified Vomiting Intractability: non-intractable Qualified Codes: R11.2 - Nausea with vomiting, unspecified REGINA CONWAY MD Aug 01, 2019 14:06
[2019-08-01 15:00] VITALS: BP 141/59
--- NOTE | 2019-08-01 15:00 | RAD ---
CT study of the abdomen and pelvis with contrast Clinical indications: Abdominal pain. TECHNIQUE: After IV infusion of 75 cc of Omnipaque 300, helical CT scanning of the abdomen and pelvis was performed. GI contrast was administered per mouth. PQRS compliance Statement One or more of the following individualized dose reduction techniques were utilized for this study: 1. Automated exposure control 2. Adjustment of the mA and/or kV according to patient size 3. Use of iterative reconstruction technique COMPARISON: November 12, 2018. FINDINGS: The liver and spleen and pancreas are unremarkable. The gallbladder is surgically absent. No extra hepatic biliary ductal dilatation is seen. No adrenal mass is evident. Both kidneys are normal without hydronephrosis or renal mass. No focal aneurysmal dilatation of the abdominal aorta is seen. No enlarged abdominal or pelvic lymphadenopathy is evident. The urinary bladder wall is smooth. There is severe small bowel dilatation with relative decompression of colon consistent with a high-grade small bowel obstruction. Distal small bowel within the right side and anterior abdomen is decompressed as well. Transition point may be located within the distal small bowel in the anterior lower abdomen. No free air or free fluid or mesenteric edema is seen. Chronic ulcer of the upper medial left thigh is again evident. Calcified granuloma of the left lung base is seen. Old compression fracture of L2 and old fracture of the right pubic bone are again evident. IMPRESSION: High-grade distal small bowel obstruction. No free air or free fluid. Electronically signed by: Michael Carbajal MD (08/01/2019 2:57 PM) [email or web address]
--- NOTE | 2019-08-01 15:42 | NUR ---
pt admitted to room 574. pt able to ambulate from ER [place] in [place] to bed. no n/v at this time. pt requesting pain meds. fentanyl order X1 given.
[2019-08-01 16:14] LABS: BILIRUBIN,URINE NEGATIVE (NEG); CLARITY,URINE CLOUDY; COLOR,URINE YELLOW; NITRITE,URINE NEGATIVE (NEG); PH,URINE 6.5; PROTEIN,URINE 30 mg/dL (NEG-TRACE); UROBILINOGEN,URINE 0.2 mg/dL (0.2 mg/dL)
[2019-08-01 16:26] LABS: BACTERIA,URINE FEW /HPF (0-FEW); SQUAMOUS EPITHELIAL CELL,UR OCC /LPF; WBC,URINE TNTC /HPF (0-4)
[2019-08-01] MEDS: fentaNYL PF VIAL 100 MCG/2 ML VIAL IV PRN ×3 (17:02→23:10)
[2019-08-01] MEDS: ONDANSETRON PF 4 MG/2 ML VIAL. IV PRN ×2 (17:02→21:31)
[2019-08-01] MEDS: IV NORMAL SALINE 1000ML BAG 1,000 ML IV SCH ×2 (17:03→23:08)
--- NOTE | 2019-08-01 17:23 | NUR ---
consult called to Dr. Paulino originally routine. updated by ER to urgent for high grade SBO
[2019-08-01 19:00] VITALS: BP 155/74
--- NOTE | 2019-08-01 19:22 | NUR ---
NG tube inserted to R nare. pt premedicated w/ ativan. family at bedside. KUB ordered stat
--- NOTE | 2019-08-01 20:22 | PDOC2 ---
CONSULT Date of Consult Date of Consult DATE: 08/01/19 TIME: 20:17 Reason for Consult Reason for Consult: SBO Referring Physician Referring Physician: Dr. Bender Identification/Chief Complaint Chief Complaint N/V Source Source: Chart review, Patient History of Present Illness Reason for Visit: 58 yo F with several days of N/V. She reports having stool yesterday, but no flatus since then. She has just had NGT placed and c/o pain in nose. Reports some abdominal pain. Previous perforated ulcer repair. Past Medical History Cardiovascular: No pertinent hx Pulmonary: COPD CENTRAL NERVOUS SYSTEM: Carpal Tunnel Syndrome GI: Constipation, Diverticulosis Heme/Onc: Anemia NOS Hepatobiliary: No pertinent hx Psych: Anxiety Musculoskeletal: Osteoarthritis Rheumatologic: No pertinent hx Infectious disease: No pertinent hx Renal/: No pertinent hx Endocrine: No pertinent hx Past Surgical History Past Surgical History: Appendectomy, Cholecystectomy, , Hysterectomy, Other Family History Family History: Cancer Social History 1 pack per day ALCOHOL: social Drugs: None Lives: with Family Current Problem List Problem List Problems Medical Problems: (1) Abdominal pain Status: Acute (2) Nausea and vomiting Status: Acute (3) Small bowel obstruction due to adhesions Status: Acute Current Medications Current Medications Current Medications Sodium Chloride 1,000 ml @ 1,000 mls/hr Q1H IV Last administered on 08/01/19at 12:24; Start 08/01/19 at 12:24; Stop 08/01/19 at 13:23; Status DC Ondansetron HCl (Zofran) 4 mg 1X ONCE IV Last administered on 08/01/19at 12:30; Start 08/01/19 at 12:30; Stop 08/01/19 at 12:31; Status DC Fentanyl Citrate (Fentanyl 2ml Vial) 50 mcg 1X ONCE IVP Last administered on 08/01/19at 13:09; Start 08/01/19 at 13:00; Stop 08/01/19 at 13:01; Status DC Sodium Chloride 1,000 ml @ 1,000 mls/hr 1X ONCE IV Last administered on 08/01/19at 13:10; Start 08/01/19 at 13:00; Stop 08/01/19 at 13:59; Status DC Iohexol (Omnipaque 300 Mg/ml) 75 ml 1X ONCE IV Last administered on 08/01/19at 13:15; Start 08/01/19 at 13:15; Stop 08/01/19 at 13:16; Status DC Iohexol (Omnipaque 240 Mg/ml) 30 ml 1X ONCE IV Last administered on 08/01/19at 13:15; Start 08/01/19 at 13:15; Stop 08/01/19 at 13:16; Status DC Info (CONTRAST GIVEN -- Rx MONITORING) 1 each PRN DAILY PRN MC SEE COMMENTS; Start 08/01/19 at 13:15; Stop 08/03/19 at 13:14 Fentanyl Citrate (Fentanyl 2ml Vial) 50 mcg 1X ONCE IVP Last administered on 08/01/19at 15:02; Start 08/01/19 at 14:30; Stop 08/01/19 at 14:35; Status DC Ondansetron HCl (Zofran) 4 mg PRN Q4HRS PRN IV NAUSEA/VOMITING Last administered on 08/01/19at 17:02; Start 08/01/19 at 16:30 Fentanyl Citrate (Fentanyl 2ml Vial) 50 mcg PRN Q2HRS PRN IV PAIN Last administered on 08/01/19at 17:02; Start 08/01/19 at 16:30 Sodium Chloride 1,000 ml @ 150 mls/hr Q6H40M IV Last administered on 08/01/19at 17:03; Start 08/01/19 at 16:28; Stop 08/02/19 at 16:27 Lorazepam (Ativan Inj) 1 mg PRN Q4HRS PRN IVP ANXIETY / AGITATION Last administered on 08/01/19at 18:16; Start 08/01/19 at 18:00 Active Scripts Active Reported Tizanidine Hcl 4 Mg Tablet 0.5 Tab PO QHS Percocet 5-325 Mg Tablet (Oxycodone/Acetaminophen) 1 Each Tablet 1 Tab PO PRN Q8HRS PRN Tramadol Hcl 50 Mg Tablet 100 Mg PO TID PRN Zoloft (Sertraline Hcl) 50 Mg Tablet 50 Mg PO HS Gabapentin 600 Mg Tablet 700 Mg PO QID Robaxin-750 (Methocarbamol) 750 Mg Tablet 750 Mg PO QID Xanax (Alprazolam) 0.5 Mg Tablet Unknown Dose PO PRN Q6HRS PRN Proair Hfa Inhaler (Albuterol Sulfate) 8.5 Gm Hfa.aer.ad 1 Puff INH PRN Q6HRS PRN Allergies Allergies: Coded Allergies: morphine (Verified Allergy, Intermediate, Rash, 11/12/18) Has tolerated oxycodone, hydrocodone, and hydromorphone ROS Gastrointestinal: Yes Nausea, Yes Vomiting, Yes Abdominal Pain, Yes Constipation Physical Exam General: Alert, Oriented X3, Cooperative, mild distress HEENT: Atraumatic, Other (NGT in) Lungs: Normal air movement Abdomen: Soft, Other (some distention, NTTP, well healed incision) Extremities: No clubbing, No cyanosis Skin: No rashes, No breakdown Neuro: Normal speech, Sensation intact Psych/Mental Status: Mental status NL, Mood NL Vitals VITALS Vital Signs Date Time Temp Pulse Resp B/P (MAP) Pulse Ox O2 Delivery O2 Flow Rate FiO2 08/01/19 16:41 Room Air 08/01/19 15:00 98.2 96 16 141/59 (86) 94 98.2 Labs Labs Laboratory Tests Test 08/01/19 12:09 08/01/19 16:00 White Blood Count 12.3 x10^3/uL (4.0-11.0) Red Blood Count 4.85 x10^6/uL (3.50-5.40) Hemoglobin 15.4 g/dL (12.0-15.5) Hematocrit 44.2 % (36.0-47.0) Mean Corpuscular Volume 91 fL (79-100) Mean Corpuscular Hemoglobin 32 pg (25-35) Mean Corpuscular Hemoglobin Concent 35 g/dL (31-37) Red Cell Distribution Width 13.3 % (11.5-14.5) Platelet Count 471 x10^3/uL (140-400) Neutrophils (%) (Auto) 81 % (31-73) Lymphocytes (%) (Auto) 8 % (24-48) Monocytes (%) (Auto) 11 % (0-9) Eosinophils (%) (Auto) 0 % (0-3) Basophils (%) (Auto) 0 % (0-3) Neutrophils # (Auto) 10.0 x10^3/uL (1.8-7.7) Lymphocytes # (Auto) 1.0 x10^3/uL (1.0-4.8) Monocytes # (Auto) 1.4 x10^3/uL (0.0-1.1) Eosinophils # (Auto) 0.0 x10^3/uL (0.0-0.7) Basophils # (Auto) 0.0 x10^3/uL (0.0-0.2) Sodium Level 134 mmol/L (136-145) Potassium Level 4.8 mmol/L (3.5-5.1) Chloride Level 94 mmol/L (98-107) Carbon Dioxide Level 26 mmol/L (21-32) Anion Gap 14 (6-14) Blood Urea Nitrogen 17 mg/dL (7-20) Creatinine 0.9 mg/dL (0.6-1.0) Estimated GFR (Cockcroft-Gault) 63.9 BUN/Creatinine Ratio 19 (6-20) Glucose Level 127 mg/dL (70-99) Calcium Level 9.8 mg/dL (8.5-10.1) Total Bilirubin 0.6 mg/dL (0.2-1.0) Aspartate Amino Transf (AST/SGOT) 21 U/L (15-37) Alanine Aminotransferase (ALT/SGPT) 22 U/L (14-59) Alkaline Phosphatase 84 U/L (46-116) Troponin I Quantitative < 0.017 ng/mL (0.000-0.055) Total Protein 8.6 g/dL (6.4-8.2) Albumin 4.8 g/dL (3.4-5.0) Albumin/Globulin Ratio 1.3 (1.0-1.7) Lipase 89 U/L (73-393) Urine Color Yellow Urine Clarity Cloudy Urine pH 6.5 Urine Specific [place] >=1.030 Urine Protein 30 mg/dL (NEG-TRACE) Urine Glucose (UA) Negative mg/dL (NEG) Urine Ketones (Stick) Trace mg/dL (NEG) Urine Blood Large (NEG) Urine Nitrite Negative (NEG) Urine Bilirubin Negative (NEG) Urine Urobilinogen Dipstick 0.2 mg/dL (0.2 mg/dL) Urine Leukocyte Esterase Large (NEG) Urine RBC 6-10 /HPF (0-2) Urine WBC Tntc /HPF (0-4) Urine Squamous Epithelial Cells Occ /LPF Urine Bacteria Few /HPF (0-FEW) Laboratory Tests Test 08/01/19 12:09 10/15/19 16:00 White Blood Count 12.3 x10^3/uL (4.0-11.0) Red Blood Count 4.85 x10^6/uL (3.50-5.40) Hemoglobin 15.4 g/dL (12.0-15.5) Hematocrit 44.2 % (36.0-47.0) Mean Corpuscular Volume 91 fL (79-100) Mean Corpuscular Hemoglobin 32 pg (25-35) Mean Corpuscular Hemoglobin Concent 35 g/dL (31-37) Red Cell Distribution Width 13.3 % (11.5-14.5) Platelet Count 471 x10^3/uL (140-400) Neutrophils (%) (Auto) 81 % (31-73) Lymphocytes (%) (Auto) 8 % (24-48) Monocytes (%) (Auto) 11 % (0-9) Eosinophils (%) (Auto) 0 % (0-3) Basophils (%) (Auto) 0 % (0-3) Neutrophils # (Auto) 10.0 x10^3/uL (1.8-7.7) Lymphocytes # (Auto) 1.0 x10^3/uL (1.0-4.8) Monocytes # (Auto) 1.4 x10^3/uL (0.0-1.1) Eosinophils # (Auto) 0.0 x10^3/uL (0.0-0.7) Basophils # (Auto) 0.0 x10^3/uL (0.0-0.2) Sodium Level 134 mmol/L (136-145) Potassium Level 4.8 mmol/L (3.5-5.1) Chloride Level 94 mmol/L (98-107) Carbon Dioxide Level 26 mmol/L (21-32) Anion Gap 14 (6-14) Blood Urea Nitrogen 17 mg/dL (7-20) Creatinine 0.9 mg/dL (0.6-1.0) Estimated GFR (Cockcroft-Gault) 63.9 BUN/Creatinine Ratio 19 (6-20) Glucose Level 127 mg/dL (70-99) Calcium Level 9.8 mg/dL (8.5-10.1) Total Bilirubin 0.6 mg/dL (0.2-1.0) Aspartate Amino Transf (AST/SGOT) 21 U/L (15-37) Alanine Aminotransferase (ALT/SGPT) 22 U/L (14-59) Alkaline Phosphatase 84 U/L (46-116) Troponin I Quantitative < 0.017 ng/mL (0.000-0.055) Total Protein 8.6 g/dL (6.4-8.2) Albumin 4.8 g/dL (3.4-5.0) Albumin/Globulin Ratio 1.3 (1.0-1.7) Lipase 89 U/L (73-393) Urine Color Yellow Urine Clarity Cloudy Urine pH 6.5 Urine Specific [place] >=1.030 Urine Protein 30 mg/dL (NEG-TRACE) Urine Glucose (UA) Negative mg/dL (NEG) Urine Ketones (Stick) Trace mg/dL (NEG) Urine Blood Large (NEG) Urine Nitrite Negative (NEG) Urine Bilirubin Negative (NEG) Urine Urobilinogen Dipstick 0.2 mg/dL (0.2 mg/dL) Urine Leukocyte Esterase Large (NEG) Urine RBC 6-10 /HPF (0-2) Urine WBC Tntc /HPF (0-4) Urine Squamous Epithelial Cells Occ /LPF Urine Bacteria Few /HPF (0-FEW) Images Images CT c/w high grade SBO, no free air or obvious bowel compromise Assessment/Plan Assessment/Plan SBO with dehydration d/w pt and pt's supportive family. NGT, bowel rest and IVF. will consider SBFT and/or operative intervention if not improved soon. Thanks for consult! SHIV TRUJILLO MD Aug 01, 2019 20:21
--- NOTE | 2019-08-01 21:55 | RAD ---
AP abdomen x-ray HISTORY: Nasogastric tube placement. FINDINGS: There is no nasogastric tube evident on this film. This indicates that placed tube is either within the neck or chest and should NOT be used until placed to the abdomen. There is abnormal gaseous distention of small bowel loops likely representing obstruction with absence of gas and large bowel. Excreted contrast within the urinary bladder. Right lateral abdomen and flank is outside the [id number]. Cholecystectomy clips. IMPRESSION: Nasogastric tube is not evident on this x-ray as described above. Small bowel obstruction. FOR INTERNAL CODING PURPOSES Critical result: Findings discussed with 5th floor JOSÉ MIGUEL Calderon at 08/01/2019 9:51 PM. Read back of report was performed. RESULT CODE: (C) Electronically signed by: Murray Sandy MD (08/01/2019 9:52 PM) [id number]
[2019-08-01 23:00] VITALS: BP 161/82
--- NOTE | 2019-08-01 23:50 | NUR ---
Lorazepam and Fentanyl were given to this patient during meditech downtime. lorazepam was given at 2220 and fentanyl was given at 2310.
--- NOTE | 2019-08-01 23:57 | NUR ---
This RN informed the patient that the NG tube was not placed correctly and that it would need to be removed in order to attempt placement again. Patient agreed to have the NG tube removed, however patient refused for this RN to attempt to place another NG tube at this. Patient stated that RN can try again in the AM. Patient is currently asleep in bed at this time. This RN will continue to monitor the patient at this time.
[2019-08-02] VITALS (11 sets, daily range): BP systolic 91–164; BP diastolic 52–89
[2019-08-02] MEDS: ONDANSETRON PF 4 MG/2 ML VIAL. IV PRN ×3 (03:02→11:42)
[2019-08-02] MEDS: fentaNYL PF VIAL 100 MCG/2 ML VIAL IV PRN ×2 (07:34→13:37)
--- NOTE | 2019-08-02 08:58 | PDOC ---
Provider Note Provider Note [id number] FEMI OSPINA MD Aug 02, 2019 08:58
--- NOTE | 2019-08-02 09:07 | HP ---
ADMIT DATE: 08/01/2019 CHIEF COMPLAINT: Abdominal pain and vomiting. HISTORY OF PRESENT ILLNESS: A 58-year-old white female who had a cervical spine stenosis surgery about 3 months ago and then after that a perforated gastric ulcer and has had increasing abdominal pain, distention and vomiting for [address] scan showed distal small-bowel obstruction. NG tube was attempted to be placed, was not placed correctly and she still had continued pain and vomiting. There has been no hematemesis, melena, constipation, fever, chills or urinary tract symptoms. PAST MEDICAL HISTORY: Cervical spine surgery, gastric resection for benign gastric ulcer. MEDICATIONS: She is taking multiple meds for her cervical spine symptoms. ALLERGIES: LISTED TO MORPHINE. SOCIAL HISTORY: Still heavy smoker. She has COPD, , employed, nondrinker. FAMILY HISTORY: Unremarkable. REVIEW OF SYSTEMS: No other complaints. OBJECTIVE: ENT: All within normal limits. NECK: No masses, nodes or bruits. LUNGS: Clear, without tachypnea or wheezing. CARDIOVASCULAR: Regular rate, mild tachycardia. No murmur. ABDOMEN: Distended. Bowel sounds are silent. She is diffusely mildly tender. No masses are felt. EXTREMITIES: Good pedal and radial pulses, 2+ clubbing. No joint or skin lesions. NEUROLOGIC: She has myoclonus of the feet and Grubbs's reflexes in the hands and mild hyperreflexia still remains in both upper and lower extremities. Mental status is intact. Oriented x 4. ASSESSMENT: 1. Abdominal pain secondary to distal small-bowel obstruction likely from adhesions from prior pelvic surgery. 2. Malnutrition and chronic obstructive pulmonary disease and chronic tobacco abuse. 3. Status post cervical spine surgery with very mild spastic quadriplegic symptoms, remaining mainly sensory. 4. Anxiety disorder. PLAN: We will add IV Pepcid, support IV fluids. Await urine culture and add nicotine patch. Likely a surgical problem way this looks as she declines further NG tube placement. Dr. Paulino has seen as a general surgical technology instructor. FEMI OSPINA MD DR: MYRA/kade JOB#: [id number] / [id number]
[2019-08-02] MEDS: NICOTINE 14MG PATCH. TD SCH (09:48)
[2019-08-02] MEDS: FAMOTIDINE 20 MG/2 ML VIAL IVP SCH (10:00)
--- NOTE | 2019-08-02 11:02 | NUR ---
SW following pt for dc planning. Chart reviewed. Pt lives at home with spouse. Pt has PMHx of COPD and is admitted for Abd pain. Pt was discharged with Ilda MARIA in March 2019. SW will be available as needed.
[2019-08-02] MEDS: IV DEXTROSE 5%-LACT RINGERS 1,000 ML IV SCH ×2 (11:42→21:00)
--- NOTE | 2019-08-02 13:44 | PDOC ---
SURGICAL PROGRESS NOTE Subjective Pt with c/o continued diffuse abd pain, nausea, no flatus. Attempts at placing NGT were unsuccessful and pt refuses to attempt replacement. Vital Signs Vital Signs Date Time Temp Pulse Resp B/P (MAP) Pulse Ox O2 Delivery O2 Flow Rate FiO2 08/02/19 11:00 97.7 88 18 160/89 (112) 94 Room Air 97.7 I&O Intake and Output 08/02/19 07:00 Output Total 200 ml Balance -200 ml Output Urine Total 200 ml # Voids 6 General: Alert, Oriented X3, Cooperative, No acute distress Abdomen: Other (distended, mild diffuse TTP) Labs Laboratory Tests Test 08/01/19 12:09 08/01/19 16:00 White Blood Count 12.3 x10^3/uL (4.0-11.0) Red Blood Count 4.85 x10^6/uL (3.50-5.40) Hemoglobin 15.4 g/dL (12.0-15.5) Hematocrit 44.2 % (36.0-47.0) Mean Corpuscular Volume 91 fL (79-100) Mean Corpuscular Hemoglobin 32 pg (25-35) Mean Corpuscular Hemoglobin Concent 35 g/dL (31-37) Red Cell Distribution Width 13.3 % (11.5-14.5) Platelet Count 471 x10^3/uL (140-400) Neutrophils (%) (Auto) 81 % (31-73) Lymphocytes (%) (Auto) 8 % (24-48) Monocytes (%) (Auto) 11 % (0-9) Eosinophils (%) (Auto) 0 % (0-3) Basophils (%) (Auto) 0 % (0-3) Neutrophils # (Auto) 10.0 x10^3/uL (1.8-7.7) Lymphocytes # (Auto) 1.0 x10^3/uL (1.0-4.8) Monocytes # (Auto) 1.4 x10^3/uL (0.0-1.1) Eosinophils # (Auto) 0.0 x10^3/uL (0.0-0.7) Basophils # (Auto) 0.0 x10^3/uL (0.0-0.2) Sodium Level 134 mmol/L (136-145) Potassium Level 4.8 mmol/L (3.5-5.1) Chloride Level 94 mmol/L (98-107) Carbon Dioxide Level 26 mmol/L (21-32) Anion Gap 14 (6-14) Blood Urea Nitrogen 17 mg/dL (7-20) Creatinine 0.9 mg/dL (0.6-1.0) Estimated GFR (Cockcroft-Gault) 63.9 BUN/Creatinine Ratio 19 (6-20) Glucose Level 127 mg/dL (70-99) Calcium Level 9.8 mg/dL (8.5-10.1) Total Bilirubin 0.6 mg/dL (0.2-1.0) Aspartate Amino Transf (AST/SGOT) 21 U/L (15-37) Alanine Aminotransferase (ALT/SGPT) 22 U/L (14-59) Alkaline Phosphatase 84 U/L (46-116) Troponin I Quantitative < 0.017 ng/mL (0.000-0.055) Total Protein 8.6 g/dL (6.4-8.2) Albumin 4.8 g/dL (3.4-5.0) Albumin/Globulin Ratio 1.3 (1.0-1.7) Lipase 89 U/L (73-393) Urine Color Yellow Urine Clarity Cloudy Urine pH 6.5 Urine Specific [place] >=1.030 Urine Protein 30 mg/dL (NEG-TRACE) Urine Glucose (UA) Negative mg/dL (NEG) Urine Ketones (Stick) Trace mg/dL (NEG) Urine Blood Large (NEG) Urine Nitrite Negative (NEG) Urine Bilirubin Negative (NEG) Urine Urobilinogen Dipstick 0.2 mg/dL (0.2 mg/dL) Urine Leukocyte Esterase Large (NEG) Urine RBC 6-10 /HPF (0-2) Urine WBC Tntc /HPF (0-4) Urine Squamous Epithelial Cells Occ /LPF Urine Bacteria Few /HPF (0-FEW) Laboratory Tests Test 08/01/19 16:00 Urine Color Yellow Urine Clarity Cloudy Urine pH 6.5 Urine Specific [place] >=1.030 Urine Protein 30 mg/dL (NEG-TRACE) Urine Glucose (UA) Negative mg/dL (NEG) Urine Ketones (Stick) Trace mg/dL (NEG) Urine Blood Large (NEG) Urine Nitrite Negative (NEG) Urine Bilirubin Negative (NEG) Urine Urobilinogen Dipstick 0.2 mg/dL (0.2 mg/dL) Urine Leukocyte Esterase Large (NEG) Urine RBC 6-10 /HPF (0-2) Urine WBC Tntc /HPF (0-4) Urine Squamous Epithelial Cells Occ /LPF Urine Bacteria Few /HPF (0-FEW) Problem List Problems Medical Problems: (1) Abdominal pain Status: Acute (2) Nausea and vomiting Status: Acute (3) Small bowel obstruction due to adhesions Status: Acute Assessment/Plan Pt not interested in NGT replacement. Given her persistent N/V, abd pain and no evidence of bowel fxn, d/w pt proceeding with exploratory surgery. R/R/B/A d/w pt. Risks, including, but not limited to: bleeding, infection, damage to surrounding structures, risk of anesthesia, risk of . Pt is at elevated risk secondary to comorbidity. Encouraged NGT, but pt not interested. She appears to understand, her questions are answered and she elects to proceed. SHIV TRUJILLO MD Aug 02, 2019 13:44
[2019-08-02] MEDS ORDERED: cefOXitin SODIUM IV Push 2 GM VIAL. IVP ONE (13:45)
[2019-08-02] MEDS ORDERED: ROCURONIUM 100 MG/10 ML VIAL. ONE (15:57)
[2019-08-02] MEDS ORDERED: fentaNYL PF VIAL 250 MCG/5 ML VIAL ONE (15:57)
[2019-08-02] MEDS ORDERED: IV RINGERS,LACTATED 1000ML 1,000 ML IV SCH ×2 (16:09→17:40)
[2019-08-02] MEDS ORDERED: fentaNYL PF VIAL 100 MCG/2 ML VIAL IV PRN ×2 (16:15)
[2019-08-02] MEDS ORDERED: PROCHLORPERAZINE 10 MG/2 ML VIAL. IV PRN (16:15)
[2019-08-02] MEDS ORDERED: LIDOCAINE 1% PF 2 ML VIAL. ID PRN (16:15)
[2019-08-02] MEDS ORDERED: MORPHINE SULFATE 2 MG/ML VIAL. IV PRN (16:15)
[2019-08-02] MEDS ORDERED: ONDANSETRON PF 4 MG/2 ML VIAL. IV PRN (16:15)
[2019-08-02] MEDS ORDERED: ONDANSETRON PF 4 MG/2 ML VIAL. IVP ONE (16:15)
[2019-08-02] MEDS ORDERED: HYDROmorphone 2 MG/ML VIAL ONE ×2 (16:19→18:12)
[2019-08-02] MEDS: HYDROmorphone 2 MG/ML VIAL IV PRN ×2 (16:20→18:20)
[2019-08-02] MEDS ORDERED: SUCCINYLCHOLINE 200 MG/10 ML VIAL. ONE (16:30)
[2019-08-02] MEDS ORDERED: ROCURONIUM 50 MG/5 ML VIAL. ONE (17:23)
[2019-08-02] MEDS ORDERED: NEOSTIGMINE METHYLSULFATE 5 MG/5 ML SYRINGE. ONE (17:34)
[2019-08-02] MEDS ORDERED: GLYCOPYRROLATE 1 MG/5 ML VIAL. ONE (17:35)
[2019-08-02] MEDS ORDERED: IV NORMAL SALINE 1000ML BAG 1,000 ML IV SCH (17:40)
[2019-08-02] MEDS ORDERED: HYDROmorphone 12mg/30ml PCA 30 ML IV PRN (17:45)
[2019-08-02] MEDS ORDERED: NALOXONE 0.4 MG/ML VIAL. IV PRN (17:45)
[2019-08-02] MEDS ORDERED: 0.9 % SODIUM CHLORIDE 10 ML DISP.SYRIN. IV PRN (17:45)
[2019-08-02] MEDS ORDERED: HYDROmorphone STANDARD PCA 12 MG/30 ML SYRINGE. IV ONE (17:54)
[2019-08-02] MEDS ORDERED: fentaNYL PF VIAL 100 MCG/2 ML VIAL ONE (18:01)
[2019-08-02] MEDS ORDERED: PROPOFOL 20 ML IV ONE (18:10)
[2019-08-02] MEDS ORDERED: ePHEDrine PF IN SALINE 50 MG/10 ML SYRINGE. IV ONE (18:10)
[2019-08-02] MEDS ORDERED: SEVOFLURANE > 120 MINUTES. IH ONE (18:10)
[2019-08-02] MEDS ORDERED: LIDOCAINE 2% PF 5 ML VIAL. ONE (18:10)
[2019-08-02] MEDS ORDERED: ONDANSETRON PF 4 MG/2 ML VIAL. ONE (18:11)
[2019-08-02] MEDS ORDERED: PROCHLORPERAZINE 10 MG/2 ML VIAL. ONE (18:12)
--- NOTE | 2019-08-02 18:31 | RAD ---
One view abdomen HISTORY: Status post NG tube placement Supine AP view abdomen pelvis COMPARISON: August 01, 2019 There has been interval placement of NG tube with its tip in the proximal stomach. There are multiple distended loops of small bowel. There is a relative paucity of colonic bowel gas. There is no obvious free air. IMPRESSION: Abnormal bowel gas pattern consistent with small bowel obstruction. This appears similar to the prior study. Electronically signed by: Alfie Rowley III, MD (08/02/2019 6:28 PM) [id number]
--- NOTE | 2019-08-02 19:27 | PDOC4 ---
OPERATIVE NOTE Date: Date: Aug 02, 2019 Pre-Op Diagnosis: SBO Post-Op Diagnosis: same, secondary to adhesions Procedure Performed: Exploratory laparotomy, lysis of adhesions, repair of enterotomy Surgeon: Remy Trujillo Asst: Dr. Diogenes Garcia Anesthesia Type: GETA Blood Loss: 50 Specimans Obtained: none Findings: diffuse adhesions with diffuse, but viable bowel throughout. Adherent small bowel especially to inferior aspect of incision Complications: none (enterotomy created in taking off bowel from abdominal wall, inherent to the procedure) Operative Note: After obtaining informed consent, patient was taken to OR, induced under GETA and prepped in the usual fashion. Previous midline incision reopened with cautery. Fascia opened sharply superiorly. Distended bowel immediately encountered. Adherent small bowel to lower abdominal wall. Enterotomy created, inherent to the procedure, taken the bowel off the abdominal wall. This enterotomy was used to decompress the bowel. Remaining small bowel explored and viable throughout. Stomach was normal with NGT in place. Colon normal, although some what redundant. No hernia or other pathology noted. Enterotomy repaired with 3 0 PDS and 3 0 vicryl in a transverse manner. Copious irrigati on. No evidence of bleeding or other pathology noted. Fascia repaired with 0 looped PDS. Skin repaired with 3 0 vicryl and 4 0 monocryl. True placed in wound and secured with 3 0 nylon. Dressing placed. Patient tolerated procedure well and was sent to PACU in stable condition. All counts correct. Wound class is 3. SHIV TRUJILLO MD Aug 02, 2019 19:27
[2019-08-02] MEDS ORDERED: IV NORMAL SALINE 250ML 250 ML IV ONE (21:00)
[2019-08-02] MEDS: ENOXAPARIN 40 MG/0.4 ML SYRINGE. SQ SCH (21:59)
[2019-08-03] VITALS (7 sets, daily range): BP systolic 99–113; BP diastolic 52–74
[2019-08-03] MEDS: IV DEXTROSE 5%-LACT RINGERS 1,000 ML IV SCH (05:00)
[2019-08-03 05:37] LABS: BASO % 0 % (0-3); EOS % 0 % (0-3); HEMATOCRIT 42.3 % (36.0-47.0); HEMOGLOBIN 14.5 g/dL (12.0-15.5); LYMPH # 0.3 x10^3/uL (1.0-4.8); LYMPH % 3 % (24-48); MEAN CORPUSCULAR HEMOGLOBIN 32 pg (25-35); MEAN CORPUSCULAR HGB CONC 34 g/dL (31-37); MEAN CORPUSCULAR VOLUME 92 fL (79-100); MONO # 0.6 x10^3/uL (0.0-1.1); MONO % 6 % (0-9); NEUT # 8.9 x10^3/uL (1.8-7.7); NEUT % 91 % (31-73); PLATELET COUNT 369 x10^3/uL (140-400); RED BLOOD COUNT 4.59 x10^6/uL (3.50-5.40); WHITE BLOOD COUNT 9.7 x10^3/uL (4.0-11.0)
[2019-08-03 05:57] LABS: CALCIUM 8.3 mg/dL (8.5-10.1); CREATININE 0.8 mg/dL (0.6-1.0); GFR 73.2
[2019-08-03 06:13] LABS: POTASSIUM 2.7 mmol/L (3.5-5.1)
[2019-08-03] MEDS ORDERED: POTASSIUM CHLORIDE 10MEQ 100 ML IV ONE (07:00)
[2019-08-03 07:36] LABS: % BANDS 46 % (0-9); % LYMPHS 5 % (24-48); % METAS 3 % (0-0); % MONOS 5 % (0-10); % SEGS 41 % (35-66)
[2019-08-03 07:37] LABS: PLT ESTIMATE ADEQUATE (ADEQUATE); TOXIC VACUOLATION SLIGHT
[2019-08-03] MEDS: NICOTINE 14MG PATCH. TD SCH (08:05)
--- NOTE | 2019-08-03 08:05 | PDOC ---
Provider Note Provider Note day 1 post op- vss, K+ low 2.7 so iv changed- cont current care FEMI OSPINA MD Aug 03, 2019 08:05
[2019-08-03] MEDS: FAMOTIDINE 20 MG/2 ML VIAL IVP SCH (08:06)
[2019-08-03] MEDS: POTASSIUM CL 40MEQ D5-0.45NACL 1,000 ML IV SCH ×2 (08:06→17:47)
[2019-08-03] MEDS: IPRATRPIUM/ALBUTEROL 0.5/2.5MG 3 ML NEBU. NEB SCH ×4 (08:37→20:12)
--- NOTE | 2019-08-03 12:54 | PDOC ---
SURGICAL PROGRESS NOTE Subjective Pt feels better, some soreness, no N/V, no flatus Vital Signs Vital Signs Date Time Temp Pulse Resp B/P (MAP) Pulse Ox O2 Delivery O2 Flow Rate FiO2 08/03/19 11:56 99 Room Air 08/03/19 11:00 97.7 107 16 99/52 (68) 97.7 08/03/19 03:00 2.0 I&O Intake and Output 08/03/19 07:00 Intake Total 0 ml Output Total 750 ml Balance -750 ml Intake Oral 0 ml Output Urine Total 700 ml Estimated Blood Loss 50 ml PATIENT HAS A HOFF: Yes General: Alert, Oriented X3, Cooperative, mild distress Abdomen: Soft, No tenderness, Other (dressing intact, NGT bilious) Labs Laboratory Tests Test 08/01/19 16:00 08/03/19 05:00 Urine Color Yellow Urine Clarity Cloudy Urine pH 6.5 Urine Specific [place] >=1.030 Urine Protein 30 mg/dL (NEG-TRACE) Urine Glucose (UA) Negative mg/dL (NEG) Urine Ketones (Stick) Trace mg/dL (NEG) Urine Blood Large (NEG) Urine Nitrite Negative (NEG) Urine Bilirubin Negative (NEG) Urine Urobilinogen Dipstick 0.2 mg/dL (0.2 mg/dL) Urine Leukocyte Esterase Large (NEG) Urine RBC 6-10 /HPF (0-2) Urine WBC Tntc /HPF (0-4) Urine Squamous Epithelial Cells Occ /LPF Urine Bacteria Few /HPF (0-FEW) White Blood Count 9.7 x10^3/uL (4.0-11.0) Red Blood Count 4.59 x10^6/uL (3.50-5.40) Hemoglobin 14.5 g/dL (12.0-15.5) Hematocrit 42.3 % (36.0-47.0) Mean Corpuscular Volume 92 fL (79-100) Mean Corpuscular Hemoglobin 32 pg (25-35) Mean Corpuscular Hemoglobin Concent 34 g/dL (31-37) Red Cell Distribution Width 13.0 % (11.5-14.5) Platelet Count 369 x10^3/uL (140-400) Neutrophils (%) (Auto) 91 % (31-73) Lymphocytes (%) (Auto) 3 % (24-48) Monocytes (%) (Auto) 6 % (0-9) Eosinophils (%) (Auto) 0 % (0-3) Basophils (%) (Auto) 0 % (0-3) Neutrophils # (Auto) 8.9 x10^3/uL (1.8-7.7) Lymphocytes # (Auto) 0.3 x10^3/uL (1.0-4.8) Monocytes # (Auto) 0.6 x10^3/uL (0.0-1.1) Eosinophils # (Auto) 0.0 x10^3/uL (0.0-0.7) Basophils # (Auto) 0.0 x10^3/uL (0.0-0.2) Segmented Neutrophils % 41 % (35-66) Band Neutrophils % 46 % (0-9) Lymphocytes % 5 % (24-48) Monocytes % 5 % (0-10) Metamyelocytes % 3 % (0-0) Toxic Vacuolation Slight Platelet Estimate Adequate (ADEQUATE) Sodium Level 135 mmol/L (136-145) Potassium Level 2.7 mmol/L (3.5-5.1) Chloride Level 99 mmol/L (98-107) Carbon Dioxide Level 25 mmol/L (21-32) Anion Gap 11 (6-14) Blood Urea Nitrogen 11 mg/dL (7-20) Creatinine 0.8 mg/dL (0.6-1.0) Estimated GFR (Cockcroft-Gault) 73.2 Glucose Level 119 mg/dL (70-99) Calcium Level 8.3 mg/dL (8.5-10.1) Laboratory Tests Test 08/03/19 05:00 White Blood Count 9.7 x10^3/uL (4.0-11.0) Red Blood Count 4.59 x10^6/uL (3.50-5.40) Hemoglobin 14.5 g/dL (12.0-15.5) Hematocrit 42.3 % (36.0-47.0) Mean Corpuscular Volume 92 fL (79-100) Mean Corpuscular Hemoglobin 32 pg (25-35) Mean Corpuscular Hemoglobin Concent 34 g/dL (31-37) Red Cell Distribution Width 13.0 % (11.5-14.5) Platelet Count 369 x10^3/uL (140-400) Neutrophils (%) (Auto) 91 % (31-73) Lymphocytes (%) (Auto) 3 % (24-48) Monocytes (%) (Auto) 6 % (0-9) Eosinophils (%) (Auto) 0 % (0-3) Basophils (%) (Auto) 0 % (0-3) Neutrophils # (Auto) 8.9 x10^3/uL (1.8-7.7) Lymphocytes # (Auto) 0.3 x10^3/uL (1.0-4.8) Monocytes # (Auto) 0.6 x10^3/uL (0.0-1.1) Eosinophils # (Auto) 0.0 x10^3/uL (0.0-0.7) Basophils # (Auto) 0.0 x10^3/uL (0.0-0.2) Segmented Neutrophils % 41 % (35-66) Band Neutrophils % 46 % (0-9) Lymphocytes % 5 % (24-48) Monocytes % 5 % (0-10) Metamyelocytes % 3 % (0-0) Toxic Vacuolation Slight Platelet Estimate Adequate (ADEQUATE) Sodium Level 135 mmol/L (136-145) Potassium Level 2.7 mmol/L (3.5-5.1) Chloride Level 99 mmol/L (98-107) Carbon Dioxide Level 25 mmol/L (21-32) Anion Gap 11 (6-14) Blood Urea Nitrogen 11 mg/dL (7-20) Creatinine 0.8 mg/dL (0.6-1.0) Estimated GFR (Cockcroft-Gault) 73.2 Glucose Level 119 mg/dL (70-99) Calcium Level 8.3 mg/dL (8.5-10.1) Problem List Problems Medical Problems: (1) Abdominal pain Status: Acute (2) Nausea and vomiting Status: Acute (3) Small bowel obstruction due to adhesions Status: Acute Assessment/Plan s/p DARIEN OOB await bowel fxn SHIV TRUJILLO MD Aug 03, 2019 12:54
[2019-08-03] MEDS: ENOXAPARIN 40 MG/0.4 ML SYRINGE. SQ SCH (20:59)
--- NOTE | 2019-08-03 22:58 | NUR ---
I went to patient's room to check on her and I found her sitting on the side of the bed with her NG tube laying in the middle of her bed. She had taken it out and had removed the respiratory monitor for her [employer] pump as well. I told her that I would need to put the NG tube back in, but she refused to let me. I called Dr. Floyd, mobile application architect for Dr. Paulino, and he said it was fine to leave it out.
[2019-08-03] MEDS: fentaNYL PF VIAL 100 MCG/2 ML VIAL IV PRN (23:25)
[2019-08-04] MEDS: POTASSIUM CL 40MEQ D5-0.45NACL 1,000 ML IV SCH ×4 (02:21→21:22)
--- NOTE | 2019-08-04 02:49 | NUR ---
Patient has been very confused this shift. Earlier, she pulled out her NG tube and refused to have it put back in. About an hour ago, she pulled out her IV and a new one was inserted. Just now, she pulled her Kay catheter out. The day nurse told me that the Kay was to be D/C'd in the AM, so I left it out at this time. The patient had contacted her niece, who is a nursing grad, on her cell phone when I was cleaning her up and the patient requested that I speak to her niece. I informed the niece that she has been very confused and has been pulling things out.
[2019-08-04 03:00] VITALS: BP 113/67
--- NOTE | 2019-08-04 05:08 | NUR ---
Patient's spouse, Seven, came in around 0340 this morning to sit with the patient because she keeps wanting to get out of bed and she kept calling him telling him to take her home. He said she is so confused because of all of the pain medicine, but I explained to him that the patient is the one delivering the medication and that we have it locked out so she cannot give herself too much.
[2019-08-04 07:40] VITALS: BP 121/75
[2019-08-04] MEDS: IPRATRPIUM/ALBUTEROL 0.5/2.5MG 3 ML NEBU. NEB SCH ×4 (07:44→19:47)
--- NOTE | 2019-08-04 07:45 | NUR ---
patient alert and verbally responsive, alert to self and place but forgetful at times, patient attempting to get oob several times this am, stating that she needs to go out and smoke, patient redirected per this screen writer, will move closer to the nurses station, room 580.
--- NOTE | 2019-08-04 08:34 | PDOC ---
Provider Note Provider Note vss, no temp- K+ pending - mildly confused and has pulled tubes out,likely from med withdrawerl ( senait etc)- will ad d low dose haldol re sedation FEMI OSPINA MD Aug 04, 2019 08:34
--- NOTE | 2019-08-04 09:06 | PDOC ---
SURGICAL PROGRESS NOTE Subjective Pt with c/o anxiety and confusion, pulled out NGT, no flatus, no n/v, c/o neck pain Vital Signs Vital Signs Date Time Temp Pulse Resp B/P (MAP) Pulse Ox O2 Delivery O2 Flow Rate FiO2 08/04/19 07:40 99.3 123 19 121/75 (90) 92 Room Air 99.3 I&O Intake and Output 08/04/19 07:00 Intake Total 100 ml Output Total 700 ml Balance -600 ml Intake Oral 0 ml IV Total 100 ml Output Urine Total 350 ml Gastric Drainage Total 350 ml General: Alert, mild distress Abdomen: Soft, No tenderness, Other (mild distention) Labs Laboratory Tests Test 08/03/19 05:00 White Blood Count 9.7 x10^3/uL (4.0-11.0) Red Blood Count 4.59 x10^6/uL (3.50-5.40) Hemoglobin 14.5 g/dL (12.0-15.5) Hematocrit 42.3 % (36.0-47.0) Mean Corpuscular Volume 92 fL (79-100) Mean Corpuscular Hemoglobin 32 pg (25-35) Mean Corpuscular Hemoglobin Concent 34 g/dL (31-37) Red Cell Distribution Width 13.0 % (11.5-14.5) Platelet Count 369 x10^3/uL (140-400) Neutrophils (%) (Auto) 91 % (31-73) Lymphocytes (%) (Auto) 3 % (24-48) Monocytes (%) (Auto) 6 % (0-9) Eosinophils (%) (Auto) 0 % (0-3) Basophils (%) (Auto) 0 % (0-3) Neutrophils # (Auto) 8.9 x10^3/uL (1.8-7.7) Lymphocytes # (Auto) 0.3 x10^3/uL (1.0-4.8) Monocytes # (Auto) 0.6 x10^3/uL (0.0-1.1) Eosinophils # (Auto) 0.0 x10^3/uL (0.0-0.7) Basophils # (Auto) 0.0 x10^3/uL (0.0-0.2) Segmented Neutrophils % 41 % (35-66) Band Neutrophils % 46 % (0-9) Lymphocytes % 5 % (24-48) Monocytes % 5 % (0-10) Metamyelocytes % 3 % (0-0) Toxic Vacuolation Slight Platelet Estimate Adequate (ADEQUATE) Sodium Level 135 mmol/L (136-145) Potassium Level 2.7 mmol/L (3.5-5.1) Chloride Level 99 mmol/L (98-107) Carbon Dioxide Level 25 mmol/L (21-32) Anion Gap 11 (6-14) Blood Urea Nitrogen 11 mg/dL (7-20) Creatinine 0.8 mg/dL (0.6-1.0) Estimated GFR (Cockcroft-Gault) 73.2 Glucose Level 119 mg/dL (70-99) Calcium Level 8.3 mg/dL (8.5-10.1) Problem List Problems Medical Problems: (1) Abdominal pain Status: Acute (2) Nausea and vomiting Status: Acute (3) Small bowel obstruction due to adhesions Status: Acute Assessment/Plan s/p xlap 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
[2019-08-04] MEDS: FAMOTIDINE 20 MG/2 ML VIAL IVP SCH (09:28)
[2019-08-04] MEDS: NICOTINE 14MG PATCH. TD SCH (09:29)
[2019-08-04] MEDS: LIDOCAINE (700MG/PATCH) PATCH. TD SCH (09:32)
[2019-08-04 11:00] VITALS: BP 132/78
[2019-08-04] MEDS: HALOPERIDOL LACTATE 5 MG/ML VIAL. IVP PRN (12:36)
[2019-08-04 15:00] VITALS: BP 145/76
[2019-08-04 19:00] VITALS: BP 155/87
[2019-08-04] MEDS: PATCH REMOVAL. MC SCH (21:00)
[2019-08-04] MEDS: ONDANSETRON PF 4 MG/2 ML VIAL. IV PRN (21:27)
[2019-08-04] MEDS: fentaNYL PF VIAL 100 MCG/2 ML VIAL IV PRN (21:28)
[2019-08-04] MEDS: ENOXAPARIN 40 MG/0.4 ML SYRINGE. SQ SCH (21:29)
[2019-08-04 23:00] VITALS: BP 129/50
[2019-08-05 03:00] VITALS: BP 162/85
[2019-08-05] MEDS: ONDANSETRON PF 4 MG/2 ML VIAL. IV PRN ×3 (03:11→22:20)
--- NOTE | 2019-08-05 04:27 | NUR ---
Albuterol inhaler noted at bedside. Informed patient that medications at bedside are not allowed and that I would have to send it to pharmacy for safe-keeping. Patient verbalizes understanding but has been forgetful. Home medication bag label placed in chart. Will pass along to day RN.
--- NOTE | 2019-08-05 05:56 | NUR ---
Called to patient room d/t significant amount of drainage from midline incision. Entire ABD pad was saturated, whereas there was only a quarter sized amount prior. Blood noted to patient's hat in toilet, from True drain. Incision leaking pink fluid above drain. Abdomen continues to be distended and firm, as it was earlier in the shift. Redressed incision with 4x4 and ABD pad, Medipore tape. Dr. Paulino paged at 0545, Dr. Archer fusion juncture grinder. Received call back at approximately 0550, informed physician of findings. MD gave no further orders or instructions, stated "will be rounding soon, will see what it looks like." Will pass along to day RN and continue to monitor.
[2019-08-05] MEDS: POTASSIUM CL 40MEQ D5-0.45NACL 1,000 ML IV SCH ×3 (06:15→23:00)
[2019-08-05 07:00] VITALS: BP 163/79
[2019-08-05] MEDS: IPRATRPIUM/ALBUTEROL 0.5/2.5MG 3 ML NEBU. NEB SCH ×5 (07:43→19:33)
[2019-08-05] MEDS: FAMOTIDINE 20 MG/2 ML VIAL IVP SCH (10:00)
[2019-08-05] MEDS: NICOTINE 14MG PATCH. TD SCH (10:01)
[2019-08-05] MEDS: LIDOCAINE (700MG/PATCH) PATCH. TD SCH (10:01)
--- NOTE | 2019-08-05 10:17 | PN ---
DATE: 08/05/2019 LOCATION: She is in room 580. SUBJECTIVE: The patient is awake, alert, pushing for discharge despite multiple times redirecting as the bowel is not working out and needing the stay. Her is in attendance and states she is much better today than she has been mentally but still is not clicking clearly. OBJECTIVE: VITAL SIGNS: Stable. She is afebrile. She is less tachycardic this morning with a pulse of 100 currently. CHEST: Clear. HEART: Regular and tachycardic. ABDOMEN: Soft, silent with no bowel sounds. LABORATORY DATA: Potassium was up to 3.5 yesterday and we will recheck tomorrow morning. Urine culture on admission was negative despite looking like a urinary tract infection. ASSESSMENT: 1. Status post surgical release of adhesions and small-bowel obstruction. 2. Chronic obstructive pulmonary disease. 3. Postoperative confusion. PLAN: Continue hydration. Follow electrolytes. Await return of bowel function. Questions from her , I believe all answered. SEVEN CHASE MD DR: HENRY/kade JOB#: [id number] / [id number]
--- NOTE | 2019-08-05 10:59 | PDOC ---
PROGRESS NOTES Subjective Subjective notified from nurse this AM of large amount of serosang fluid from the incision; pt appears uncomfortable, states shes vomiting Objective Objective Vital Signs Date Time Temp Pulse Resp B/P (MAP) Pulse Ox O2 Delivery O2 Flow Rate FiO2 08/05/19 07:00 98.6 105 18 163/79 (107) 94 Room Air 98.6 08/03/19 03:00 2.0 Intake and Output 08/05/19 06:59 Intake Total 30 ml Balance 30 ml Intake Oral 30 ml # Voids 10 Physical Exam Abdomen: Other (distender, the incision remains intact, minimal current drainage, jd intact) Heart: Regular rate Extremities: No clubbing, No cyanosis General: Alert Assessment Assessment Problems Medical Problems: (1) Abdominal pain Status: Acute (2) Nausea and vomiting Status: Acute (3) Small bowel obstruction due to adhesions Status: Acute Plan Plan of Care Await return of bowel function, supportive care Comment Review of Relevant I have reviewed the following items amrit (where applicable) has been applied. Labs Laboratory Tests Test 08/04/19 10:00 Potassium Level 3.5 mmol/L (3.5-5.1) Microbiology 08/01/19 Urine Culture - Final, Complete 08/01/19 Urine Culture Result 1 (SERAFIN) - Final, Complete Medications Current Medications Sodium Chloride 1,000 ml @ 1,000 mls/hr Q1H IV Last administered on 08/01/19at 12:24; Start 08/01/19 at 12:24; Stop 08/01/19 at 13:23; Status DC Ondansetron HCl (Zofran) 4 mg 1X ONCE IV Last administered on 08/01/19at 12 :30; Start 08/01/19 at 12:30; Stop 08/02/19 at 08:55; Status DC Fentanyl Citrate (Fentanyl 2ml Vial) 50 mcg 1X ONCE IVP Last administered on 08/01/19at 13:09; Start 08/01/19 at 13:00; Stop 08/02/19 at 08:55; Status DC Sodium Chloride 1,000 ml @ 1,000 mls/hr 1X ONCE IV Last administered on 08/01/19at 13:10; Start 08/01/19 at 13:00; Stop 08/01/19 at 13:59; Status DC Iohexol (Omnipaque 300 Mg/ml) 75 ml 1X ONCE IV Last administered on 08/01/19at 13:15; Start 08/01/19 at 13:15; Stop 08/01/19 at 13:16; Status DC Iohexol (Omnipaque 240 Mg/ml) 30 ml 1X ONCE IV Last administered on 08/01/19at 13:15; Start 08/01/19 at 13:15; Stop 08/01/19 at 13:16; Status DC Info (CONTRAST GIVEN -- Rx MONITORING) 1 each PRN DAILY PRN MC SEE COMMENTS; Start 08/01/19 at 13:15; Stop 08/03/19 at 13:14; Status DC Fentanyl Citrate (Fentanyl 2ml Vial) 50 mcg 1X ONCE IVP Last administered on 08/01/19at 15:02; Start 08/01/19 at 14:30; Stop 08/02/19 at 08:55; Status DC Ondansetron HCl (Zofran) 4 mg PRN Q4HRS PRN IV NAUSEA/VOMITING Last administered on 08/02/19at 11:42; Start 08/01/19 at 16:30; Stop 08/03/19 at 08:08; Status DC Fentanyl Citrate (Fentanyl 2ml Vial) 50 mcg PRN Q2HRS PRN IV PAIN Last administered on 08/04/19at 21:28; Start 08/01/19 at 16:30 Sodium Chloride 1,000 ml @ 150 mls/hr Q6H40M IV Last administered on 08/01/19at 23:08; Start 08/01/19 at 16:28; Stop 08/02/19 at 08:55; Status DC Lorazepam (Ativan Inj) 1 mg PRN Q4HRS PRN IVP ANXIETY / AGITATION Last administered on 08/05/19at 04:08; Start 08/01/19 at 18:00 Dextrose/Lactated Ringer's 1,000 ml @ 100 mls/hr Q10H IV Last administered on 08/02/19at 11:42; Start 08/02/19 at 09:00; Stop 08/03/19 at 08:04; Status DC Famotidine (Pepcid Vial) 40 mg DAILY10 IVP Last administered on 08/05/19at 10:00; Start 08/02/19 at 10:00 Nicotine (Nicoderm Cq 14mg) 1 patch DAILY TD Last administered on 08/05/19at 10:01; Start 08/02/19 at 09:00 Cefoxitin Sodium (Mefoxin) 2 gm 1X PREOP ONCE IVP Last administered on 08/02/19at 16:51; Start 08/02/19 at 13:45; Stop 08/02/19 at 13:46; Status DC Rocuronium Shaw (Zemuron) 100 mg STK-MED ONCE .ROUTE ; Start 08/02/19 at 15:57; Stop 08/02/19 at 15:57; Status DC Fentanyl Citrate (Fentanyl 5ml Vial) 250 mcg STK-MED ONCE .ROUTE ; Start 08/02/19 at 15:57; Stop 08/02/19 at 15:57; Status DC Ondansetron HCl (Zofran) 4 mg 1X ONCE IVP Last administered on 08/02/19at 16:15; Start 08/02/19 at 16:15; Stop 08/02/19 at 16:16; Status DC Ondansetron HCl (Zofran) 4 mg PRN Q6HRS PRN IV NAUSEA/VOMITING; Start 08/02/19 at 16:15; Stop 08/02/19 at 22:00; Status DC Fentanyl Citrate (Fentanyl 2ml Vial) 25 mcg PRN Q5MIN PRN IV MILD PAIN 1-3; Start 08/02/19 at 16:15; Stop 08/02/19 at 22:00; Status DC Fentanyl Citrate (Fentanyl 2ml Vial) 50 mcg PRN Q5MIN PRN IV MODERATE TO SEVERE PAIN; Start 08/02/19 at 16:15; Stop 08/02/19 at 22:00; Status DC Morphine Sulfate (Morphine Sulfate) 1 mg PRN Q10MIN PRN IV SEVERE PAIN 7-10; Start 08/02/19 at 16:15; Stop 08/03/19 at 16:14; Status UNV Ringer's Solution 1,000 ml @ 30 mls/hr Q24H IV ; Start 08/02/19 at 16:09; Stop 08/03/19 at 04:08; Status DC Lidocaine HCl (Xylocaine-Mpf 1% 2ml Vial) 2 ml PRN 1X PRN ID PRIOR TO IV START; Start 08/02/19 at 16:15; Stop 08/02/19 at 22:00; Status DC Hydromorphone HCl (Dilaudid) 0.5 mg PRN Q10MIN PRN IV SEV PAIN, Second choice Last administered on 08/02/19at 18:20; Start 08/02/19 at 16:15; Stop 08/02/19 at 22:00; Status DC Prochlorperazine Edisylate (Compazine) 5 mg PACU PRN PRN IV NAUSEA, MRX1 Last administered on 08/02/19at 18:21; Start 08/02/19 at 16:15; Stop 08/02/19 at 22:00; Status DC Hydromorphone HCl (Dilaudid) 2 mg STK-MED ONCE .ROUTE ; Start 08/02/19 at 16:19; Stop 08/02/19 at 16:20; Status DC Succinylcholine Chloride (Anectine) 200 mg STK-MED ONCE .ROUTE ; Start 08/02/19 at 16:30; Stop 08/02/19 at 16:31; Status DC Rocuronium Shaw (Zemuron) 50 mg STK-MED ONCE .ROUTE ; Start 08/02/19 at 17:23; Stop 08/02/19 at 17:24; Status DC Neostigmine Methylsulfate (Neostigmine Methylsulfate) 5 mg STK-MED ONCE .ROUTE ; Start 08/02/19 at 17:34; Stop 08/02/19 at 17:34; Status DC Glycopyrrolate (Robinul) 1 mg STK-MED ONCE .ROUTE ; Start 08/02/19 at 17:35; Stop 08/02/19 at 17:35; Status DC Enoxaparin Sodium (Lovenox 40mg Syringe) 40 mg Q24H SQ Last administered on 08/04/19at 21:29; Start 08/02/19 at 21:00 Sodium Chloride (Normal Saline Flush) 3 ml QSHIFT PRN IV AFTER MEDS AND BLOOD DRAWS; Start 08/02/19 at 17:45 Ringer's Solution 1,000 ml @ 100 mls/hr Q10H IV Last administered on 08/03/19at 03:37; Start 08/02/19 at 17:40; Stop 08/03/19 at 08:04; Status DC Naloxone HCl (Narcan) 0.4 mg PRN Q2MIN PRN IV SEE INSTRUCTIONS; Start 08/02/19 at 17:45 Sodium Chloride 1,000 ml @ 25 mls/hr Q24H IV ; Start 08/02/19 at 17:40; Stop 08/03/19 at 08:04; Status DC Hydromorphone HCl 30 ml @ 0 mls/hr CONT PRN PRN IV PER PROTOCOL Last administered on 08/02/19at 18:38; Start 08/02/19 at 17:45; Stop 08/04/19 at 09:05; Status DC Ondansetron HCl (Zofran) 4 mg PRN Q6HRS PRN IV NAUESA, 1ST CHOICE Last administered on 08/05/19at 10:00; Start 08/02/19 at 17:45 Fentanyl Citrate (Fentanyl 2ml Vial) 100 mcg STK-MED ONCE .ROUTE ; Start 08/02/19 at 18:01; Stop 08/02/19 at 18:01; Status DC Lidocaine HCl (Lidocaine Pf 2% Vial) 5 ml STK-MED ONCE .ROUTE ; Start 08/02/19 at 18:10; Stop 08/02/19 at 18:10; Status DC Propofol 20 ml @ As Directed STK-MED ONCE IV ; Start 08/02/19 at 18:10; Stop 08/02/19 at 18:10; Status DC Ephedrine Sulfate (ePHEDrine PF IN SALINE SYRINGE) 50 mg STK-MED ONCE IV ; Start 08/02/19 at 18:10; Stop 08/02/19 at 18:11; Status DC Sevoflurane (Ultane) 90 ml STK-MED ONCE IH ; Start 08/02/19 at 18:10; Stop 08/02/19 at 18:11; Status DC Ondansetron HCl (Zofran) 4 mg STK-MED ONCE .ROUTE ; Start 08/02/19 at 18:11; Stop 08/02/19 at 18:11; Status DC Hydromorphone HCl (Dilaudid) 2 mg STK-MED ONCE .ROUTE ; Start 08/02/19 at 18:12; Stop 08/02/19 at 18:12; Status DC Prochlorperazine Edisylate (Compazine) 10 mg STK-MED ONCE .ROUTE ; Start 08/02/19 at 18:12; Stop 08/02/19 at 18:12; Status DC Sodium Chloride 250 ml @ 250 mls/hr 1X ONCE IV Last administered on 08/02/19at 21:07; Start 08/02/19 at 21:00; Stop 08/02/19 at 21:59; Status DC Potassium Chloride/Dextrose/ Sod Cl 1,000 ml @ 125 mls/hr Q8H IV Last administered on 08/05/19at 06:15; Start 08/03/19 at 07:00 Potassium Chloride/Water 100 ml @ 100 mls/hr 1X ONCE IV Last administered on 08/03/19at 08:07; Start 08/03/19 at 07:00; Stop 08/03/19 at 07:59; Status DC Albuterol/ Ipratropium (Duoneb) 3 ml RTQID NEB Last administered on 08/04/19at 19:47; Start 08/03/19 at 09:00 Hydromorphone HCl (Dilaudid Standard UPPER TRIMMER) 12 mg STK-MED ONCE IV ; Start 08/02/19 at 17:54; Stop 08/03/19 at 11:12; Status DC Haloperidol Lactate (Haldol Inj) 2 mg PRN Q4HRS PRN IVP AGITATION Last administered on 08/04/19at 12:36; Start 08/04/19 at 08:30 Lidocaine (Lidoderm) 1 patch DAILY TD Last administered on 08/05/19at 10:01; Start 08/04/19 at 09:30 Miscellaneous (Lidoderm Patch Removal) 1 ea QHS MC Last administered on 08/04/19at 21:00; Start 08/04/19 at 21:00 Active Scripts Active Reported Tizanidine Hcl 4 Mg Tablet 0.5 Tab PO QHS Percocet 5-325 Mg Tablet (Oxycodone/Acetaminophen) 1 Each Tablet 1 Tab PO PRN Q8HRS PRN Tramadol Hcl 50 Mg Tablet 100 Mg PO TID PRN Zoloft (Sertraline Hcl) 50 Mg Tablet 50 Mg PO HS Gabapentin 600 Mg Tablet 700 Mg PO QID Robaxin-750 (Methocarbamol) 750 Mg Tablet 750 Mg PO QID Xanax (Alprazolam) 0.5 Mg Tablet Unknown Dose PO PRN Q6HRS PRN Proair Hfa Inhaler (Albuterol Sulfate) 8.5 Gm Hfa.aer.ad 1 Puff INH PRN Q6HRS PRN Vitals/I & O Vital Sign - Last 24 Hours 08/04/19 08/04/19 08/04/19 08/04/19 11:00 11:52 15:00 15:47 Temp 98.4 99.2 98.4 99.2 Pulse 110 118 Resp 18 24 B/P (MAP) 132/78 (96) 145/76 (99) Pulse Ox 97 94 92 94 O2 Delivery Room Air Room Air Room Air Room Air 08/04/19 08/04/19 08/04/19 08/04/19 19:00 19:30 19:48 21:28 Temp 98.1 98.1 Pulse 115 Resp 20 B/P (MAP) 155/87 (109) Pulse Ox 95 94 94 O2 Delivery Room Air Room Air Room Air Room Air 08/04/19 08/04/19 08/05/19 08/05/19 22:03 23:00 03:00 07:00 Temp 98.4 99.1 98.6 98.4 99.1 98.6 Pulse 108 102 105 Resp 16 22 20 18 B/P (MAP) 129/50 (76) 162/85 (110) 163/79 (107) Pulse Ox 94 92 90 94 O2 Delivery Room Air Room Air Room Air Room Air Intake and Output 08/04/19 08/04/19 08/05/19 14:59 22:59 06:59 Intake Total 0 ml 10 ml 20 ml Balance 0 ml 10 ml 20 ml Nutrition Consultation Dietary Evaluation: Comments: diet advancement per gi Expected Outcomes/Goals: to meet > 75% est nutr needs when diet advances Malnutrition Findings: Food and Nutrition Intake (Sev: <50% est energy req 5days Body Fat Depletion (Non Severe: Mild Depletion Weight Status: Underweight SY CASE MD Aug 05, 2019 10:59
[2019-08-05 11:00] VITALS: BP 143/79
[2019-08-05 15:00] VITALS: BP 127/68
[2019-08-05 19:00] VITALS: BP 139/70
[2019-08-05] MEDS: ENOXAPARIN 40 MG/0.4 ML SYRINGE. SQ SCH (20:45)
[2019-08-05] MEDS: fentaNYL PF VIAL 100 MCG/2 ML VIAL IV PRN ×2 (20:46→23:40)
[2019-08-05] MEDS: PATCH REMOVAL. MC SCH (20:47)
[2019-08-05 23:04] VITALS: BP 134/79
[2019-08-06] MEDS: fentaNYL PF VIAL 100 MCG/2 ML VIAL IV PRN ×9 (01:31→23:14)
[2019-08-06 02:47] VITALS: BP 145/80
[2019-08-06 06:48] LABS: CALCIUM 7.9 mg/dL (8.5-10.1); CREATININE 0.5 mg/dL (0.6-1.0); GFR 125.9; POTASSIUM 3.3 mmol/L (3.5-5.1)
[2019-08-06 07:00] VITALS: BP 136/82
[2019-08-06] MEDS: POTASSIUM CL 40MEQ D5-0.45NACL 1,000 ML IV SCH ×2 (07:31→18:47)
[2019-08-06] MEDS: IPRATRPIUM/ALBUTEROL 0.5/2.5MG 3 ML NEBU. NEB SCH ×4 (08:12→20:17)
[2019-08-06] MEDS: NICOTINE 14MG PATCH. TD SCH (09:15)
[2019-08-06] MEDS: LIDOCAINE (700MG/PATCH) PATCH. TD SCH (09:16)
[2019-08-06] MEDS: FAMOTIDINE 20 MG/2 ML VIAL IVP SCH (09:16)
[2019-08-06 11:33] VITALS: BP 138/84
--- NOTE | 2019-08-06 11:59 | PDOC ---
PROGRESS NOTES Subjective Subjective seems better today, more comfortable, some flatus Objective Objective Vital Signs Date Time Temp Pulse Resp B/P (MAP) Pulse Ox O2 Delivery O2 Flow Rate FiO2 08/06/19 11:53 96 Room Air 08/06/19 11:33 99.0 103 20 138/84 (102) 99.0 08/06/19 02:01 2.0 Intake and Output 08/06/19 07:00 Intake Total 0 ml Output Total 1050 ml Balance -1050 ml Intake Oral 0 ml Output Urine Total 450 ml Emesis 600 ml # Voids 6 Physical Exam Abdomen: Soft (distended) Assessment Assessment Problems Medical Problems: (1) Abdominal pain Status: Acute (2) Nausea and vomiting Status: Acute (3) Small bowel obstruction due to adhesions Status: Acute Plan Plan of Care S/P X lap, supportive care Comment Review of Relevant I have reviewed the following items amrit (where applicable) has been applied. Labs Laboratory Tests Test 08/06/19 04:55 Sodium Level 131 mmol/L (136-145) Potassium Level 3.3 mmol/L (3.5-5.1) Chloride Level 96 mmol/L (98-107) Carbon Dioxide Level 26 mmol/L (21-32) Anion Gap 9 (6-14) Blood Urea Nitrogen 2 mg/dL (7-20) Creatinine 0.5 mg/dL (0.6-1.0) Estimated GFR (Cockcroft-Gault) 125.9 Glucose Level 135 mg/dL (70-99) Calcium Level 7.9 mg/dL (8.5-10.1) Laboratory Tests Test 08/06/19 04:55 Sodium Level 131 mmol/L (136-145) Potassium Level 3.3 mmol/L (3.5-5.1) Chloride Level 96 mmol/L (98-107) Carbon Dioxide Level 26 mmol/L (21-32) Anion Gap 9 (6-14) Blood Urea Nitrogen 2 mg/dL (7-20) Creatinine 0.5 mg/dL (0.6-1.0) Estimated GFR (Cockcroft-Gault) 125.9 Glucose Level 135 mg/dL (70-99) Calcium Level 7.9 mg/dL (8.5-10.1) Microbiology 08/01/19 Urine Culture - Final, Complete 08/01/19 Urine Culture Result 1 (SERAFIN) - Final, Complete Medications Current Medications Sodium Chloride 1,000 ml @ 1,000 mls/hr Q1H IV Last administered on 08/01/19at 12:24; Start 08/01/19 at 12:24; Stop 08/01/19 at 13:23; Status DC Ondansetron HCl (Zofran) 4 mg 1X ONCE IV Last administered on 08/01/19at 12: 30; Start 08/01/19 at 12:30; Stop 08/02/19 at 08:55; Status DC Fentanyl Citrate (Fentanyl 2ml Vial) 50 mcg 1X ONCE IVP Last administered on 08/01/19 13:09; Start 08/01/19 at 13:00; Stop 08/02/19 at 08:55; Status DC Sodium Chloride 1,000 ml @ 1,000 mls/hr 1X ONCE IV Last administered on 08/01/19at 13:10; Start 08/01/19 at 13:00; Stop 08/01/19 at 13:59; Status DC Iohexol (Omnipaque 300 Mg/ml) 75 ml 1X ONCE IV Last administered on 08/01/19at 13:15; Start 08/01/19 at 13:15; Stop 08/01/19 at 13:16; Status DC Iohexol (Omnipaque 240 Mg/ml) 30 ml 1X ONCE IV Last administered on 08/01/19at 13:15; Start 08/01/19 at 13:15; Stop 08/01/19 at 13:16; Status DC Info (CONTRAST GIVEN -- Rx MONITORING) 1 each PRN DAILY PRN MC SEE COMMENTS; Start 08/01/19 at 13:15; Stop 08/03/19 at 13:14; Status DC Fentanyl Citrate (Fentanyl 2ml Vial) 50 mcg 1X ONCE IVP Last administered on 08/01/19at 15:02; Start 08/01/19 at 14:30; Stop 08/02/19 at 08:55; Status DC Ondansetron HCl (Zofran) 4 mg PRN Q4HRS PRN IV NAUSEA/VOMITING Last administered on 08/02/19at 11:42; Start 08/01/19 at 16:30; Stop 08/03/19 at 08:08; Status DC Fentanyl Citrate (Fentanyl 2ml Vial) 50 mcg PRN Q2HRS PRN IV PAIN Last administered on 08/06/19 07:30; Start 08/01/19 at 16:30 Sodium Chloride 1,000 ml @ 150 mls/hr Q6H40M IV Last administered on 08/01/19at 23:08; Start 08/01/19 at 16:28; Stop 08/02/19 at 08:55; Status DC Lorazepam (Ativan Inj) 1 mg PRN Q4HRS PRN IVP ANXIETY / AGITATION Last administered on 08/05/19at 13:04; Start 08/01/19 at 18:00; Stop 08/05/19 at 20:24; Status DC Dextrose/Lactated Ringer's 1,000 ml @ 100 mls/hr Q10H IV Last administered on 08/02/19at 11:42; Start 08/02/19 at 09:00; Stop 08/03/19 at 08:04; Status DC Famotidine (Pepcid Vial) 40 mg DAILY10 IVP Last administered on 08/06/19 09:16; Start 08/02/19 at 10:00 Nicotine (Nicoderm Cq 14mg) 1 patch DAILY TD Last administered on 08/06/19 09:15; Start 08/02/19 at 09:00 Cefoxitin Sodium (Mefoxin) 2 gm 1X PREOP ONCE IVP Last administered on at 16:51; Start 08/02/19 at 13:45; Stop 08/02/19 at 13:46; Status DC Rocuronium Bryant (Zemuron) 100 mg STK-MED ONCE .ROUTE ; Start 08/02/19 at 15:57; Stop 08/02/19 at 15:57; Status DC Fentanyl Citrate (Fentanyl 5ml Vial) 250 mcg STK-MED ONCE .ROUTE ; Start 08/02/19 at 15:57; Stop 08/02/19 at 15:57; Status DC Ondansetron HCl (Zofran) 4 mg 1X ONCE IVP Last administered on 08/02/19at 16:15; Start 08/02/19 at 16:15; Stop 08/02/19 at 16:16; Status DC Ondansetron HCl (Zofran) 4 mg PRN Q6HRS PRN IV NAUSEA/VOMITING; Start 08/02/19 at 16:15; Stop 08/02/19 at 22:00; Status DC Fentanyl Citrate (Fentanyl 2ml Vial) 25 mcg PRN Q5MIN PRN IV MILD PAIN 1-3; Start 08/02/19 at 16:15; Stop 08/02/19 at 22:00; Status DC Fentanyl Citrate (Fentanyl 2ml Vial) 50 mcg PRN Q5MIN PRN IV MODERATE TO SEVERE PAIN; Start 08/02/19 at 16:15; Stop 08/02/19 at 22:00; Status DC Morphine Sulfate (Morphine Sulfate) 1 mg PRN Q10MIN PRN IV SEVERE PAIN 7-10; Start 08/02/19 at 16:15; Stop 08/03/19 at 16:14; Status UNV Ringer's Solution 1,000 ml @ 30 mls/hr Q24H IV ; Start 08/02/19 at 16:09; Stop 08/03/19 at 04:08; Status DC Lidocaine HCl (Xylocaine-Mpf 1% 2ml Vial) 2 ml PRN 1X PRN ID PRIOR TO IV START; Start 08/02/19 at 16:15; Stop 08/02/19 at 22:00; Status DC Hydromorphone HCl (Dilaudid) 0.5 mg PRN Q10MIN PRN IV SEV PAIN, Second choice Last administered on 08/02/19at 18:20; Start 08/02/19 at 16:15; Stop 08/02/19 at 22:00; Status DC Prochlorperazine Edisylate (Compazine) 5 mg PACU PRN PRN IV NAUSEA, MRX1 Last administered on 08/02/19at 18:21; Start 08/02/19 at 16:15; Stop 08/02/19 at 22:00; Status DC Hydromorphone HCl (Dilaudid) 2 mg STK-MED ONCE .ROUTE ; Start 08/02/19 at 16:19; Stop 08/02/19 at 16:20; Status DC Succinylcholine Chloride (Anectine) 200 mg STK-MED ONCE .ROUTE ; Start 08/02/19 at 16:30; Stop 08/02/19 at 16:31; Status DC Rocuronium Bryant (Zemuron) 50 mg STK-MED ONCE .ROUTE ; Start 08/02/19 at 17:23; Stop 08/02/19 at 17:24; Status DC Neostigmine Methylsulfate (Neostigmine Methylsulfate) 5 mg STK-MED ONCE .ROUTE ; Start 08/02/19 at 17:34; Stop 08/02/19 at 17:34; Status DC Glycopyrrolate (Robinul) 1 mg STK-MED ONCE .ROUTE ; Start 08/02/19 at 17:35; Stop 08/02/19 at 17:35; Status DC Enoxaparin Sodium (Lovenox 40mg Syringe) 40 mg Q24H SQ Last administered on 08/05/19at 20:45; Start 08/02/19 at 21:00 Sodium Chloride (Normal Saline Flush) 3 ml QSHIFT PRN IV AFTER MEDS AND BLOOD DRAWS; Start 08/02/19 at 17:45 Ringer's Solution 1,000 ml @ 100 mls/hr Q10H IV Last administered on 08/03/19at 03:37; Start 08/02/19 at 17:40; Stop 08/03/19 at 08:04; Status DC Naloxone HCl (Narcan) 0.4 mg PRN Q2MIN PRN IV SEE INSTRUCTIONS; Start 08/02/19 at 17:45 Sodium Chloride 1,000 ml @ 25 mls/hr Q24H IV ; Start 08/02/19 at 17:40; Stop 08/03/19 at 08:04; Status DC Hydromorphone HCl 30 ml @ 0 mls/hr CONT PRN PRN IV PER PROTOCOL Last administered on 08/02/19at 18:38; Start 08/02/19 at 17:45; Stop 08/04/19 at 09:05; Status DC Ondansetron HCl (Zofran) 4 mg PRN Q6HRS PRN IV NAUESA, 1ST CHOICE Last administered on 08/05/19at 22:20; Start 08/02/19 at 17:45 Fentanyl Citrate (Fentanyl 2ml Vial) 100 mcg STK-MED ONCE .ROUTE ; Start 08/02/19 at 18:01; Stop 08/02/19 at 18:01; Status DC Lidocaine HCl (Lidocaine Pf 2% Vial) 5 ml STK-MED ONCE .ROUTE ; Start 08/02/19 at 18:10; Stop 08/02/19 at 18:10; Status DC Propofol 20 ml @ As Directed STK-MED ONCE IV ; Start 08/02/19 at 18:10; Stop 08/02/19 at 18:10; Status DC Ephedrine Sulfate (ePHEDrine PF IN SALINE SYRINGE) 50 mg STK-MED ONCE IV ; Start 08/02/19 at 18:10; Stop 08/02/19 at 18:11; Status DC Sevoflurane (Ultane) 90 ml STK-MED ONCE IH ; Start 08/02/19 at 18:10; Stop 08/02/19 at 18:11; Status DC Ondansetron HCl (Zofran) 4 mg STK-MED ONCE .ROUTE ; Start 08/02/19 at 18:11; Stop 08/02/19 at 18:11; Status DC Hydromorphone HCl (Dilaudid) 2 mg STK-MED ONCE .ROUTE ; Start 08/02/19 at 18:12; Stop 08/02/19 at 18:12; Status DC Prochlorperazine Edisylate (Compazine) 10 mg STK-MED ONCE .ROUTE ; Start 08/02/19 at 18:12; Stop 08/02/19 at 18:12; Status DC Sodium Chloride 250 ml @ 250 mls/hr 1X ONCE IV Last administered on 08/02/19at 21:07; Start 08/02/19 at 21:00; Stop 08/02/19 at 21:59; Status DC Potassium Chloride/Dextrose/ Sod Cl 1,000 ml @ 125 mls/hr Q8H IV Last administered on 08/06/19at 07:31; Start 08/03/19 at 07:00 Potassium Chloride/Water 100 ml @ 100 mls/hr 1X ONCE IV Last administered on 08/03/19at 08:07; Start 08/03/19 at 07:00; Stop 08/03/19 at 07:59; Status DC Albuterol/ Ipratropium (Duoneb) 3 ml RTQID NEB Last administered on 08/06/19at 11:51; Start 08/03/19 at 09:00 Hydromorphone HCl (Dilaudid Standard RUBBER HEEL AND SOLE PRESS TENDER) 12 mg STK-MED ONCE IV ; Start at 17:54; Stop 08/03/19 at 11:12; Status DC Haloperidol Lactate (Haldol Inj) 2 mg PRN Q4HRS PRN IVP AGITATION 2ND CHOICE Last administered on 08/04/19at 12:36; Start 08/04/19 at 08:30 Lidocaine (Lidoderm) 1 patch DAILY TD Last administered on 08/06/19at 09:16; Start 08/04/19 at 09:30 Miscellaneous (Lidoderm Patch Removal) 1 ea QHS MC Last administered on 08/05/19at 20:47; Start 08/04/19 at 21:00 Lorazepam (Ativan Inj) 0.5 mg PRN Q4HRS PRN IVP ANXIETY / AGITATION; Start 08/05/19 at 20:30 Active Scripts Active Reported Tizanidine Hcl 4 Mg Tablet 0.5 Tab PO QHS Percocet 5-325 Mg Tablet (Oxycodone/Acetaminophen) 1 Each Tablet 1 Tab PO PRN Q8HRS PRN Tramadol Hcl 50 Mg Tablet 100 Mg PO TID PRN Zoloft (Sertraline Hcl) 50 Mg Tablet 50 Mg PO HS Gabapentin 600 Mg Tablet 700 Mg PO QID Robaxin-750 (Methocarbamol) 750 Mg Tablet 750 Mg PO QID Xanax (Alprazolam) 0.5 Mg Tablet Unknown Dose PO PRN Q6HRS PRN Proair Hfa Inhaler (Albuterol Sulfate) 8.5 Gm Hfa.aer.ad 1 Puff INH PRN Q6HRS PRN Vitals/I & O Vital Sign - Last 24 Hours 08/05/19 08/05/19 08/05/19 08/05/19 12:30 15:00 15:37 19:00 Temp 99.1 98.5 99.1 98.5 Pulse 95 54 Resp 16 20 B/P (MAP) 127/68 (87) 139/70 (93) Pulse Ox 97 93 91 100 O2 Delivery Room Air Room Air Room Air Room Air 08/05/19 08/05/19 08/05/19 08/05/19 19:35 20:10 20:46 21:16 Pulse Ox 97 O2 Delivery Room Air Room Air Room Air Room Air 08/05/19 08/05/19 08/06/19 08/06/19 23:04 23:40 00:10 01:31 Temp 98.5 98.5 Pulse 109 Resp 20 B/P (MAP) 134/79 (97) Pulse Ox 93 93 O2 Delivery Room Air Room Air Room Air Room Air O2 Flow Rate 2.0 08/06/19 08/06/19 08/06/19 08/06/19 02:01 02:47 03:50 04:20 Temp 98.3 98.3 Pulse 96 Resp 17 B/P (MAP) 145/80 (101) Pulse Ox 93 93 93 O2 Delivery Room Air Room Air Room Air Room Air O2 Flow Rate 2.0 08/06/19 08/06/19 08/06/19 08/06/19 07:00 07:30 08:00 08:15 Temp 98.5 98.5 Pulse 89 B/P (MAP) 136/82 (100) Pulse Ox 94 96 O2 Delivery Room Air Room Air Room Air Room Air 08/06/19 08/06/19 11:33 11:53 Temp 99.0 99.0 Pulse 103 Resp 20 B/P (MAP) 138/84 (102) Pulse Ox 94 96 O2 Delivery Room Air Intake and Output 08/05/19 08/05/19 08/06/19 15:00 23:00 07:00 Intake Total 0 ml Output Total 1050 ml Balance -1050 ml 0 ml Nutrition Consultation Dietary Evaluation: Comments: diet advancement per gi Expected Outcomes/Goals: to meet > 75% est nutr needs when diet advances Malnutrition Findings: Food and Nutrition Intake (Sev: <50% est energy req 5days Body Fat Depletion (Non Severe: Mild Depletion Weight Status: Underweight YS CASE MD Aug 06, 2019 11:59
--- NOTE | 2019-08-06 12:57 | PN ---
DATE: 08/06/2019 LOCATION: Room 580. SUBJECTIVE: The patient is awake, alert, feeling much better today. Denies any further nausea or vomiting. Actually passed flatus this morning, but no stool. Is pushing very hard for something to eat jello or sherbet and I told nursing that was fine with good bowel sounds this morning and ____ surgery to determine anything further than that. OBJECTIVE: VITAL SIGNS: Stable. She is afebrile. GENERAL: She is awake, alert. CHEST: Clear. HEART: Regular. ABDOMEN: Expected postop tenderness, soft. I can hear bowel sounds this morning. EXTREMITIES: Without cyanosis, clubbing or edema. NEUROLOGIC: She is intact. LABORATORY DATA: AM labs include a potassium of 3.3. She does have IV fluids running with potassium in it and with no further vomiting I expect this to resolve. IMPRESSION: 1. Status post surgical release of adhesions and small-bowel obstruction. 2. Chronic obstructive pulmonary disease. 3. Postoperative confusion, resolved. PLAN: Continue hydration, slowly introduce diet; otherwise same. [facility] MD DR: HENRY/kade JOB#: [id number] / [id number]
[2019-08-06 15:00] VITALS: BP 146/77
[2019-08-06] MEDS: ONDANSETRON PF 4 MG/2 ML VIAL. IV PRN ×2 (16:14→23:13)
[2019-08-06 19:00] VITALS: BP 143/84
[2019-08-06] MEDS: ENOXAPARIN 40 MG/0.4 ML SYRINGE. SQ SCH (20:59)
[2019-08-06] MEDS: PATCH REMOVAL. MC SCH (20:59)
[2019-08-06 23:00] VITALS: BP 129/74
[2019-08-07] MEDS: fentaNYL PF VIAL 100 MCG/2 ML VIAL IV PRN ×9 (02:49→23:00)
[2019-08-07 03:00] VITALS: BP 127/76
[2019-08-07] MEDS: POTASSIUM CL 40MEQ D5-0.45NACL 1,000 ML IV SCH ×3 (03:15→18:57)
[2019-08-07 07:00] VITALS: BP 135/78
[2019-08-07] MEDS: IPRATRPIUM/ALBUTEROL 0.5/2.5MG 3 ML NEBU. NEB SCH ×4 (07:19→19:50)
--- NOTE | 2019-08-07 08:04 | PDOC ---
Provider Note Provider Note vss, some flatus , no new sxs , some bloating now- labs ok, hopefully more flatus today FEMI OSPINA MD Aug 07, 2019 08:04
[2019-08-07] MEDS: FAMOTIDINE 20 MG/2 ML VIAL IVP SCH (08:26)
[2019-08-07] MEDS: NICOTINE 14MG PATCH. TD SCH (08:27)
[2019-08-07] MEDS: LIDOCAINE (700MG/PATCH) PATCH. TD SCH (08:27)
--- NOTE | 2019-08-07 08:36 | PDOC ---
SURGICAL PROGRESS NOTE Subjective Pt with c/o abd discomfort, some flatus, nausea with clears, maty some sips of water Vital Signs Vital Signs Date Time Temp Pulse Resp B/P (MAP) Pulse Ox O2 Delivery O2 Flow Rate FiO2 08/07/19 08:26 Room Air 08/07/19 07:00 98.0 101 16 135/78 (97) 94 98.0 08/07/19 06:24 2.0 I&O Intake and Output 08/07/19 06:59 Intake Total 0 ml Balance 0 ml Intake Oral 0 ml # Voids 4 General: Alert, Cooperative, mild distress, Other (NGT out) Abdomen: Soft, Other (distended, diffuse mild TTP) Labs Laboratory Tests Test 08/06/19 04:55 Sodium Level 131 mmol/L (136-145) Potassium Level 3.3 mmol/L (3.5-5.1) Chloride Level 96 mmol/L (98-107) Carbon Dioxide Level 26 mmol/L (21-32) Anion Gap 9 (6-14) Blood Urea Nitrogen 2 mg/dL (7-20) Creatinine 0.5 mg/dL (0.6-1.0) Estimated GFR (Cockcroft-Gault) 125.9 Glucose Level 135 mg/dL (70-99) Calcium Level 7.9 mg/dL (8.5-10.1) Problem List Problems Medical Problems: (1) Abdominal pain Status: Acute (2) Nausea and vomiting Status: Acute (3) Small bowel obstruction due to adhesions Status: Acute Assessment/Plan s/p DARIEN d/w pt and pt's supportive encouraged OOB await improved bowel fxn d/w primary given prolonged NPO status, will start TPN remove SHIV Castillo MD Aug 07, 2019 08:36
[2019-08-07] MEDS ORDERED: LIDOCAINE WITH 8.4% SOD BICARB 3 ML DISP.SYRIN. INJ ONE (09:00)
[2019-08-07 10:53] VITALS: BP 138/72
--- NOTE | 2019-08-07 11:00 | NUR ---
SW following pt. PT recommends SNU (walked 250ft), from previous admission pt did not have SNU coverage but appears she has been to acute rehab. SW attempted to meet with pt and pt was asleep, did not awaken when called. SW will attempt to meet with pt later. Pt appears appropriate for home health services. SW will continue to follow.
[2019-08-07 11:04] LABS: CALCIUM 7.7 mg/dL (8.5-10.1); CREATININE 0.4 mg/dL (0.6-1.0); GFR 162.8; POTASSIUM 3.9 mmol/L (3.5-5.1)
--- NOTE | 2019-08-07 12:07 | NUR ---
Order to remove true noted. Discussed with primary nurse JOSÉ MIGUEL Armenta. Removed old dressing. Moderate serosanguineous drainage noted on dressing. Incision appears well approximated. One suture removed without difficulty. True drain removed without difficulty. Cleansed with NS. Applied xeroform gauze, gauze pads, followed by abd pads. Patient tolerated well. Reported to primary RN. Will monitor and support. Malissa KENNEDY, [facility] with instructor Kayley Mullen.
[2019-08-07] MEDS: TPN PER PHARMACY MC PRN (14:38)
[2019-08-07 14:49] LABS: MAGNESIUM 1.2 mg/dL (1.8-2.4); PHOSPHORUS 2.5 mg/dL (2.6-4.7)
[2019-08-07 15:00] VITALS: BP 138/81
[2019-08-07] MEDS ORDERED: MAGNESIUM SULFATE 2GM 50 ML IV ONE (15:30)
[2019-08-07] MEDS ORDERED: SODIUM PHOSPHATE 15 MMOL in IV DEXTROSE 5% 250 ML IV ONE (15:30)
[2019-08-07] MEDS: ONDANSETRON PF 4 MG/2 ML VIAL. IV PRN ×2 (17:05→23:00)
[2019-08-07 19:00] VITALS: BP 122/78
[2019-08-07] MEDS: PATCH REMOVAL. MC SCH (20:45)
[2019-08-07] MEDS: ENOXAPARIN 40 MG/0.4 ML SYRINGE. SQ SCH (20:53)
[2019-08-07] MEDS ORDERED: TOTAL PARENTERAL NUTRITION 1,424.9987 ML, AMINO ACID 15% 60 GM, DEXTROSE 70 % IN WATER ... IV SCH ×10 (22:00)
[2019-08-07 22:49] VITALS: BP 149/88
[2019-08-07] MEDS: HALOPERIDOL LACTATE 5 MG/ML VIAL. IVP PRN (23:01)
[2019-08-08 03:00] VITALS: BP 117/63
[2019-08-08] MEDS: fentaNYL PF VIAL 100 MCG/2 ML VIAL IV PRN ×7 (03:33→20:09)
--- NOTE | 2019-08-08 05:56 | NUR ---
Visualized albuterol inhaler at patient's bedside. Provided information on hospital policy/procedure regarding home meds not allowed at bedside. Patient stated she would have her take it home today and to place it in her blue [facility] bag. Patient also stated that she did not wish to take the nebulizer treatments that are ordered for her because she feels like they are casuing her to produce more mucus and it was making her nauseated. Patient stated preference of using home inhaler. Provided information on using home medications via MD order. Will pass patient's wishes along to assigned RN to pass along to day shift RN.
[2019-08-08 06:40] LABS: CALCIUM 7.9 mg/dL (8.5-10.1); CREATININE 0.4 mg/dL (0.6-1.0); GFR 162.8; MAGNESIUM 1.5 mg/dL (1.8-2.4); PHOSPHORUS 4.2 mg/dL (2.6-4.7); POTASSIUM 3.7 mmol/L (3.5-5.1)
[2019-08-08 07:00] VITALS: BP 118/68
--- NOTE | 2019-08-08 08:08 | PDOC ---
Provider Note Provider Note sleeping, no dyspnea- vss, no temp- bmp ok- on tpn now- at her request will dc duoneb and use home albut prn, rest same FEMI OSPINA MD Aug 08, 2019 08:08
[2019-08-08] MEDS: LIDOCAINE (700MG/PATCH) PATCH. TD SCH (09:00)
[2019-08-08] MEDS: NICOTINE 14MG PATCH. TD SCH (09:00)
--- NOTE | 2019-08-08 09:21 | PDOC ---
SURGICAL PROGRESS NOTE Subjective stomach cramps this Am some stool and flatus today + nausea, no emesis Vital Signs Vital Signs Date Time Temp Pulse Resp B/P (MAP) Pulse Ox O2 Delivery O2 Flow Rate FiO2 08/08/19 07:00 98.5 107 18 118/68 (85) 95 Room Air 98.5 08/08/19 06:22 2.0 I&O Intake and Output 08/08/19 06:59 Intake Total 1260 ml Balance 1260 ml Intake Oral 210 ml IV Total 1050 ml # Voids 6 General: Alert, Oriented X3, Cooperative, No acute distress Abdomen: Soft, Other (drainage from old jd site serosang ) Labs Laboratory Tests Test 08/07/19 10:15 08/08/19 05:45 Sodium Level 130 mmol/L (136-145) 133 mmol/L (136-145) Potassium Level 3.9 mmol/L (3.5-5.1) 3.7 mmol/L (3.5-5.1) Chloride Level 97 mmol/L (98-107) 98 mmol/L (98-107) Carbon Dioxide Level 24 mmol/L (21-32) 25 mmol/L (21-32) Anion Gap 9 (6-14) 10 (6-14) Blood Urea Nitrogen 2 mg/dL (7-20) 4 mg/dL (7-20) Creatinine 0.4 mg/dL (0.6-1.0) 0.4 mg/dL (0.6-1.0) Estimated GFR (Cockcroft-Gault) 162.8 162.8 Glucose Level 128 mg/dL (70-99) 104 mg/dL (70-99) Calcium Level 7.7 mg/dL (8.5-10.1) 7.9 mg/dL (8.5-10.1) Phosphorus Level 2.5 mg/dL (2.6-4.7) 4.2 mg/dL (2.6-4.7) Magnesium Level 1.2 mg/dL (1.8-2.4) 1.5 mg/dL (1.8-2.4) Triglycerides Level 92 mg/dL (0-150) Laboratory Tests Test 08/07/19 10:15 08/08/19 05:45 Sodium Level 130 mmol/L (136-145) 133 mmol/L (136-145) Potassium Level 3.9 mmol/L (3.5-5.1) 3.7 mmol/L (3.5-5.1) Chloride Level 97 mmol/L (98-107) 98 mmol/L (98-107) Carbon Dioxide Level 24 mmol/L (21-32) 25 mmol/L (21-32) Anion Gap 9 (6-14) 10 (6-14) Blood Urea Nitrogen 2 mg/dL (7-20) 4 mg/dL (7-20) Creatinine 0.4 mg/dL (0.6-1.0) 0.4 mg/dL (0.6-1.0) Estimated GFR (Cockcroft-Gault) 162.8 162.8 Glucose Level 128 mg/dL (70-99) 104 mg/dL (70-99) Calcium Level 7.7 mg/dL (8.5-10.1) 7.9 mg/dL (8.5-10.1) Phosphorus Level 2.5 mg/dL (2.6-4.7) 4.2 mg/dL (2.6-4.7) Magnesium Level 1.2 mg/dL (1.8-2.4) 1.5 mg/dL (1.8-2.4) Triglycerides Level 92 mg/dL (0-150) Problem List Problems Medical Problems: (1) Abdominal pain Status: Acute (2) Nausea and vomiting Status: Acute (3) Small bowel obstruction due to adhesions Status: Acute Assessment/Plan s/p DARIEN await improved bowel function tpn EVERARDO MENDES APRN Aug 08, 2019 09:21
[2019-08-08] MEDS: FAMOTIDINE 20 MG/2 ML VIAL IVP SCH (09:24)
[2019-08-08 11:00] VITALS: BP 140/84
--- NOTE | 2019-08-08 11:23 | RAD ---
Exam: Fluoroscopic and ultrasound guided right percutaneous inserted central venous catheter placement 08/08/2019 9:19 AM .Indication: Long-term central venous access for TPN Technique: Informed oral and written consent were obtained. The right upper extremity was prepped and draped using sterile barrier technique. All elements of maximal sterile barrier technique including the use of a cap, mask, sterile gown, sterile gloves, large sterile sheet, appropriate hand hygiene, and 2% chlorhexidine for cutaneous antisepsis (or acceptable alternative antiseptic per current guidelines) were followed for this procedure.. Real-time ultrasound demonstrated a patent right basilic vein which was prepped and draped in usual sterile fashion. 1% lidocaine used for local anesthesia. Using real-time ultrasound guidance the access needle percutaneously punctured the selected right basilic vein. Reference ultrasound images were saved to the medical record. A guidewire was advanced through the needle to the cavoatrial junction, and a peel-away sheath placed. The catheter was cut to length and inserted through the peel-away sheath such that its tip is at the cavoatrial junction. The wire and sheath were removed, and the catheter secured in place, and a sterile dressing was applied. Catheter was found to flush and aspirate normally. No immediate complications are identified. FLUORO TIME: 1.5 DOSE AREA PRODUCT: 1.1 Gycm2 Impression: Ultrasound and fluoroscopically guided placement of a right upper extremity PICC line.
[2019-08-08] MEDS: TPN PER PHARMACY MC PRN ×2 (11:54→13:07)
[2019-08-08] MEDS ORDERED: MAGNESIUM SULFATE 2GM 50 ML IV ONE (12:00)
--- NOTE | 2019-08-08 13:13 | NUR ---
Pharmacy TPN Dosing Note S: SHANIKA KHALIL is a 58 year old F Currently receiving Central Continuous TPN started 08/07/19 B:Pertinent PMH: SBO; prolonged NPO Height: 5 feet, 3 inches Weight: 53.929550 kg Current diet: clears LABS: Sodium: 133 Potassium: 3.7 Chloride: 98 Calcium: 7.9 Corrected Calcium: 9.26 Magnesium: 1.5 CO2: 25 SCr: 0.4 Glucose: 104 Albumin: 2.3 AST: 21 ALT: 22 TPN FORMULA: TPN TYPE: Central Continuous AMINO ACIDS: 60 gm DEXTROSE: 195 gm LIPIDS: 20 gm SODIUM CHLORIDE: 90 mEq POTASSIUM CHLORIDE: 50 mEq POTASSIUM PHOSPHATE: 13.6 mmol MAGNESIUM: 14 mEq CALCIUM: 10 mEq MULTIPLE VITAMIN: 10 ml TRACE ELEMENTS: 1 ml(s) TPN PLAN: Increase Mg++ to 14meq/bag due to level of 1.5. R: Change TPN as above. Will monitor electrolytes, glucose, and tolerance to TPN. Alfonso Stephenson [facility], 08/08/19 [id number]
[2019-08-08 15:00] VITALS: BP_SYST 100; BP_SYST 113; BP_DIAS 53; BP_DIAS 64
[2019-08-08 19:00] VITALS: BP 143/87
[2019-08-08] MEDS: ENOXAPARIN 40 MG/0.4 ML SYRINGE. SQ SCH (20:11)
[2019-08-08] MEDS: PATCH REMOVAL. MC SCH (21:00)
[2019-08-08] MEDS ORDERED: [UNRECOGNIZED DRUG - OTHER] IV SCH ×10 (22:00)
[2019-08-08] MEDS ORDERED: DEXTROSE 70% IV SCH ×10 (22:00)
[2019-08-08] MEDS ORDERED: TOTAL PARENTERAL NUTRITION IV SCH ×10 (22:00)
[2019-08-08] MEDS ORDERED: AMINO ACID IV SCH ×10 (22:00)
[2019-08-08 23:00] VITALS: BP 158/94
[2019-08-09] MEDS: fentaNYL PF VIAL 100 MCG/2 ML VIAL IV PRN ×4 (00:24→10:41)
[2019-08-09 03:00] VITALS: BP 131/71
--- NOTE | 2019-08-09 05:17 | NUR ---
Medications given during meditech downtime and charted when meditech available again. MPRN
[2019-08-09 05:24] LABS: CALCIUM 8.1 mg/dL (8.5-10.1); CREATININE 0.4 mg/dL (0.6-1.0); GFR 162.8; MAGNESIUM 1.5 mg/dL (1.8-2.4); PHOSPHORUS 5.3 mg/dL (2.6-4.7); POTASSIUM 3.7 mmol/L (3.5-5.1)
[2019-08-09 07:00] VITALS: BP 119/68
[2019-08-09] MEDS: NICOTINE 14MG PATCH. TD SCH (09:00)
[2019-08-09] MEDS: LIDOCAINE (700MG/PATCH) PATCH. TD SCH (09:00)
--- NOTE | 2019-08-09 09:20 | NUR ---
SW following pt. Discussed with RN and Pt is able to go home if she tolerates her diet. Pt is wanting to go home today. SW will be available pending dc needs.
[2019-08-09] MEDS ORDERED: OXYC1TAB15 PO (09:50)
--- NOTE | 2019-08-09 09:53 | PDOC ---
SURGICAL PROGRESS NOTE Subjective started regular diet for breakfast overall feels much better Vital Signs Vital Signs Date Time Temp Pulse Resp B/P (MAP) Pulse Ox O2 Delivery O2 Flow Rate FiO2 08/09/19 08:49 Room Air 08/09/19 07:00 97.8 100 18 119/68 (85) 95 97.8 08/08/19 18:11 2.0 I&O Intake and Output 08/09/19 07:00 Output Total 800 ml Balance -800 ml Output Urine Total 800 ml # Voids 2 # Bowel Movements 1 General: Alert, Oriented X3, Cooperative, No acute distress Abdomen: Soft, Other (dressing in place) Labs Laboratory Tests Test 08/07/19 10:15 08/08/19 05:45 08/09/19 04:50 Sodium Level 130 mmol/L (136-145) 133 mmol/L (136-145) 133 mmol/L (136-145) Potassium Level 3.9 mmol/L (3.5-5.1) 3.7 mmol/L (3.5-5.1) 3.7 mmol/L (3.5-5.1) Chloride Level 97 mmol/L (98-107) 98 mmol/L (98-107) 97 mmol/L (98-107) Carbon Dioxide Level 24 mmol/L (21-32) 25 mmol/L (21-32) 26 mmol/L (21-32) Anion Gap 9 (6-14) 10 (6-14) 10 (6-14) Blood Urea Nitrogen 2 mg/dL (7-20) 4 mg/dL (7-20) 6 mg/dL (7-20) Creatinine 0.4 mg/dL (0.6-1.0) 0.4 mg/dL (0.6-1.0) 0.4 mg/dL (0.6-1.0) Estimated GFR (Cockcroft-Gault) 162.8 162.8 162.8 Glucose Level 128 mg/dL (70-99) 104 mg/dL (70-99) 95 mg/dL (70-99) Calcium Level 7.7 mg/dL (8.5-10.1) 7.9 mg/dL (8.5-10.1) 8.1 mg/dL (8.5-10.1) Phosphorus Level 2.5 mg/dL (2.6-4.7) 4.2 mg/dL (2.6-4.7) 5.3 mg/dL (2.6-4.7) Magnesium Level 1.2 mg/dL (1.8-2.4) 1.5 mg/dL (1.8-2.4) 1.5 mg/dL (1.8-2.4) Albumin 2.3 g/dL (3.4-5.0) Triglycerides Level 92 mg/dL (0-150) Laboratory Tests Test 08/09/19 04:50 Sodium Level 133 mmol/L (136-145) Potassium Level 3.7 mmol/L (3.5-5.1) Chloride Level 97 mmol/L (98-107) Carbon Dioxide Level 26 mmol/L (21-32) Anion Gap 10 (6-14) Blood Urea Nitrogen 6 mg/dL (7-20) Creatinine 0.4 mg/dL (0.6-1.0) Estimated GFR (Cockcroft-Gault) 162.8 Glucose Level 95 mg/dL (70-99) Calcium Level 8.1 mg/dL (8.5-10.1) Phosphorus Level 5.3 mg/dL (2.6-4.7) Magnesium Level 1.5 mg/dL (1.8-2.4) Problem List Problems Medical Problems: (1) Abdominal pain Status: Acute (2) Nausea and vomiting Status: Acute (3) Small bowel obstruction due to adhesions Status: Acute Assessment/Plan possible dc if tolerating diet pain script electronically sent EVERARDO MENDES APRN Aug 09, 2019 09:53
[2019-08-09 10:41] VITALS: BP 120/64
[2019-08-09] MEDS: FAMOTIDINE 20 MG/2 ML VIAL IVP SCH (10:43)
[2019-08-09] MEDS ORDERED: TRAM50TA PO (13:23)
[2019-08-09] MEDS ORDERED: ALBUTEROL SULFATE 2.5 MG/3 ML NEBU. INH PRN (13:30)
[2019-08-09] MEDS ORDERED: traMADol 50 MG TABLET PO PRN ×2 (13:30)
[2019-08-09] MEDS: ALPRAZolam 0.5 MG TABLET PO PRN (13:55)
[2019-08-09] MEDS: GABAPENTIN 400 MG CAPSULE. PO SCH ×3 (13:55→20:32)
[2019-08-09] MEDS: oxyCODONE/APAP 5/325 1 TAB TABLET PO PRN (13:56)
[2019-08-09] MEDS: METHOCARBAMOL 750 MG TABLET PO SCH ×2 (14:18→20:33)
[2019-08-09 15:00] VITALS: BP 124/74
[2019-08-09 19:00] VITALS: BP 125/73
[2019-08-09] MEDS ORDERED: SIMETHICONE 80 MG TAB.CHEW PO PRN (19:00)
[2019-08-09] MEDS: ENOXAPARIN 40 MG/0.4 ML SYRINGE. SQ SCH (20:32)
[2019-08-09] MEDS: PATCH REMOVAL. MC SCH (20:40)
[2019-08-09] MEDS ORDERED: SERTRALINE 50 MG TABLET. PO SCH (21:00)
[2019-08-09] MEDS ORDERED: tiZANidine 4 MG TABLET. PO SCH (21:00)
[2019-08-09 23:00] VITALS: BP 100/58
[2019-08-10] MEDS: oxyCODONE/APAP 5/325 1 TAB TABLET PO PRN (01:00)
[2019-08-10] MEDS: ALPRAZolam 0.5 MG TABLET PO PRN (01:01)
[2019-08-10 05:53] LABS: CALCIUM 8.4 mg/dL (8.5-10.1); CREATININE 0.6 mg/dL (0.6-1.0); MAGNESIUM 1.6 mg/dL (1.8-2.4); POTASSIUM 3.7 mmol/L (3.5-5.1)
[2019-08-10 06:14] VITALS: BP 105/59
[2019-08-10] MEDS ORDERED: PANTOPRAZOLE 40 MG TABLET.DR. PO SCH (07:30)
[2019-08-10] MEDS: GABAPENTIN 400 MG CAPSULE. PO SCH (08:09)
[2019-08-10] MEDS: LIDOCAINE (700MG/PATCH) PATCH. TD SCH (08:10)
[2019-08-10] MEDS: NICOTINE 14MG PATCH. TD SCH (08:10)
[2019-08-10] MEDS: METHOCARBAMOL 750 MG TABLET PO SCH (08:10)
--- NOTE | 2019-08-10 08:35 | PDOC ---
Provider Note Provider Note [id number] FEMI OSPINA MD Aug 10, 2019 08:35
--- NOTE | 2019-08-10 10:10 | NUR ---
Discharge Note: SHANIKA KHALIL Discharge instructions and discharge home medications reviewed with Patient and a copy given. All questions have been answered and understanding verbalized. The following instructions and handouts were given: discharge instructions, new prescription, education and follow up recommendations. Discontinued lines and drains: PICC Line DL discontinued tip intact. Patient discharged to Home or Self Care with Spouse via Wheelchair off unit by RN.
--- NOTE | 2019-08-10 14:01 | DS ---
DATE OF DISCHARGE: 08/10/2019 HOSPITAL SUMMARY: The patient is a 58-year-old white female admitted with increasing nausea, vomiting and CT scan evidence of distal small bowel obstruction. CBC and chemistry profile were unremarkable except for low magnesium and phosphorus on admission and low albumin of 2.3 related to her poor nutrition. Urine culture had no growth. Imaging studies were consistent with small bowel obstruction. She underwent NG suction for a period of time, but when surgical improvement did not occur, Dr. Le performed exploratory laparotomy with lysis of significant adhesions and repair of a small bowel injury related to the obstruction. She had a slow gradual recovery of bowel function, but is eating and drinking and feeling better and is comfortable to be followed as an outpatient at this point. FINAL DIAGNOSES: 1. Small bowel obstruction and small bowel perforation secondary to intraabdominal adhesions. 2. Hypokalemia, resolved. 3. Severe protein calorie malnutrition. 4. Chronic obstructive pulmonary disease. OPERATIONS AND PROCEDURES: Exploratory laparotomy, lysis of adhesions and repair of small bowel injury. PICC line insertion was accomplished procedure as well. COMPLICATIONS: None. CONSULTATIONS: Dr. Le's group. DISPOSITION: Home meds remain the same. Percocet as needed for pain per the surgeon. I will see her in routine followup and surgeon see in 1-2 weeks in regards to driving and return to work Prognosis is guarded given her other multiple medical problems and her COPD and tobacco use. FEMI OSPINA MD DR: MYRA/kade JOB#: [id number] / [id number]
== END 2019-08-10 10:12 | disposition home or self-care (01) | DRG 335 ==
LOC: ER 11:52 → 5 SOUTH 12:55
PROVIDERS: ADMIT Family Medicine; ATTEND Family Medicine
PROC: 0D9670Z Drainage of Stomach with Drainage Device, Via Natural or Artificial Opening (ICD-10-PCS; 2019-08-01)
PROC: 0DN80ZZ Release Small Intestine, Open Approach (ICD-10-PCS; principal; 2019-08-02 16:30)
PROC: 02HV33Z Insertion of Infusion Device into Superior Vena Cava, Percutaneous Approach (ICD-10-PCS; 2019-08-08)
PROC: B5181ZA Fluoroscopy of Superior Vena Cava using Low Osmolar Contrast, Guidance (ICD-10-PCS; 2019-08-08)
PROC: B548ZZA Ultrasonography of Superior Vena Cava, Guidance (ICD-10-PCS; 2019-08-08)
DX: K56.50 Intestinal adhesions [bands], unspecified as to partial versus complete obstruction (principal); E43 Unspecified severe protein-calorie malnutrition; G82.50 Quadriplegia, unspecified; F41.9 Anxiety disorder, unspecified; Z90.710 Acquired absence of both cervix and uterus; Z90.49 Acquired absence of other specified parts of digestive tract; F17.210 Nicotine dependence, cigarettes, uncomplicated; Z88.5 Allergy status to narcotic agent; M48.02 Spinal stenosis, cervical region; Z87.11 Personal history of peptic ulcer disease; J44.9 Chronic obstructive pulmonary disease, unspecified; K57.90 Diverticulosis of intestine, part unspecified, without perforation or abscess without bleeding; M19.90 Unspecified osteoarthritis, unspecified site; K59.00 Constipation, unspecified; E86.0 Dehydration; E87.6 Hypokalemia
CPT/HCPCS: 36415; 36573; 74018; 74177; 77001; 80048; 80053; 81001; 82040; 83690; 83735; 84100; 84132; 84478; 84484; 85007; 85025; 87086; 94640; 94760; 96361; 96374; 96375; 99406; A7015; C1751; C1892; J0171; J0330; J0610; J0694; J0780; J1170; J1630; J1650; J2001; J2060; J2405; J2704; J2710; J3010; J3475; J3480; J3490; J7030; J7042; J7050; J7120; J7620; Q9966; Q9967; 97110; 97116; 97530; 99285-25; G0378

== ENCOUNTER → 2019-08-14 | Outpatient (CLI) | payer BC ==
[2019-08-10 06:14] VITALS: BP 105/59
--- NOTE | 2019-08-15 11:12 | KCIC ---
2 views of the cervical spine compared to similar study dated July 04, 2019 for neck pain and spondylolisthesis. FINDINGS: There is posterior pedicle screw and minnie fixation of C3-C6, with no change to the appearance of the surgical hardware. No hardware fractures, and no definite adjacent however lucencies. There appears to be increased sclerosis at C4-5, however this may be due to positional differences. There is grade 1 anterolisthesis of C4 on C5 which is stable. Degenerative disc disease is seen at multiple levels. Prevertebral soft tissues are grossly unremarkable. IMPRESSION: 1. No acute osseous or alignment abnormality of the cervical spine. 2. Extensive postsurgical changes as described. 3. Extensive multilevel degenerative changes, most prominent at C4-5. There may be some increased endplate sclerosis at this level compared to the prior examination, but this may be due to positional changes. Electronically signed by: Bairon Guerra MD (08/15/2019 11:09 AM) [id number]
== END | disposition home or self-care (01) ==
LOC: KCIC 10:01
PROVIDERS: ATTEND Neurological Surgery
DX: M43.12 Spondylolisthesis, cervical region (principal); M50.30 Other cervical disc degeneration, unspecified cervical region
CPT/HCPCS: 72040

== ENCOUNTER → 2019-10-03 | Outpatient (CLI) | payer BC ==
[~2019-10-03] MED LIST changes: +PANT40TA77 PO
--- NOTE | 2019-10-03 14:42 | KCIC ---
EXAM: Cervical spine, 2 views. HISTORY: Fusion. COMPARISON: 08/14/2019 FINDINGS: 2 views of the cervical spine are obtained. There is instrumented posterior spinal fusion and laminectomy decompression at C3-C6. The instrumentation is unchanged compared to the prior study. There is anterolisthesis of C4 on C5, and to a lesser extent, C5 on C6. This is also unchanged. There is degenerative endplate remodeling with disc space narrowing predominantly at C4-C5, C5-C6 and C6-C7. There is multilevel facet arthropathy. IMPRESSION: 1. Multilevel degenerative change involving the cervical spine, described in detail above. These findings are not appreciably changed compared to the prior study. 2. Instrumented fusion and laminectomy decompression at C3-C6. 3. Anterolisthesis the mid lower cervical levels, stable in appearance. Electronically signed by: Marleny Holcomb MD (10/03/2019 2:39 PM) [facility]
== END | disposition home or self-care (01) ==
LOC: KCIC 10:49
PROVIDERS: ATTEND Neurological Surgery
DX: M47.812 Spondylosis without myelopathy or radiculopathy, cervical region (principal); M48.02 Spinal stenosis, cervical region; M12.88 Other specific arthropathies, not elsewhere classified, other specified site; Z98.1 Arthrodesis status
CPT/HCPCS: 72040

== ENCOUNTER → 2019-10-06 | Day surgery (SDC) | payer BC ==
[~2019-10-06] MED LIST changes: +IV RINGERS,LACTATED 1000ML 1,000 ML IV SCH; +LIDOCAINE 2% PF 5 ML VIAL. ONE; +PROPOFOL 20 ML IV ONE
[2019-10-06 10:02] VITALS: BP 111/58
== END ==
LOC: SURG 08:10
PROVIDERS: ATTEND Internal Medicine Gastroenterology
DX: R10.13 Epigastric pain (principal); K29.50 Unspecified chronic gastritis without bleeding; R14.0 Abdominal distension (gaseous)
CPT/HCPCS: 43235; J2001; J2704

== ENCOUNTER → 2019-10-19 | Outpatient (CLI) | payer BC ==
[2019-10-06 10:02] VITALS: BP 111/58
[~2019-10-19] MED LIST changes: +GABA-689 PO; +GABA300C18 PO; -IV RINGERS,LACTATED 1000ML 1,000 ML IV SCH; -LIDOCAINE 2% PF 5 ML VIAL. ONE; -PROPOFOL 20 ML IV ONE
--- NOTE | 2019-10-19 16:08 | KCIC ---
Chest radiograph and right rib series 10/19/2019 12:00 AM INDICATION: Chest wall pain. Cough and right-sided mid to lower anterior right chest pain. COMPARISON: 03/20/2019 TECHNIQUE: Frontal and lateral views of the chest are provided. 3 views of the right ribs are provided. FINDINGS: The cardiomediastinal silhouette is within normal limits. There are no pleural effusions. There is no pulmonary vascular congestion. There is no pneumothorax. The lungs are clear. 9 mm calcified granulomas noted in the left lower lobe. Mild pulmonary emphysematous changes are suspected. Minimal contour abnormality is identified involving the anterolateral right eighth rib which could represent a nondisplaced fracture. IMPRESSION: No acute cardiopulmonary process. Suspect a nondisplaced fracture involving the anterolateral right eighth rib. Electronically signed by: Mahnaz Hampton MD (10/19/2019 4:06 PM) [id number]
== END | disposition home or self-care (01) ==
LOC: KCIC 15:33
PROVIDERS: ATTEND Physician Assistant Medical
DX: J84.10 Pulmonary fibrosis, unspecified (principal)
CPT/HCPCS: 71046; 71100

== ENCOUNTER → 2019-10-23 | Outpatient (CLI) | payer BC ==
[2019-10-06 10:02] VITALS: BP 111/58
[~2019-10-23] MED LIST changes: +BUPIVACAINE MPF 0.25% 10 ML VIAL. ONE; +methylPREDNISolone ACETATE 40 MG/ML VIAL. ONE
--- NOTE | 2019-10-24 00:05 | PAIN ---
DATE OF SERVICE: 10/23/2019 INITIAL CONSULTATION FOR PAIN CLINIC CHIEF COMPLAINT: Neck, bilateral upper shoulder and upper back pain. HISTORY OF PRESENT ILLNESS: This is a 58-year-old female who presents with history of pain since about 03/2019 about 6 months or so after history of cervical fusion in 2019. The patient reports initially she did very well, but now pain is increasing significantly in the base of the neck causing some headaches posteriorly into the shoulders and upper back as well, but not radiating to the upper extremities. The patient reports it is worse with movement of the head, especially right and left lateral rotation. Extension is painful as well, but not as painful as right and left lateral rotation as well as forward flexion also moderately painful. The patient reports the pain is becoming more constant, throbbing, burning and aching, keeping her from sleep at night, waking at least 2-3 times at night, does not affect her bowel or bladder control but does affect her balance. She feels when she is walking and trying to stabilize her neck and head from hurting. The patient has had physical therapy. She is doing some therapy currently, also some massage techniques and trigger massage as well as deep point deep tissue massage, has not been applying heat or any other modalities at home. The patient has tried [id number] ibuprofen as well as Tylenol and is taking oxycodone, which does the best to decrease the pain, also on gabapentin. The patient reports it is worse with changing positions, better with resting or supporting her head, even a high back to chair or couch. The patient reports a disability rating from 0-10, 10 being the worst, is a 9 with recreation, 5 with family and home responsibilities and social activity, 7 with occupation, 4 with self-care and 4 with life support activities. The patient did have MRI scan of cervical spine showing posterior fusion of C3 through C6 with laminectomy changes, no residual spinal canal stenosis, persistent subtle cord alteration at C4-C5 suggestive of myelomalacia, slow progression of degenerative disk disease at C2-C3 and C6-C7 with somewhat degree of mild spinal canal stenosis with effacement of ventral thecal sac. PAST MEDICAL HISTORY: Significant for COPD, cigarette smoking, anemia and dizziness. PREVIOUS SURGERIES: Include tonsillectomy, , hysterectomy, cholecystectomy, carpal tunnel repair and urinary bladder surgery x 3 with endoscopy. CURRENT MEDICATIONS: Include oxycodone, gabapentin, Zoloft, tramadol, ProAir inhaler and Xanax. ALLERGIES: THE PATIENT HAS ALLERGIES TO MORPHINE. FAMILY HISTORY: Significant for no major medical problems or conditions she is aware of. SOCIAL HISTORY: The patient drinks about 1-2 alcoholic drinks once or twice a week, smokes about half a pack of cigarettes a day, has for 20 years. Does not use any illegal, illicit or recreational drugs. She is , lives with her spouse, lives locally in [place], [place]. 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 REVIEW OF SYSTEMS: The patient's review of systems is positive for those items mentioned in history of present illness. All systems reviewed and otherwise negative. It is complete, full and well documented on the patient's chart. PHYSICAL EXAMINATION: VITAL SIGNS: The patient's blood pressure is 109/57, pulse 93, respirations 18, temperature 98.5 degrees Fahrenheit, height is 5 feet 3 inches and weight is 105 pounds. GENERAL: The patient is awake, alert, oriented, appropriate, very pleasant demeanor. HEENT: Head shows normocephalic, atraumatic. Extraocular movements are intact and symmetrical. Oral cavity: Mucous membranes moist and pink. Dentition is intact. NECK: Shows anterior throat supple without palpable lymphadenopathy noted. Swallow reflex symmetrical. CHEST: Shows normal on inspection. Breath sounds are clear bilaterally. HEART: Shows S1, S2 clear. No murmurs auscultated. ABDOMEN: Soft, nontender, nondistended. No palpable organomegaly is noted. No rebound or guarding demonstrated. BACK: Shows spine grossly in the midline. Cervical paraspinous muscle shows well-healed surgical scarring in the midline with some flattening of the cervical lordotic curvature, with palpation shows significant tenderness with obvious prominence of the posterior cervical paraspinous musculature from the occiput to the trapezius, very firm, very tender rope-like musculature throughout, slightly worse on the right than the left but present bilaterally. There is also true into the superior medial trapezius, again more on the right than the left, but very tender, very firm rope-like musculature consistent with trigger point areas of musculature. There is true into the thoracic paraspinous musculature in the superior aspect as well as the upper, middle trapezius. The patient shows a rotational motion with significant guarding. Both right and left lateral rotation is past about 40 degrees. Extension and flexion is performed again with significant guarding, but with less pain reported with extension and flexion which is performed fully. EXTREMITIES: The patient's upper extremities show deep tendon reflexes at 2+ in the biceps and triceps tendons. Motor exam is strong with ccnp strength rated at 5/5 as is bicep and tricep flexion. Peripheral pulses are 2+ radial distribution. No peripheral edema is noted bilaterally. Shoulder shrug is strong and intact with some mild pain in the base of the neck and shoulders bilaterally, but without loss of strength on resistance and this is true with abduction of shoulder to 90 degrees. SKIN: Shows warm and dry, good turgor. No edema. No sores, rashes or bruising. IMPRESSION: 1. This is a 58-year-old female with approximate 6-month history of pain in the posterior occiput, neck and shoulders as well as the upper back consistent with myofascial pain syndrome. 2. Status post cervical posterior fusion C3 through C6. 3. Dizziness. 4. Chronic obstructive pulmonary disease. 5. Cigarette smoking. PLAN: Options were discussed with the patient including conservative medical managements, continued physical therapies and interventional techniques. She would like to pursue interventional techniques. We discussed trigger point injections of the cervical paraspinous musculature, trapezius musculature as well as the upper thoracic paraspinous musculature using description as well as anatomical models to describe the procedure. Risks were discussed including but not limited to bleeding, infection, possibility of intravascular injection sequelae, pneumothorax, spread of local anesthetic and numbness, side effects of steroid medication and poor results regarding pain control. The patient understands and wished to proceed. The patient will return to clinic in approximately 2 weeks for followup. She was counseled as to return appointment, activity level and side effects to be aware of. DIAGNOSIS: Cervicalgia with myofascial pain. PROCEDURE: Trigger point injections, bilateral cervical paraspinous musculature, bilateral trapezius musculature, bilateral thoracic paraspinous musculature under sterile prep and drape using local anesthetic. MEDICATION INJECTED: A total of 40 mg of Depo-Medrol and total of 10 mL of 0.25% bupivacaine after negative aspiration at each injection site. CONDITION AT DISCHARGE: Stable. The patient tolerated the procedure well, had no complications. MARITA ALFREDO MD DR: ALYSSA/kade JOB#: [id number] / [id number] FEMI Curran MD
== END ==
LOC: PNCL 08:12
PROVIDERS: ATTEND Anesthesiology
DX: M79.18 Myalgia, other site (principal); M54.2 Cervicalgia; J44.9 Chronic obstructive pulmonary disease, unspecified; F17.210 Nicotine dependence, cigarettes, uncomplicated; D64.9 Anemia, unspecified; Z90.710 Acquired absence of both cervix and uterus; Z90.49 Acquired absence of other specified parts of digestive tract; Z88.6 Allergy status to analgesic agent
CPT/HCPCS: 20553; J1030; J3490

== ENCOUNTER → 2019-10-24 | Outpatient (CLI) | payer BC ==
[2019-10-06 10:02] VITALS: BP 111/58
[~2019-10-24] MED LIST changes: -BUPIVACAINE MPF 0.25% 10 ML VIAL. ONE; -methylPREDNISolone ACETATE 40 MG/ML VIAL. ONE
--- NOTE | 2019-10-25 08:46 | KCIC ---
Limited ultrasound abdomen 10/25/2019 INDICATION: Periumbilical pain. Incisional hernia without obstruction. COMPARISON: None available. TECHNIQUE: Limited sonographic evaluation of the abdomen was performed utilizing grayscale imaging. FINDINGS: There is a midline surgical scar from postoperative changes from treatment for small bowel obstruction. Imaging was performed around the umbilicus. No hernia is visualized by ultrasound. Nondilated bowel loops are present. IMPRESSION: No definite hernia is visualized. Electronically signed by: Mahnaz Hampton MD (10/25/2019 8:43 AM) [id number]
== END | disposition home or self-care (01) ==
LOC: KCIC US 08:51
PROVIDERS: ATTEND Physician Assistant Medical
DX: R10.33 Periumbilical pain (principal)
CPT/HCPCS: 76705

== ENCOUNTER 2019-11-12 10:37 | Inpatient (IN) | payer BC ==
[~2019-11-12] VITALS: Ht 160 cm; Wt 48.8 kg
[2019-11-12 11:14] LABS: BASO # 0.1 x10^3/uL (0.0-0.2); BASO % 1 % (0-3); EOS % 0 % (0-3); HEMATOCRIT 37.6 % (36.0-47.0); HEMOGLOBIN 12.9 g/dL (12.0-15.5); LYMPH # 1.5 x10^3/uL (1.0-4.8); LYMPH % 17 % (24-48); MEAN CORPUSCULAR HEMOGLOBIN 31 pg (25-35); MEAN CORPUSCULAR HGB CONC 34 g/dL (31-37); MEAN CORPUSCULAR VOLUME 90 fL (79-100); MONO % 11 % (0-9); NEUT # 6.4 x10^3/uL (1.8-7.7); NEUT % 72 % (31-73); PLATELET COUNT 443 x10^3/uL (140-400); RED CELL DISTRIBUTION WIDTH 13.2 % (11.5-14.5)
[2019-11-12 11:25] LABS: CALCIUM 9.1 mg/dL (8.5-10.1); CREATININE 0.6 mg/dL (0.6-1.0); POTASSIUM 3.7 mmol/L (3.5-5.1)
[2019-11-12] MEDS ORDERED: ONDANSETRON PF 4 MG/2 ML VIAL. IVP ONE (11:30)
[2019-11-12] MEDS ORDERED: fentaNYL PF VIAL 100 MCG/2 ML VIAL IVP ONE (11:30)
[2019-11-12 11:31] LABS: PROTHROMBIN TIME PATIENT 12.9 SEC (11.7-14.0)
[2019-11-12 11:32] LABS: ALBUMIN 3.9 g/dL (3.4-5.0); ALBUMIN/GLOBULIN RATIO 1.1 (1.0-1.7); TOTAL BILIRUBIN 0.4 mg/dL (0.2-1.0); TOTAL PROTEIN 7.5 g/dL (6.4-8.2)
--- NOTE | 2019-11-12 11:33 | RAD ---
TIBIA FIBULA LEFT History: Fall, left leg pain Comparison: None. Findings: 3 views of the left tibia-fibula are submitted. There is a comminuted slightly displaced fracture involving the mid to distal shaft of the tibia, proximal fragment slightly displaced laterally by about one third shaft width. There is also slightly displaced oblique fracture of the distal fibula shaft, proximal fragment somewhat displaced laterally and posteriorly by less than one fourth shaft width. Impression: 1. There are somewhat comminuted, slightly displaced fractures of the tibia and fibula. Electronically signed by: Nicola Snyder MD (11/12/2019 11:30 AM) [facility]
[2019-11-12] MEDS ORDERED: IV NORMAL SALINE 1000ML BAG 1,000 ML IV ONE (11:45)
--- NOTE | 2019-11-12 11:56 | PHYS DOC ---
Past Medical History Past Medical History: Anxiety, Bronchitis Past Surgical History: Cholecystectomy, , Hysterectomy, Tonsillectomy, Other Alcohol Use: Occasionally Drug Use: None Adult General Chief Complaint Chief Complaint: TRAUMA ALERT HPI HPI Patient is a 58 year old female with history of anxiety and bronchitis who presents via EMS with complaint of fall and left leg injury. Patient states she lost her balance because of dizziness when she was going to the bathroom the middle of night maybe around 2 AM and was put on the bed with help of her but was not able to get up and bearing weight and complaining of severe pain. EMS reported that patient had obvious deformity of left leg and put splint for patient and treated her with 100 g of fentanyl. Patient is still rated her pain as a severe pain and denies loss of consciousness and other injuries. Review of Systems Review of Systems Constitutional: Denies fever or chills [] Eyes: Denies change in visual acuity, redness, or eye pain [] HENT: Denies nasal congestion or sore throat [] Respiratory: Denies cough or shortness of breath [] Cardiovascular: No additional information not addressed in HPI [] GI: Denies abdominal pain, nausea, vomiting, bloody stools or diarrhea [] : Denies dysuria or hematuria [] Musculoskeletal: Denies back pain, reports joint pain [] Integument: Denies rash or skin lesions [] Neurologic: Denies headache, focal weakness or sensory changes [] Endocrine: Denies polyuria or polydipsia [] All other systems were reviewed and found to be within normal limits, except as documented in this note. Current Medications Current Medications Current Medications Medications (Trade) Dose Ordered Sig/[facility] Start Time Stop Time Status Last Admin Dose Admin Fentanyl Citrate (Fentanyl 2ml Vial) 50 mcg 1X ONCE 11/12/19 11:30 11/12/19 11:31 DC 11/12/19 11:17 50 MCG Ondansetron HCl (Zofran) 4 mg 1X ONCE 11/12/19 11:30 11/12/19 11:31 DC 11/12/19 11:18 4 MG Sodium Chloride 1,000 ml @ 125 mls/hr Q8H 11/12/19 11:56 11/13/19 11:55 Allergies Allergies Allergies Coded Allergies Type Severity Reaction Last Updated Verified morphine Allergy Intermediate Rash 10/06/19 Yes Physical Exam Physical Exam Constitutional: Well developed, well nourished, moderate distress, non-toxic appearance. [] HENT: Normocephalic, atraumatic. Eyes: PERRLA, EOMI, conjunctiva normal, no discharge. [] Neck: Normal range of motion, no tenderness, supple, no stridor. [] Cardiovascular:Heart rate regular rhythm, no murmur [] Lungs & Thorax: Bilateral breath sounds clear to auscultation [] Abdomen: Bowel sounds normal, soft, no tenderness, no masses, no pulsatile masses, large ventral hernia. [] Skin: Warm, dry, no erythema, no rash. [] Back: No tenderness, no CVA tenderness. [] Extremities: Left lower extremity with deformity of mid shaft without acute neurovascular deficit Neurologic: Alert and oriented X 3, no focal deficits noted. [] Psychologic: Affect anxious judgement normal, mood normal. [] Current Patient Data Vital Signs Vital Signs Date Time Temp Pulse Resp B/P (MAP) Pulse Ox O2 Delivery O2 Flow Rate FiO2 11/12/19 11:24 96 17 164/75 (104) 97 Room Air 11/12/19 10:37 98.7 98.7 Lab Values Laboratory Tests Test 11/12/19 10:45 White Blood Count 9.0 x10^3/uL (4.0-11.0) Red Blood Count 4.20 x10^6/uL (3.50-5.40) Hemoglobin 12.9 g/dL (12.0-15.5) Hematocrit 37.6 % (36.0-47.0) Mean Corpuscular Volume 90 fL (79-100) Mean Corpuscular Hemoglobin 31 pg (25-35) Mean Corpuscular Hemoglobin Concent 34 g/dL (31-37) Red Cell Distribution Width 13.2 % (11.5-14.5) Platelet Count 443 x10^3/uL (140-400) H Neutrophils (%) (Auto) 72 % (31-73) Lymphocytes (%) (Auto) 17 % (24-48) L Monocytes (%) (Auto) 11 % (0-9) H Eosinophils (%) (Auto) 0 % (0-3) Basophils (%) (Auto) 1 % (0-3) Neutrophils # (Auto) 6.4 x10^3/uL (1.8-7.7) Lymphocytes # (Auto) 1.5 x10^3/uL (1.0-4.8) Monocytes # (Auto) 1.0 x10^3/uL (0.0-1.1) Eosinophils # (Auto) 0.0 x10^3/uL (0.0-0.7) Basophils # (Auto) 0.1 x10^3/uL (0.0-0.2) Prothrombin Time 12.9 SEC (11.7-14.0) Prothrombin Time INR 1.0 (0.8-1.1) Sodium Level 128 mmol/L (136-145) L Potassium Level 3.7 mmol/L (3.5-5.1) Chloride Level 92 mmol/L (98-107) L Carbon Dioxide Level 25 mmol/L (21-32) Anion Gap 11 (6-14) Blood Urea Nitrogen 5 mg/dL (7-20) L Creatinine 0.6 mg/dL (0.6-1.0) Estimated GFR (Cockcroft-Gault) 102.0 BUN/Creatinine Ratio 8 (6-20) Glucose Level 104 mg/dL (70-99) H Calcium Level 9.1 mg/dL (8.5-10.1) Total Bilirubin 0.4 mg/dL (0.2-1.0) Aspartate Amino Transferase (AST) 23 U/L (15-37) Alanine Aminotransferase (ALT) 15 U/L (14-59) Alkaline Phosphatase 96 U/L (46-116) Total Protein 7.5 g/dL (6.4-8.2) Albumin 3.9 g/dL (3.4-5.0) Albumin/Globulin Ratio 1.1 (1.0-1.7) Laboratory Tests 11/12/19 10:45 Laboratory Tests 11/12/19 10:45 EKG EKG [] Radiology/Procedures Radiology/Procedures [[facility] [address] [place] [address] IMAGING REPORT Signed PATIENT: SHANIKA KHALIL ACCOUNT: [id number] : 1960 LOCATION: ER AGE: 58 SEX: F EXAM STATUS: PRE ER ORD. PHYSICIAN: REGINA CONWAY MD REASON: fall. left leg pain PROCEDURE: TIBIA FIBULA LEFT TIBIA FIBULA LEFT History: Fall, left leg pain Comparison: None. Findings: 3 views of the left tibia-fibula are submitted. There is a comminuted slightly displaced fracture involving the mid to distal shaft of the tibia, proximal fragment slightly displaced laterally by about one third shaft width. There is also slightly displaced oblique fracture of the distal fibula shaft, proximal fragment somewhat displaced laterally and posteriorly by less than one fourth shaft width. Impression: 1. There are somewhat comminuted, slightly displaced fractures of the tibia and fibula. Electronically signed by: Seven Snyder MD (11/12/2019 11:30 AM) [facility] DICTATED and SIGNED BY: SEVEN SNYDER MD DATE: 11/12/19 113 Course & Med Decision Making Course & Med Decision Making Pertinent Labs and Imaging studies reviewed. (See chart for details) Evaluation of patient in ER showed 58-year-old female patient with a fall several hours ago and deformities of left lower extremity. Patient had comminuted fracture of the tibia and fibula. Patient treated with fentanyl and IV fluid in ER. Sodium was 128. Orthopedic newspaper subscription solicitor was consulted and Dr. Freed was informed at 1205. Patient condition..Patient requiring admission for further evaluation and treatment. Discussed with Dr. Femi Bender who is in agreement with admission. Discussed findings and plan with patient and family, who acknowledge understanding and agreement. Dragon Disclaimer Dragon Disclaimer This electronic medical record was generated, in whole or in part, using a voice recognition dictation system. Departure Departure Impression: Primary Impression: Fracture of tibia with fibula, left, closed Additional Impressions: Hyponatremia Fall at home Disposition: ADMITTED INPATIENT (at 1146) Admitting Physician: Femi Bender (accepted admission at 1145) Condition: IMPROVED Referrals: FEMI BENDER MD (PCP) Problem Qualifiers Primary Impression: Fracture of tibia with fibula, left, closed Encounter type: initial encounter Qualified Codes: S82.202A - Unspecified fracture of shaft of left tibia, initial encounter for closed fracture; S82.402A - Unspecified fracture of shaft of left fibula, initial encounter for closed fracture Additional Impressions: Fall at home Encounter type: subsequent encounter Qualified Codes: W19.XXXD - Unspecified fall, subsequent encounter; Y92.009 - Unspecified place in unspecified non-institutional (private) residence as the place of occurrence of the external cause REGINA CONWAY MD Nov 12, 2019 11:56
[2019-11-12] MEDS ORDERED: ONDANSETRON PF 4 MG/2 ML VIAL. IV PRN ×2 (12:00→13:30)
[2019-11-12] MEDS: fentaNYL PF VIAL 100 MCG/2 ML VIAL IV PRN ×2 (12:24→13:38)
[2019-11-12] MEDS ORDERED: MAGNESIUM HYDROXIDE 2,400 MG/30 ML ORAL.SUSP. PO PRN (13:30)
[2019-11-12] MEDS ORDERED: 0.9 % SODIUM CHLORIDE 10 ML DISP.SYRIN. IV PRN (13:30)
[2019-11-12] MEDS ORDERED: DEXTROSE 50% 25 GM / 50ML DISP.SYRIN. IV PRN (13:30)
[2019-11-12] MEDS ORDERED: ZOLPIDEM 5 MG TABLET. PO PRN (13:30)
[2019-11-12] MEDS ORDERED: CELECOXIB 100 MG CAPSULE. PO ONE (13:30)
[2019-11-12] MEDS ORDERED: IV DEXTROSE 5% 250 ML BAG. IV PRN (13:30)
[2019-11-12] MEDS ORDERED: BISACODYL 10 MG SUPP.RECT. PR PRN (13:30)
--- NOTE | 2019-11-12 13:30 | PDOC2 ---
CONSULT Date of Consult Date of Consult DATE: 11/12/19 TIME: 13:21 Reason for Consult Reason for Consult: Left tibia fracture Identification/Chief Complaint Chief Complaint Left leg pain after a fall Source Source: Chart review, Patient History of Present Illness Reason for Visit: This 58-year-old woman was at home, and got up about 2 AM to go to the bathroom. She fell in her house. She said she got a little bit lightheaded and then fell. She had severe leg pain after she fell but didn't come to the hospital immediately. She got up this morning and had a little bit of coffee with cream but couldn't drink the whole thing. She was in severe pain and came to the emergency room where x-rays show a tib-fib fracture. She is aware that she has low bone density but not having treatment. She is trying to quit smoking and is down to only a few cigarettes a day but has a long smoking history. She said she is reasonably healthy, although she had quite a few hospitalizations and surgeries in the last 2-3 years. She had a left leg or hip wound that required a wound VAC and quite a bit of time to heal. She had a ruptured small bowel which required surgery, and another urgent abdominal surgery for perforated ulcer from taking too much ibuprofen. She has had multple surgeries in the last 3-4 years with [facility] and [facility]. She had severe cervical spine symptoms a few years ago, with upper and lower extremity neurologic symptoms, and was told if she fell down before having surgery she might be paralyzed. She underwent cervical spine decompression and stabilization by Dr. Saha and the symptoms improved. Her primary physician is Dr. Bender. She works at the [employer] and knows many of my family members. Past Medical History Cardiovascular: No pertinent hx Pulmonary: COPD CENTRAL NERVOUS SYSTEM: Carpal Tunnel Syndrome GI: Constipation, Diverticulosis Heme/Onc: Anemia NOS Hepatobiliary: No pertinent hx Psych: Anxiety Musculoskeletal: Osteoarthritis Rheumatologic: No pertinent hx Infectious disease: No pertinent hx Renal/: No pertinent hx Endocrine: No pertinent hx Past Surgical History Past Surgical History cholecystectomy hysterectomy duodenal ulcer/appy 11/12/18 section x2 wound infection-buttocks 06/2018 laparotomy, DARIEN, repair of enterotomy 08/02/19 Past Surgical History: Appendectomy, Cholecystectomy, , Hysterectomy, Other Family History Family History Mother: , ovarian cancer, thyroid cancer, breast cancer Father: Brother: alive Sister: alive Maternal Grand Mother: Maternal Grand Father: Paternal Grand Mother: Paternal Grand Father: Family History: Cancer Social History Social History long time smoker at times 1PPD or more, but trying to quit and only a few cigarettes a day recently. <1 pack per day ALCOHOL: social Drugs: None Lives: with Family Current Problem List Problem List Problems Medical Problems: (1) Fall at home Status: Acute (2) Fracture of tibia with fibula, left, closed Status: Acute (3) Hyponatremia Status: Acute Current Medications Current Medications Current Medications Fentanyl Citrate (Fentanyl 2ml Vial) 50 mcg 1X ONCE IVP Last administered on 11/12/19at 11:17; Start 11/12/19 at 11:30; Stop 11/12/19 at 11:31; Status DC Ondansetron HCl (Zofran) 4 mg 1X ONCE IVP Last administered on 11/12/19at 11:18; Start 11/12/19 at 11:30; Stop 11/12/19 at 11:31; Status DC Sodium Chloride 1,000 ml @ 1,000 mls/hr 1X ONCE IV Last administered on 11/12/19at 12:23; Start 11/12/19 at 11:45; Stop 11/12/19 at 12:44; Status DC Ondansetron HCl (Zofran) 4 mg PRN Q8HRS PRN IV NAUSEA/VOMITING Last administered on 11/12/19at 12:24; Start 11/12/19 at 12:00; Stop 11/12/19 at 18:00 Fentanyl Citrate (Fentanyl 2ml Vial) 50 mcg PRN Q2HR PRN IV PAIN Last admini stered on 11/12/19at 12:24; Start 11/12/19 at 12:00; Stop 11/12/19 at 18:00 Sodium Chloride 1,000 ml @ 125 mls/hr Q8H IV ; Start 11/12/19 at 11:56; Stop 11/13/19 at 11:55 Ondansetron HCl (Zofran) 4 mg PRN Q6HRS PRN IV NAUSEA/VOMITING; Start 11/12/19 at 13:30; Status UNV Lorazepam (Ativan Inj) 0.5 mg PRN Q4HRS PRN IV ANXIETY / AGITATION; Start 11/12/19 at 13:30; Status UNV Acetaminophen (Tylenol) 1,000 mg TID PO ; Start 11/12/19 at 14:00; Status UNV Celecoxib (CeleBREX) 200 mg 1X PREOP ONCE PO ; Start 11/12/19 at 13:30; Stop 11/12/19 at 13:31; Status UNV Docusate Sodium (Colace) 100 mg BID PO ; Start 11/12/19 at 21:00; Status UNV Magnesium Hydroxide (Milk Of Magnesia) 2,400 mg PRN DAILY PRN PO CONSTIPATION; Start 11/12/19 at 13:30; Status UNV Bisacodyl (Dulcolax Supp) 10 mg PRN DAILY PRN VT CONSTIPATION; Start 11/12/19 at 13:30; Status UNV Zolpidem Tartrate (Ambien) 5 mg PRN QHS PRN PO INSOMNIA; Start 11/12/19 at 13:30; Status UNV Sodium Chloride (Normal Saline Flush) 3 ml QSHIFT PRN IV AFTER MEDS AND BLOOD DRAWS; Start 11/12/19 at 13:30; Status UNV Dextrose (Dextrose 50%-Water Syringe) 12.5 gm PRN Q15MIN PRN IV SEE COMMENTS; Start 11/12/19 at 13:30; Status UNV Active Scripts Active Percocet 5-325 Mg Tablet (Oxycodone/Acetaminophen) 1 Each Tablet 1 Tab PO PRN Q8HRS PRN Reported Gabapentin (Gabapentin) 400 Mg Capsule 400 Mg PO TID Gabapentin (Gabapentin) 300 Mg Capsule 300 Mg PO QID Tramadol Hcl 50 Mg Tablet 100 Mg PO PRN TID PRN Zoloft (Sertraline Hcl) 50 Mg Tablet 50 Mg PO HS Xanax (Alprazolam) 0.5 Mg Tablet 1 Tab PO PRN Q6HRS PRN Proair Hfa Inhaler (Albuterol Sulfate) 8.5 Gm Hfa.aer.ad 1 Puff INH PRN Q6HRS PRN Allergies Allergies: Coded Allergies: morphine (Verified Allergy, Intermediate, Rash, 10/06/19) Has tolerated oxycodone, hydrocodone, and hydromorphone ROS General: No: Fatigue, Malaise PSYCHOLOGICAL ROS: YES: Anxiety Hematological and Lymphatic: No: Bleeding Problems, Blood Clots Respiratory: No: Pleuritic Pain, Shortness of breath Cardiovascular: No Chest Pain Gastrointestinal: No Nausea, No Vomiting, No Diarrhea, No Constipation Genitourinary: No Dysuria, No Frequency Musculoskeletal: Yes Joint Pain Neurological: No Bowel/Bladder ControlChng, No Seizures Physical Exam General: Alert, Cooperative HEENT: Atraumatic Lungs: Normal air movement Heart: Regular rate Abdomen: Soft Extremities: No cyanosis, Other (the left lower extremity is tender to palpation. The skin is intact over the fracture. Grossly normal alignment. Slight swelling. She is in a temporary splint. She has intact sensation and motor function of the toes, and normal capillary refill. The covering splint prevented me from feeling her pulse at this time.) Skin: No breakdown, No significant lesion Neuro: Normal speech, Normal tone, Sensation intact Psych/Mental Status: Mental status NL, Mood NL Vitals VITALS Vital Signs Date Time Temp Pulse Resp B/P (MAP) Pulse Ox O2 Delivery O2 Flow Rate FiO2 11/12/19 12:54 104 18 169/78 (108) 97 Room Air 11/12/19 10:37 98.7 98.7 Labs Labs Laboratory Tests Test 11/12/19 10:45 White Blood Count 9.0 x10^3/uL (4.0-11.0) Red Blood Count 4.20 x10^6/uL (3.50-5.40) Hemoglobin 12.9 g/dL (12.0-15.5) Hematocrit 37.6 % (36.0-47.0) Mean Corpuscular Volume 90 fL (79-100) Mean Corpuscular Hemoglobin 31 pg (25-35) Mean Corpuscular Hemoglobin Concent 34 g/dL (31-37) Red Cell Distribution Width 13.2 % (11.5-14.5) Platelet Count 443 x10^3/uL (140-400) Neutrophils (%) (Auto) 72 % (31-73) Lymphocytes (%) (Auto) 17 % (24-48) Monocytes (%) (Auto) 11 % (0-9) Eosinophils (%) (Auto) 0 % (0-3) Basophils (%) (Auto) 1 % (0-3) Neutrophils # (Auto) 6.4 x10^3/uL (1.8-7.7) Lymphocytes # (Auto) 1.5 x10^3/uL (1.0-4.8) Monocytes # (Auto) 1.0 x10^3/uL (0.0-1.1) Eosinophils # (Auto) 0.0 x10^3/uL (0.0-0.7) Basophils # (Auto) 0.1 x10^3/uL (0.0-0.2) Prothrombin Time 12.9 SEC (11.7-14.0) Prothromb Time International Ratio 1.0 (0.8-1.1) Sodium Level 128 mmol/L (136-145) Potassium Level 3.7 mmol/L (3.5-5.1) Chloride Level 92 mmol/L (98-107) Carbon Dioxide Level 25 mmol/L (21-32) Anion Gap 11 (6-14) Blood Urea Nitrogen 5 mg/dL (7-20) Creatinine 0.6 mg/dL (0.6-1.0) Estimated GFR (Cockcroft-Gault) 102.0 BUN/Creatinine Ratio 8 (6-20) Glucose Level 104 mg/dL (70-99) Calcium Level 9.1 mg/dL (8.5-10.1) Total Bilirubin 0.4 mg/dL (0.2-1.0) Aspartate Amino Transf (AST/SGOT) 23 U/L (15-37) Alanine Aminotransferase (ALT/SGPT) 15 U/L (14-59) Alkaline Phosphatase 96 U/L (46-116) Total Protein 7.5 g/dL (6.4-8.2) Albumin 3.9 g/dL (3.4-5.0) Albumin/Globulin Ratio 1.1 (1.0-1.7) Laboratory Tests Test 11/12/19 10:45 White Blood Count 9.0 x10^3/uL (4.0-11.0) Red Blood Count 4.20 x10^6/uL (3.50-5.40) Hemoglobin 12.9 g/dL (12.0-15.5) Hematocrit 37.6 % (36.0-47.0) Mean Corpuscular Volume 90 fL (79-100) Mean Corpuscular Hemoglobin 31 pg (25-35) Mean Corpuscular Hemoglobin Concent 34 g/dL (31-37) Red Cell Distribution Width 13.2 % (11.5-14.5) Platelet Count 443 x10^3/uL (140-400) Neutrophils (%) (Auto) 72 % (31-73) Lymphocytes (%) (Auto) 17 % (24-48) Monocytes (%) (Auto) 11 % (0-9) Eosinophils (%) (Auto) 0 % (0-3) Basophils (%) (Auto) 1 % (0-3) Neutrophils # (Auto) 6.4 x10^3/uL (1.8-7.7) Lymphocytes # (Auto) 1.5 x10^3/uL (1.0-4.8) Monocytes # (Auto) 1.0 x10^3/uL (0.0-1.1) Eosinophils # (Auto) 0.0 x10^3/uL (0.0-0.7) Basophils # (Auto) 0.1 x10^3/uL (0.0-0.2) Prothrombin Time 12.9 SEC (11.7-14.0) Prothromb Time International Ratio 1.0 (0.8-1.1) Sodium Level 128 mmol/L (136-145) Potassium Level 3.7 mmol/L (3.5-5.1) Chloride Level 92 mmol/L (98-107) Carbon Dioxide Level 25 mmol/L (21-32) Anion Gap 11 (6-14) Blood Urea Nitrogen 5 mg/dL (7-20) Creatinine 0.6 mg/dL (0.6-1.0) Estimated GFR (Cockcroft-Gault) 102.0 BUN/Creatinine Ratio 8 (6-20) Glucose Level 104 mg/dL (70-99) Calcium Level 9.1 mg/dL (8.5-10.1) Total Bilirubin 0.4 mg/dL (0.2-1.0) Aspartate Amino Transf (AST/SGOT) 23 U/L (15-37) Alanine Aminotransferase (ALT/SGPT) 15 U/L (14-59) Alkaline Phosphatase 96 U/L (46-116) Total Protein 7.5 g/dL (6.4-8.2) Albumin 3.9 g/dL (3.4-5.0) Albumin/Globulin Ratio 1.1 (1.0-1.7) Images Images Report reviewed, images and apparently reviewed. Comminuted slightly displaced tibia and fibula shaft fractures. Primarily oblique patterns. [facility] [address] [place] [address] IMAGING REPORT Signed PATIENT: SHANIKA KHALIL ACCOUNT: [id number] : 1960 LOCATION: ER AGE: 58 SEX: F EXAM STATUS: PRE ER ORD. PHYSICIAN: REGINA CONWAY MD REASON: fall. left leg pain PROCEDURE: TIBIA FIBULA LEFT TIBIA FIBULA LEFT History: Fall, left leg pain Comparison: None. Findings: 3 views of the left tibia-fibula are submitted. There is a comminuted slightly displaced fracture involving the mid to distal shaft of the tibia, proximal fragment slightly displaced laterally by about one third shaft width. There is also slightly displaced oblique fracture of the distal fibula shaft, proximal fragment somewhat displaced laterally and posteriorly by less than one fourth shaft width. Impression: 1. There are somewhat comminuted, slightly displaced fractures of the tibia and fibula. Electronically signed by: Nicola Snyder MD (11/12/2019 11:30 AM) [facility] Assessment/Plan Assessment/Plan * ICD-10-CM Diagnosis Code S82.252A Displaced comminuted fracture of shaft of left tibia, initial encounter for closed fracture * ICD-10-CM Diagnosis Code S82.452A Displaced comminuted fracture of shaft of left fibula, initial encounter for closed fracture I spoke to her about treatment for her fracture. I recommended intramedullary nailing. I discussed the option of long-leg cast treatment but it would not be my recommendation and I discussed my reasoning with her. We discussed the potential risks of surgery such as infection, blood clots, neurovascular injury, need for hardware removal, malunion or nonunion, or other potential surgical or anesthetic complications. All of her questions about surgery were answered and she desires to proceed. She is currently hyponatremic and likely dehydrated and I recommended IV hydration overnight, prior to surgery. In addition she had coffee with cream thi s morning and has not fully nothing by mouth and there will be at risk of aspiration pneumonia which I discussed with her. I recommended surgery tomorrow and she agrees. I will have her changed into a better splint for overnight, and plan for surgery about noon tomorrow. She agrees. STERLING VIERA MD Nov 12, 2019 13:30
[2019-11-12] MEDS: IV NORMAL SALINE 1000ML BAG 1,000 ML IV SCH ×2 (13:39→20:19)
[2019-11-12] MEDS: ACETAMINOPHEN 500 MG TABLET PO SCH ×2 (13:45→20:20)
[2019-11-12] MEDS ORDERED: GABA300C18 PO (14:00)
[2019-11-12] MEDS ORDERED: GABA400C7 PO (14:00)
--- NOTE | 2019-11-12 14:22 | RAD ---
PORTABLE CHEST 1V History: Preop Comparison: October 19, 2019 Findings: Single view of the chest is submitted. There is no infiltrate, pneumothorax, or effusion. The pericardial cardiac silhouette is within normal limits in size. There is again suspected emphysema. Degree of mild interstitial opacity bilaterally similar. There is again granuloma of the left lung base. There is atherosclerotic calcification near aortic arch. There is cervical spinal hardware not fully evaluated. Impression: 1. There is no radiographic evidence of acute cardiopulmonary disease. There is suspected emphysema. Electronically signed by: Nicola Snyder MD (11/12/2019 2:19 PM) [facility]
[2019-11-12 15:00] VITALS: BP 141/75
[2019-11-12] MEDS: KETOROLAC 30 MG/ML VIAL. IVP PRN ×2 (15:14→21:18)
--- NOTE | 2019-11-12 16:57 | EKG ---
[facility] [address] [place] [address] Test Date: 2019-11-12 Test Time: 12:04:55 Pat Name: SHANIKA KHALIL Department: Room: Gender: F Food Expeditor: : 1960 Requested By: REGINA CONWAY Order Number: [id number] Reading MD: Measurements Intervals [place] Rate: 97 P: 90 [place]: 128 QRS: 81 QRSD: 88 T: 66 QT: 348 QTc: 446 Interpretive Statements SINUS RHYTHM NO SPECIFIC ECG ABNORMALITIES RI6.01 No previous ECG available for comparison
--- NOTE | 2019-11-12 17:43 | PDOC2 ---
CONSULT Date of Consult Date of Consult DATE: 11/12/19 TIME: 17:39 Reason for Consult Reason for Consult: tib fib fracture Referring Physician Referring Physician: Dr. Bender Identification/Chief Complaint Chief Complaint right leg pain Source Source: Chart review, Patient History of Present Illness Reason for Visit: 58 yo F fell yesterday. Noted to have pain in RLE with increase. Brought to Er for evaluation and noted to have tib fib fracture. Ortho has evaluated pt and plan OR in AM. Patient denies other new c/o. Well known pt for multiple recent abdominal surgeries related to perforated ulcer. Past Medical History Cardiovascular: No pertinent hx Pulmonary: COPD CENTRAL NERVOUS SYSTEM: Carpal Tunnel Syndrome GI: Constipation, Diverticulosis Heme/Onc: Anemia NOS Hepatobiliary: No pertinent hx Psych: Anxiety Musculoskeletal: Osteoarthritis Rheumatologic: No pertinent hx Infectious disease: No pertinent hx Renal/: No pertinent hx Endocrine: No pertinent hx Past Surgical History Past Surgical History: Appendectomy, Cholecystectomy, , Hysterectomy, Other (duodenal ulcer repair, lysis of adehesions.) Family History Family History: Cancer Social History <1 pack per day ALCOHOL: social Drugs: None Lives: with Family Current Problem List Problem List Problems Medical Problems: (1) Fall at home Status: Acute (2) Fracture of tibia with fibula, left, closed Status: Acute (3) Hyponatremia Status: Acute Current Medications Current Medications Current Medications Fentanyl Citrate (Fentanyl 2ml Vial) 50 mcg 1X ONCE IVP Last administered on 11/12/19at 11:17; Start 11/12/19 at 11:30; Stop 11/12/19 at 11:31; Status DC Ondansetron HCl (Zofran) 4 mg 1X ONCE IVP Last administered on 11/12/19at 11:18; Start 11/12/19 at 11:30; Stop 11/12/19 at 11:31; Status DC Sodium Chloride 1,000 ml @ 1,000 mls/hr 1X ONCE IV Last administered on 11/12/19at 12:23; Start 11/12/19 at 11:45; Stop 11/12/19 at 12:44; Status DC Ondansetron HCl (Zofran) 4 mg PRN Q8HRS PRN IV NAUSEA/VOMITING Last administered on 11/12/19at 12:24; Start 11/12/19 at 12:00; Stop 11/12/19 at 18:00 Fentanyl Citrate (Fentanyl 2ml Vial) 50 mcg PRN Q2HR PRN IV PAIN Last administered on 11/12/19at 13:38; Start 11/12/19 at 12:00; Stop 11/12/19 at 14:57; Status DC Sodium Chloride 1,000 ml @ 125 mls/hr Q8H IV Last administered on 11/12/19at 13:39; Start 11/12/19 at 11:56; Stop 11/13/19 at 11:55 Ondansetron HCl (Zofran) 4 mg PRN Q6HRS PRN IV NAUSEA/VOMITING; Start 11/12/19 at 13:30 Lorazepam (Ativan Inj) 0.5 mg PRN Q4HRS PRN IV ANXIETY / AGITATION; Start 10/19 04/06 at 13:30 Acetaminophen (Tylenol) 1,000 mg TID PO Last administered on 11/12/19at 13:45; Start 11/12/19 at 14:00 Celecoxib (CeleBREX) 200 mg 1X PREOP ONCE PO ; Start 11/12/19 at 13:30; Stop 11/12/19 at 13:31; Status DC Docusate Sodium (Colace) 100 mg BID PO ; Start 11/12/19 at 21:00 Magnesium Hydroxide (Milk Of Magnesia) 2,400 mg PRN DAILY PRN PO CONSTIPATION; Start 11/12/19 at 13:30 Bisacodyl (Dulcolax Supp) 10 mg PRN DAILY PRN [place] CONSTIPATION; Start 11/12/19 at 13:30 Zolpidem Tartrate (Ambien) 5 mg PRN QHS PRN PO INSOMNIA; Start 11/12/19 at 13:30 Sodium Chloride (Normal Saline Flush) 3 ml QSHIFT PRN IV AFTER MEDS AND BLOOD DRAWS; Start 11/12/19 at 13:30 Dextrose (Dextrose 50%-Water Syringe) 12.5 gm PRN Q15MIN PRN IV SEE COMMENTS; Start 11/12/19 at 13:30 Dextrose (Iv Dextrose 5%) 250 ml PRN Q15MIN PRN IV SEE COMMENTS; Start 11/12/19 at 13:30 Cefazolin Sodium/ Dextrose 50 ml @ 100 mls/hr 1X PREOP PRN IV SEE COMMENTS; Start 11/12/19 at 13:45 Ketorolac Tromethamine (Toradol 30mg Vial) 30 mg PRN Q6HRS PRN IVP PAIN Last administered on 11/12/19at 15:14; Start 11/12/19 at 15:00; Stop 11/17/19 at 14:59 Oxycodone/ Acetaminophen (Percocet 10/325) 1 tab PRN Q4HRS PRN PO PAIN; Start 11/12/19 at 15:00 Active Scripts Active Percocet 5-325 Mg Tablet (Oxycodone/Acetaminophen) 1 Each Tablet 1 Tab PO PRN Q8HRS PRN Reported Gabapentin 400 Mg Capsule 400 Mg PO QID Gabapentin (Gabapentin) 300 Mg Capsule 300 Mg PO QID Tramadol Hcl 50 Mg Tablet 100 Mg PO PRN TID PRN Zoloft (Sertraline Hcl) 50 Mg Tablet 50 Mg PO HS Xanax (Alprazolam) 0.5 Mg Tablet 1 Tab PO PRN Q6HRS PRN Proair Hfa Inhaler (Albuterol Sulfate) 8.5 Gm Hfa.aer.ad 1 Puff INH PRN Q6HRS PRN Allergies Allergies: Coded Allergies: morphine (Verified Allergy, Intermediate, Rash, 10/06/19) Has tolerated oxycodone, hydrocodone, and hydromorphone ROS Musculoskeletal: Yes Pain In: (RLE) Physical Exam General: Alert, Oriented X3, Cooperative, mild distress HEENT: Atraumatic Lungs: Normal air movement Abdomen: Soft, No tenderness, Other (reducible incisional hernia) Extremities: Other (RLE with cast and elevated) Skin: No rashes, No breakdown Neuro: Normal speech, Sensation intact Psych/Mental Status: Mental status NL, Mood NL Vitals VITALS Vital Signs Date Time Temp Pulse Resp B/P (MAP) Pulse Ox O2 Delivery O2 Flow Rate FiO2 11/12/19 15:00 99.1 95 18 141/75 (97) 94 Room Air 99.1 Labs Labs Laboratory Tests Test 11/12/19 10:45 White Blood Count 9.0 x10^3/uL (4.0-11.0) Red Blood Count 4.20 x10^6/uL (3.50-5.40) Hemoglobin 12.9 g/dL (12.0-15.5) Hematocrit 37.6 % (36.0-47.0) Mean Corpuscular Volume 90 fL (79-100) Mean Corpuscular Hemoglobin 31 pg (25-35) Mean Corpuscular Hemoglobin Concent 34 g/dL (31-37) Red Cell Distribution Width 13.2 % (11.5-14.5) Platelet Count 443 x10^3/uL (140-400) Neutrophils (%) (Auto) 72 % (31-73) Lymphocytes (%) (Auto) 17 % (24-48) Monocytes (%) (Auto) 11 % (0-9) Eosinophils (%) (Auto) 0 % (0-3) Basophils (%) (Auto) 1 % (0-3) Neutrophils # (Auto) 6.4 x10^3/uL (1.8-7.7) Lymphocytes # (Auto) 1.5 x10^3/uL (1.0-4.8) Monocytes # (Auto) 1.0 x10^3/uL (0.0-1.1) Eosinophils # (Auto) 0.0 x10^3/uL (0.0-0.7) Basophils # (Auto) 0.1 x10^3/uL (0.0-0.2) Prothrombin Time 12.9 SEC (11.7-14.0) Prothromb Time International Ratio 1.0 (0.8-1.1) Sodium Level 128 mmol/L (136-145) Potassium Level 3.7 mmol/L (3.5-5.1) Chloride Level 92 mmol/L (98-107) Carbon Dioxide Level 25 mmol/L (21-32) Anion Gap 11 (6-14) Blood Urea Nitrogen 5 mg/dL (7-20) Creatinine 0.6 mg/dL (0.6-1.0) Estimated GFR (Cockcroft-Gault) 102.0 BUN/Creatinine Ratio 8 (6-20) Glucose Level 104 mg/dL (70-99) Calcium Level 9.1 mg/dL (8.5-10.1) Total Bilirubin 0.4 mg/dL (0.2-1.0) Aspartate Amino Transf (AST/SGOT) 23 U/L (15-37) Alanine Aminotransferase (ALT/SGPT) 15 U/L (14-59) Alkaline Phosphatase 96 U/L (46-116) Total Protein 7.5 g/dL (6.4-8.2) Albumin 3.9 g/dL (3.4-5.0) Albumin/Globulin Ratio 1.1 (1.0-1.7) Prealbumin 17.9 mg/dL (16.0-42.0) Thyroid Stimulating Hormone (TSH) 1.205 uIU/mL (0.358-3.74) Laboratory Tests Test 11/12/19 10:45 White Blood Count 9.0 x10^3/uL (4.0-11.0) Red Blood Count 4.20 x10^6/uL (3.50-5.40) Hemoglobin 12.9 g/dL (12.0-15.5) Hematocrit 37.6 % (36.0-47.0) Mean Corpuscular Volume 90 fL (79-100) Mean Corpuscular Hemoglobin 31 pg (25-35) Mean Corpuscular Hemoglobin Concent 34 g/dL (31-37) Red Cell Distribution Width 13.2 % (11.5-14.5) Platelet Count 443 x10^3/uL (140-400) Neutrophils (%) (Auto) 72 % (31-73) Lymphocytes (%) (Auto) 17 % (24-48) Monocytes (%) (Auto) 11 % (0-9) Eosinophils (%) (Auto) 0 % (0-3) Basophils (%) (Auto) 1 % (0-3) Neutrophils # (Auto) 6.4 x10^3/uL (1.8-7.7) Lymphocytes # (Auto) 1.5 x10^3/uL (1.0-4.8) Monocytes # (Auto) 1.0 x10^3/uL (0.0-1.1) Eosinophils # (Auto) 0.0 x10^3/uL (0.0-0.7) Basophils # (Auto) 0.1 x10^3/uL (0.0-0.2) Prothrombin Time 12.9 SEC (11.7-14.0) Prothromb Time International Ratio 1.0 (0.8-1.1) Sodium Level 128 mmol/L (136-145) Potassium Level 3.7 mmol/L (3.5-5.1) Chloride Level 92 mmol/L (98-107) Carbon Dioxide Level 25 mmol/L (21-32) Anion Gap 11 (6-14) Blood Urea Nitrogen 5 mg/dL (7-20) Creatinine 0.6 mg/dL (0.6-1.0) Estimated GFR (Cockcroft-Gault) 102.0 BUN/Creatinine Ratio 8 (6-20) Glucose Level 104 mg/dL (70-99) Calcium Level 9.1 mg/dL (8.5-10.1) Total Bilirubin 0.4 mg/dL (0.2-1.0) Aspartate Amino Transf (AST/SGOT) 23 U/L (15-37) Alanine Aminotransferase (ALT/SGPT) 15 U/L (14-59) Alkaline Phosphatase 96 U/L (46-116) Total Protein 7.5 g/dL (6.4-8.2) Albumin 3.9 g/dL (3.4-5.0) Albumin/Globulin Ratio 1.1 (1.0-1.7) Prealbumin 17.9 mg/dL (16.0-42.0) Thyroid Stimulating Hormone (TSH) 1.205 uIU/mL (0.358-3.74) Images Images CXR with COPD changes, tib fib fracture Assessment/Plan Assessment/Plan tib fib fracture agree with ortho plan pt will f/u with hernia clinic in November regarding hernia Thanks for consult! SHIV TRUJILLO MD Nov 12, 2019 17:43
[2019-11-12 19:00] VITALS: BP 125/56
[2019-11-12] MEDS ORDERED: ALBUTEROL SULFATE 2.5 MG/3 ML NEBU. INH PRN (19:00)
[2019-11-12] MEDS: GABAPENTIN 400 MG CAPSULE. PO SCH (20:19)
[2019-11-12] MEDS: DOCUSATE SODIUM 100 MG CAPSULE. PO SCH (20:20)
[2019-11-12] MEDS: ALPRAZolam 0.5 MG TABLET PO PRN (20:20)
[2019-11-12] MEDS: SERTRALINE 50 MG TABLET. PO SCH (20:20)
[2019-11-12] MEDS: GABAPENTIN 300 MG CAPSULE. PO SCH (20:20)
[2019-11-12] MEDS: oxyCODONE/APAP 10/325 1 TAB TABLET PO PRN (20:21)
[2019-11-13] VITALS (9 sets, daily range): BP systolic 95–168; BP diastolic 42–86
[2019-11-13] MEDS: ALPRAZolam 0.5 MG TABLET PO PRN ×3 (03:10→23:56)
[2019-11-13] MEDS: oxyCODONE/APAP 10/325 1 TAB TABLET PO PRN ×2 (03:10→07:13)
[2019-11-13] MEDS: KETOROLAC 30 MG/ML VIAL. IVP PRN ×3 (03:11→20:12)
[2019-11-13] MEDS: IV NORMAL SALINE 1000ML BAG 1,000 ML IV SCH (03:12)
[2019-11-13 03:43] LABS: BILIRUBIN,URINE NEGATIVE (NEG); CLARITY,URINE CLEAR; COLOR,URINE YELLOW; NITRITE,URINE NEGATIVE (NEG); PROTEIN,URINE NEGATIVE (NEG-TRACE); UROBILINOGEN,URINE 0.2 mg/dL (0.2 mg/dL)
[2019-11-13 03:48] LABS: BACTERIA,URINE FEW /HPF (0-FEW); SQUAMOUS EPITHELIAL CELL,UR MOD /LPF; WBC,URINE TNTC /HPF (0-4)
[2019-11-13] MEDS ORDERED: CELECOXIB 100 MG CAPSULE. PO ONE (06:00)
[2019-11-13 06:27] LABS: CALCIUM 8.3 mg/dL (8.5-10.1); CREATININE 0.4 mg/dL (0.6-1.0); GFR 162.8; POTASSIUM 3.2 mmol/L (3.5-5.1)
[2019-11-13] MEDS ORDERED: IV RINGERS,LACTATED 1000ML 1,000 ML IV SCH ×2 (07:00→15:48)
[2019-11-13] MEDS ORDERED: ONDANSETRON PF 4 MG/2 ML VIAL. IV PRN ×3 (07:00→16:00)
[2019-11-13] MEDS ORDERED: PROCHLORPERAZINE 10 MG/2 ML VIAL. IV PRN ×2 (07:00→16:00)
[2019-11-13] MEDS ORDERED: fentaNYL PF VIAL 100 MCG/2 ML VIAL IV PRN ×4 (07:00→16:00)
[2019-11-13] MEDS ORDERED: LIDOCAINE 1% PF 2 ML VIAL. ID PRN ×2 (07:00→16:00)
[2019-11-13] MEDS: DOCUSATE SODIUM 100 MG CAPSULE. PO SCH ×2 (07:51→20:04)
[2019-11-13] MEDS: GABAPENTIN 300 MG CAPSULE. PO SCH ×4 (07:59→20:05)
[2019-11-13] MEDS: GABAPENTIN 400 MG CAPSULE. PO SCH ×4 (07:59→20:05)
[2019-11-13] MEDS: ACETAMINOPHEN 500 MG TABLET PO SCH ×3 (07:59→20:01)
[2019-11-13] MEDS ORDERED: POTASSIUM CHLORIDE 20 MEQ TABLET.ER. PO ONE (09:30)
[2019-11-13] MEDS ORDERED: LIDOCAINE 2% PF 5 ML VIAL. ONE (10:58)
[2019-11-13] MEDS ORDERED: ONDANSETRON PF 4 MG/2 ML VIAL. ONE (10:58)
[2019-11-13] MEDS ORDERED: DEXAMETHASONE SOD PHOS 4 MG/ML VIAL ONE (10:58)
[2019-11-13] MEDS ORDERED: PROPOFOL 20 ML IV ONE (10:58)
[2019-11-13] MEDS ORDERED: fentaNYL PF VIAL 100 MCG/2 ML VIAL ONE (11:29)
--- NOTE | 2019-11-13 11:29 | PDOC ---
SURGICAL PROGRESS NOTE Subjective Pt on her way to OR per ortho. Appreciate Dr. Negron's care. No other c/o. Will sign off, but please call for questions Vital Signs Vital Signs Date Time Temp Pulse Resp B/P (MAP) Pulse Ox O2 Delivery O2 Flow Rate FiO2 11/13/19 09:23 95 11/13/19 08:00 Room Air 11/13/19 07:13 16 11/13/19 07:00 98.0 80 144/83 (103) 98.0 I&O Intake and Output 11/13/19 07:00 Intake Total 300 ml Output Total 800 ml Balance -500 ml Intake Oral 300 ml Output Urine Total 800 ml Labs Laboratory Tests Test 11/12/19 10:45 11/13/19 03:20 11/13/19 05:30 White Blood Count 9.0 x10^3/uL (4.0-11.0) Red Blood Count 4.20 x10^6/uL (3.50-5.40) Hemoglobin 12.9 g/dL (12.0-15.5) Hematocrit 37.6 % (36.0-47.0) Mean Corpuscular Volume 90 fL (79-100) Mean Corpuscular Hemoglobin 31 pg (25-35) Mean Corpuscular Hemoglobin Concent 34 g/dL (31-37) Red Cell Distribution Width 13.2 % (11.5-14.5) Platelet Count 443 x10^3/uL (140-400) Neutrophils (%) (Auto) 72 % (31-73) Lymphocytes (%) (Auto) 17 % (24-48) Monocytes (%) (Auto) 11 % (0-9) Eosinophils (%) (Auto) 0 % (0-3) Basophils (%) (Auto) 1 % (0-3) Neutrophils # (Auto) 6.4 x10^3/uL (1.8-7.7) Lymphocytes # (Auto) 1.5 x10^3/uL (1.0-4.8) Monocytes # (Auto) 1.0 x10^3/uL (0.0-1.1) Eosinophils # (Auto) 0.0 x10^3/uL (0.0-0.7) Basophils # (Auto) 0.1 x10^3/uL (0.0-0.2) Prothrombin Time 12.9 SEC (11.7-14.0) Prothromb Time International Ratio 1.0 (0.8-1.1) Sodium Level 128 mmol/L (136-145) 136 mmol/L (136-145) Potassium Level 3.7 mmol/L (3.5-5.1) 3.2 mmol/L (3.5-5.1) Chloride Level 92 mmol/L (98-107) 100 mmol/L (98-107) Carbon Dioxide Level 25 mmol/L (21-32) 24 mmol/L (21-32) Anion Gap 11 (6-14) 12 (6-14) Blood Urea Nitrogen 5 mg/dL (7-20) 4 mg/dL (7-20) Creatinine 0.6 mg/dL (0.6-1.0) 0.4 mg/dL (0.6-1.0) Estimated GFR (Cockcroft-Gault) 102.0 162.8 BUN/Creatinine Ratio 8 (6-20) Glucose Level 104 mg/dL (70-99) 89 mg/dL (70-99) Calcium Level 9.1 mg/dL (8.5-10.1) 8.3 mg/dL (8.5-10.1) Total Bilirubin 0.4 mg/dL (0.2-1.0) Aspartate Amino Transf (AST/SGOT) 23 U/L (15-37) Alanine Aminotransferase (ALT/SGPT) 15 U/L (14-59) Alkaline Phosphatase 96 U/L (46-116) Total Protein 7.5 g/dL (6.4-8.2) Albumin 3.9 g/dL (3.4-5.0) Albumin/Globulin Ratio 1.1 (1.0-1.7) Prealbumin 17.9 mg/dL (16.0-42.0) 25-Hydroxy Vitamin D Total 25.2 ng/mL (30-100) Thyroid Stimulating Hormone (TSH) 1.205 uIU/mL (0.358-3.74) Urine Collection Type Unknown Urine Color Yellow Urine Clarity Clear Urine pH 7.0 Urine Specific Ulysses 1.010 Urine Protein Negative mg/dL (NEG-TRACE) Urine Glucose (UA) Negative mg/dL (NEG) Urine Ketones (Stick) Trace mg/dL (NEG) Urine Blood Moderate (NEG) Urine Nitrite Negative (NEG) Urine Bilirubin Negative (NEG) Urine Urobilinogen Dipstick 0.2 mg/dL (0.2 mg/dL) Urine Leukocyte Esterase Large (NEG) Urine RBC 11-20 /HPF (0-2) Urine WBC Tntc /HPF (0-4) Urine Squamous Epithelial Cells Mod /LPF Urine Bacteria Few /HPF (0-FEW) Urine Mucus Slight /LPF Laboratory Tests Test 11/13/19 03:20 11/13/19 05:30 Urine Collection Type Unknown Urine Color Yellow Urine Clarity Clear Urine pH 7.0 Urine Specific Ulysses 1.010 Urine Protein Negative mg/dL (NEG-TRACE) Urine Glucose (UA) Negative mg/dL (NEG) Urine Ketones (Stick) Trace mg/dL (NEG) Urine Blood Moderate (NEG) Urine Nitrite Negative (NEG) Urine Bilirubin Negative (NEG) Urine Urobilinogen Dipstick 0.2 mg/dL (0.2 mg/dL) Urine Leukocyte Esterase Large (NEG) Urine RBC 11-20 /HPF (0-2) Urine WBC Tntc /HPF (0-4) Urine Squamous Epithelial Cells Mod /LPF Urine Bacteria Few /HPF (0-FEW) Urine Mucus Slight /LPF Sodium Level 136 mmol/L (136-145) Potassium Level 3.2 mmol/L (3.5-5.1) Chloride Level 100 mmol/L (98-107) Carbon Dioxide Level 24 mmol/L (21-32) Anion Gap 12 (6-14) Blood Urea Nitrogen 4 mg/dL (7-20) Creatinine 0.4 mg/dL (0.6-1.0) Estimated GFR (Cockcroft-Gault) 162.8 Glucose Level 89 mg/dL (70-99) Calcium Level 8.3 mg/dL (8.5-10.1) Problem List Problems Medical Problems: (1) Fall at home Status: Acute (2) Fracture of tibia with fibula, left, closed Status: Acute (3) Hyponatremia Status: Acute SHIV TRUJILLO MD Nov 13, 2019 11:29
[2019-11-13] MEDS: fentaNYL PF VIAL 100 MCG/2 ML VIAL IV PRN ×6 (11:36→15:09)
[2019-11-13] MEDS: IPRATRPIUM/ALBUTEROL 0.5/2.5MG 3 ML NEBU. NEB SCH ×3 (11:50→19:34)
[2019-11-13] MEDS ORDERED: fentaNYL PF VIAL 250 MCG/5 ML VIAL ONE (12:06)
--- NOTE | 2019-11-13 12:26 | HP ---
ADMIT DATE: 11/13/2019 CHIEF COMPLAINT: Fall. HISTORY OF PRESENT ILLNESS: A 58-year-old white female with severe COPD, known osteoporosis, had a fall inside her home and twisted, ultimately found to have a fractured left mid tibia, distal fibula. She is scheduled to have surgery today per Dr. Negron. She has had no other recent problems. PAST MEDICAL HISTORY: She takes Reclast IV yearly for osteoporosis; the last dose was about a utua-aiu-e-half ago. MEDICATIONS: She takes no new medications. ALLERGIES: No known drug allergies. PAST SURGICAL HISTORY: She had a perforated gastric ulcer repair several months ago, had a cervical spine stenosis surgery several months ago as well. Still has chronic pain in her neck ____ problem. She has a ventral hernia that was scheduled for evaluation at ____ [facility], but no vomiting or other problems with that. SOCIAL HISTORY: Still a smoker. Nondrinker. Employed. . FAMILY HISTORY: Unremarkable. REVIEW OF SYSTEMS: No other complaints. OBJECTIVE: ENT: All within normal limits. NECK: No masses, nodes or bruits, limited range of motion. CARDIOVASCULAR: Regular rate. No murmur. ABDOMEN: Soft, benign and nontender. Epigastric hernia is noted. EXTREMITIES: Left leg is in a large wrap. No other unusual findings. Distal pulses are good bilaterally. NEUROLOGIC: Physiologic and nonfocal. ASSESSMENT: Fractured left tibia and fibula with known chronic obstructive pulmonary disease, osteoporosis. PLAN: As ordered. FEMI OSPINA MD DR: MYRA/kade JOB#: [id number] / [id number]
[2019-11-13] MEDS ORDERED: BUPIVACAINE-EPI 0.25%-1:200000 MPF 30 ML VIAL. INJ ONE (13:17)
--- NOTE | 2019-11-13 13:40 | NUR ---
SW following. Discussed with RN, pt is from home with family. NPO, having surgery today. SW will continue to follow.
[2019-11-13] MEDS ORDERED: PHENYLEPHRINE in 0.9% NACL PF 1 MG/10 ML SYRINGE. IV ONE (13:58)
[2019-11-13] MEDS ORDERED: SEVOFLURANE 61 TO 120 MINUTES. IH ONE (14:00)
--- NOTE | 2019-11-13 14:13 | PDOC4 ---
Operative Note Operative Note Date of Procedure: November 13, 2019 Pre-Op Diagnosis: S82.252A Displaced comminuted fracture of shaft of left tibia, initial encounter for closed fracture Post-Op Diagnosis: Same Procedure: Treatment of tibial shaft fracture (and associated fibula fracture) by intramedullary implant with interlocking screws CPT 98554 Surgeon: Sterling Negron MD Quality Lead: IKE Rosas Anesthesia: General EBL: 100 mL Specimens Obtained: none Complications: none Drains: none Implants: Pau T2 Alpha tibial nail system 10 mm x 315 mm, Locking screws 5x35 mm, 5x40 mm, 5x40 mm, 5x40 mm Indications for Procedure: The patient is a 58-year-old who fractured her left l eg after falling. X-rays showed a displaced tibial shaft fracture and associated fibular shaft fracture also displaced with no apparent ankle joint disruption. The injury was closed. I recommended intramedullary nailing. We discussed the risks and benefits. We discussed potential risks of infection, blood clots, malunion or nonunion, need for hardware removal, compartment syndrome, or other potential surgical or anesthetic complications. All of her questions about surgery were answered and she desired to proceed. A written consent was obtained. Procedure in Detail: The patient was identified in the preoperative holding area. The correct left lower extremity was marked by me. The patient was taken to the operating room where general anesthesia was used. The patient was positioned supine on the operating table. Preoperative antibiotics were given intravenously. A tourniquet was used on the upper thigh but never inflated. A timeout procedure was performed. The limb was prepared in sterile fashion with surgical prep solution. Sterile drapes were applied. An impervious stockinette was placed over the foot and toes. The large image intensifier was used throughout the procedure, and all the images were interpreted intraoperatively by me. A preliminary reduction was performed and the reduction maintained with traction, angulation and rotation by my billing and accounting staff assistant when reaming was performed. A longitudinal incision was used over the patellar tendon. The patella tendon was retracted laterally. Bovie electrocautery was used for hemostasis. An injection was used in the skin edges of 0.25% bupivacaine with epinephrine. The entry Awl was used to enter the proximal tibia, and the entry point was confirmed in the AP and lateral planes on the image intensifier. A beaded guide wire was placed. My billing and accounting staff assistant held the reduction, and the guidewire was placed across the fracture site. The guidewire was measured for length. Sequential reaming was performed over the guidewire with the fracture held reduced by my billing and accounting staff assistant, and using the tissue protector. I reamed up to size 12 mm for the 10 mm nail, and had intramedullary chatter at the isthmus with the 12 mm reamer. The 10 x 315 mm nail was chosen and opened. Copious saline irrigation was used. The nail was attached to the nail adapter and strike plate, and placed down the intramedullary canal without difficulty. Mallet blows were used for final placement, confirmed on the image intensifier proximally and distally. The targeting arm was applied and then 2 transverse static cross lock screws were placed through the targeting arm. Length of the screws and positioned in the nail was confirmed with the image intensifier. The nail adapter was removed by loosening the nail holding screw, and the targeting arm was also removed. The image intensifier showed excellent reduction and alignment. The distal cross locking screws were placed using a freehand technique, and the image intensifier. I placed 2 medial to lateral screws. Biplanar image intensifier view showed satisfactory hardware placement and satisfactory reduction of the fracture. Copious irrigation was used. The incisions were closed with #1 Vicryl in the peripatellar fascia. #2-0 Vicryl was used in the subcutaneous cutaneous tissues by my billing and accounting staff assistant. Daisy were placed in the skin. Additional 0.25% bupivacaine with epinephrine was injected into the skin edges. Xeroform and sterile dressings were applied. Needle and sponge counts were correct. There were no apparent complications. STERLING NEGRON MD Nov 13, 2019 14:13
[2019-11-13] MEDS ORDERED: oxyCODONE/APAP 5/325 1 TAB TABLET PO PRN ×2 (14:15→14:30)
[2019-11-13] MEDS ORDERED: IV DEXTROSE 5% 250 ML BAG. IV PRN (14:15)
[2019-11-13] MEDS ORDERED: HYDROcodone/APAP 7.5/325MG 1 TAB TABLET PO PRN (14:15)
[2019-11-13] MEDS ORDERED: POLYETHYLENE GLYCOL 3350 17 GM PACKET. PO PRN (14:15)
[2019-11-13] MEDS ORDERED: DEXTROSE 50% 25 GM / 50ML DISP.SYRIN. IV PRN (14:15)
[2019-11-13] MEDS: HYDROmorphone 2 MG/ML VIAL IV PRN ×2 (16:01→16:12)
[2019-11-13] MEDS: MULTIVITAMIN with MINERAL TABLET. PO SCH (16:21)
[2019-11-13] MEDS: CHOLECALCIFEROL (VITAMIN D3) 1,000 UNIT TABLET PO SCH (16:22)
[2019-11-13] MEDS: oxyCODONE/APAP 5/325 1 TAB TABLET PO PRN ×2 (16:23→23:58)
[2019-11-13] MEDS: IV 1/2 NORMAL SALINE 1,000 ML IV SCH (16:28)
[2019-11-13] MEDS: SERTRALINE 50 MG TABLET. PO SCH (20:04)
[2019-11-13] MEDS: ASPIRIN 325 MG TABLET PO SCH (20:04)
[2019-11-14] MEDS: ALPRAZolam 0.5 MG TABLET PO PRN ×3 (00:01→21:16)
[2019-11-14 03:00] VITALS: BP 126/75
[2019-11-14] MEDS: KETOROLAC 30 MG/ML VIAL. IVP PRN ×4 (03:34→22:38)
[2019-11-14 04:54] LABS: HEMATOCRIT 32.6 % (36.0-47.0); HEMOGLOBIN 10.9 g/dL (12.0-15.5)
[2019-11-14] MEDS ORDERED: MAGNESIUM HYDROXIDE 2,400 MG/30 ML ORAL.SUSP. PO PRN (06:00)
[2019-11-14] MEDS: oxyCODONE/APAP 5/325 1 TAB TABLET PO PRN (06:33)
[2019-11-14] MEDS: IV 1/2 NORMAL SALINE 1,000 ML IV SCH ×2 (06:37→15:34)
[2019-11-14 07:00] VITALS: BP 134/70
[2019-11-14] MEDS: GABAPENTIN 300 MG CAPSULE. PO SCH (08:33)
[2019-11-14] MEDS: MULTIVITAMIN with MINERAL TABLET. PO SCH (08:33)
[2019-11-14] MEDS: GABAPENTIN 400 MG CAPSULE. PO SCH ×4 (08:33→19:49)
[2019-11-14] MEDS: SENNOSIDES/DOCUSATE 8.6/50MG TABLET. PO SCH (08:33)
[2019-11-14] MEDS: CHOLECALCIFEROL (VITAMIN D3) 1,000 UNIT TABLET PO SCH ×2 (08:33→09:00)
[2019-11-14] MEDS: ASPIRIN 325 MG TABLET PO SCH ×2 (08:33→19:48)
[2019-11-14] MEDS: DOCUSATE SODIUM 100 MG CAPSULE. PO SCH ×2 (08:33→19:49)
[2019-11-14] MEDS: ACETAMINOPHEN 500 MG TABLET PO SCH ×2 (08:35→19:49)
[2019-11-14] MEDS: IPRATRPIUM/ALBUTEROL 0.5/2.5MG 3 ML NEBU. NEB SCH ×4 (08:41→19:18)
--- NOTE | 2019-11-14 09:06 | PDOC ---
Provider Note Provider Note stable after surg- will add rachel almendarez re lab- rest ok- may need rehab as she has steps at home FEMI OSPINA MD Nov 14, 2019 09:06
[2019-11-14] MEDS: NICOTINE 14MG PATCH. TD SCH (09:46)
[2019-11-14 11:00] VITALS: BP 114/64
[2019-11-14] MEDS: HYDROcodone/APAP 7.5/325MG 1 TAB TABLET PO PRN ×3 (13:23→21:17)
[2019-11-14 15:00] VITALS: BP 136/59
[2019-11-14] MEDS ORDERED: BISACODYL 10 MG SUPP.RECT. PR PRN (16:00)
--- NOTE | 2019-11-14 16:24 | NUR ---
SW following. Discussed with RN, PT/OT has not been able to work with pt yet. SW met with pt to discuss discharge planning. If PT/OT recommending acute rehab pt would like to go to [facility] again. Pt does not have any fdc benefits with her insurance. Pt will try stairs and hoping to go home. RN notified.
[2019-11-14 19:42] VITALS: BP 136/66
[2019-11-14] MEDS: SERTRALINE 50 MG TABLET. PO SCH (19:49)
[2019-11-14] MEDS ORDERED: ZOLEDRONICACID 5mg/100mlPREMIX 100 ML IV ONE (20:00)
[2019-11-14 23:27] VITALS: BP 132/62
[2019-11-15] MEDS: HYDROcodone/APAP 7.5/325MG 1 TAB TABLET PO PRN ×5 (01:12→20:30)
[2019-11-15 03:22] VITALS: BP 110/58
[2019-11-15] MEDS: KETOROLAC 30 MG/ML VIAL. IVP PRN ×3 (04:37→17:37)
[2019-11-15] MEDS: ALPRAZolam 0.5 MG TABLET PO PRN ×2 (05:46→19:07)
[2019-11-15] MEDS: IV 1/2 NORMAL SALINE 1,000 ML IV SCH (06:07)
[2019-11-15 07:00] VITALS: BP 138/57
[2019-11-15] MEDS: IPRATRPIUM/ALBUTEROL 0.5/2.5MG 3 ML NEBU. NEB SCH ×4 (07:45→20:00)
[2019-11-15] MEDS: ACETAMINOPHEN 500 MG TABLET PO SCH ×3 (08:44→21:00)
[2019-11-15] MEDS: MULTIVITAMIN with MINERAL TABLET. PO SCH (08:44)
[2019-11-15] MEDS: ASPIRIN 325 MG TABLET PO SCH ×2 (08:44→20:30)
[2019-11-15] MEDS: NICOTINE 14MG PATCH. TD SCH (08:44)
[2019-11-15] MEDS: DOCUSATE SODIUM 100 MG CAPSULE. PO SCH ×2 (08:45→20:30)
[2019-11-15] MEDS: SENNOSIDES/DOCUSATE 8.6/50MG TABLET. PO SCH (08:45)
[2019-11-15] MEDS: GABAPENTIN 400 MG CAPSULE. PO SCH (08:45)
[2019-11-15] MEDS: CHOLECALCIFEROL (VITAMIN D3) 1,000 UNIT TABLET PO SCH (08:45)
--- NOTE | 2019-11-15 09:28 | PDOC ---
Provider Note Provider Note will inc senait to 600 qid- dispostion re pt plan/ rec FEMI OSPINA MD Nov 15, 2019 09:28
[2019-11-15] MEDS ORDERED: GABAPENTIN 300 MG CAPSULE. PO SCH (10:00)
[2019-11-15 11:00] VITALS: BP 169/71
[2019-11-15] MEDS: GABAPENTIN 300 MG CAPSULE. PO SCH ×3 (13:42→20:31)
[2019-11-15 15:00] VITALS: BP 142/64
--- NOTE | 2019-11-15 15:20 | NUR ---
SW following. Discussed with RN. PT/OT now recommending pt would be okay to go home. RN notified. No SW needs at this time. SW will continue to follow should any discharge planning needs arise.
[2019-11-15 19:50] VITALS: BP 138/73
[2019-11-15] MEDS: SERTRALINE 50 MG TABLET. PO SCH (20:31)
[2019-11-15 23:45] VITALS: BP 139/82
[2019-11-16] MEDS: KETOROLAC 30 MG/ML VIAL. IVP PRN ×4 (02:53→16:51)
[2019-11-16] MEDS: HYDROcodone/APAP 7.5/325MG 1 TAB TABLET PO PRN ×5 (02:54→19:48)
[2019-11-16 03:26] VITALS: BP 130/67
[2019-11-16] MEDS: ALPRAZolam 0.5 MG TABLET PO PRN (03:42)
[2019-11-16 07:00] VITALS: BP 108/59
[2019-11-16] MEDS: IPRATRPIUM/ALBUTEROL 0.5/2.5MG 3 ML NEBU. NEB SCH ×3 (07:37→16:00)
--- NOTE | 2019-11-16 08:51 | SNU/HH DC ---
DISCHARGE WITH HOME HEALTH DISCHARGE INFORMATION: Final Diagnosis: Problems Medical Problems: (1) Fall at home Status: Acute (2) Fracture of tibia with fibula, left, closed Status: Acute (3) Hyponatremia Status: Acute Condition on Discharge: Stable CODE STATUS: Code Status: Full HOME HEALTH: Face to Face: I certify this patient is under my care and that I, or a nurse practitioner or physician's graphic design assistant working with me, had a face to face encounter that meets the physician face to face encounter requirements with this patient on []. Medical Complications: FX RN For Eval/Treatment: Yes Pt Meets Homebound Status: Unsteady balance w/ amb, POST DISCHARGE ORDERS: Activity Instructions for Disc: Activity as tolerated, Avoid exertion Weight Bearing Status after Di: As tolerated DIET AFTER DISCHARGE: Regular Wound/Incision Care: May get incision wet CHECKS AFTER DISCHARGE: Checks after discharge: Check your Temp as needed TREATMENT/EQUIPMENT ORDERS: Adaptive Equipment Issued: None CERTIFICATION STATEMENT: Certification Statement: Certification Statement: Based on the above finding, I certify that this patient is confined to the home and needs intermittent nursing home care, physical therapy and/or speech therapy, or continues to need occupational therapy.~ This patient is under my care, and I have initiated the establishment of the plan of care.~ This patient will be followed by myself or a community physician who will periodically review the plan of care. Home Meds Active Scripts Aspirin (ASPIRIN) 325 Mg Tablet, 325 MG PO BID for prevent blood clots for 30 Days, #60 TAB Take one enteric-coated 325 mg aspirin by mouth twice a day for 30 days. Prov:STERLING VIERA MD 11/16/19 Cholecalciferol (Vitamin D3) (Vitamin D3) 25 Mcg Tablet, 1000 UNIT PO DAILY for low Vitamin D for 90 Days, #90 TAB Take 1,000 units of Vitamin D3 daily Prov:STERLING VIERA MD 11/16/19 Oxycodone/Apap 5-325 (PERCOCET 5-325 MG TABLET ) 1 Each Tablet, 1 TAB PO PRN Q8HRS PRN for PAIN, #30 TAB 0 Refills Prov:EVERARDO MENDES FACILITIES COORDINATOR 08/09/19 Reported Medications Gabapentin (Gabapentin) 400 Mg Capsule, 400 MG PO QID for neurogenic pain, CAP 11/12/19 Gabapentin (GABAPENTIN ) 300 Mg Capsule, 300 MG PO QID for NEUROGENIC PAIN, CAP 11/12/19 Tramadol Hcl (TRAMADOL HCL) 50 Mg Tablet, 100 MG PO PRN TID PRN for PAIN, TAB 08/09/19 Sertraline Hcl (ZOLOFT) 50 Mg Tablet, 50 MG PO HS for nerve pain, TAB 0 Refills 06/28/19 Alprazolam (XANAX) 0.5 Mg Tablet, 1 TAB PO PRN Q6HRS PRN for ANXIETY / AGITATION, TAB 0 Refills 06/13/19 Albuterol Sulfate (PROAIR HFA INHALER) 8.5 Gm Hfa.aer.ad, 1 PUFF INH PRN Q6HRS PRN for SHORTNESS OF BREATH, INHALER 0 Refills 06/27/18 FEMI OSPINA MD Nov 16, 2019 08:51
--- NOTE | 2019-11-16 08:54 | PDOC ---
Provider Note Provider Note [id number] FEMI OSPINA MD Nov 16, 2019 08:54
[2019-11-16] MEDS: ACETAMINOPHEN 500 MG TABLET PO SCH ×2 (09:00→14:00)
--- NOTE | 2019-11-16 09:30 | DS ---
DATE OF DISCHARGE: 11/16/2019 HOSPITAL SUMMARY: A 58-year-old who came in with a fall and has a fracture of the left mid shaft of the tibia and distal fibula. CBC and chemistry profile were unremarkable. Vitamin D level borderline low at 25. TSH was normal at 1.2. Chest x-ray showed COPD with no acute change. She had operative repair per Dr. Negron and has progressed well in therapy and feels like she is able to go home and be followed as an outpatient at this point. FINAL DIAGNOSIS: Fracture of the left tibia and distal fibula, closed. OPERATIONS AND PROCEDURES: Operative repair of fractures. COMPLICATIONS: None. CONSULTATIONS: Alfie Negron MD DISPOSITION: Pain meds per Dr. Negron. Home meds remain the same. Her osteoporosis is being treated with IV Reclast which will be done every year. Office followup with Dr. Negron is needed for him. I will see the patient on an as needed basis as well. FEMI OSPINA MD DR: MYRA/nts JOB#: [id number] / [id number]
[2019-11-16] MEDS: CHOLECALCIFEROL (VITAMIN D3) 1,000 UNIT TABLET PO SCH (10:07)
[2019-11-16] MEDS: ASPIRIN 325 MG TABLET PO SCH (10:08)
[2019-11-16] MEDS: MULTIVITAMIN with MINERAL TABLET. PO SCH (10:08)
[2019-11-16] MEDS: SENNOSIDES/DOCUSATE 8.6/50MG TABLET. PO SCH (10:08)
[2019-11-16] MEDS: NICOTINE 14MG PATCH. TD SCH (10:08)
[2019-11-16] MEDS: DOCUSATE SODIUM 100 MG CAPSULE. PO SCH (10:08)
[2019-11-16] MEDS: GABAPENTIN 300 MG CAPSULE. PO SCH ×3 (10:09→18:15)
--- NOTE | 2019-11-16 10:15 | NUR ---
SW following. Discussed with RN, pt discharging home today. Dr. Bender ordered home health at discharge. SW met with pt, pt does not want home health, she feels she is able to manage okay at home. SW reminded pt if she changes her mind she can contact her PCP. RN notified. No further SW needs.
[2019-11-16 11:00] VITALS: BP 135/72
[2019-11-16] MEDS ORDERED: METHYL SALICYLATE/MENTHOL TOPICAL CREAM 57GM TUBE. TP PRN (13:00)
[2019-11-16 15:00] VITALS: BP 131/64
--- NOTE | 2019-11-16 17:44 | PDOC ---
PROGRESS NOTES Subjective Subjective Doing well. Planning for discharge. Objective Vital Signs Vital Signs Date Time Temp Pulse Resp B/P (MAP) Pulse Ox O2 Delivery O2 Flow Rate FiO2 11/16/19 16:52 96 Room Air 0.1 11/16/19 15:00 98.3 96 18 131/64 (86) 98.3 Physical Exam Dressing changed by me. Stapled incisions dry and intact. New dressings ordered. Would benefit from CAM walker for protection. Calf soft and NT except for fracture. Toes NVI with hammertoes. Labs low vitamin D 25 Assessment Assessment POD#3 after IM nail for tibia fracture Hypovitaminosis D Plan Plan of Care Ok for DC home toe touch WB. Office FU. Continue ASA for DVT prophylaxis, and Vitamin D for bone healing. Keep today's dressing intact and dry. STERLING VIERA MD Nov 16, 2019 17:44
[2019-11-16] MEDS ORDERED: CHOL10003 PO (17:46)
[2019-11-16] MEDS ORDERED: ASPI325T8 PO (17:48)
[2019-11-16] MEDS ORDERED: ALBUTEROL SULFATE 2.5 MG/3 ML NEBU. NEB PRN (19:15)
--- NOTE | 2019-11-16 20:59 | NUR ---
Discharge Note: SHANIKA KHALIL [address] [place] [address] Discharge instructions and discharge home medications reviewed with Patient and a copy given. All questions have been answered and understanding verbalized. The following instructions and handouts were given: Diet, activity, medication list and follow up instructions provided to patient. Discontinued lines and drains: Peripheral IV discontinued and catheter intact. Patient discharged to Home or Self Care withSpousevia Wheelchair
== END 2019-11-16 20:35 | disposition home health service (06) | DRG 493 ==
LOC: ER 10:37 → 4 NORTH 11:57
PROVIDERS: ADMIT Family Medicine; ATTEND Family Medicine
PROC: 0QSH34Z Reposition Left Tibia with Internal Fixation Device, Percutaneous Approach (ICD-10-PCS; principal; 2019-11-13 12:00)
DX: S82.252A Displaced comminuted fracture of shaft of left tibia, initial encounter for closed fracture (principal); E87.1 Hypo-osmolality and hyponatremia; E55.9 Vitamin D deficiency, unspecified; F17.200 Nicotine dependence, unspecified, uncomplicated; J44.9 Chronic obstructive pulmonary disease, unspecified; M81.0 Age-related osteoporosis without current pathological fracture; S82.452A Displaced comminuted fracture of shaft of left fibula, initial encounter for closed fracture; Z80.3 Family history of malignant neoplasm of breast; Z80.41 Family history of malignant neoplasm of ovary; Z80.8 Family history of malignant neoplasm of other organs or systems; Z87.11 Personal history of peptic ulcer disease; Z90.710 Acquired absence of both cervix and uterus; F41.9 Anxiety disorder, unspecified; G89.29 Other chronic pain; K57.90 Diverticulosis of intestine, part unspecified, without perforation or abscess without bleeding; M19.90 Unspecified osteoarthritis, unspecified site; W18.39XA Other fall on same level, initial encounter; Y93.89 Activity, other specified; Y92.89 Other specified places as the place of occurrence of the external cause; Y99.8 Other external cause status; Z88.8 Allergy status to other drugs, medicaments and biological substances
CPT/HCPCS: 36415; 71045; 73590; 76000; 80048; 80053; 81001; 82306; 84132; 84134; 84443; 85014; 85018; 85025; 85610; 87086; 93005; 94640; 94760; 96361; 96374; 96375; 96376; A7015; C1713; J0696; J0780; J1100; J1170; J1885; J2001; J2370; J2405; J2704; J3010; J7030; J7120; J7613; J7620; 97116; 97535; 99285-25; G0378

== ENCOUNTER 2019-12-17 15:54 | Emergency (ER) | payer BC ==
[~2019-12-17] VITALS: Ht 160 cm; Wt 45.0 kg
[~2019-12-17 15:54] MED LIST changes: +ASPI325T8 PO; +CHOL10003 PO; +GABA400C7 PO
[2019-12-17] MEDS ORDERED: MORPHINE SULFATE 10 MG/ML VIAL. SQ STA (16:20)
[2019-12-17] MEDS ORDERED: ONDANSETRON ODT 4 MG TAB.RAPDIS. PO STA (16:20)
[2019-12-17] MEDS ORDERED: ONDANSETRON PF 4 MG/2 ML VIAL. IV ONE (16:30)
[2019-12-17] MEDS ORDERED: fentaNYL PF VIAL 100 MCG/2 ML VIAL IV ONE (16:30)
--- NOTE | 2019-12-17 16:30 | PHYS DOC ---
Past Medical History Past Medical History: Anxiety, Bronchitis Past Surgical History: Cholecystectomy, , Hysterectomy, Tonsillectomy, Other Smoking Status: Current Every Day Smoker Alcohol Use: Occasionally Drug Use: None Adult General Chief Complaint Chief Complaint: LOWER EXT PAIN HPI HPI Patient is a 59 year old female who presents with left lower extremity pain that has gotten worse day. The patient had a left tibia-fibula shaft fracture back in October on the . She had a surgery performed at this time. The patient states she's been taking Percocet at home but her pain is increased today to 9 out of 10 in severity. The patient's got swelling to left lower leg and a bump on the leg. Denies fever. Denies trauma. Complete ROS were reviewed and found to be within normal limits, except as documented in the HPI Current Medications Current Medications Current Medications Medications (Trade) Dose Ordered Sig/Tania Start Time Stop Time Status Last Admin Dose Admin Fentanyl Citrate (Fentanyl 2ml Vial) 75 mcg 1X ONCE 12/17/19 16:30 12/17/19 16:31 DC 12/17/19 16:52 75 MCG Morphine Sulfate (Morphine Sulfate) 10 mg 1X STAT 12/17/19 16:20 12/17/19 16:26 DC Ondansetron HCl (Zofran Odt) 4 mg 1X STAT 12/17/19 16:20 12/17/19 16:26 DC Ondansetron HCl (Zofran) 4 mg 1X ONCE 12/17/19 16:30 12/17/19 16:31 DC Allergies Allergies Allergies Coded Allergies Type Severity Reaction Last Updated Verified morphine Allergy Intermediate Rash 10/06/19 Yes Physical Exam Physical Exam Constitutional: Well developed, well nourished, no acute distress, non-toxic appearance. [] HENT: Normocephalic, atraumatic, bilateral external ears normal, oropharynx moist, no oral exudates, nose normal. [] Cardiovascular:Heart rate regular rhythm, no murmur [] Lungs & Thorax: Bilateral breath sounds clear to auscultation [] Extremities: Tenderness to L lower extremity and to ankle. Warm to touch and and has a bump on anterior lower leg with vesicle. Neurologic: Alert and oriented X 3, normal motor function, normal sensory function, no focal deficits noted. [] Psychologic: Affect normal, judgement normal, mood normal. [] Current Patient Data Vital Signs Vital Signs Date Time Temp Pulse Resp B/P (MAP) Pulse Ox O2 Delivery O2 Flow Rate FiO2 12/17/19 16:20 98.2 100 16 166/90 (115) 97 Room Air 98.2 EKG EKG [] Radiology/Procedures Radiology/Procedures [] Course & Med Decision Making Course & Med Decision Making Pertinent Labs and Imaging studies reviewed. (See chart for details) Will get Ultrasound and X-ray. Will give pain medications. Imaging is unremarkable for acute changes. There might have been a slight change in positioning of bone. Discussed with Dr. Negron on phone who recommends to have her back off activity level and follow up on 12/28 at her original appointment. Patient is agreeable to this plan. Dragon Disclaimer Dragon Disclaimer This electronic medical record was generated, in whole or in part, using a voice recognition dictation system. Departure Departure Impression: Primary Impression: Leg pain, anterior Disposition: HOME, SELF-CARE Condition: STABLE Referrals: FEMI OSPINA MD (PCP) Additional Instructions: Thank you for visiting [facility]. We appreciate you trusting us with your care. If any additional problems come up don't hesitate to return to visit us. Please follow up with your primary care provider so they can plan additional care if needed and know about the problem that you had. If symptoms worsen come back to the Emergency Department. Any concerning symptoms that start such as chest pain, shortness of air, weakness or numbness on one side of the body, running high fevers or any other concerning symptoms return to the ER. Please keep original follow-up appointment with orthopedics. Please back off activity level until that appointment. Please elevate the leg to help swelling. Problem Qualifiers Primary Impression: Leg pain, anterior Laterality: left Qualified Codes: M79.605 - Pain in left leg JONATHON HARDEN APRN Dec 17, 2019 16:30
--- NOTE | 2019-12-17 17:45 | RAD ---
Left Lower Extremity Venous Doppler Ultrasound History: Tenderness and increased pain and warmth after surgical repair of tib-fib fracture Comparison: None Procedure: Color flow, duplex, spectral analysis and 2D images are obtained with and without compression in the area of the common femoral vein, superficial femoral vein - femoral vein junction, main femoral vein (superficial femoral vein) and popliteal vein. Veins of the proximal calf are also imaged. Findings: There is normal duplex flow, color flow and compressibility of all visualized vein segments. No evidence of deep venous thrombus is present. There is a palpable abnormality in the distal anterior berry which appears to be hardware. There is no mass or fluid collection seen. Impression: No evidence of DVT. Electronically signed by: Alfie Rowley III, MD (12/17/2019 5:42 PM) [id number]
[2019-12-17 17:57] VITALS: BP 134/60
--- NOTE | 2019-12-17 18:28 | RAD ---
Left tibia and fibula 2 views 12/17/2019. Reason for exam: Tenderness and swelling. Postop. There are fractures of the distal tibia and fibula. A fixation minnie crosses the tibial fracture. There is near-anatomic alignment. No healing is seen. There is no apparent destructive process. IMPRESSION: Postoperative findings. No acute abnormality. Left ankle 3 views: The fixation minnie extends to the distal tibia. There are screws present. Distal tibia and fibula fractures are seen and are nearly anatomically aligned. There is no obvious healing. There is osteopenia. IMPRESSION: Postoperative findings. No acute normality. Electronically signed by: Kev Farrar Jr., MD (12/17/2019 6:25 PM) [id number]
== END 2019-12-17 18:17 | disposition home or self-care (01) ==
LOC: ER 15:54
DX: M79.605 Pain in left leg (principal); M25.572 Pain in left ankle and joints of left foot; R60.0 Localized edema; F41.9 Anxiety disorder, unspecified; F17.200 Nicotine dependence, unspecified, uncomplicated; Z90.49 Acquired absence of other specified parts of digestive tract; Z90.710 Acquired absence of both cervix and uterus; Z98.890 Other specified postprocedural states; Z88.6 Allergy status to analgesic agent; Z79.899 Other long term (current) drug therapy
CPT/HCPCS: 73590; 73610; 93971; 96372; 99284; J3010

== ENCOUNTER → 2019-12-25 | Outpatient (CLI) | payer BC ==
[2019-12-17 17:57] VITALS: BP 134/60
[~2019-12-25] MED LIST changes: +IOHEXOL 180 MG/ML 10 ML VIAL. ONE; +methylPREDNISolone ACETATE 40 MG/ML VIAL. ONE; +methylPREDNISolone ACETATE 80 MG/ML VIAL. ONE
--- NOTE | 2019-12-26 01:48 | PAIN ---
DATE OF SERVICE: 12/25/2019 PROGRESS NOTE FOR PAIN CLINIC DIAGNOSES: Cervical radiculopathy with cervical post-laminectomy syndrome and cervicalgia. HISTORY OF PRESENT ILLNESS: The patient is a 59-year-old female who returns for followup, status post trigger point injection 10/23/2019. The patient reports no significant long-term decrease in pain, was better for a few days, but then the pain returned fairly significantly in base of the neck and shoulders and upper extremities, now radiating down into the arms and the posterior shoulders bilaterally, essentially right equal to the left. The patient reports no new motor or sensory deficits, but still significant pain with any type of motion with her upper extremities, repetitive motions, lifting items or repetitive lifting or reaching. The patient reports it is a 9 on a scale of 10 at its worst over the past week, 7-8 on average and 7 at its least and is an 8 today. The patient reports it is aching and shooting, burning in the upper extremities. No new loss of motor or sensory, but has had a fall at home where she fractured her left tibia and now is wearing a boot after surgical pinning. The patient reports the pain in her neck and shoulders awakens her at least every 2 hours at night. No new motor or sensory deficits or other complaints. PHYSICAL EXAMINATION: VITAL SIGNS: The patient's blood pressure is 105/58, pulse 101, respirations 18, temperature is 98.2 degrees Fahrenheit, height is 5 feet 3 inches, weight is 104 pounds. GENERAL: The patient is awake, alert, oriented and appropriate, very pleasant demeanor. HEENT: Shows normocephalic, atraumatic. Extraocular movements are intact and symmetrical. Oral cavity: Mucous membranes moist and pink. Dentition is intact. NECK: Shows anterior throat supple without palpable lymphadenopathy noted. Swallow reflex symmetrical. CHEST: Shows normal on inspection. Breath sounds are clear bilaterally. HEART: Shows S1, S2 clear. ABDOMEN: Soft, nontender, nondistended. BACK: Shows spine grossly in the midline. Flattening of cervical lordotic curvature with well-healed surgical scar noted. Cervical paraspinous muscle shows symmetrical on inspection, on palpation shows some moderate tenderness diffusely throughout the upper, middle and lower distribution of paraspinous muscles as well as in the superior medial trapezius and lateral trapezius with some very firm rope-like musculature again identified in the cervical paraspinous muscles as well as trapezius musculature bilaterally but without significant radiation. EXTREMITIES: The patient's upper extremities show deep tendon reflexes 2+ in biceps and triceps tendons. Motor exam is 5/5 band cutter strength, biceps and triceps flexion and equal. Peripheral pulses are 2+ radial. Options were discussed with the patient. The patient's old chart was reviewed as her current medication regimen updated. Current review of systems updated today as well and we will proceed with a cervical epidural steroid injection today with fluoroscopic guidance. Risks were discussed including but not limited to bleeding, infection, possibility of epidural hematoma, subsequent neurological compromise, dural puncture, headaches, spinal cord and/or nerve damage, side effects of steroid medication and poor results regarding pain control. The patient understands and wished to proceed. The patient will return to clinic in approximately 2 weeks for followup. She was counseled on return appointment, activity level and side effects to be aware of. DIAGNOSES: Cervical radiculopathy with cervical post-laminectomy syndrome and cervicalgia. PROCEDURE: Cervical epidural steroid injection, translaminar approach at C6-C7 level using C-arm fluoroscopic guidance under sterile prep and drape using local anesthetic. MEDICATION INJECTED: A total of 120 mg Depo-Medrol plus 5 mL of preservative-free normal saline and 2 mL of contrast. CONDITION AT DISCHARGE: Stable. The patient tolerated the procedure well, had no complications. MARITA ALFREDO MD DR: ALYSSA/kade JOB#: [id number] / [id number]
== END ==
LOC: PNCL 14:20
PROVIDERS: ATTEND Anesthesiology
DX: M54.12 Radiculopathy, cervical region (principal); M96.1 Postlaminectomy syndrome, not elsewhere classified
CPT/HCPCS: 62321; J1030; J1040; Q9965

== ENCOUNTER → 2020-01-08 | Outpatient (CLI) | payer BC ==
[2019-12-17 17:57] VITALS: BP 134/60
--- NOTE | 2020-01-08 10:17 | PAIN ---
DATE OF SERVICE: 01/08/2020 PROGRESS NOTE FOR PAIN CLINIC DIAGNOSES: 1. Cervical radiculopathy. 2. Cervical post-laminectomy syndrome. 3. Myofascial pain. HISTORY OF PRESENT ILLNESS: The patient is a 59-year-old female who returns for followup status post cervical epidural steroid injection x 2. The patient reports about 25-30% improvement overall in the base of the neck and shoulders, still some fairly significant pain in the neck and shoulders bilaterally, more on the right than the left. The patient reports she is doing better. She has been increasing her activity with greater ease and comfort, sleeping better at night, but it still awakens her from sleep about every 4 hours. The patient reports no new motor or sensory deficits, no new bowel or bladder incontinence, still pain with motion and repetitive motions with the right upper extremity, rates pain as 8 on a scale of 10 at its worst over the past week, 7 on average, 7 at its least and is a 7 today. The patient reports it is aching, shooting, burning in the neck and shoulders with some tingling in the hands, more on the right than the left. The patient reports no new changes. PHYSICAL EXAMINATION: VITAL SIGNS: The patient's blood pressure is 124/60, pulse 109, respiration is 16, temperature 99.0 degrees Fahrenheit, weight is 105, height is 5 feet 3 inches. GENERAL: The patient is awake, alert, oriented, appropriate, very pleasant demeanor. HEENT: Shows normocephalic, atraumatic. Extraocular movements are intact and symmetrical. Oral cavity: Mucous membranes moist and pink. Dentition is intact. NECK: Shows anterior throat supple without palpable lymphadenopathy noted. Swallow reflex symmetrical. CHEST: Shows normal on inspection. Breath sounds are clear bilaterally. HEART: Shows S1, S2 clear. No murmurs auscultated. ABDOMEN: Soft, nontender, nondistended. SPINE: Back shows spine grossly in the midline. Normal appearing thoracic kyphosis and some flattening of cervical lordotic curvature, well-healed surgical scarring noted. Neck shows good rotational motion both laterally as well as extension and flexion with some limitation in extension, but not secondary to pain. EXTREMITIES: Upper extremities show deep tendon reflexes 2+ in the biceps and triceps tendons. Motor exam is strong with 5/5 it support specialist strength, bicep and tricep flexion. Peripheral pulses are 2+ radial bilaterally. PLAN: Options were discussed with the patient. The patient's old chart was reviewed as her current medication regimen updated. Current review of systems updated today as well. We will proceed with a cervical epidural steroid injection today with fluoroscopic guidance. Risks were again discussed including, but not limited to bleeding, infection, possibility of epidural hematoma, subsequent neurological compromise, dural puncture, headaches, spinal cord and/or nerve damage, side effects of steroid medication and poor results regarding pain control. The patient understands and wished to proceed. The patient will return to clinic in approximately 2 weeks for followup. She was counseled on return appointment, activity level and side effects to be aware of. DIAGNOSES: Cervical radiculopathy and cervical post-laminectomy syndrome. PROCEDURE: Cervical epidural steroid injection with translaminar approach at the C6-C7 level using C-arm fluoroscopic guidance under sterile prep and drape using local anesthetic. MEDICATION INJECTED: A total of 120 mg of Depo-Medrol plus 5 mL of preservative-free normal saline and 2 mL of contrast. CONDITION AT DISCHARGE: Stable. The patient tolerated the procedure well, had no complications. MARITA ALFREDO MD DR: ALYSSA/kade JOB#: [id number] / [id number]
== END ==
LOC: PNCL 07:31
PROVIDERS: ATTEND Anesthesiology
DX: M54.12 Radiculopathy, cervical region (principal); M96.1 Postlaminectomy syndrome, not elsewhere classified; M79.18 Myalgia, other site
CPT/HCPCS: 62321; J1030; J1040; Q9965

== ENCOUNTER → 2020-01-29 | Outpatient (CLI) | payer BC ==
[~2020-01-29] MED LIST changes: -IOHEXOL 180 MG/ML 10 ML VIAL. ONE; -methylPREDNISolone ACETATE 40 MG/ML VIAL. ONE; -methylPREDNISolone ACETATE 80 MG/ML VIAL. ONE
--- NOTE | 2020-01-29 09:22 | PAIN ---
DATE OF SERVICE: 01/29/2020 PROGRESS NOTE FOR PAIN CLINIC DIAGNOSES: 1. Cervical radiculopathy with cervical post-laminectomy syndrome, cervicalgia. 2. Myofascial pain. HISTORY OF PRESENT ILLNESS: The patient is a 59-year-old female who returns for followup status post cervical epidural steroid injections x 2. The patient reports about 40% improvement overall, initially doing much better, about 75-80% improvement, but over the past week or so, the pain has begun to return mildly. The patient reports she is still pleased with her ability of activity and exercise. The patient reports she is much more mobile with her neck. She is sleeping better at night. She is still doing some deep tissue massage with her therapist as well, which is helpful. The patient reports it still awakens her occasionally, but not every night, about every 2-3 hours if it is bothering her. The patient reports it is a 3 on a scale of 10 at all times, average and worst and least it is a 3 on a scale of 10 today. The patient describes it as an aching pain, dull, shooting across the upper extremities and shoulders, essentially equal in right and left at this time. The patient reports no weakness in the upper extremities. No new motor or sensory deficits. PHYSICAL EXAMINATION: VITAL SIGNS: The patient's blood pressure 112/73, pulse 94, respirations 16, temperature 98.4 degrees Fahrenheit, weight is 113 pounds. GENERAL: The patient is awake, alert, oriented, appropriate, very pleasant demeanor. HEENT: Head shows normocephalic, atraumatic. Extraocular movements are intact and symmetrical. Oral cavity: Mucous membranes moist and pink. Dentition is intact. NECK: Shows anterior throat supple without palpable lymphadenopathy noted. Swallow reflex symmetrical. CHEST: Shows normal on inspection. Breath sounds are clear bilaterally. HEART: Shows S1, S2 clear. No murmurs auscultated. ABDOMEN: Soft, nontender, and nondistended. No palpable organomegaly is noted. No rebound or guarding demonstrated. BACK: Shows spine grossly in the midline. Cervical paraspinous muscle shows symmetrical on inspection with normal cervical lordotic curvature, with palpation shows some moderate tenderness, but only diffusely in the inferior aspect of the cervical paraspinous musculature bilaterally into the superior medial trapezius, slightly more tender on the right than the left. The patient shows no specific trigger points. No atrophy or hypertrophy. The patient has good rotational motion of cervical spine, both laterally greater than 45 degrees closer to 90 degrees as well as full extension, full forward flexion without significant pain reported. EXTREMITIES: The patient's upper extremities show deep tendon reflexes 2+ in the biceps and triceps tendons. Motor exam is 5/5 with whip sawyer strength, bicep and tricep flexion and intact and symmetrical. Peripheral pulses are 2+ radial. No peripheral edema is noted bilaterally. Shoulder shrug is strong and intact without loss of strength on resistance. PLAN: Options were discussed with the patient. The patient's old chart was reviewed as her current medication regimen updated. Current review of systems updated today as well. We will hold on further injections at this time as the patient is doing quite a bit better and would like to wait on any further procedures. The patient will continue with stretching and strengthening exercises, also with physical therapy and deep tissue massage as scheduled. The patient will return to clinic in approximately 2 weeks or 3 weeks, potentially or sooner if necessary if pain returns. MARITA ALFREDO MD DR: ALYSSA/kade JOB#: [id number] / [id number]
== END | disposition home or self-care (01) ==
LOC: PNCL 07:48
PROVIDERS: ATTEND Anesthesiology
DX: M54.12 Radiculopathy, cervical region (principal); M96.1 Postlaminectomy syndrome, not elsewhere classified; M54.2 Cervicalgia; M79.18 Myalgia, other site
CPT/HCPCS: G0463

== ENCOUNTER → 2020-02-26 | Outpatient (CLI) | payer BC ==
[~2020-02-26] MED LIST changes: +IOHEXOL 180 MG/ML 10 ML VIAL. ONE; +methylPREDNISolone ACETATE 40 MG/ML VIAL. ONE; +methylPREDNISolone ACETATE 80 MG/ML VIAL. ONE
--- NOTE | 2020-02-26 10:37 | PAIN ---
DATE OF SERVICE: 02/26/2020 PROGRESS NOTE FOR PAIN CLINIC DIAGNOSES: Cervical radiculopathy with cervical post-laminectomy syndrome and cervicalgia. HISTORY OF PRESENT ILLNESS: The patient is a 59-year-old female who returns for followup status post cervical epidural steroid injections x 2. We have seen her on 01/29/2020. The patient is doing much better and wanted to wait for any further injections. The patient reports since that time, over the past month or so, the pain is beginning to return, base of neck and shoulders, especially on the left side radiating to the left upper extremity, worse with turning her head to the left and extension of the spine. The patient reports she has been sleeping better and has been able to do her household activities with much greater ease and comfort. The pain is beginning to return again more on the left as noted. The patient reports it is a 7 on a scale of 10 at its worst in the past week, 5 on average and 4 at its least and is a 5 today. The patient reports it is aching, sharp, burning, radiating, shooting at times, worse with repetitive motions of the left upper extremity, raising her hand over her head on the left side, any weightbearing movement and using her left arm to steer the car. The patient reports no new motor or sensory deficits, no bowel or bladder incontinence. PHYSICAL EXAMINATION: VITAL SIGNS: The patient's blood pressure 108/62, pulse 94, respirations 18, temperature 98.6 degrees Fahrenheit, height is 5 feet 3 inches, weight is 115 pounds. GENERAL: The patient is awake, alert, oriented, appropriate, very pleasant demeanor. HEENT: Shows normocephalic, atraumatic. Extraocular movements are intact and symmetrical. Oral cavity moist and pink. Dentition is intact. NECK: Shows anterior throat supple without palpable lymphadenopathy noted. Swallow reflex symmetrical. CHEST: Shows normal on inspection. Breath sounds are clear to auscultation bilaterally. No rales, rhonchi or wheezes auscultated. HEART: Shows S1, S2 clear. ABDOMEN: Soft, nontender, nondistended. BACK: Shows spine grossly in the midline. Cervical lordotic curvature is flattened with well-healed surgical scarring noted as there is some slight increase in thoracic kyphosis. Cervical paraspinous muscle shows symmetrical on inspection, with palpation shows some moderate tenderness diffusely in inferior aspect of the cervical paraspinous musculature and superior medial aspect of the trapezius musculature, more on the left than the right, but without specific trigger points, without specific radiation. The patient does show good rotational motion of the spine with some pain reported with left lateral rotation past 45 degrees, but not to the right and now with extension or flexion significantly. EXTREMITIES: Upper extremities show deep tendon reflexes 2+ in the biceps and triceps tendons. Motor exam is strong with migratory game bird biologist strength rated at 5/5 and equal bilaterally as is bicep and tricep flexion. Peripheral pulses are 2+ radial. No peripheral edema is noted bilaterally. Options were discussed with the patient. The patient's old chart was reviewed as her current medication regimen updated. Current review of systems updated today as well. We will proceed with a third in the series of cervical epidural steroid injection today with fluoroscopic guidance. Risks were again discussed including, but not limited to bleeding, infection, possibility of epidural hematoma, subsequent neurological compromise, dural puncture, headaches, spinal cord and/or nerve damage, side effects of steroid medication and poor results regarding pain control. The patient understands and wished to proceed. The patient will return to clinic in approximately 2 weeks for followup. She was counseled on return appointment, activity level and side effects to be aware of. DIAGNOSES: Cervical radiculopathy with cervicalgia and cervical post-laminectomy syndrome. PROCEDURE: Cervical epidural steroid injection, translaminar approach C6-C7 level using C-arm fluoroscopic guidance under sterile prep and drape using local anesthetic. MEDICATIONS INJECTED: A total of 120 mg Depo-Medrol plus 5 mL of preservative-free normal saline and 2 mL of contrast. CONDITION AT DISCHARGE: Stable. The patient tolerated procedure well, had no complications. MARITA ALFREDO MD DR: ALYSSA/kade JOB#: [id number] / [id number]
== END ==
LOC: PNCL 07:52
PROVIDERS: ATTEND Anesthesiology
DX: M54.12 Radiculopathy, cervical region (principal); M96.1 Postlaminectomy syndrome, not elsewhere classified
CPT/HCPCS: 62321; J1030; J1040; Q9965

== ENCOUNTER → 2020-04-11 | Outpatient (CLI) | payer BC ==
[~2020-04-11] MED LIST changes: -IOHEXOL 180 MG/ML 10 ML VIAL. ONE; -methylPREDNISolone ACETATE 40 MG/ML VIAL. ONE; -methylPREDNISolone ACETATE 80 MG/ML VIAL. ONE
== END | disposition home or self-care (01) ==
LOC: LAB 14:21
PROVIDERS: ATTEND Orthopaedic Surgery
DX: S82.252G Displaced comminuted fracture of shaft of left tibia, subsequent encounter for closed fracture with delayed healing (principal); X58.XXXD Exposure to other specified factors, subsequent encounter
CPT/HCPCS: 36415; 86140

== ENCOUNTER → 2020-04-22 | Outpatient (CLI) | payer BC | END | disposition home or self-care (01) | LOC: LAB 12:50 | PROVIDERS: ATTEND Orthopaedic Surgery | DX: Z11.59 Encounter for screening for other viral diseases (principal) | CPT/HCPCS: U0003-CS ==

== ENCOUNTER 2020-04-26 09:14 | Day surgery (SDC) | payer BC ==
[~2020-04-26] VITALS: Ht 160 cm; Wt 51.7 kg
[~2020-04-26 09:14] MED LIST changes: +DEXAMETHASONE SOD PHOS 4 MG/ML VIAL ONE; +HYDROmorphone 2 MG/ML VIAL IV PRN; +IV RINGERS,LACTATED 1000ML 1,000 ML IV SCH; +LIDOCAINE 1% PF 2 ML VIAL. ID PRN; +LIDOCAINE 2% PF 5 ML VIAL. ONE; +MIDAZOLAM HCL/PF 2 MG/2 ML VIAL. ONE; +MORPHINE SULFATE 2 MG/ML VIAL. IV PRN; +ONDANSETRON PF 4 MG/2 ML VIAL. IV PRN; +ONDANSETRON PF 4 MG/2 ML VIAL. ONE; +PROCHLORPERAZINE 10 MG/2 ML VIAL. IV PRN; +PROPOFOL 10 MG/ML (20ML) VIAL. IV ONE; +ceFAZolin SODIUM IV Push 1 GM VIAL. IVP ONE; +fentaNYL PF VIAL 100 MCG/2 ML VIAL IV PRN; +fentaNYL PF VIAL 100 MCG/2 ML VIAL ONE
[2020-04-26] MEDS ORDERED: BUPIVACAINE-EPI 0.25%-1:200000 MPF 30 ML VIAL. ONE (10:19)
[2020-04-26] MEDS ORDERED: PHENYLEPHRINE in 0.9% NACL PF 1 MG/10 ML SYRINGE. IV ONE (11:06)
[2020-04-26] MEDS ORDERED: fentaNYL PF VIAL 100 MCG/2 ML VIAL ONE ×2 (11:34→11:53)
--- NOTE | 2020-04-26 11:39 | PDOC4 ---
Operative Note Operative Note Date of Procedure: April 26, 2020 Pre-Op Diagnosis: Left Tibia fx and calf ulcer [id number] L97.229 Post-Op Diagnosis: Left Tibia fx and calf ulcer [id number] L97.229 Procedure: Left leg partial excision of bone of tibia (CPT-01006) Surgeon: Sterling Negron MD Loan Manager: ANGIE Kahn Anesthesia: General EBL: 5 mL Specimens Obtained: none Complications: none Drains: none Tourniquet: 6 minutes at 300 mm Hg Findings: Prominent bony mid-shaft tibial spur with overlying calf skin ulceration and thickening. No evidence of infection. No fracture Identified in the area of bone exposure. Indications for Procedure: This patient is a 59 -year-old with a painful area on her anterior tibia, which is beginning to ulcerate and formed hypertrophic skin, with erythema, over the area of a prior tibia fracture. Her fracture is partially healed, and she and I discussed risk benefits and alternatives of surgical treatment. Initially I recommended nonoperative treatment for this bony prominence, but it has become increasingly painful and is starting to cause skin ulceration and changes, and now I am in agreement that surgery is recommended. She and I discussed removal of the bony prominence and the thickened skin and possible packing the tibia with the bony fragments if a fracture gap is still identified. All of her questions about surgery were answered and she desires to proceed. We discussed potential risks of infection, blood clots, nonunion, recurrence, neurovascular injury, or other potential surgical or anesthetic complications. Procedure in Detail: The patient was identified in the preoperative holding area. The correct left lower extremity was marked by me. The patient was taken to the operating room where general anesthetic was used. The patient was positioned supine on the operating table. A tourniquet was applied to the upper portion of the limb. Preoperative antibiotics were given intravenously. A timeout procedure was performed. The limb was prepared in sterile fashion with ChloraPrep. An impervious stockinette was used over the lower limb. Sterile drapes were applied. An Esmarch bandage was used to exsanguinate the limb and the tourniquet was inflated. A 6 cm longitudinal incision was made centered over the area of skin change and bony prominence. Sharp dissection was used and Bovie electrocautery was used as needed for hemostasis. Her thin skin and thin subcutaneous tissue were carefully retracted. There is a thickened area of subcutaneous tissue and periosteum, overlying the area of bony prominence, and this abnormal overgrowth of tissue was excised with a 15 blade scalpel. The periosteum was divided longitudinally, around the area of bony prominence so that the bone could be exposed. The exposure and resection are similar to what is seen with osteochondroma resection, and the longer lower slope portion of the prominence was toward the distal tibia. A rongeurs was used for careful resection of the bony prominence back to the normal contours of the tibia. The bony fragments were preserved on the back table for possible use as grafting material. A rasp was used for final smoothing. There was no fracture gap or anywhere to place any bone graft fragments. Copious saline irrigation was used. The tourniquet was released. Bovie electrocautery was used for hemostasis. The periosteum and subcutaneous tissue were closed by me with 3-0 Vicryl inverted interrupted sutures. The remaining subcutaneous tissue and incision was closed by my undertaker assistant with 3-0 Vicryl inverted interrupted sutures. He repaired and approximated the skin incision with 3-0 Prolene horizontal mattress sutures. He placed Xeroform and a bulky sterile dressing. Needle and sponge counts were correct. There were no apparent complications. STERLING NEGRON MD Apr 26, 2020 11:39
[2020-04-26] MEDS: fentaNYL PF VIAL 100 MCG/2 ML VIAL IV PRN ×4 (11:48→12:16)
[2020-04-26] MEDS ORDERED: HYDROcodone/APAP 5/325MG 1 TAB TABLET PO ONE (12:00)
[2020-04-26 12:30] VITALS: BP 128/62
== END 2020-04-26 13:01 | disposition home or self-care (01) ==
LOC: SURG 09:14
PROVIDERS: ATTEND Orthopaedic Surgery
DX: S82.252A Displaced comminuted fracture of shaft of left tibia, initial encounter for closed fracture (principal); L97.229 Non-pressure chronic ulcer of left calf with unspecified severity; K21.9 Gastro-esophageal reflux disease without esophagitis; F41.9 Anxiety disorder, unspecified; F32.9 Major depressive disorder, single episode, unspecified; J43.9 Emphysema, unspecified; Z87.891 Personal history of nicotine dependence; Z90.49 Acquired absence of other specified parts of digestive tract; Z87.440 Personal history of urinary (tract) infections; Z98.890 Other specified postprocedural states; Z90.710 Acquired absence of both cervix and uterus; Z86.14 Personal history of Methicillin resistant Staphylococcus aureus infection; X58.XXXA Exposure to other specified factors, initial encounter; Y93.89 Activity, other specified; Y92.89 Other specified places as the place of occurrence of the external cause; Y99.8 Other external cause status
CPT/HCPCS: 27640; A7015; J0690; J1100; J2250; J2370; J2405; J2704; J3010; J3490

== ENCOUNTER → 2020-06-25 | Outpatient (CLI) | payer BC ==
[~2020-06-25] MED LIST changes: -DEXAMETHASONE SOD PHOS 4 MG/ML VIAL ONE; -HYDROmorphone 2 MG/ML VIAL IV PRN; -IV RINGERS,LACTATED 1000ML 1,000 ML IV SCH; -LIDOCAINE 1% PF 2 ML VIAL. ID PRN; -LIDOCAINE 2% PF 5 ML VIAL. ONE; -MIDAZOLAM HCL/PF 2 MG/2 ML VIAL. ONE; -MORPHINE SULFATE 2 MG/ML VIAL. IV PRN; -ONDANSETRON PF 4 MG/2 ML VIAL. IV PRN; -ONDANSETRON PF 4 MG/2 ML VIAL. ONE; -PROCHLORPERAZINE 10 MG/2 ML VIAL. IV PRN; -PROPOFOL 10 MG/ML (20ML) VIAL. IV ONE; +ZOLP10TA PO; -ceFAZolin SODIUM IV Push 1 GM VIAL. IVP ONE; -fentaNYL PF VIAL 100 MCG/2 ML VIAL IV PRN; -fentaNYL PF VIAL 100 MCG/2 ML VIAL ONE
== END | disposition home or self-care (01) ==
LOC: LAB 14:11
PROVIDERS: ATTEND Orthopaedic Surgery
DX: Z20.828 Contact with and (suspected) exposure to other viral communicable diseases (principal)
CPT/HCPCS: U0003-CS

== ENCOUNTER 2020-06-28 10:41 | Observation (INO) | payer BC ==
[2020-06-28] VITALS (9 sets, daily range): BP systolic 104–129; BP diastolic 45–78
[~2020-06-28] VITALS: Ht 160 cm; Wt 47.0 kg
[~2020-06-28 10:41] MED LIST changes: +IV RINGERS,LACTATED 1000ML 1,000 ML IV SCH; +LIDOCAINE 1% PF 2 ML VIAL. ID PRN; +ONDANSETRON PF 4 MG/2 ML VIAL. IV PRN; +PROCHLORPERAZINE 10 MG/2 ML VIAL. IV PRN; +fentaNYL PF VIAL 100 MCG/2 ML VIAL IV PRN
[2020-06-28] MEDS ORDERED: PROPOFOL 10 MG/ML (20ML) VIAL. IV ONE (11:05)
[2020-06-28] MEDS ORDERED: SEVOFLURANE > 120 MINUTES. IH ONE (11:05)
[2020-06-28] MEDS ORDERED: MIDAZOLAM HCL/PF 2 MG/2 ML VIAL. ONE (11:05)
[2020-06-28] MEDS ORDERED: ONDANSETRON PF 4 MG/2 ML VIAL. ONE (11:05)
[2020-06-28] MEDS ORDERED: LIDOCAINE 2% PF 5 ML VIAL. ONE (11:05)
[2020-06-28] MEDS ORDERED: DEXAMETHASONE SOD PHOS 4 MG/ML VIAL ONE (11:05)
[2020-06-28] MEDS ORDERED: fentaNYL PF VIAL 100 MCG/2 ML VIAL ONE ×3 (11:05→14:43)
[2020-06-28 11:40] LABS: CALCIUM 9.4 mg/dL (8.5-10.1); CREATININE 0.6 mg/dL (0.6-1.0); GFR 101.6
[2020-06-28 11:45] LABS: ALBUMIN/GLOBULIN RATIO 1.2 (1.0-1.7); TOTAL BILIRUBIN 0.3 mg/dL (0.2-1.0); TOTAL PROTEIN 7.3 g/dL (6.4-8.2)
[2020-06-28] MEDS ORDERED: BUPIVACAINE-EPI 0.5%-1:200000 MPF 30 ML VIAL. ONE (12:09)
--- NOTE | 2020-06-28 13:59 | PDOC4 ---
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 Partial healing without rotational instability, so no locking screws needed, and no locking screws will be beneficial for compression with weightbearing. Indications for Procedure: This patient is a 59 -year-old with history of a closed tibia and fibula shaft fracture in October 2019. She was treated with intramedullary nailing. She has some risk factors for nonunion, including smoking and low vitamin D. We tried a bone stimulator but despite that she has not been able to heal the fracture after 8 months. She still has tenderness at the fracture site and radiographic evidence of areas which are incompletely healed. I recommended compression technique treatment of her tibial nonunion, by the use of exchange nailing, possibly with compression screws. She is so thin that the prior cross lock screws have been painful and symptomatic, and I explained that I would consider unlocked nail fixation which would allow compression with weightbearing and would prevent the complications of the cross lock screws under the skin. We talked about the potential risks of surgery such as persistent nonunion and need for additional surgeries. We discussed the option of compression plate fixation but due to her very thin body habitus, this will be high risk of wound complications if we tried plate fixation. She did not have any evidence of infection. All of her questions about exchange nail for treatment for her tibial nonunion (treatment of tibial nonunion without graft) were answered, and she desired to proceed. Written consent was obtained. Procedure in Detail: The patient was identified in the preoperative holding area. The correct left lower extremity was marked by me. The patient was taken to the operating room where general anesthetic was used. The patient was positioned supine on the operating table. A tourniquet was applied to the upper portion of the limb. Preoperative antibiotics were given intravenously. A timeout procedure was performed. An Esmarch bandage was used to exsanguinate the limb. The tourniquet was deflated. The prior incisions for the cross lock screws were used at the medial upper tibia and medial lower tibia. All 4 cross lock screws were easily identified, and were palpable under the skin due to her thin body habitus. These were removed with a screwdriver without difficulty. Next the incision at the knee region was made, and sharp dissection was used, with a medial parapatellar approach at the patellar tendon. The previous nail was identified without difficulty, and a guidewire was placed within the central canal of the nail. The removal device was screwed into upper portion of the tibial nail, and the nail was removed without difficulty. There is no gross instability of the tibia, there is no rotational instability or any flexion or valgus instability on palpation at the original fracture site. Preoperatively remained severely tender at the fracture site where there is palpable fracture callus but is incompletely healed radiographically. Sequential reaming was performed. The nail which had been removed is a size 10 mm diameter, by 315 mm in length. The standard procedure is 2 mm larger in diameter which is my surgical plan. The tourniquet was released prior to the re aming. Leaving the guidewire in place down the intramedullary canal, I did sequential reaming at 10 mm, 11 mm, 12 mm, and 13 mm. 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 There was no evidence of infection. I then used copious saline irrigation several times down the intramedullary canal, prior to the final reamer. I then used the 13.5 mm final reamer, with excellent intramedullary chatter, and this should provide excellent intramedullary bone grafting to the nonunion from within the intramedullary canal. I did not irrigate further so as to preserve that intramedullary bone reaming as intramedullary graft material. (N.B. I would still classify the procedure as treatment of tibial nonunion "without graft" despite the known benefits of intramedullary reaming to improve fracture healing.) The final 12 x 315 mm nail was placed on an insertion guide and inserted down the intramedullary canal without difficulty. Final positioning of the nail was performed using the large image intensifier. I interpreted all of the images myself intraoperatively. The nail was repositioned slightly more proximal so as to prevent any pain at the ankle joint. Final images were saved on the image intensifier. The insertion device had been removed. Copious saline irrigation was used at the incisions but not down the intramedullary canal. Bovie electrocautery was used for hemostasis. The parapatellar incision was closed with #1 Vicryl [id number] sutures. My per diem physical therapist assistant closed the subcutaneous tissues with 2-0 Vicryl inverted interrupted sutures. The skin was reapproximated with amauri. Needle and sponge counts were correct. There were no apparent complications. STERLING NEGRON MD Jun 28, 2020 13:59
[2020-06-28] MEDS ORDERED: ONDANSETRON PF 4 MG/2 ML VIAL. IVP PRN (14:00)
[2020-06-28] MEDS ORDERED: ALPRAZolam 0.5 MG TABLET PO PRN (14:00)
[2020-06-28] MEDS ORDERED: ZOLPIDEM 5 MG TABLET. PO PRN (14:00)
[2020-06-28] MEDS ORDERED: oxyCODONE IR 5 MG TABLET PO PRN (14:00)
[2020-06-28] MEDS ORDERED: DEXTROSE 50% 25 GM / 50ML DISP.SYRIN. IV PRN (14:00)
[2020-06-28] MEDS ORDERED: HYDROcodone/APAP 10/325 1 TAB TABLET PO PRN (14:00)
[2020-06-28] MEDS ORDERED: ALBUTEROL SULFATE 2.5 MG/3 ML NEBU. NEB PRN (14:00)
[2020-06-28] MEDS ORDERED: POLYETHYLENE GLYCOL 3350 17 GM PACKET. PO PRN (14:00)
[2020-06-28] MEDS ORDERED: traMADol 50 MG TABLET PO PRN (14:00)
[2020-06-28] MEDS: fentaNYL PF VIAL 100 MCG/2 ML VIAL IV PRN ×4 (14:02→15:18)
[2020-06-28] MEDS: HYDROmorphone 2 MG/ML VIAL IVP PRN ×4 (14:21→14:37)
[2020-06-28] MEDS: GABAPENTIN 300 MG CAPSULE. PO SCH ×2 (16:39→23:15)
[2020-06-28] MEDS: GABAPENTIN 400 MG CAPSULE. PO SCH ×2 (16:39→23:14)
[2020-06-28] MEDS: IV 1/2 NORMAL SALINE 1,000 ML IV SCH (19:17)
[2020-06-28] MEDS: fentaNYL PF VIAL 100 MCG/2 ML VIAL IVP PRN ×3 (19:26→23:16)
--- NOTE | 2020-06-28 20:04 | NUR ---
Paged Dr. Negron regarding pt dressing. Moderate amounts of blood seeping through. Left message with Ayla for Dr. Negron to call back.
[2020-06-28] MEDS: HYDROcodone/APAP 10/325 1 TAB TABLET PO PRN (20:58)
[2020-06-28] MEDS ORDERED: SERTRALINE 50 MG TABLET. PO SCH (21:00)
[2020-06-28] MEDS ORDERED: ASPIRIN ENTERIC COATED 325 MG TABLET.DR. PO SCH (21:00)
[2020-06-29 00:08] LABS: HEMOGLOBIN A1C 5.5 % (4.8-5.6)
[2020-06-29] MEDS: HYDROcodone/APAP 10/325 1 TAB TABLET PO PRN ×2 (01:03→06:05)
[2020-06-29] MEDS: fentaNYL PF VIAL 100 MCG/2 ML VIAL IVP PRN ×7 (01:03→15:05)
[2020-06-29] MEDS: IV 1/2 NORMAL SALINE 1,000 ML IV SCH (03:19)
[2020-06-29 03:41] VITALS: BP 100/58
[2020-06-29 04:54] LABS: BASO % 0 % (0-3); EOS % 0 % (0-3); HEMATOCRIT 33.2 % (36.0-47.0); HEMOGLOBIN 10.9 g/dL (12.0-15.5); LYMPH # 2.4 x10^3/uL (1.0-4.8); LYMPH % 27 % (24-48); MEAN CORPUSCULAR HEMOGLOBIN 30 pg (25-35); MEAN CORPUSCULAR HGB CONC 33 g/dL (31-37); MEAN CORPUSCULAR VOLUME 91 fL (79-100); MONO # 1.1 x10^3/uL (0.0-1.1); MONO % 12 % (0-9); NEUT # 5.2 x10^3/uL (1.8-7.7); NEUT % 60 % (31-73); PLATELET COUNT 349 x10^3/uL (140-400); RED BLOOD COUNT 3.64 x10^6/uL (3.50-5.40); RED CELL DISTRIBUTION WIDTH 13.7 % (11.5-14.5); WHITE BLOOD COUNT 8.7 x10^3/uL (4.0-11.0)
[2020-06-29] MEDS ORDERED: MAGNESIUM HYDROXIDE 2,400 MG/30 ML ORAL.SUSP. PO PRN (06:00)
[2020-06-29 07:00] VITALS: BP 123/68
[2020-06-29] MEDS: GABAPENTIN 400 MG CAPSULE. PO SCH ×2 (07:40→13:15)
[2020-06-29] MEDS: GABAPENTIN 300 MG CAPSULE. PO SCH ×2 (07:40→13:15)
[2020-06-29] MEDS ORDERED: SENNOSIDES/DOCUSATE 8.6/50MG TABLET. PO SCH (09:00)
[2020-06-29] MEDS ORDERED: CHOLECALCIFEROL (VITAMIN D3) 1,000 UNIT TABLET PO SCH (09:00)
[2020-06-29] MEDS ORDERED: MULTIVITAMIN with MINERAL TABLET. PO SCH (09:00)
[2020-06-29] MEDS ORDERED: oxyCODONE/APAP 10/325 1 TAB TABLET PO PRN (09:30)
[2020-06-29] MEDS: oxyCODONE/APAP 10/325 1 TAB TABLET PO PRN ×2 (09:52→14:34)
--- NOTE | 2020-06-29 09:53 | PDOC ---
ORTHO PROGRESS NOTES DATE: 06/29/20 TIME: 09:52 Subjective She tells me that her left leg is quite painful, she feels most of the pain over her anterior knee Vitals Vital Signs Date Time Temp Pulse Resp B/P (MAP) Pulse Ox O2 Delivery O2 Flow Rate FiO2 06/29/20 08:13 Room Air 06/29/20 07:52 2.0 06/29/20 07:00 98.1 88 18 123/68 (86) 93 98.1 Labs Laboratory Tests Test 06/28/20 11:00 06/29/20 04:35 Sodium Level 133 mmol/L (136-145) Potassium Level 4.0 mmol/L (3.5-5.1) Chloride Level 96 mmol/L (98-107) Carbon Dioxide Level 28 mmol/L (21-32) Anion Gap 9 (6-14) Blood Urea Nitrogen 8 mg/dL (7-20) Creatinine 0.6 mg/dL (0.6-1.0) Estimated GFR (Cockcroft-Gault) 101.6 BUN/Creatinine Ratio 13 (6-20) Glucose Level 100 mg/dL (70-99) Hemoglobin A1c 5.5 % (4.8-5.6) Calcium Level 9.4 mg/dL (8.5-10.1) Total Bilirubin 0.3 mg/dL (0.2-1.0) Aspartate Amino Transf (AST/SGOT) 18 U/L (15-37) Alanine Aminotransferase (ALT/SGPT) 20 U/L (14-59) Alkaline Phosphatase 92 U/L (46-116) Total Protein 7.3 g/dL (6.4-8.2) Albumin 4.0 g/dL (3.4-5.0) Albumin/Globulin Ratio 1.2 (1.0-1.7) 25-Hydroxy Vitamin D Total 31.3 ng/mL (30-100) White Blood Count 8.7 x10^3/uL (4.0-11.0) Red Blood Count 3.64 x10^6/uL (3.50-5.40) Hemoglobin 10.9 g/dL (12.0-15.5) Hematocrit 33.2 % (36.0-47.0) Mean Corpuscular Volume 91 fL (79-100) Mean Corpuscular Hemoglobin 30 pg (25-35) Mean Corpuscular Hemoglobin Concent 33 g/dL (31-37) Red Cell Distribution Width 13.7 % (11.5-14.5) Platelet Count 349 x10^3/uL (140-400) Neutrophils (%) (Auto) 60 % (31-73) Lymphocytes (%) (Auto) 27 % (24-48) Monocytes (%) (Auto) 12 % (0-9) Eosinophils (%) (Auto) 0 % (0-3) Basophils (%) (Auto) 0 % (0-3) Neutrophils # (Auto) 5.2 x10^3/uL (1.8-7.7) Lymphocytes # (Auto) 2.4 x10^3/uL (1.0-4.8) Monocytes # (Auto) 1.1 x10^3/uL (0.0-1.1) Eosinophils # (Auto) 0.0 x10^3/uL (0.0-0.7) Basophils # (Auto) 0.0 x10^3/uL (0.0-0.2) Laboratory Tests Test 06/28/20 11:00 06/29/20 04:35 Sodium Level 133 mmol/L (136-145) Potassium Level 4.0 mmol/L (3.5-5.1) Chloride Level 96 mmol/L (98-107) Carbon Dioxide Level 28 mmol/L (21-32) Anion Gap 9 (6-14) Blood Urea Nitrogen 8 mg/dL (7-20) Creatinine 0.6 mg/dL (0.6-1.0) Estimated GFR (Cockcroft-Gault) 101.6 BUN/Creatinine Ratio 13 (6-20) Glucose Level 100 mg/dL (70-99) Hemoglobin A1c 5.5 % (4.8-5.6) Calcium Level 9.4 mg/dL (8.5-10.1) Total Bilirubin 0.3 mg/dL (0.2-1.0) Aspartate Amino Transf (AST/SGOT) 18 U/L (15-37) Alanine Aminotransferase (ALT/SGPT) 20 U/L (14-59) Alkaline Phosphatase 92 U/L (46-116) Total Protein 7.3 g/dL (6.4-8.2) Albumin 4.0 g/dL (3.4-5.0) Albumin/Globulin Ratio 1.2 (1.0-1.7) 25-Hydroxy Vitamin D Total 31.3 ng/mL (30-100) White Blood Count 8.7 x10^3/uL (4.0-11.0) Red Blood Count 3.64 x10^6/uL (3.50-5.40) Hemoglobin 10.9 g/dL (12.0-15.5) Hematocrit 33.2 % (36.0-47.0) Mean Corpuscular Volume 91 fL (79-100) Mean Corpuscular Hemoglobin 30 pg (25-35) Mean Corpuscular Hemoglobin Concent 33 g/dL (31-37) Red Cell Distribution Width 13.7 % (11.5-14.5) Platelet Count 349 x10^3/uL (140-400) Neutrophils (%) (Auto) 60 % (31-73) Lymphocytes (%) (Auto) 27 % (24-48) Monocytes (%) (Auto) 12 % (0-9) Eosinophils (%) (Auto) 0 % (0-3) Basophils (%) (Auto) 0 % (0-3) Neutrophils # (Auto) 5.2 x10^3/uL (1.8-7.7) Lymphocytes # (Auto) 2.4 x10^3/uL (1.0-4.8) Monocytes # (Auto) 1.1 x10^3/uL (0.0-1.1) Eosinophils # (Auto) 0.0 x10^3/uL (0.0-0.7) Basophils # (Auto) 0.0 x10^3/uL (0.0-0.2) Notes She is awake and alert in bed. All compartments are soft. No pain with passive range of motion. She can wiggle her toes distally. Normal sensation. Toes are pink and warm. Assessment and Plan We will adjust her pain regimen, stop Lortab. She did not receive any Roxicodone. We will start Percocet 10. We will also stop the Roxicodone. Hopefully we will get her pain under better control and she can go home later today. RACHEL SO II, MD Jun 29, 2020 09:53
--- NOTE | 2020-06-29 09:55 | DISCH ---
DISCHARGE INSTRUCTIONS Condition on Discharge Condition on Discharge: Stable Activity After Discharge Activity Instructions for Disc: Activity as tolerated, Avoid exertion Bathing Instructions: Shower-keep dressing dry Lifting Instructions after Dis: No heavy lifting, No pulling or pushing, Do not lift >10 pounds Driving Instructions after Dis: Do not drive Weight Bearing Status after Di: Touch down weight bearing Diet after Discharge Diet after Discharge: Regular Swallowing Supervision: None needed Wound Incision Care Wound/Incision Care: Ice to area for comfort, Keep wound/cast CDI, Change dressing Wound Care Equipment: Dressings Checks after Discharge Checks after discharge: Check your Temp as needed Contacting the DRBonifacio after DC Call your doctor for: Concerns you may have Follow-Up Follow up with: [facility] in 2 wks Treatment/Equipment after DC Adaptive Equipment Issued: None RACHEL SO II, MD Jun 29, 2020 09:55
[2020-06-29 11:00] VITALS: BP 117/72
[2020-06-29 14:49] LABS: HEMOGLOBIN 10.8 g/dL (12.0-15.5)
[2020-06-29] MEDS ORDERED: BISACODYL 10 MG SUPP.RECT. PR PRN (16:00)
--- NOTE | 2020-06-29 16:09 | NUR ---
PT DISCHARGED HOME WITH SELF CARE. DISCHARGE INSTRUCTIONS AND PRESCRIPTIONS DISCUSSED. PT VERBALIZED UNDERSTANDING. DEMONSTRATED DRESSING CHANGES. PROVIDED SUPPLIES FOR PT TO CHANGE DRESSING AT HOME. CAM BOOT PROVIDED. PAIN MEDS ADMINISTERED. IV REMOVED. PT BELONGINGS PACKED BY AND TAKEN BY . ASSISTED TO WHEELCHAIR AND WAS SECURED IN CAR WITH .
== END 2020-06-29 15:10 | disposition home or self-care (01) ==
LOC: SURG 10:41 → 4 NORTH 14:30
PROVIDERS: ADMIT Orthopaedic Surgery; ATTEND Orthopaedic Surgery
DX: S82.252K Displaced comminuted fracture of shaft of left tibia, subsequent encounter for closed fracture with nonunion (principal); X58.XXXD Exposure to other specified factors, subsequent encounter
CPT/HCPCS: 27720; 36415; 76000; 80053; 82306; 83036; 85014; 85018; 85025; 96365; 96366; 96375; 96376; 97161; 97165; G0378; G0379; J0690; J0780; J1100; J1170; J2250; J2704; J3010; J3490; J2405

== ENCOUNTER → 2020-08-06 | Outpatient (CLI) | payer BC ==
[~2020-08-06] MED LIST changes: -IV RINGERS,LACTATED 1000ML 1,000 ML IV SCH; -LIDOCAINE 1% PF 2 ML VIAL. ID PRN; -ONDANSETRON PF 4 MG/2 ML VIAL. IV PRN; -PROCHLORPERAZINE 10 MG/2 ML VIAL. IV PRN; -fentaNYL PF VIAL 100 MCG/2 ML VIAL IV PRN
--- NOTE | 2020-08-06 16:54 | KCIC ---
2 view study of the cervical spine Clinical indications: Neck pain. Cervical stenosis. Previous surgery. Follow-up study. COMPARISON: October 03, 2019. FINDINGS: Again seen is a posterior lateral fusion with metallic surgical hardware from C3 through C6. Position of surgical hardware is unchanged. Grade 2 anterolisthesis of C4-5 and grade 1 anterolisthesis of C5-6 and C6-7 are again evident. This measures 7 mm at C4-5 and measured 7 mm on the previous study. This measures 4 mm at C5-6 and measured 5 mm previously. This measures 7 mm at C6-7 and measure 2 mm previously. Therefore, there has been an increase at this level. There has been progressive degenerative disc space narrowing along with moderate degenerative endplate spurring at C6-7 as well. The degenerative disc space narrowing and endplate spurring at C4-5 and C5-6 has not changed significantly. No acute fracture or discitis or lytic process or prevertebral soft tissue swelling is evident. Calcified atheromatous disease of the carotid arteries is again evident bilaterally. IMPRESSION: Stable cervical fusion. However, there has been an increase in grade 1 anterolisthesis at C6-7 with progressive degenerative disc space narrowing. Electronically signed by: Michael Carbajal MD (08/06/2020 4:51 PM) [id number]
== END ==
LOC: KCIC 15:36
PROVIDERS: ATTEND Neurological Surgery
DX: M48.02 Spinal stenosis, cervical region (principal); M54.2 Cervicalgia
CPT/HCPCS: 72040

== ENCOUNTER → 2020-08-26 | Outpatient (CLI) | payer BC ==
--- NOTE | 2020-08-26 17:49 | KCIC ---
C-spine 2 views INDICATION: Cervical stenosis status post fusion surgery COMPARISON: C-spine x-rays 08/06/2020 FINDINGS: Exaggerated cervical lordosis is present with minimal anterolisthesis of C4 on C5 and C5 on C6 as well as C6 on C7, unchanged in the interval. Justin and pedicle screw construct fusion hardware spanning C3-C6 is present bilaterally. On the flexion and extension views obtained at this visit, slight reduction in anterolisthesis at C5-C6 and at C6-C7 is suggested with a neck caliber and extension. Generalized osteopenia is seen. No acute or aggressive osseous lesions are identified. Degenerative changes at multiple levels, most conspicuously at C4-C5 and C6-C7, similar to prior. Soft tissues unremarkable. IMPRESSION: Subtle findings suspicious for abnormal motion at C5-C6 and C6-C7 status post posterior justin and pedicle screw construct fusion spanning C3-C6 as described. EXAM: CT Cervical Spine without IV contrast INDICATION: Reason: CERVICAL STENOSIS S/P FUSION SURGERY 03/2019 / Spl. Instructions: / History: TECHNIQUE: Multi-detector row CT images were obtained through the cervical spine without the use of IV contrast. Post-processing sagittal and coronal reconstructed images were obtained for interpretation. All CT scans performed at this facility utilize dose optimization techniques as appropriate to the exam, including the following: Automated exposure control and adjustment of the mA and/or KV according to patient size (this includes techniques or standardized protocols for targeted exams where dose is indication/reason for exam). COMPARISON: C-spine x-rays obtained same day, MRI C-spine of 06/13/2019. FINDINGS: CRANIOCERVICAL JUNCTION: Unremarkable. ALIGNMENT: Exaggerated cervical lordosis is redemonstrated, unchanged from the previous MRI of slightly over a year ago with anterolisthesis most notably at C4-C5 and to a lesser extent at C5-C6 and C6-C7. OSSEOUS: Posterior decompressive surgical changes with laminectomies at C3, C4 and laminotomies at C2 and C6 DISC SPACES: Varying degrees of disc space narrowing most conspicuous at C4-C5 and C6-C7 and stable mild widening of the anterior disc space at C3-C4. FACET JOINTS: Posterior fusion hardware is redemonstrated at C3-C4 through C6-C7. There is some lucency around the C6 screws. SPINAL CANAL: No bony central canal stenosis is apparent. Detailed evaluation of the central canal is limited in the absence of intrathecal contrast. NEUROFORAMINA: At least mild foraminal stenosis is present on the left at C4-C5 due to combination of disc space narrowing and anterolisthesis. SOFT TISSUES: Unremarkable. IMPRESSION: Postop changes from posterior decompression and justin and pedicle screw construct fusion of the cervical spine spanning C3-C6 with residual anterolisthesis, most notably at C4-C5 and C6-C7, unchanged from prior. No new acute superimposed findings on noncontrast CT. Electronically signed by: Jovanny Mathew MD (08/26/2020 5:46 PM) [id number]
== END ==
LOC: KCIC CT 12:39
PROVIDERS: ATTEND Neurological Surgery
DX: M48.02 Spinal stenosis, cervical region (principal); M43.22 Fusion of spine, cervical region
CPT/HCPCS: 72040; 72125

== ENCOUNTER → 2020-10-09 | Outpatient (CLI) | payer BC ==
[~2020-10-09] MED LIST changes: +HYDR-2765 PO
== END ==
LOC: LAB 13:22
PROVIDERS: ATTEND Surgery
DX: Z01.812 Encounter for preprocedural laboratory examination (principal); Z20.828 Contact with and (suspected) exposure to other viral communicable diseases; K43.2 Incisional hernia without obstruction or gangrene
CPT/HCPCS: U0003

== ENCOUNTER 2020-10-14 06:34 | Inpatient (IN) | payer BC ==
[2020-10-14] VITALS (10 sets, daily range): BP systolic 97–148; BP diastolic 59–80
[~2020-10-14] VITALS: Ht 160 cm; Wt 59.0 kg
[~2020-10-14 06:34] MED LIST changes: +ACETAMINOPHEN 500 MG TABLET PO ONE; +BUPIVACAINE-EPI 0.25%-1:200000 MPF 30 ML VIAL. INJ ONE; +ceFAZolin SODIUM IV Push 1 GM VIAL. IVP ONE
[2020-10-14] MEDS ORDERED: LIDOCAINE 1% PF 2 ML VIAL. ID PRN (07:00)
[2020-10-14] MEDS ORDERED: fentaNYL PF VIAL 100 MCG/2 ML VIAL IV PRN (07:00)
[2020-10-14] MEDS ORDERED: IV RINGERS,LACTATED 1000ML 1,000 ML IV SCH (07:00)
[2020-10-14] MEDS ORDERED: ONDANSETRON PF 4 MG/2 ML VIAL. IV PRN ×2 (07:00→10:30)
[2020-10-14] MEDS ORDERED: LIDOCAINE 2% PF 5 ML VIAL. ONE (07:27)
[2020-10-14] MEDS ORDERED: PROPOFOL 10 MG/ML (20ML) VIAL. IV ONE (07:27)
[2020-10-14] MEDS ORDERED: fentaNYL PF VIAL 100 MCG/2 ML VIAL ONE ×2 (07:28→10:17)
[2020-10-14] MEDS ORDERED: ROCURONIUM 50 MG/5 ML VIAL. ONE (07:28)
[2020-10-14] MEDS ORDERED: SUCCINYLCHOLINE 200 MG/10 ML VIAL. ONE (07:28)
[2020-10-14] MEDS ORDERED: DEXAMETHASONE SOD PHOS 4 MG/ML VIAL ONE (08:08)
[2020-10-14] MEDS ORDERED: DESFLURANE 61 TO 120 MINUTES IH ONE (08:08)
[2020-10-14] MEDS ORDERED: NEOSTIGMINE METHYLSULFATE 5 MG/5 ML SYRINGE. ONE (08:31)
[2020-10-14] MEDS ORDERED: GLYCOPYRROLATE 1 MG/5 ML VIAL. ONE (08:31)
[2020-10-14] MEDS ORDERED: ONDANSETRON PF 4 MG/2 ML VIAL. ONE (08:31)
[2020-10-14] MEDS ORDERED: HYDROmorphone 2 MG/ML VIAL ONE (10:17)
--- NOTE | 2020-10-14 10:24 | PDOC4 ---
Operative Note Operative Note Date: October 14, 2020 at 1019 Preoperative diagnosis: Recurrent incarcerated incisional ventral hernia Postoperative diagnosis: Same Procedure: Open ventral hernia repair with component separation ventral mesh placement Surgeon: Everett Thurman assist: Gianni Dictation: Patient is a 59-year-old female with previous history of multiple abdominal surgeries developed a large ventral incisional hernia with incarcerated bowel. Procedure of open repair with component separation and mesh placement was explained to the patient detail was benefits were also discussed including bleeding infection injury to intra-abdominal contents possible necessitating further operations alternatives to this procedure also discussed with the patient who seemed to understand and gave both verbal and written consent to have the procedure performed. Patient was taken to the operating room placed the supine position general anesthesia was initiated once patient was sleeping intubated her abdomen was prepped and draped usual sterile fashion using ChloraPrep. Midline incision was made with 10 blade scalpel excising the previous scar. Abdomen was entered and the adhesions were taken down off of the abdominal wall with sharp and blunt dissection. Once this was complete incision was made at the rectus muscle the peritoneum from the rectus muscle versus done circumferentially. Once this was complete incision was made medial to the perforators along the oblique muscles this was taken down with electrocautery to allow for mobilization. Peritoneum was closed with a running 0 PDS. A Bard Ventrio 22 cm x 29 cm mesh was placed over the peritoneum. 0 Prolene single interrupted sutures were used in the 4 quadrants to tack the mesh to the anterior fascia. The Bard tacker was then used to tack the mesh circumferentially to the anterior abdominal fascia fascia was then closed in the midline with a running 0 PDS. 10 mm 2 flat ANTONETTE drains were placed in the subcutaneous space above the fascia these were sewn into place with 3-0 Prolene. The deep subcutaneous layer was closed with running 3-0 Vicryl. And the skin was reapproximated for subcuticular Monocryl Mastisol Steri-Strips and island dressing were applied. Patient was awakened and extubated in the operating room taken recovery in stable condition all sponge instrument needle counts listed as correct estimated blood loss 150 mL. VASHTI BHATT MD Oct 14, 2020 10:24
[2020-10-14] MEDS ORDERED: 0.9 % SODIUM CHLORIDE 10 ML DISP.SYRIN. IV PRN (10:30)
[2020-10-14] MEDS ORDERED: MORPHINE SULFATE 2 MG/ML VIAL. IV PRN (10:30)
[2020-10-14] MEDS ORDERED: oxyCODONE/APAP 5/325 1 TAB TABLET PO PRN (10:30)
[2020-10-14] MEDS: fentaNYL PF VIAL 100 MCG/2 ML VIAL IV PRN ×2 (10:31→10:36)
[2020-10-14] MEDS ORDERED: PROCHLORPERAZINE 10 MG/2 ML VIAL. ONE (10:35)
[2020-10-14] MEDS: PROCHLORPERAZINE 10 MG/2 ML VIAL. IV PRN ×2 (10:37→10:56)
[2020-10-14] MEDS: HYDROmorphone 2 MG/ML VIAL IV PRN ×4 (10:45→11:20)
--- NOTE | 2020-10-14 12:45 | NUR ---
arrived to the floor; sleeping. arouses to name and conversation but resumes sleep easily. abdominal dressing is clean dry and intact. abdominal binder in place. 2 isabel drains bilateral lower abdomen; patent with sanguinous drainage. Kay to dd ; patent with straw/taya urine. at bedside
[2020-10-14] MEDS: KETOROLAC 15 MG/ML VIAL. IV SCH ×2 (14:00→17:26)
[2020-10-14] MEDS: cefOXitin SODIUM IV Push 1 GM VIAL. IVP SCH ×2 (14:01→22:37)
[2020-10-14] MEDS: oxyCODONE/APAP 5/325 1 TAB TABLET PO PRN ×2 (16:07→20:28)
[2020-10-14] MEDS: IV DEXTROSE 5%-LACT RINGERS 1,000 ML IV SCH (16:08)
--- NOTE | 2020-10-14 17:36 | NUR ---
dozes at intervals;but when awake states that her pain is "8-10"She has been medicated with Toradol x2 and Percocet x1. refused clear liquids. will drink sips of water. denies of nausea
[2020-10-14] MEDS ORDERED: ALBUTEROL SULFATE 2.5 MG/3 ML NEBU. INH PRN (20:45)
[2020-10-15] MEDS: oxyCODONE/APAP 5/325 1 TAB TABLET PO PRN ×4 (00:19→15:06)
[2020-10-15] MEDS: KETOROLAC 15 MG/ML VIAL. IV SCH ×4 (00:19→18:03)
[2020-10-15 03:00] VITALS: BP 91/50
[2020-10-15] MEDS: IV DEXTROSE 5%-LACT RINGERS 1,000 ML IV SCH ×2 (04:22→17:57)
[2020-10-15] MEDS: cefOXitin SODIUM IV Push 1 GM VIAL. IVP SCH (06:23)
[2020-10-15 06:37] VITALS: BP 88/56
[2020-10-15 08:18] LABS: BASO % 1 % (0-3); EOS % 0 % (0-3); HEMATOCRIT 31.7 % (36.0-47.0); HEMOGLOBIN 10.7 g/dL (12.0-15.5); LYMPH # 1.3 x10^3/uL (1.0-4.8); LYMPH % 18 % (24-48); MEAN CORPUSCULAR HEMOGLOBIN 30 pg (25-35); MEAN CORPUSCULAR HGB CONC 34 g/dL (31-37); MEAN CORPUSCULAR VOLUME 90 fL (79-100); MONO % 13 % (0-9); NEUT % 69 % (31-73); PLATELET COUNT 317 x10^3/uL (140-400); RED BLOOD COUNT 3.53 x10^6/uL (3.50-5.40); RED CELL DISTRIBUTION WIDTH 15.1 % (11.5-14.5); WHITE BLOOD COUNT 7.3 x10^3/uL (4.0-11.0)
--- NOTE | 2020-10-15 08:43 | PDOC ---
SURGICAL PROGRESS NOTE DATE: 10/15/20 TIME: 08:42 Subjective Patient states she is feeling quite good pain well controlled no nausea Vital Signs Vital Signs Date Time Temp Pulse Resp B/P (MAP) Pulse Ox O2 Delivery O2 Flow Rate FiO2 10/15/20 08:22 Nasal Cannula 10/15/20 06:37 98.2 95 88/56 (67) 93 98.2 10/15/20 05:25 20 10/15/20 04:22 2.0 I&O Intake and Output 10/15/20 07:00 Intake Total 3025 ml Output Total 1553 ml Balance 1472 ml Intake Oral 360 ml IV Total 1840 ml Blood Product IV Normal Saline Flush 825 ml Output Urine Total 1325 ml Drainage Total 78 ml Estimated Blood Loss 150 ml PATIENT HAS A HOFF: Yes General: Alert, Oriented X3, Cooperative, mild distress Abdomen: Normal bowel sounds, Soft, Other (Mild incisional tenderness wounds clean dry intact ANTONETTE drains with serosanguineous drainage) Labs Laboratory Tests Test 10/15/20 07:50 White Blood Count 7.3 x10^3/uL (4.0-11.0) Red Blood Count 3.53 x10^6/uL (3.50-5.40) Hemoglobin 10.7 g/dL (12.0-15.5) Hematocrit 31.7 % (36.0-47.0) Mean Corpuscular Volume 90 fL (79-100) Mean Corpuscular Hemoglobin 30 pg (25-35) Mean Corpuscular Hemoglobin Concent 34 g/dL (31-37) Red Cell Distribution Width 15.1 % (11.5-14.5) Platelet Count 317 x10^3/uL (140-400) Neutrophils (%) (Auto) 69 % (31-73) Lymphocytes (%) (Auto) 18 % (24-48) Monocytes (%) (Auto) 13 % (0-9) Eosinophils (%) (Auto) 0 % (0-3) Basophils (%) (Auto) 1 % (0-3) Neutrophils # (Auto) 5.0 x10^3/uL (1.8-7.7) Lymphocytes # (Auto) 1.3 x10^3/uL (1.0-4.8) Monocytes # (Auto) 1.0 x10^3/uL (0.0-1.1) Eosinophils # (Auto) 0.0 x10^3/uL (0.0-0.7) Basophils # (Auto) 0.0 x10^3/uL (0.0-0.2) Laboratory Tests Test 10/15/20 07:50 White Blood Count 7.3 x10^3/uL (4.0-11.0) Red Blood Count 3.53 x10^6/uL (3.50-5.40) Hemoglobin 10.7 g/dL (12.0-15.5) Hematocrit 31.7 % (36.0-47.0) Mean Corpuscular Volume 90 fL (79-100) Mean Corpuscular Hemoglobin 30 pg (25-35) Mean Corpuscular Hemoglobin Concent 34 g/dL (31-37) Red Cell Distribution Width 15.1 % (11.5-14.5) Platelet Count 317 x10^3/uL (140-400) Neutrophils (%) (Auto) 69 % (31-73) Lymphocytes (%) (Auto) 18 % (24-48) Monocytes (%) (Auto) 13 % (0-9) Eosinophils (%) (Auto) 0 % (0-3) Basophils (%) (Auto) 1 % (0-3) Neutrophils # (Auto) 5.0 x10^3/uL (1.8-7.7) Lymphocytes # (Auto) 1.3 x10^3/uL (1.0-4.8) Monocytes # (Auto) 1.0 x10^3/uL (0.0-1.1) Eosinophils # (Auto) 0.0 x10^3/uL (0.0-0.7) Basophils # (Auto) 0.0 x10^3/uL (0.0-0.2) Assessment/Plan Status post ventral hernia repair with component separation Advance diet DC Hoff increase activity Justicifation of Admission Dx: Justifications for Admission: Justification of Admission Dx: N/A VASHTI BHATT MD Oct 15, 2020 08:43
[2020-10-15] MEDS: NICOTINE 21MG PATCH. TD SCH (09:52)
[2020-10-15] MEDS: GABAPENTIN 400 MG CAPSULE. PO SCH ×3 (09:52→20:54)
[2020-10-15] MEDS: GABAPENTIN 300 MG CAPSULE. PO SCH ×3 (09:52→20:54)
[2020-10-15] MEDS: fentaNYL PF VIAL 100 MCG/2 ML VIAL IVP PRN ×4 (09:53→22:32)
[2020-10-15 11:15] VITALS: BP 108/65
[2020-10-15 15:26] VITALS: BP 137/75
--- NOTE | 2020-10-15 15:27 | NUR ---
Ambulated around the unit with steady gait. C/o SOB used hand held inhaler. Attempted to use bathroom but unable to void. Encourage po intake. Checked O2 85% placed on 3l per n/c and stating at 92%. Encourage to deep breath and cough. Cont. monitor.
[2020-10-15] MEDS: ALPRAZolam 0.5 MG TABLET PO PRN (18:03)
[2020-10-15 18:45] VITALS: BP 100/61
--- NOTE | 2020-10-15 18:45 | NUR ---
Has not voided, ambulated to bathroom and sat for 10 minutes with water running. Unable to void. Returned to bed. Encourage to increase po fluids. shift leader will bladder scan pt this evening.
[2020-10-15] MEDS: SERTRALINE 50 MG TABLET. PO SCH (20:54)
--- NOTE | 2020-10-15 22:00 | NUR ---
Bladder scanned performed by 2 RNs w/ 2 different scanners. Zero urine displayed. Straight cath performed, 200cc strong taya urine returned. Encouraged her to drink more water.
[2020-10-16] MEDS: oxyCODONE/APAP 5/325 1 TAB TABLET PO PRN ×4 (03:25→20:32)
[2020-10-16] MEDS: ALPRAZolam 0.5 MG TABLET PO PRN ×2 (03:25→20:31)
[2020-10-16] MEDS: KETOROLAC 15 MG/ML VIAL. IV SCH ×2 (05:41)
[2020-10-16 06:26] VITALS: BP 102/58
--- NOTE | 2020-10-16 06:28 | NUR ---
Room air O2 sat = 86%. Has loose moist cough. "I'm trying to cough but it hurts." Explained TCDB to prevent bronchitis, etc., states she's fully aware.
[2020-10-16] MEDS: GABAPENTIN 300 MG CAPSULE. PO SCH ×3 (07:56→20:31)
[2020-10-16] MEDS: GABAPENTIN 400 MG CAPSULE. PO SCH ×3 (07:56→20:31)
[2020-10-16] MEDS: NICOTINE 21MG PATCH. TD SCH (07:57)
[2020-10-16] MEDS: IV DEXTROSE 5%-LACT RINGERS 1,000 ML IV SCH ×2 (08:04→21:41)
--- NOTE | 2020-10-16 08:40 | PDOC ---
Provider Note Date of Service: DATE: 10/16/20 TIME: 08:39 Provider Note wants to add miralax re constipation, done, rest stable , will follow Justifications for Admission Other Justification FEMI OSPINA MD Oct 16, 2020 08:40
--- NOTE | 2020-10-16 09:28 | PDOC ---
SURGICAL PROGRESS NOTE DATE: 10/16/20 TIME: 09:27 Subjective Patient appears to be doing well does describe some abdominal pain did have some difficulty urinating last night had to have a straight cath Vital Signs Vital Signs Date Time Temp Pulse Resp B/P (MAP) Pulse Ox O2 Delivery O2 Flow Rate FiO2 10/16/20 07:57 Nasal Cannula 2.0 10/16/20 06:26 98.7 110 20 102/58 (73) 86 98.7 I&O Intake and Output 10/16/20 07:00 Intake Total 540 ml Output Total 245 ml Balance 295 ml Intake Oral 540 ml Output Urine Total 150 ml Drainage Total 95 ml PATIENT HAS A HOFF: No General: Alert, Oriented X3, Cooperative, mild distress Abdomen: Normal bowel sounds, Soft, Other (Mild incisional tenderness wounds clean dry and intact ANTONETTE drains intact with serosanguineous output) Labs Laboratory Tests Test 10/15/20 07:50 White Blood Count 7.3 x10^3/uL (4.0-11.0) Red Blood Count 3.53 x10^6/uL (3.50-5.40) Hemoglobin 10.7 g/dL (12.0-15.5) Hematocrit 31.7 % (36.0-47.0) Mean Corpuscular Volume 90 fL (79-100) Mean Corpuscular Hemoglobin 30 pg (25-35) Mean Corpuscular Hemoglobin Concent 34 g/dL (31-37) Red Cell Distribution Width 15.1 % (11.5-14.5) Platelet Count 317 x10^3/uL (140-400) Neutrophils (%) (Auto) 69 % (31-73) Lymphocytes (%) (Auto) 18 % (24-48) Monocytes (%) (Auto) 13 % (0-9) Eosinophils (%) (Auto) 0 % (0-3) Basophils (%) (Auto) 1 % (0-3) Neutrophils # (Auto) 5.0 x10^3/uL (1.8-7.7) Lymphocytes # (Auto) 1.3 x10^3/uL (1.0-4.8) Monocytes # (Auto) 1.0 x10^3/uL (0.0-1.1) Eosinophils # (Auto) 0.0 x10^3/uL (0.0-0.7) Basophils # (Auto) 0.0 x10^3/uL (0.0-0.2) Assessment/Plan Improving overall awaiting spontaneous urination likely home tomorrow Justicifation of Admission Dx: Justifications for Admission: Justification of Admission Dx: N/A VASHTI BHATT MD Oct 16, 2020 09:28
[2020-10-16] MEDS: fentaNYL PF VIAL 100 MCG/2 ML VIAL IVP PRN ×2 (10:58→23:49)
[2020-10-16 11:14] VITALS: BP 92/55
--- NOTE | 2020-10-16 11:28 | NUR ---
Spoke with Dr. Floyd and made aware of pt 's issue about voiding. Had to straight cath last night only had 200cc dark urine. Has not voided since. Encouraging pt to increase po fluids. Cont. monitor.
[2020-10-16] MEDS: POLYETHYLENE GLYCOL 3350 17 GM PACKET. PO SCH (12:08)
[2020-10-16 15:25] VITALS: BP 123/65
--- NOTE | 2020-10-16 15:58 | NUR ---
Attempted to void 2 different times and is unable and has no urge to void. Bladder scan 136ml. Will continue with IVF's and encourage po fluids.
--- NOTE | 2020-10-16 17:46 | NUR ---
Spoke with Dr. Bender about bladder scan pt and had 136ml. Still doesn't have urge to void. Cont. with IVF's and monitor.
--- NOTE | 2020-10-16 18:12 | PATHOLOGY ---
[facility] Accession Number: [id number] . 01 Material submitted: . abdomen - ABDOMINAL SCAR . 01 Clinical history: . INCISIONAL HERNIA,VENTRAL HERNIA REPAIR . 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 (JPM/db; 10/16/2020) LBQ 10/16/2020 1547 Local . 02 Electronically signed: . Juan José Lake MD, Pathologist NPI- [id number] . 01 Gross description: . The specimen is received in formalin, labeled "Kaylynn Lewis, abdominal scar". Received is a segment of pale bearden skin measuring 17.3 x 1.8 x 0.4 cm in greatest dimensions. The epidermal surface displays a linear well-healed pale bearden scar measuring 15.2 cm in length by up to 0.8 cm in diameter. The specimen is submitted representatively in cassette A1. ([facility]; 10/15/2020) QA/QA 10/15/2020 1539 Local . 02 Pathologist provided ICD-10: L90.5, L98.9 . 02 CPT . 200321 Specimen Comment: A courtesy copy of this report has been sent to [phone] Specimen Comment: Report sent to Performed at: 01 [facility] [address], [place] [id number] MD Jeferson Norton MD Phone: [phone] Performed at: 02 [facility] [address] [place], [place] [id number] MD Juan José Lake MD Phone: [phone]
[2020-10-16 18:30] VITALS: BP 86/53
[2020-10-16] MEDS: ALBUTEROL SULFATE 2.5 MG/3 ML NEBU. INH SCH (20:05)
[2020-10-16] MEDS: SERTRALINE 50 MG TABLET. PO SCH (20:31)
[2020-10-16 23:00] VITALS: BP 129/83
--- NOTE | 2020-10-17 00:30 | NUR ---
Patient has drank 480cc of water since 1914. "I'm trying to drink more." Refused other liquids. IV running 75cc/hr. C/o constipation. Patient refused to ambulate in halls. "I did that earlier." Ambulated to toilet, did not void. Requested "a shot" for abdominal pain.
[2020-10-17 03:00] VITALS: BP 160/87
[2020-10-17] MEDS: ALPRAZolam 0.5 MG TABLET PO PRN ×2 (04:42→21:07)
[2020-10-17] MEDS: oxyCODONE/APAP 5/325 1 TAB TABLET PO PRN ×4 (04:42→23:00)
--- NOTE | 2020-10-17 04:45 | NUR ---
Voided 500cc cloudy tea colored urine. "I'm going home today."
[2020-10-17 06:35] VITALS: BP 97/59
[2020-10-17] MEDS: ALBUTEROL SULFATE 2.5 MG/3 ML NEBU. INH SCH ×5 (07:20→20:59)
[2020-10-17] MEDS: GABAPENTIN 400 MG CAPSULE. PO SCH ×3 (09:54→21:04)
[2020-10-17] MEDS: GABAPENTIN 300 MG CAPSULE. PO SCH ×3 (09:54→21:04)
[2020-10-17] MEDS: NICOTINE 21MG PATCH. TD SCH (09:55)
[2020-10-17] MEDS: POLYETHYLENE GLYCOL 3350 17 GM PACKET. PO SCH (09:55)
[2020-10-17] MEDS: fentaNYL PF VIAL 100 MCG/2 ML VIAL IVP PRN ×4 (10:06→22:55)
[2020-10-17 11:00] VITALS: BP 134/76
--- NOTE | 2020-10-17 11:05 | DISCH ---
DISCHARGE INSTRUCTIONS Condition on Discharge Condition on Discharge: Stable Activity After Discharge Activity Instructions for Disc: Activity as tolerated Bathing Instructions: Shower-keep dressing dry Lifting Instructions after Dis: No heavy lifting, No pulling or pushing, Do not lift >10 pounds Driving Instructions after Dis: Do not drive Weight Bearing Status after Di: As tolerated Diet after Discharge Diet after Discharge: Regular Swallowing Supervision: None needed Wound Incision Care Wound/Incision Care: Do not change dressing, Other, see below (drain care as instructed, wear binder ) Wound Care Equipment: Dressings Checks after Discharge Checks after discharge: Check your Temp as needed Contacting the DRBonifacio after DC Call your doctor for: Concerns you may have Follow-Up Follow up with: Dr Floyd 10/23 at 145p, call with questions [phone] Treatment/Equipment after DC Adaptive Equipment Issued: None EVERARDO MENDES APRN Oct 17, 2020 11:05
--- NOTE | 2020-10-17 11:08 | PDOC3 ---
Discharge Summary Visit Information Date of Admission: Oct 14, 2020 Date of Discharge: Oct 17, 2020 Admitting Diagnosis: ventral hernia Final Diagnosis ventral hernia Brief Hospital Course Allergies Allergies Coded Allergies Type Severity Reaction Last Updated Verified morphine Allergy Intermediate Rash 10/14/20 Yes Vital Signs Vital Signs Date Time Temp Pulse Resp B/P (MAP) Pulse Ox O2 Delivery O2 Flow Rate FiO2 10/17/20 10:06 Room Air 10/17/20 08:38 90 10/17/20 06:35 96 20 97/59 (72) 3.0 10/17/20 03:00 97.4 97.4 Brief Hospital Course Ms. Lewis is a 59 old female who underwent Open ventral hernia repair with component separation ventral mesh placement. postoperatively had urinary retention, improved at discharge. Pain managed and tolerating diet. Will discharge home with drain and follow up next week in clinic Discharge Information Condition at Discharge: Stable Follow Up: Weeks (1) Disposition/Orders: D/C to Home Scheduled Gabapentin (Gabapentin ) 300 Mg Capsule, 300 MG PO QID for NEUROGENIC PAIN, (Reported) Entered as Reported by: GISELLE BENÍTEZ on 11/12/19 1400 Last Taken: Unknown Dose on 10/14/2099 Last Action: Last Taken Edited on 10/14/20 07 by MELISSA ELAINE Gabapentin (Gabapentin) 400 Mg Capsule, 400 MG PO QID for neurogenic pain, (Reported) Entered as Reported by: GISELLE BENÍTEZ on 11/12/19 1400 Sertraline Hcl (Zoloft) 50 Mg Tablet, 50 MG PO HS for nerve pain, Ref 0 (Reported) Entered as Reported by: ERI MARIE on 06/28/19 1339 Last Taken: Unknown Dose on 10/13/20 Last Action: Continued on 10/15/20 09 by FEMI OSPINA Scheduled PRN Albuterol Sulfate (Proair Hfa Inhaler) 8.5 Gm Hfa.aer.ad, 1 PUFF INH PRN Q6HRS PRN for SHORTNESS OF BREATH, Ref 0 (Reported) Entered as Reported by: FILIPE NAVA on 06/27/18 1615 Last Taken: Unknown Dose on 10/14/2099 Last Action: Continued on 10/14/202034 by CHRISTOFER LANE Alprazolam (Xanax) 0.5 Mg Tablet, 1 TAB PO PRN Q6HRS PRN for ANXIETY / AGITATION, Ref 0 (Reported) Entered as Reported by: Cheryl Dumont on 06/13/19 1126 Last Taken: Unknown Dose on 10/14/2099 Last Action: Last Taken Edited on 10/14/20722 by MELISSA ELAINE Hydrocodone Bit/Acetaminophen (Hydrocodone-Apap 7.5-325 ) 1 Tab Tablet, 1 TAB PO PRN Q6HRS PRN for PAIN, Ref 0 (Reported) Entered as Reported by: MARISSA WESLEY on 10/10/20 0831 Last Taken: Unknown Dose on 10/14/2099 Last Action: Last Taken Edited on 10/14/20722 by MELISSA ELAINE Zolpidem Tartrate (Ambien) 10 Mg Tablet, 10 MG PO PRN QHS PRN for INSOMNIA, Ref 0 (Reported) Entered as Reported by: MARISSA WESLEY on 06/27/20 1242 Last Taken: Unknown Dose on 10/13/20 Last Action: Last Taken Edited on 10/14/20722 by MELISSA ELAINE Discontinued Medications Tramadol Hcl (Tramadol Hcl) 50 Mg Tablet, 100 MG PO PRN TID PRN for PAIN, (Reported) Entered as Reported by: FILIPE NAVA on 08/09/19 1323 Justicifation of Admission Dx: Justifications for Admission: Justification of Admission Dx: N/A EVERARDO MENDES APRN Oct 17, 2020 11:08
--- NOTE | 2020-10-17 13:50 | NUR ---
Temp 100.2 and O2 sat 89% on 2l per n/c. Notified Dr. Floyd and gave orders to Consult Dr. Bender. Notified.
--- NOTE | 2020-10-17 14:32 | RAD ---
XR CHEST 1V History: pneumonia Comparison: November 12, 2019 Findings: Patchy bibasilar opacities. Small bilateral pleural effusions. Normal heart size. No pneumothorax. Em physematous changes. Impression: 1. Small bilateral pleural effusions. 2. Patchy bibasilar opacities, may represent atelectasis or developing consolidations, recommend fol low-up. Electronically signed by: Bunny Monte DO (10/17/2020 2:29 PM) [id number]
[2020-10-17 15:30] VITALS: BP 104/46
--- NOTE | 2020-10-17 18:20 | NUR ---
Transferred from room 446 to room 414 by bed. at bedside.
[2020-10-17] MEDS ORDERED: FUROSEMIDE 20 MG/2 ML VIAL. IVP ONE (18:30)
[2020-10-17] MEDS: IV DEXTROSE 5%-LACT RINGERS 1,000 ML IV SCH (18:30)
[2020-10-17 19:00] VITALS: BP 137/74
[2020-10-17] MEDS: SERTRALINE 50 MG TABLET. PO SCH (21:04)
[2020-10-17 23:00] VITALS: BP 110/67
[2020-10-18 03:00] VITALS: BP 105/63
[2020-10-18] MEDS: fentaNYL PF VIAL 100 MCG/2 ML VIAL IVP PRN ×3 (03:40→12:05)
[2020-10-18] MEDS: ALPRAZolam 0.5 MG TABLET PO PRN ×2 (05:10→14:43)
[2020-10-18] MEDS: oxyCODONE/APAP 5/325 1 TAB TABLET PO PRN ×4 (05:11→19:52)
[2020-10-18 07:00] VITALS: BP 92/46
[2020-10-18] MEDS: ALBUTEROL SULFATE 2.5 MG/3 ML NEBU. INH SCH ×2 (07:10→11:19)
[2020-10-18] MEDS: IV DEXTROSE 5%-LACT RINGERS 1,000 ML IV SCH (07:50)
[2020-10-18] MEDS: GABAPENTIN 400 MG CAPSULE. PO SCH ×3 (08:26→21:44)
[2020-10-18] MEDS: GABAPENTIN 300 MG CAPSULE. PO SCH ×3 (08:26→21:44)
[2020-10-18] MEDS: POLYETHYLENE GLYCOL 3350 17 GM PACKET. PO SCH (08:26)
[2020-10-18] MEDS: NICOTINE 21MG PATCH. TD SCH (08:27)
--- NOTE | 2020-10-18 08:59 | PDOC ---
EVERARDO MENDES APRN 10/18/20 0859: SURGICAL PROGRESS NOTE DATE: 10/18/20 TIME: 08:58 Subjective feeling better, breathing is improved still on 02 pain manageable Vital Signs Vital Signs Date Time Temp Pulse Resp B/P (MAP) Pulse Ox O2 Delivery O2 Flow Rate FiO2 10/18/20 08:26 90 Nasal Cannula 2.0 10/18/20 06:11 20 10/18/20 03:00 97.9 95 105/63 (77) 97.9 I&O Intake and Output 10/18/20 07:00 Intake Total 480 ml Output Total 780 ml Balance -300 ml Intake Oral 480 ml Output Urine Total 750 ml Drainage Total 30 ml General: Alert, Oriented X3, Cooperative Abdomen: Soft, Other (drains serosang ) Assessment/Plan work toward weaning off o2 IS, ambulate Justicifation of Admission Dx: Justifications for Admission: Justification of Admission Dx: N/A VASHTI BHATT MD 10/18/20 1112: SURGICAL PROGRESS NOTE Assessment/Plan Agree with Brian's assessment and plan EVERARDO MENDES APRN Oct 18, 2020 08:59 VASHTI BHATT MD Oct 18, 2020 11:12
[2020-10-18 11:00] VITALS: BP 109/57
--- NOTE | 2020-10-18 13:19 | PDOC ---
Provider Note Date of Service: DATE: 10/18/20 TIME: 13:17 Provider Note felt much better after iv lasix, and less sputum now on levoflox- no temp x 24 hrs, exam ok, RLL infiltrate on cxr - cont duoneb, levoflox over weekend, may need home O2 re level of copd, she agrees Justifications for Admission Other Justification FEMI OSPINA MD Oct 18, 2020 13:19
[2020-10-18 15:00] VITALS: BP 95/50
[2020-10-18] MEDS: IPRATRPIUM/ALBUTEROL 0.5/2.5MG 3 ML NEBU. NEB SCH ×2 (15:07→21:07)
[2020-10-18 19:22] VITALS: BP 105/59
[2020-10-18] MEDS: LACTOBACILLUS RHAMNOSUS GG 1 CAPSULE. PO SCH (21:44)
[2020-10-18] MEDS: SERTRALINE 50 MG TABLET. PO SCH (21:44)
[2020-10-18 23:19] VITALS: BP 101/47
[2020-10-19] MEDS: oxyCODONE/APAP 5/325 1 TAB TABLET PO PRN ×5 (00:50→21:12)
[2020-10-19 03:10] VITALS: BP 97/44
[2020-10-19] MEDS: fentaNYL PF VIAL 100 MCG/2 ML VIAL IVP PRN ×4 (03:16→13:57)
[2020-10-19] MEDS: ALPRAZolam 0.5 MG TABLET PO PRN ×2 (03:16→17:54)
[2020-10-19 07:00] VITALS: BP 99/53
[2020-10-19] MEDS: IPRATRPIUM/ALBUTEROL 0.5/2.5MG 3 ML NEBU. NEB SCH ×4 (07:06→19:49)
[2020-10-19] MEDS: GABAPENTIN 400 MG CAPSULE. PO SCH ×3 (08:28→21:11)
[2020-10-19] MEDS: LACTOBACILLUS RHAMNOSUS GG 1 CAPSULE. PO SCH ×2 (08:28→21:12)
[2020-10-19] MEDS: GABAPENTIN 300 MG CAPSULE. PO SCH ×3 (08:28→21:11)
[2020-10-19] MEDS: NICOTINE 21MG PATCH. TD SCH (08:28)
[2020-10-19] MEDS: POLYETHYLENE GLYCOL 3350 17 GM PACKET. PO SCH (08:29)
--- NOTE | 2020-10-19 09:39 | NUR ---
Pt. stated she has not been able to urinate. Bladder scanned at >999, Dr. Josue paged.
--- NOTE | 2020-10-19 10:18 | NUR ---
Dr Josue returned call, telephone orders received.
--- NOTE | 2020-10-19 10:56 | NUR ---
Pt. straight cathed, 1200cc clear taya urine returned.
[2020-10-19 11:00] VITALS: BP 98/49
--- NOTE | 2020-10-19 12:13 | PDOC ---
EVERARDO MENDES APRN 10/19/20 1213: SURGICAL PROGRESS NOTE DATE: 10/19/20 TIME: 12:11 Subjective feels worse today more pain,some back pain was not able to urinate again--required straight cath + flatus Vital Signs Vital Signs Date Time Temp Pulse Resp B/P (MAP) Pulse Ox O2 Delivery O2 Flow Rate FiO2 10/19/20 12:03 Nasal Cannula 2.0 10/19/20 11:00 98.1 113 16 98/49 (65) 96 98.1 I&O Intake and Output 10/19/20 07:00 Intake Total 1200 ml Balance 1200 ml Intake Oral 1200 ml # Voids 3 General: Alert, Oriented X3, Cooperative Abdomen: Soft, Other (drains serosang, incision c/d/i, mild distended ) Assessment/Plan if unable to void with place crawford, check UA, labs Justicifation of Admission Dx: Justifications for Admission: Justification of Admission Dx: N/A VASHTI BHATT MD 10/19/20 1407: SURGICAL PROGRESS NOTE Assessment/Plan Patient appears to be stable surgically. Agree with Jonh assessment and plan continue supportive care EVERARDO MENDES APRN Oct 19, 2020 12:13 VASHTI BHATT MD Oct 19, 2020 14:07
[2020-10-19 14:06] LABS: BASO # 0.1 x10^3/uL (0.0-0.2); BASO % 1 % (0-3); EOS # 0.1 x10^3/uL (0.0-0.7); EOS % 1 % (0-3); HEMATOCRIT 27.4 % (36.0-47.0); HEMOGLOBIN 9.2 g/dL (12.0-15.5); LYMPH # 1.4 x10^3/uL (1.0-4.8); LYMPH % 13 % (24-48); MEAN CORPUSCULAR HEMOGLOBIN 30 pg (25-35); MEAN CORPUSCULAR HGB CONC 34 g/dL (31-37); MEAN CORPUSCULAR VOLUME 90 fL (79-100); MONO # 1.4 x10^3/uL (0.0-1.1); MONO % 14 % (0-9); NEUT # 7.3 x10^3/uL (1.8-7.7); NEUT % 71 % (31-73); PLATELET COUNT 392 x10^3/uL (140-400); RED BLOOD COUNT 3.03 x10^6/uL (3.50-5.40); RED CELL DISTRIBUTION WIDTH 14.7 % (11.5-14.5); WHITE BLOOD COUNT 10.3 x10^3/uL (4.0-11.0)
[2020-10-19 14:09] LABS: CALCIUM 8.4 mg/dL (8.5-10.1); CREATININE 0.6 mg/dL (0.6-1.0); GFR 101.6; POTASSIUM 3.8 mmol/L (3.5-5.1)
[2020-10-19 15:00] VITALS: BP_SYST 101; BP_SYST 124; BP_DIAS 60; BP_DIAS 74
--- NOTE | 2020-10-19 17:08 | NUR ---
Pt unable to void, agreeable to crawford placement.
--- NOTE | 2020-10-19 17:51 | PN ---
DATE: 10/19/2020 DAILY PROGRESS NOTE LOCATION: She is in room 414. SUBJECTIVE: The patient is awake, alert, lying in bed, feels like she is a little more uncomfortable through her abdomen today than she was yesterday. She has not had a bowel movement today, but has some flatus. She has had difficulties expelling her urine. OBJECTIVE: VITAL SIGNS: Stable. She is afebrile. GENERAL: She is awake and alert. CHEST: Clear. HEART: Regular. ABDOMEN: Somewhat distended and very mildly tender over the incision. EXTREMITIES: Without cyanosis, clubbing, edema. NEUROLOGIC: She is intact. GENITOURINARY: She has had urinary retention. Once again, this morning, requiring straight cath and will need indwelling catheter if this happens again. IMPRESSION: 1. Status post ventral abdominal hernia repair. 2. Postoperative pneumonia. 3. Chronic obstructive pulmonary disease, still requiring 2 liters per nasal cannula O2. PLAN: Continue postoperative care. Current straight cath with placement of Kay if continues. Await return of bowel function. SEVEN CHASE MD DR: HENRY/kade JOB#: [id number] / [id number]
[2020-10-19 18:40] LABS: BILIRUBIN,URINE NEGATIVE (NEG); CLARITY,URINE CLEAR; COLOR,URINE YELLOW; NITRITE,URINE NEGATIVE (NEG); PH,URINE 6.5 (<5.0-8.0); PROTEIN,URINE NEGATIVE (NEG-TRACE)
[2020-10-19 18:50] LABS: HYALINE CASTS, URINE FEW /HPF
[2020-10-19 18:51] LABS: BACTERIA,URINE 0 /HPF (0-FEW)
[2020-10-19 19:35] VITALS: BP 94/44
[2020-10-19] MEDS: SERTRALINE 50 MG TABLET. PO SCH (21:12)
[2020-10-19 22:45] VITALS: BP 113/57
[2020-10-20] MEDS: ALPRAZolam 0.5 MG TABLET PO PRN ×2 (02:43→18:12)
[2020-10-20] MEDS: oxyCODONE/APAP 5/325 1 TAB TABLET PO PRN ×6 (02:43→23:35)
[2020-10-20 03:35] VITALS: BP 96/47
[2020-10-20] MEDS: IPRATRPIUM/ALBUTEROL 0.5/2.5MG 3 ML NEBU. NEB SCH ×4 (06:14→20:00)
[2020-10-20 07:00] VITALS: BP 104/53
[2020-10-20] MEDS: GABAPENTIN 400 MG CAPSULE. PO SCH ×3 (08:28→20:14)
[2020-10-20] MEDS: GABAPENTIN 300 MG CAPSULE. PO SCH ×3 (08:28→20:14)
[2020-10-20] MEDS: LACTOBACILLUS RHAMNOSUS GG 1 CAPSULE. PO SCH ×2 (08:28→20:14)
[2020-10-20] MEDS: NICOTINE 21MG PATCH. TD SCH (08:29)
[2020-10-20] MEDS: POLYETHYLENE GLYCOL 3350 17 GM PACKET. PO SCH (08:32)
[2020-10-20] MEDS: fentaNYL PF VIAL 100 MCG/2 ML VIAL IVP PRN ×4 (08:37→20:15)
[2020-10-20 11:00] VITALS: BP 112/59
--- NOTE | 2020-10-20 11:49 | PDOC ---
EVERARDO MENDES METALWORKING SPECIALIST 10/20/20 1149: SURGICAL PROGRESS NOTE DATE: 10/20/20 TIME: 11:46 Subjective ongoing back pain no nausea some flatus, no stool required crawford says Dr Josue planning MRI of back Vital Signs Vital Signs Date Time Temp Pulse Resp B/P (MAP) Pulse Ox O2 Delivery O2 Flow Rate FiO2 10/20/20 11:25 Nasal Cannula 2.0 10/20/20 11:24 20 10/20/20 11:00 98.5 95 112/59 (76) 90 98.5 I&O Intake and Output 10/20/20 07:00 Output Total 2640 ml Balance -2640 ml Output Urine Total 2600 ml Drainage Total 40 ml # Voids 2 General: Alert, Oriented X3, Cooperative Abdomen: Soft, Other (mildly distended, drains serosang) Labs Laboratory Tests Test 10/19/20 13:40 10/19/20 17:00 White Blood Count 10.3 x10^3/uL (4.0-11.0) Red Blood Count 3.03 x10^6/uL (3.50-5.40) Hemoglobin 9.2 g/dL (12.0-15.5) Hematocrit 27.4 % (36.0-47.0) Mean Corpuscular Volume 90 fL (79-100) Mean Corpuscular Hemoglobin 30 pg (25-35) Mean Corpuscular Hemoglobin Concent 34 g/dL (31-37) Red Cell Distribution Width 14.7 % (11.5-14.5) Platelet Count 392 x10^3/uL (140-400) Neutrophils (%) (Auto) 71 % (31-73) Lymphocytes (%) (Auto) 13 % (24-48) Monocytes (%) (Auto) 14 % (0-9) Eosinophils (%) (Auto) 1 % (0-3) Basophils (%) (Auto) 1 % (0-3) Neutrophils # (Auto) 7.3 x10^3/uL (1.8-7.7) Lymphocytes # (Auto) 1.4 x10^3/uL (1.0-4.8) Monocytes # (Auto) 1.4 x10^3/uL (0.0-1.1) Eosinophils # (Auto) 0.1 x10^3/uL (0.0-0.7) Basophils # (Auto) 0.1 x10^3/uL (0.0-0.2) Sodium Level 129 mmol/L (136-145) Potassium Level 3.8 mmol/L (3.5-5.1) Chloride Level 93 mmol/L (98-107) Carbon Dioxide Level 26 mmol/L (21-32) Anion Gap 10 (6-14) Blood Urea Nitrogen 7 mg/dL (7-20) Creatinine 0.6 mg/dL (0.6-1.0) Estimated GFR (Cockcroft-Gault) 101.6 Glucose Level 115 mg/dL (70-99) Calcium Level 8.4 mg/dL (8.5-10.1) Urine Collection Type Unknown Urine Color Yellow Urine Clarity Clear Urine pH 6.5 (<5.0-8.0) Urine Specific Rowe 1.010 (1.000-1.030) Urine Protein Negative mg/dL (NEG-TRACE) Urine Glucose (UA) Negative mg/dL (NEG) Urine Ketones (Stick) Trace mg/dL (NEG) Urine Blood Moderate (NEG) Urine Nitrite Negative (NEG) Urine Bilirubin Negative (NEG) Urine Urobilinogen Dipstick 1.0 mg/dL (0.2 mg/dL) Urine Leukocyte Esterase Small (NEG) Urine RBC 1-2 /HPF (0-2) Urine WBC 1-4 /HPF (0-4) Urine Squamous Epithelial Cells Few /LPF Urine Bacteria 0 /HPF (0-FEW) Urine Hyaline Casts Few /HPF Urine Mucus Slight /LPF Laboratory Tests Test 10/19/20 13:40 10/19/20 17:00 White Blood Count 10.3 x10^3/uL (4.0-11.0) Red Blood Count 3.03 x10^6/uL (3.50-5.40) Hemoglobin 9.2 g/dL (12.0-15.5) Hematocrit 27.4 % (36.0-47.0) Mean Corpuscular Volume 90 fL (79-100) Mean Corpuscular Hemoglobin 30 pg (25-35) Mean Corpuscular Hemoglobin Concent 34 g/dL (31-37) Red Cell Distribution Width 14.7 % (11.5-14.5) Platelet Count 392 x10^3/uL (140-400) Neutrophils (%) (Auto) 71 % (31-73) Lymphocytes (%) (Auto) 13 % (24-48) Monocytes (%) (Auto) 14 % (0-9) Eosinophils (%) (Auto) 1 % (0-3) Basophils (%) (Auto) 1 % (0-3) Neutrophils # (Auto) 7.3 x10^3/uL (1.8-7.7) Lymphocytes # (Auto) 1.4 x10^3/uL (1.0-4.8) Monocytes # (Auto) 1.4 x10^3/uL (0.0-1.1) Eosinophils # (Auto) 0.1 x10^3/uL (0.0-0.7) Basophils # (Auto) 0.1 x10^3/uL (0.0-0.2) Sodium Level 129 mmol/L (136-145) Potassium Level 3.8 mmol/L (3.5-5.1) Chloride Level 93 mmol/L (98-107) Carbon Dioxide Level 26 mmol/L (21-32) Anion Gap 10 (6-14) Blood Urea Nitrogen 7 mg/dL (7-20) Creatinine 0.6 mg/dL (0.6-1.0) Estimated GFR (Cockcroft-Gault) 101.6 Glucose Level 115 mg/dL (70-99) Calcium Level 8.4 mg/dL (8.5-10.1) Urine Collection Type Unknown Urine Color Yellow Urine Clarity Clear Urine pH 6.5 (<5.0-8.0) Urine Specific Rowe 1.010 (1.000-1.030) Urine Protein Negative mg/dL (NEG-TRACE) Urine Glucose (UA) Negative mg/dL (NEG) Urine Ketones (Stick) Trace mg/dL (NEG) Urine Blood Moderate (NEG) Urine Nitrite Negative (NEG) Urine Bilirubin Negative (NEG) Urine Urobilinogen Dipstick 1.0 mg/dL (0.2 mg/dL) Urine Leukocyte Esterase Small (NEG) Urine RBC 1-2 /HPF (0-2) Urine WBC 1-4 /HPF (0-4) Urine Squamous Epithelial Cells Few /LPF Urine Bacteria 0 /HPF (0-FEW) Urine Hyaline Casts Few /HPF Urine Mucus Slight /LPF Problem List still requiring o2 will need urology FU MRI as per PCP Justicifation of Admission Dx: Justifications for Admission: Justification of Admission Dx: N/A VASHTI BHATT MD 10/20/20 1307: SURGICAL PROGRESS NOTE Assessment/Plan Agree with Jonh assessment plan follow-up on MRI results EVERARDO MENDES METALWORKING SPECIALIST Oct 20, 2020 11:49 VASHTI BHATT MD Oct 20, 2020 13:07
--- NOTE | 2020-10-20 12:30 | PN ---
DATE: 10/20/2020 LOCATION: She is in room 414. SUBJECTIVE: The patient is awake, alert, is in attendance. She has multiple questions regarding her inability to urinate. I was able to elicit out of her history that for a month or so prior to admission, she would sometimes go to the bathroom and be unable to start her urination and thought they were false alarms and maybe she was developing a urine infection. She has had prior neck surgery and has continuous numbness of her left leg and has noticed that it is not as strong and on testing it is definitely not as strong. She still has not had a bowel movement since surgery. In addition, raising the question of fecal stool causing difficulties in addition with her urination versus something neurological coming out of her back At any rate, I feel she needs an MRI to further elucidate her back and may need enemas, etc., which she currently refuses to solve her urinary difficulties. OBJECTIVE: VITAL SIGNS: Stable. She is afebrile. She is awake and alert. Renal functions within normal limits. Urine shows no evidence of infection. CHEST: Clear. HEART: Regular. ABDOMEN: Less distended. A Kay catheter is in place. IMPRESSION: 1. Status post ventral abdominal hernia repair. 2. Postoperative anemia. 3. Chronic obstructive pulmonary disease. 4. Urinary retention as discussed above. PLAN: MRI of the lower back, to rule out neurogenic cause for her bladder. If this is negative, we will obviously need stool care and hopefully she will have a bowel movement today, anyway she has been getting lots of MiraLax from Surgery since the surgery. SEVEN CHASE MD DR: HENRY/kade JOB#: [id number] / [id number]
[2020-10-20 15:00] VITALS: BP 126/59
[2020-10-20 19:00] VITALS: BP 112/56
[2020-10-20] MEDS: SERTRALINE 50 MG TABLET. PO SCH (20:14)
[2020-10-20 23:38] VITALS: BP 116/62
[2020-10-21] MEDS: fentaNYL PF VIAL 100 MCG/2 ML VIAL IVP PRN ×5 (00:42→21:27)
[2020-10-21 03:00] VITALS: BP 143/60
[2020-10-21] MEDS: oxyCODONE/APAP 5/325 1 TAB TABLET PO PRN ×5 (04:03→23:33)
[2020-10-21] MEDS: ALPRAZolam 0.5 MG TABLET PO PRN (04:03)
[2020-10-21] MEDS: IPRATRPIUM/ALBUTEROL 0.5/2.5MG 3 ML NEBU. NEB SCH ×3 (06:59→20:00)
[2020-10-21 07:00] VITALS: BP 107/54
[2020-10-21] MEDS: LACTOBACILLUS RHAMNOSUS GG 1 CAPSULE. PO SCH ×2 (08:56→21:23)
[2020-10-21] MEDS: GABAPENTIN 400 MG CAPSULE. PO SCH ×3 (08:56→21:23)
[2020-10-21] MEDS: GABAPENTIN 300 MG CAPSULE. PO SCH ×3 (08:56→21:23)
[2020-10-21] MEDS: POLYETHYLENE GLYCOL 3350 17 GM PACKET. PO SCH (08:56)
[2020-10-21] MEDS: NICOTINE 21MG PATCH. TD SCH (08:57)
--- NOTE | 2020-10-21 08:58 | PDOC ---
Provider Note Date of Service: DATE: 10/21/20 TIME: 08:57 Provider Note will repeat covid, was neg10/09- mri re back pain pending , may be related to ongoing urinary retentio as spinal/compresive cause- crawford in, rest same Justifications for Admission Other Justification FEMI OSPINA MD Oct 21, 2020 08:58
--- NOTE | 2020-10-21 10:20 | NUR ---
Covid swab collected and walked down to lab.
--- NOTE | 2020-10-21 10:36 | RAD ---
EXAM: Chest, 2 views. HISTORY: Cough. Dyspnea. COMPARISON: 10/17/2020 FINDINGS: 2 views of the chest are obtained. There has been slight interval decrease in right lower l obe infiltrate and there is stable left lower lobe infiltrate superimposed on diffuse increased inter stitial opacity. There is emphysema. There are stable small pleural effusions. There is no pneumothor ax. The heart is normal in size. There is partial visualization of cervical spinal fusion instrumenta tion. IMPRESSION: 1. Slight decreased right lower lobe infiltrate and stable left lower lobe infiltrate superimposed on small pleural effusions. 2. Stable diffuse increased interstitial opacity likely due to chronic interstitial change or interst itial infiltrate. Electronically signed by: Marleny Holcomb MD (10/21/2020 10:34 AM) [id number]
[2020-10-21 11:00] VITALS: BP 116/53
--- NOTE | 2020-10-21 11:10 | PDOC ---
EVERARDO MENDES SCREEN TENDER HELPER 10/21/20 1110: SURGICAL PROGRESS NOTE DATE: 10/21/20 TIME: 11:08 Subjective still with back pain eating stooling Vital Signs Vital Signs Date Time Temp Pulse Resp B/P (MAP) Pulse Ox O2 Delivery O2 Flow Rate FiO2 10/21/20 10:37 Room Air 10/21/20 08:56 4.0 10/21/20 07:00 97.7 78 16 107/54 (71) 91 97.7 I&O Intake and Output 10/21/20 07:00 Intake Total 300 ml Balance 300 ml Intake Oral 300 ml PATIENT HAS A HOFF: Yes (retention) Abdomen: Soft, Other (drains serosang) Labs Laboratory Tests Test 10/19/20 13:40 10/19/20 17:00 White Blood Count 10.3 x10^3/uL (4.0-11.0) Red Blood Count 3.03 x10^6/uL (3.50-5.40) Hemoglobin 9.2 g/dL (12.0-15.5) Hematocrit 27.4 % (36.0-47.0) Mean Corpuscular Volume 90 fL (79-100) Mean Corpuscular Hemoglobin 30 pg (25-35) Mean Corpuscular Hemoglobin Concent 34 g/dL (31-37) Red Cell Distribution Width 14.7 % (11.5-14.5) Platelet Count 392 x10^3/uL (140-400) Neutrophils (%) (Auto) 71 % (31-73) Lymphocytes (%) (Auto) 13 % (24-48) Monocytes (%) (Auto) 14 % (0-9) Eosinophils (%) (Auto) 1 % (0-3) Basophils (%) (Auto) 1 % (0-3) Neutrophils # (Auto) 7.3 x10^3/uL (1.8-7.7) Lymphocytes # (Auto) 1.4 x10^3/uL (1.0-4.8) Monocytes # (Auto) 1.4 x10^3/uL (0.0-1.1) Eosinophils # (Auto) 0.1 x10^3/uL (0.0-0.7) Basophils # (Auto) 0.1 x10^3/uL (0.0-0.2) Sodium Level 129 mmol/L (136-145) Potassium Level 3.8 mmol/L (3.5-5.1) Chloride Level 93 mmol/L (98-107) Carbon Dioxide Level 26 mmol/L (21-32) Anion Gap 10 (6-14) Blood Urea Nitrogen 7 mg/dL (7-20) Creatinine 0.6 mg/dL (0.6-1.0) Estimated GFR (Cockcroft-Gault) 101.6 Glucose Level 115 mg/dL (70-99) Calcium Level 8.4 mg/dL (8.5-10.1) Urine Collection Type Unknown Urine Color Yellow Urine Clarity Clear Urine pH 6.5 (<5.0-8.0) Urine Specific [place] 1.010 (1.000-1.030) Urine Protein Negative mg/dL (NEG-TRACE) Urine Glucose (UA) Negative mg/dL (NEG) Urine Ketones (Stick) Trace mg/dL (NEG) Urine Blood Moderate (NEG) Urine Nitrite Negative (NEG) Urine Bilirubin Negative (NEG) Urine Urobilinogen Dipstick 1.0 mg/dL (0.2 mg/dL) Urine Leukocyte Esterase Small (NEG) Urine RBC 1-2 /HPF (0-2) Urine WBC 1-4 /HPF (0-4) Urine Squamous Epithelial Cells Few /LPF Urine Bacteria 0 /HPF (0-FEW) Urine Hyaline Casts Few /HPF Urine Mucus Slight /LPF Assessment/Plan MRI pending Justicifation of Admission Dx: Justifications for Admission: Justification of Admission Dx: N/A VASHTI BHATT MD 10/21/20 1344: SURGICAL PROGRESS NOTE Assessment/Plan Agree with Brian's assessment and plan EVERARDO MENDES APRN Oct 21, 2020 11:10 VASHTI BHATT MD Oct 21, 2020 13:44
[2020-10-21 11:18] LABS: CALCIUM 9.1 mg/dL (8.5-10.1); CREATININE 0.5 mg/dL (0.6-1.0); GFR 125.4; POTASSIUM 4.1 mmol/L (3.5-5.1)
[2020-10-21 15:00] VITALS: BP 124/73
[2020-10-21 19:00] VITALS: BP 109/46
[2020-10-21] MEDS: SERTRALINE 50 MG TABLET. PO SCH (21:23)
[2020-10-21 23:00] VITALS: BP 110/49
[2020-10-22] MEDS: fentaNYL PF VIAL 100 MCG/2 ML VIAL IVP PRN ×5 (02:46→23:50)
[2020-10-22 03:00] VITALS: BP 120/63
[2020-10-22] MEDS: oxyCODONE/APAP 5/325 1 TAB TABLET PO PRN ×4 (05:49→20:49)
[2020-10-22] MEDS: IPRATRPIUM/ALBUTEROL 0.5/2.5MG 3 ML NEBU. NEB SCH ×4 (06:35→18:29)
[2020-10-22 07:00] VITALS: BP 128/65
[2020-10-22] MEDS: POLYETHYLENE GLYCOL 3350 17 GM PACKET. PO SCH (08:37)
[2020-10-22] MEDS: NICOTINE 21MG PATCH. TD SCH (08:45)
[2020-10-22] MEDS: GABAPENTIN 400 MG CAPSULE. PO SCH ×3 (08:45→20:43)
[2020-10-22] MEDS: LACTOBACILLUS RHAMNOSUS GG 1 CAPSULE. PO SCH ×2 (08:45→20:43)
[2020-10-22] MEDS: GABAPENTIN 300 MG CAPSULE. PO SCH ×3 (08:45→20:43)
--- NOTE | 2020-10-22 08:58 | PDOC ---
Provider Note Date of Service: DATE: 10/22/20 TIME: 08:57 Provider Note cough/dyspnea better but back pain persists, urinary retentin may be related- mri ordered but pending as is covid- cxr better- cont same meds, need mri to discern next steps, 6 min walk Justifications for Admission Other Justification FEMI OSPINA MD Oct 22, 2020 08:58
[2020-10-22 11:00] VITALS: BP 98/53
--- NOTE | 2020-10-22 12:13 | PDOC ---
EVERARDO MENDES TRANSLITERATOR 10/22/20 1213: SURGICAL PROGRESS NOTE DATE: 10/22/20 TIME: 12:11 Subjective tolerating diet bowels functioning lower back and drain site discomfort Vital Signs Vital Signs Date Time Temp Pulse Resp B/P (MAP) Pulse Ox O2 Delivery O2 Flow Rate FiO2 10/22/20 12:09 Nasal Cannula 3.0 10/22/20 11:00 98.0 95 18 98/53 (68) 90 98.0 I&O Intake and Output 10/22/20 07:00 Intake Total 600 ml Output Total 2210 ml Balance -1610 ml Intake Oral 600 ml Output Urine Total 2200 ml Drainage Total 10 ml General: Alert, Oriented X3, Cooperative Abdomen: Soft, Other (incision c/d/i, no erythema, drains in place) Labs Laboratory Tests Test 10/21/20 10:50 Sodium Level 132 mmol/L (136-145) Potassium Level 4.1 mmol/L (3.5-5.1) Chloride Level 95 mmol/L (98-107) Carbon Dioxide Level 28 mmol/L (21-32) Anion Gap 9 (6-14) Blood Urea Nitrogen 5 mg/dL (7-20) Creatinine 0.5 mg/dL (0.6-1.0) Estimated GFR (Cockcroft-Gault) 125.4 Glucose Level 90 mg/dL (70-99) Calcium Level 9.1 mg/dL (8.5-10.1) Assessment/Plan noted only 10cc from both drains since 10/20--will remove drains awaiting MRI, 6 min walk Justicifation of Admission Dx: Justifications for Admission: Justification of Admission Dx: N/A VASHTI BHATT MD 10/22/20 1219: SURGICAL PROGRESS NOTE Assessment/Plan Overall patient improving agree with Borja assessment plan remove drains continue supportive care EVERARDO MENDES TRANSLITERATOR Oct 22, 2020 12:13 VASHTI BHATT MD Oct 22, 2020 12:19
[2020-10-22 15:00] VITALS: BP 136/61
[2020-10-22] MEDS: ALPRAZolam 0.5 MG TABLET PO PRN (15:19)
--- NOTE | 2020-10-22 16:15 | RAD ---
MR LUMBAR SPINE WO [id number] Date: 10/22/2020 1:30 PM Indication: leg weakness and numbness and urinary Comparison: CT abdomen pelvis 11/12/2018. Technique: Multi-planar multi-weighted magnetic resonance imaging of the lumbar spine was performed w ithout intravenous contrast using the standard lumbar spine protocol. FINDINGS: The lumbar spine is normally aligned. No acute fracture. Mild to moderate multilevel degenerative dis c desiccation and disc height loss. Mild edema in the articulating facets of L5-S1 on the left, proba agustín degenerative. The conus terminates at a normal level. No abnormal signal is seen within the visualized distal spina l cord. No clumping of intrathecal nerve roots. No soft tissue abnormality in the visualized abdomen or pelvis. T12-L1: No disc bulge. No facet arthropathy. No significant spinal stenosis or neural foraminal narro wing. L1-L2: Disc bulge. Mild facet arthropathy. No significant spinal stenosis or neural foraminal narrowi ng. L2-L3: Disc bulge. Mild facet arthropathy. No significant spinal stenosis. Mild bilateral neural fora jayy narrowing. L3-L4: Disc bulge. Mild to moderate facet arthropathy. No significant spinal stenosis. Mild to modera te bilateral neural foraminal narrowing. L4-L5: Disc bulge with annular tear. Moderate facet arthropathy. Ligamentum flavum thickening. Modera te to severe spinal stenosis and lateral recess and. Severe right and mild to moderate left neural fo raminal narrowing. L5-S1: Disc bulge. Mild facet arthropathy. No significant spinal stenosis or neural foraminal narrowi ng. IMPRESSION: Lumbar spondylosis with moderate to severe spinal canal stenosis at L4-5. Degenerative changes otherw ise detailed level by level above. Electronically signed by: Nicola Lawson MD (10/22/2020 4:13 PM) [facility]
[2020-10-22 19:00] VITALS: BP 112/53
[2020-10-22] MEDS: SERTRALINE 50 MG TABLET. PO SCH (20:42)
[2020-10-22 23:00] VITALS: BP 129/66
[2020-10-23 03:00] VITALS: BP 148/68
[2020-10-23] MEDS: oxyCODONE/APAP 5/325 1 TAB TABLET PO PRN ×4 (03:08→16:57)
[2020-10-23] MEDS: ALPRAZolam 0.5 MG TABLET PO PRN (06:12)
[2020-10-23] MEDS: NICOTINE 21MG PATCH. TD SCH (06:14)
[2020-10-23] MEDS: fentaNYL PF VIAL 100 MCG/2 ML VIAL IVP PRN ×4 (06:17→16:57)
[2020-10-23 07:00] VITALS: BP 122/63
[2020-10-23] MEDS: IPRATRPIUM/ALBUTEROL 0.5/2.5MG 3 ML NEBU. NEB SCH ×3 (07:22→15:38)
--- NOTE | 2020-10-23 08:08 | PDOC ---
SURGICAL PROGRESS NOTE DATE: 10/23/20 TIME: 08:06 Subjective Patient doing well tolerating diet having bowel movements still complaining of lower back pain Hoff catheter still in place due to urinary retention Vital Signs Vital Signs Date Time Temp Pulse Resp B/P (MAP) Pulse Ox O2 Delivery O2 Flow Rate FiO2 10/23/20 07:24 96 Nasal Cannula 3.0 10/23/20 06:17 20 10/23/20 03:00 98.0 95 148/68 (94) 98.0 I&O Intake and Output 10/23/20 07:00 Intake Total 400 ml Output Total 2325 ml Balance -1925 ml Intake Oral 400 ml Output Urine Total 2325 ml PATIENT HAS A HOFF: Yes General: Alert, Oriented X3, Cooperative, mild distress Abdomen: Normal bowel sounds, Soft, Other (Mild incisional tenderness wounds clean dry and intact ANTONETTE drains been removed) Labs Laboratory Tests Test 10/21/20 10:20 10/21/20 10:50 Coronavirus (PCR) Not detected (Not Detected) Sodium Level 132 mmol/L (136-145) Potassium Level 4.1 mmol/L (3.5-5.1) Chloride Level 95 mmol/L (98-107) Carbon Dioxide Level 28 mmol/L (21-32) Anion Gap 9 (6-14) Blood Urea Nitrogen 5 mg/dL (7-20) Creatinine 0.5 mg/dL (0.6-1.0) Estimated GFR (Cockcroft-Gault) 125.4 Glucose Level 90 mg/dL (70-99) Calcium Level 9.1 mg/dL (8.5-10.1) Assessment/Plan Patient appears stable from surgical standpoint on her ventral hernia repair Awaiting input from neuro on MRI Justicifation of Admission Dx: Justifications for Admission: Justification of Admission Dx: N/A VASHTI BHATT MD Oct 23, 2020 08:08
[2020-10-23] MEDS: GABAPENTIN 300 MG CAPSULE. PO SCH ×2 (08:23→14:50)
[2020-10-23] MEDS: GABAPENTIN 400 MG CAPSULE. PO SCH ×2 (08:23→14:50)
[2020-10-23] MEDS: LACTOBACILLUS RHAMNOSUS GG 1 CAPSULE. PO SCH (08:23)
[2020-10-23] MEDS: POLYETHYLENE GLYCOL 3350 17 GM PACKET. PO SCH (08:24)
[2020-10-23 11:00] VITALS: BP 138/60
--- NOTE | 2020-10-23 13:11 | PDOC ---
Provider Note Date of Service: DATE: 10/23/20 TIME: 13:09 Provider Note Patient seen and examined consulted for lumbar spinal stenosis c/o back pain and recent episodes of urinary retention negative neuro exam moderate stenosis on her lumbar MRI but it does not appear severe enough to be associated with bladder control keep crawford, f/u with urology and follow up with us as an OP D/W RN Justifications for Admission Other Justification MICHELLE POE MD Oct 23, 2020 13:11
[2020-10-23 15:00] VITALS: BP 130/58
== END 2020-10-23 18:40 | disposition home or self-care (01) | DRG 353 ==
LOC: OPSVCIP 06:34 → EDSTATUS 08:00 → 4 SOUTHEST 12:27 → 4 NORTH 10-17 18:58
PROVIDERS: ADMIT Surgery; ATTEND Surgery
PROC: 0KNK0ZZ Release Right Abdomen Muscle, Open Approach (ICD-10-PCS; 2020-10-14)
PROC: 0KNL0ZZ Release Left Abdomen Muscle, Open Approach (ICD-10-PCS; 2020-10-14)
PROC: 0WUF0JZ Supplement Abdominal Wall with Synthetic Substitute, Open Approach (ICD-10-PCS; principal; 2020-10-14 08:00)
PROC: 5A09357 Assistance with Respiratory Ventilation, Less than 24 Consecutive Hours, Continuous Positive Airway Pressure (ICD-10-PCS; 2020-10-20)
DX: K43.0 Incisional hernia with obstruction, without gangrene (principal); J18.9 Pneumonia, unspecified organism; J44.0 Chronic obstructive pulmonary disease with (acute) lower respiratory infection; R33.9 Retention of urine, unspecified; D64.9 Anemia, unspecified; Z20.828 Contact with and (suspected) exposure to other viral communicable diseases; Z88.6 Allergy status to analgesic agent
CPT/HCPCS: 36415; 71045; 71046; 72148; 80048; 81001; 85025; 87070; 87086; 87205; 88304; 94618; 94640; 94760; 99406; C1769; C1781; J0330; J0690; J0694; J0780; J1100; J1170; J1885; J1940; J2405; J2704; J2710; J3010; J3490; J7120; J7121; U0003; G0378; J7613

== ENCOUNTER 2021-04-17 06:49 | Outpatient (CLI) | payer BC ==
[~2021-04-17] VITALS: Ht 160 cm; Wt 54.5 kg
[2021-04-17] VITALS (12 sets, daily range): BP systolic 90–111; BP diastolic 42–74
[~2021-04-17 06:49] MED LIST changes: -ACETAMINOPHEN 500 MG TABLET PO ONE; -BUPIVACAINE-EPI 0.25%-1:200000 MPF 30 ML VIAL. INJ ONE; -CHOL10003 PO; +CHOL10004 PO; -ceFAZolin SODIUM IV Push 1 GM VIAL. IVP ONE
[2021-04-17] MEDS ORDERED: LIDOCAINE 1% PF 2 ML VIAL. ONE (07:33)
[2021-04-17] MEDS ORDERED: HEPARIN for ARTERIAL LINE 1,500 ML ONE (07:33)
[2021-04-17] MEDS ORDERED: IODIXANOL 320 MG/ML 100 ML VIAL. ONE (07:34)
--- NOTE | 2021-04-17 07:48 | PDOC1 ---
History and Physical Visit Information Date of Admission: 04/17/2021 History of Present Illness History of Present Illness Kaylynn is a 60-year-old woman with past medical history as noted below who presents to the hospital for planned aortogram with runoff. She underwent a lower extremity arterial Doppler in the setting of left leg pain and neuropathy. This revealed aortoiliac disease and therefore she presents for planned interve ntion after aortogram to help alleviate her symptoms. We had a lengthy discussion in the office regarding her various symptoms which may be partially related to neuropathy and/or musculoskeletal pathology but nonetheless she does have a significantly abnormal Doppler evaluation. Cardiac Risk Factors Comments 1. Tobacco abuse 2. Dyslipidemia Current Medications Current Medications Current Medications Heparin Sodium/ Sodium Chloride 1,500 ml @ As Directed STK-MED ONCE .ROUTE ; Start 04/17/21 at 07:33; Stop 04/17/21 at 07:34; Status DC Iodixanol (Visipaque 320) 100 ml STK-MED ONCE .ROUTE ; Start 04/17/21 at 07:34; Stop 04/17/21 at 07:34; Status DC Lidocaine HCl (Xylocaine-Mpf 1% 2ml Vial) 2 ml STK-MED ONCE .ROUTE ; Start 04/17/21 at 07:33; Stop 04/17/21 at 07:33; Status DC Allergies Allergies Allergies Coded Allergies Type Severity Reaction Last Updated Verified morphine Allergy Intermediate Rash 10/14/20 Yes Social History Comments As noted above Family History Comments Noncontributory ROS Review of System Negative for 10 out of 14 systems reviewed unless otherwise mentioned above in HPI Physical Exam Comments The patient appeared well nourished and normally developed. Head exam is unremarkable. No scleral icterus or corneal arcus noted. Neck is without jugular venous distension, thyromegaly, or carotid bruits. Carotid upstrokes are brisk bilaterally. Lungs are clear to auscultation and percussion. Cardiac exam reveals the PMI to be normally sized and situated. Rhythm is regular. First and second heart sounds normal. No murmurs, rubs or gallops. Abdominal exam reveals normal bowel sounds, no masses, no organomegaly and no aortic enlargement. Extremities are nonedematous and nonpalpable left femoral and pedal pulses. Msk: No traumua Neuro: No focal deficits ECG EKG: NSR VTE Prophylaxis Ordered VTE Prophylaxis Devices: No VTE Pharmacological Prophylaxi: No Assessment/Plan Assessment/Plan 1. [place] category 3 bilateral lower extremity claudication left greater than right. Plan for aortogram with runoff. Justicifation of Admission Dx: Justifications for Admission: Justification of Admission Dx: N/A BRANDON JAMES MD Apr 17, 2021 07:48
[2021-04-17 08:08] LABS: HEMATOCRIT 38.2 % (36.0-47.0); RED BLOOD COUNT 4.12 x10^6/uL (3.50-5.40); RED CELL DISTRIBUTION WIDTH 13.8 % (11.5-14.5)
[2021-04-17 08:14] LABS: CALCIUM 9.5 mg/dL (8.5-10.1); CREATININE 0.7 mg/dL (0.6-1.0); GFR 84.8; POTASSIUM 5.3 mmol/L (3.5-5.1)
[2021-04-17] MEDS ORDERED: ERGO500089 PO (08:26)
[2021-04-17] MEDS ORDERED: TRAM50TA PO (08:26)
[2021-04-17] MEDS ORDERED: ALBU2.5V8 IH (08:26)
[2021-04-17] MEDS ORDERED: VERAPAMIL 5 MG/2 ML VIAL. ONE (08:37)
[2021-04-17] MEDS ORDERED: NITROGLYCERIN 200 MCG/2 ML SYRINGE FOR CATH/VASC LAB. ONE (08:37)
[2021-04-17] MEDS ORDERED: MIDAZOLAM HCL/PF 2 MG/2 ML VIAL. ONE (08:37)
[2021-04-17] MEDS ORDERED: HEPARIN for IV BOLUS 10,000 UNIT/10 ML VIAL. ONE (08:37)
[2021-04-17] MEDS ORDERED: fentaNYL PF VIAL 100 MCG/2 ML VIAL ONE (08:37)
[2021-04-17] MEDS ORDERED: IODIXANOL 320 MG/ML 100 ML VIAL. IART ONE (09:15)
[2021-04-17] MEDS ORDERED: MIDAZOLAM HCL/PF 2 MG/2 ML VIAL. IV ONE (09:15)
[2021-04-17] MEDS ORDERED: fentaNYL PF VIAL 100 MCG/2 ML VIAL IV ONE (09:15)
[2021-04-17] MEDS ORDERED: NITROGLYCERIN 200 MCG/2 ML SYRINGE FOR CATH/VASC LAB. IART ONE (09:15)
[2021-04-17] MEDS ORDERED: HEPARIN for IV BOLUS 10,000 UNIT/10 ML VIAL. IART ONE (09:15)
[2021-04-17] MEDS ORDERED: VERAPAMIL 5 MG/2 ML VIAL. IART ONE (09:15)
[2021-04-17] MEDS ORDERED: LIDOCAINE 1% PF 2 ML VIAL. INJ ONE (09:15)
[2021-04-17] MEDS ORDERED: CONTRAST GIVEN. MC PRN (09:30)
--- NOTE | 2021-04-17 09:44 | CARD ---
MR#: [id number] Date of Study: 04/17/2021 Ordering Physician: BRANDON JUAREZ, Referring Physician: BRANDON JUAREZ, Tech: Nara Munson RT(R) APPROVED REPORT Patient StatusOUT-PATIENT Apparel Designer: Nara Munson RT(R) Procedure(s) performed: Li Dowling Rn Sedation Time: 38 Minutes Fluoro Time: 3.2 Minutes Dose: 50 Gycm2 Contrast: 75 mL Visipaque AORTOGRAM WITH BILATERAL RUN-OFF HISTORY The patient is a 60 year-old female with a history of : tobacco history() , hypertension, dyslipidemi a. INDICATION FOR PROCEDURE The indication(s) include : Bilateral claudication. PROCEDURE NARRATIVE Clinical information: 60-year-old woman presents to the catheterization laboratory for planned outpatient aortogram with ru noff in the setting of worsening left lower extremity claudication. Procedure details: After appropriate informed consent the right wrist was prepped and draped in usual sterile fashion. Under 1% lidocaine local anesthesia a 6 [place] sheath was placed in the right radial artery. Next, a 6 [place] radial tip peripheral multipurpose catheter was placed in the abdominal aorta and digital s ubtraction angiography with runoff was performed. At case completion the catheter was removed and th e sheath was removed and hemostasis was achieved with Terumo radial band. No acute complications wer e noted. Findings: Aorta: Proximal and mid abdominal aorta has no significant disease. The distal abdominal aorta has m ild to moderate tapering of up to 30%. Bilateral renal arteries are patent with mild disease of up to 30% Right common iliac: Has a proximal 80% stenosis Right external iliac artery has no significant disease Right internal iliac artery has no significant disease Right common femoral artery has no significant disease Right superficial femoral artery has no significant disease Right popliteal artery has no significant disease Right tibioperoneal trunk has no significant disease Left common iliac has an ostial 100% flush occlusion Left external iliac has 100% occlusion Left internal iliac has a percent occlusion Left common femoral artery has a proximal 100% occlusion and reconstitutes in the mid segment via mamadou ust collateralization. Left superficial femoral artery has no significant disease Left popliteal artery has no significant disease The left tibioperoneal trunk has no significant disease Conclusion 1. Mj category 3 claudication, left greater than right 2. TASC C aorto-iliac disease with occlusion of the left common/external/internal and proximal common femoral artery. Recommendations 1. Smoking cessation 2. Vascular surgery consultation for complex endovascular repair of aorto-iliac disease. Signed by : Brandon Juarez, Electronically Approved : 04/17/2021 09:43:31
--- NOTE | 2021-04-17 12:10 | NUR ---
Discharge Note: SHANIKA KHALIL Discharge instructions and discharge home medications reviewed with Patient and a copy given. All questions have been answered and understanding verbalized. The following instructions and handouts were given: radial site care and adult moderate sedation Discontinued lines and drains: Peripheral IV intact. Patient discharged to Home or Self Care withFamily Membervia Wheelchair. Vascular surgery information shared with patient.
== END 2021-04-17 12:10 | disposition home or self-care (01) ==
LOC: CCL 06:49
PROVIDERS: ATTEND Internal Medicine Cardiovascular Disease
DX: I73.9 Peripheral vascular disease, unspecified (principal); E78.00 Pure hypercholesterolemia, unspecified; J43.9 Emphysema, unspecified; K21.9 Gastro-esophageal reflux disease without esophagitis; M19.90 Unspecified osteoarthritis, unspecified site; F41.9 Anxiety disorder, unspecified; F32.9 Major depressive disorder, single episode, unspecified; F17.210 Nicotine dependence, cigarettes, uncomplicated; Z90.49 Acquired absence of other specified parts of digestive tract; Z90.710 Acquired absence of both cervix and uterus; Z98.890 Other specified postprocedural states; Z79.899 Other long term (current) drug therapy; Z88.6 Allergy status to analgesic agent; Z72.89 Other problems related to lifestyle
CPT/HCPCS: 36415; 75625; 75716; 80048; 85027; 99152; 99153; J1644; J2250; J3010; J3490; Q9967

== ENCOUNTER → 2021-05-07 | Outpatient (CLI) | payer BC ==
[2021-04-17 12:08] VITALS: BP 111/72
[~2021-05-07] MED LIST changes: +ALBU2.5V8 IH; +ERGO500089 PO; +REGADENOSON 0.4 MG/5 ML DISP.SYRIN. IV ONE
--- NOTE | 2021-05-07 17:31 | RAD ---
MR#: [id number] Date of Study: 05/07/2021 Ordering Physician: BRANDON JAMES, Referring Physician: RISHI MAYBERRY Tech: DALILA Batres, SANDOR (R) (N) APPROVED REPORT Test Type: Pharmacological Stress Nurse/Tech: Hever Jeronimo RN Test Indications: Pre OP Cardiovascular Exam Cardiac History: Cardiac Cath in 2018, See EMR. Medications: See EMR. Medical History: Current Smoker, COPD, See EMR. Resting ECG: SR Resting Heart Rate: 89 bpm Resting Blood Pressure: 127/63mmHg Pretest Chest Pain: No chest pain Nurse/Tech Notes Lungs coarse and wheezy throughout, Heart tones regular. Consent: The procedure was explained to the patient in lay terms. Informed consent was witnessed. Seven eout was entered into [employer] for Parents. History and Stress Test performed by RT Jailyn Harrison) (N) Pharm. Details Pharmacologic stress testing was performed using 0.4mg per 5ml of regadenoson given intravenously ove r 7-10 seconds. Stress Symptoms No chest pain or symptoms. POST EXERCISE Reason for Termination: Infusion complete Max HR: 105 bpm Max Blood Pressure: 114/60mmHg Blood Pressure response to exercise: Normal blood pressure response during stress. Heart Rate response to exercise: WNL Chest Pain: No. Arrhythmia: No. INTERPRETATION Stress EKG Conclusion: The resting EKG shows a sinus rhythm with mild nonspecific ST-T wave changes. The stress EKG shows no significant changes from baseline. No EKG evidence of stress-induced ischemia. Imaging Protocol IMAGE PROTOCOL: Rest Tc-99m/stress Tc-99m 1 day Rest: Stress: Viability: Radiopharm.Tc99m [id number] Sestamibi Dose10.3mCi 32.6mCi Img Date 05/07/2021 05/07/2021 Inj-Img [id number]. 90min. Rest Admin Site:IV - Right AntecubitalAdministrator:DALILA Batres, ARRT (R)(N) Stress Admin Site: IV - Right AntecubitalAdministrator: Marleny Sebastian, RT (R)(N) STRESS DATA End Diast. Vol.73.0mlAv. Heart Dsgq613.0bpm End Syst. Vol.11.0mlCO Index BSA0.0L/min Myocardial Tdbs378.0gEject. Zwguvyiq56.0% Stress Rates Pk. Fill Rate2.46EDV/secLVtime Pk. Fill 102.56msec Pk. Empty Rate4.85ESV/secLVtime Pk. Eject85.86msec /3 Pk. Fill2.20EDV/sec Stress Scores Regional WT1.00Summed WT6.00 Regional WM0.00Summed WM1.00 LV Perfusion The stress scans showed no significant defects. The rest scans showed no significant defects. Nuclear imaging shows no reversible ischemia or infarct. Wall Motion Left ventricular systolic function is normal with no regional wall motion abnormalities and an ejecti on fraction of greater than 70%. LV Perf. Quant 17 Seg. SSS2.00 17 Seg. SRS2.00 17 Seg. SDS0.00 Stress Defect Extent (% LAD)3.80Rest Defect Extent (% LAD)5.00Rev. Defect Extent (% LAD)0.00 Stress Defect Extent (% LCX) 0.00Rest Defect Extent (% LCX)0.00Rev. Defect Extent (% LCX)0.00 Stress Defect Extent (% RCA)2.20Rest Defect Extent (% RCA)0.00Rev. Defect Extent (% RCA)0.00 Stress Defect Extent (% NATHEN)4.30Rest Defect Extent (% NATHEN)3.70Rev. Defect Extent (% NATHEN)0.00 Conclusion 1. No EKG evidence of stress-induced ischemia. 2. Nuclear imaging shows no reversible ischemia or infarct. 3. Normal left ventricular systolic function with an ejection fraction of greater than 70%. 4. Low risk Lexiscan nuclear stress test. Signed by : Kev Adams MD Electronically Approved : 05/07/2021 17:31:11
== END ==
LOC: NM 09:54
PROVIDERS: ATTEND Internal Medicine Cardiovascular Disease
DX: Z01.810 Encounter for preprocedural cardiovascular examination (principal)
CPT/HCPCS: 78452; 93017; A9500; J2785

== ENCOUNTER → 2022-02-11 | Outpatient (CLI) | payer BC ==
[2021-10-06 07:00] VITALS: BP 147/81
[~2022-02-11] MED LIST changes: +ASPI-630 PO; +ATOR80TA72 PO; +CLOP75TA PO; -REGADENOSON 0.4 MG/5 ML DISP.SYRIN. IV ONE; +TIZA-75 PO; -TIZA4TAB2 PO
--- NOTE | 2022-02-12 10:08 | RAD ---
MR#: [id number] Date of Study: 02/11/2022 Ordering Physician: BRANDON JAMES, Referring Physician: BRANDON JAMES, Tech: Irish Huff RVT, SCARLETTDC APPROVED REPORT Patient Location: OUT-PATIENT Exam Type: Ankle to Brachial Index Indications PAD Risk Factors Smoking Pressures/Indices RightABI LeftABI Brachial 101mmHg.96Brachial 106mmHg.90 Ankle(PT) NCmmHgAnkle(PT) 96mmHg Ankle(DP) 102mmHgAnkle(DP) 95mmHg Findings The right ankle-brachial index was 0.96. The left ankle-brachial index was 0.90 suggestive of mild l eft lower extremity peripheral artery disease. Critical Notification Critical Value: No <Conclusion> Bilateral lower extremity ankle-brachial indices suggestive of mild left lower extremity peripheral a rtery stenosis. Signed by : Samir Yates, Electronically Approved : 02/12/2022 10:07:53
--- NOTE | 2022-02-12 13:22 | RAD ---
MR#: [id number] Date of Study: 02/11/2022 Ordering Physician: BRANDON JAMES, Referring Physician: BRANDON JAMES, Tech: Irish Huff RVT, SCARLETTNE APPROVED REPORT Patient Location: OUT-PATIENT Indications PAD Risk Factors Smoking VELOCITY AND DOPPLER WAVEFORM ANALYSIS RIGHT cm/secWaveformSeverity LEFT cm/secWaveform Severity dCFA 106.0TriphasicdCFA 185.0Monophasic Prof Fem Art. 76.0MonophasicProf Fem Art. 106.0Monophasic Fem Art Prox. 127.0TriphasicFem Art Prox. 133.0Monophasic Fem Art Mid. 90.0TriphasicFem Art Mid. 127.0Monophasic Fem Art Dist. 92.0TriphasicFem Art Dist. 77.0Monophasic Pop Art(Fossa) 56.0TriphasicPop Art(AK) 69.0Biphasic LOCATOR SPECIALIST Dist. 56.0BiphasicPTA Dist. 43.0Biphasic Per Art Dist.30.0BiphasicPer Art Dist.26.0Monophasic VALERIE Prox. 46.0BiphasicATA Prox. 43.0Monophasic DPA 42BiphasicDPA 39Biphasic Findings Grayscale images of peripheral arteries bilateral lower extremities showed moderate diffuse atheroscl erosis. Spectral waveform and color duplex analysis was performed. The right lower extremity showed normal velocities in the right common femoral, deep femoral, superficial femoral and popliteal arter ies with triphasic waveforms. Below the knee, there is three-vessel runoff with normal velocities an d biphasic waveforms. The left lower extremity showed slightly elevated velocities in the left commo n femoral artery and normal velocities in left deep femoral and superficial femoral arteries with mon ophasic waveforms most likely secondary to inflow disease. The left popliteal artery showed normal v elocities with biphasic waveforms. There is three-vessel runoff below the knee. The left peroneal a rtery showed monophasic waveforms probably from moderate diffuse disease. No significant peripheral artery stenosis was noted. Critical Notification Critical Value: No <Conclusion> Bilateral lower extremity arterial duplex scan did not show any significant peripheral artery stenosi s. Of note, patient recently underwent surgical revascularization for aortoiliac disease. Signed by : Samir Yates, Electronically Approved : 02/12/2022 13:21:50
== END ==
LOC: KCIC US 13:54
PROVIDERS: ATTEND Internal Medicine Cardiovascular Disease
DX: I73.9 Peripheral vascular disease, unspecified (principal)
CPT/HCPCS: 93922; 93925

== ENCOUNTER 2022-02-18 06:00 | Day surgery (SDC) | payer BC ==
[~2022-02-18] VITALS: Ht 160 cm; Wt 52.7 kg
[~2022-02-18 06:00] MED LIST changes: +HYDROmorphone 2 MG/ML INJ. IVP PRN; +IV RINGERS,LACTATED 1000ML 1,000 ML IV SCH; +MORPHINE SULFATE 2 MG/ML INJ. IVP PRN; +PROCHLORPERAZINE 10 MG/2 ML VIAL. IVP PRN; +ceFAZolin SODIUM IV Push 1 GM VIAL. IVP PRN; +fentaNYL PF VIAL 100 MCG/2 ML VIAL IVP PRN
[2022-02-18] MEDS ORDERED: ceFAZolin SODIUM IV Push 1 GM VIAL. IVP ONE (06:30)
[2022-02-18 06:31] VITALS: BP 132/66
[2022-02-18] MEDS ORDERED: LIDOCAINE 2% PF 5 ML VIAL. ONE (06:55)
[2022-02-18] MEDS ORDERED: ONDANSETRON PF 4 MG/2 ML VIAL. ONE (06:55)
[2022-02-18] MEDS ORDERED: SEVOFLURANE 61 TO 120 MINUTES. IH ONE (06:55)
[2022-02-18] MEDS ORDERED: DEXAMETHASONE SOD PHOS 4 MG/ML VIAL ONE ×2 (06:55→07:01)
[2022-02-18] MEDS ORDERED: PROPOFOL 10 MG/ML (20ML) VIAL. IV ONE (06:55)
[2022-02-18] MEDS ORDERED: fentaNYL PF VIAL 100 MCG/2 ML VIAL ONE ×2 (06:56→09:23)
[2022-02-18] MEDS ORDERED: SUCCINYLCHOLINE 200 MG/10 ML VIAL. ONE (06:56)
[2022-02-18] MEDS ORDERED: FAMOTIDINE 20 MG/2 ML VIAL ONE (07:01)
[2022-02-18] MEDS ORDERED: LIDOCAINE 1% PF 30 ML VIAL. ONE (07:01)
[2022-02-18] MEDS ORDERED: BUPIVACAINE MPF 0.5% 30 ML VIAL. ONE (07:01)
[2022-02-18] MEDS ORDERED: BUPIVACAINE MPF 0.25% 30 ML VIAL. ONE (07:27)
[2022-02-18] MEDS ORDERED: PHENYLEPHRINE in 0.9% NACL PF 1 MG/10 ML SYRINGE. IV ONE (07:55)
[2022-02-18] MEDS ORDERED: BUPIVACAINE MPF 0.25% 30 ML VIAL. IJ ONE (08:00)
--- NOTE | 2022-02-18 08:48 | SSS ---
DATE OF SERVICE: 02/18/2022 ADMIT DATE: 02/18/2022 SHORT STAY SUMMARY/ADMIT DISCHARGE CHIEF COMPLAINT: Hammertoes, preoperative evaluation. HISTORY OF PRESENT ILLNESS: The patient is a pleasant 61-year-old female who has multiple medical issues. Basically, she has 5 hammertoes on the left foot. She is going to surgery today to have two of them corrected, the second and third digit. We have been requested for preoperative medical evaluation and treatment of comorbidities and clearance for surgery. PAST MEDICAL AND SURGICAL HISTORY: Fourteen surgeries including neck fusion; 3 stents to lower extremities, 2 in the left foot, 1 on the right; peripheral vascular disease; tobacco abuse; COPD, she is O2 dependent at home p.r.n., but currently doing well without that; previous pneumonia; peptic ulcer disease with bowel perforation and a surgical correction; hernia repair; GERD; diverticulosis; cholecystectomy; appendectomy. ALLERGIES: MORPHINE. FAMILY HISTORY: Diabetes. SOCIAL HISTORY: She works at the [employer] She smokes. No drink or drugs. MEDICATIONS: Reviewed, please refer to the MRAD. REVIEW OF SYSTEMS: GENERAL: No history of weight change, weakness or fevers. SKIN: No bruising, hair changes or rashes. EYES: No blurred, double or loss of vision. NOSE AND THROAT: No history of nosebleeds, hoarseness or sore throat. HEART: No history of palpitations, chest pain or shortness of breath on exertion. LUNGS: Denies cough, hemoptysis, wheezing or shortness of breath. GASTROINTESTINAL: Denies changes in appetite, nausea, vomiting, diarrhea or constipation. GENITOURINARY: No history of frequency, urgency, hesitancy or nocturia. NEUROLOGIC: Denies history of numbness, tingling, tremor or weakness. PSYCHIATRIC: No history of panic, anxiety or depression. ENDOCRINE: No history of heat or cold intolerance, polyuria or polydipsia. EXTREMITIES: Denies muscle weakness, joint pain, pain on walking or stiffness. PHYSICAL EXAMINATION: VITALS: Within normal limits and are stable. GENERAL: No apparent distress. Alert and oriented. HEENT: normocephalic atraumatic, external auditory canals are patent. EYES: Extraocular muscles are intact, pupils are equally round and reactive to light and accommodation. MUSCULOSKELETAL: Well developed, well nourished, good range of motion. ENDOCRINE: No thyromegaly was palpated. LYMPHATICS: No cervical chain or axillary nodes were noted. HEMATOPOIETIC: No bruising. NECK: Supple, no JVD, no thyromegaly was noted. LUNGS: Clear to auscultation in all lung olsen without rhonchi or wheezing. HEART: RRR, S1, S2 present. Peripheral pulses intact, no obvious murmurs were noted. ABDOMEN: Soft, nontender. Positive bowel sounds no organomegaly, normal bowel sounds. EXTREMITIES: She has 5 left foot hammertoes. NEUROLOGIC: Normal speech, normal tone. A and O x 3, moves all extremities, no obvious focal deficits. PSYCHIATRIC: Normal affect, normal mood. Stable. SKIN: No ulcerations or rashes, good skin turgor, no jaundice. VASCULAR: Good capillary refill, neurovascular bundle appears to be intact. ASSESSMENT AND PLAN: Hammertoes. Clinically, she looks great to go to surgery. She suspects she is at low risk for intraoperative or postoperative complications. If she needs to be admitted after surgery, we will be available. Thank you very much for allowing us to participate in the care of this nice lady. ADRIENNE/BOB/ALYSA DR: ADRIENNE/kade TID: [id number] CC: Dr. Strong
--- NOTE | 2022-02-18 09:21 | PDOC4 ---
OPERATIVE NOTE Date: Date: February 18, 2022 Pre-Op Diagnosis: Left semirigid hammertoe 2, 3, 4 Post-Op Diagnosis: Same as above Procedure Performed: Left second and third PIPJ arthrodesis, flexor tenotomy of the fourth digit Surgeon: Karolina Bagley DPM Anesthesia Type: General Blood Loss: 5 cc Specimans Obtained: None Findings: Plantarly contracted second, third PIPJ and DIPJ, semirigid. Semiflexible fou rth PIPJ plantar contracture, left Soft bone throughout the forefoot, left Complications: None Operative Note: Under mild sedation, patient was brought into the operating room and placed on operating table in a supine position. A formal timeout confirming patient's identity, procedure, procedure site was carried out. Following IV prophylactic antibiotics, general anesthesia, a well-padded left ankle tourniquet was placed on the left lower extremity. Following alcohol skin prep, 10 cc of 0.25% Marcaine plain was infiltrated to the left second, third, fourth distal rays. The left lower extremity was then scrubbed, prepped and draped using aseptic techniques. Tourniquet to the left lower extremity was not inflated. Then the attention was directed to the lateral aspect of the left second PIPJ. A [place] blade was used to create a 2 mm portal just lateral to the second PIPJ under intraoperative x-ray guidance. Tenotomy scissors was used to carry the incision deep to the capsular layer. A capsulotomy was performed with a [place] blade confirmed under intraoperative x-ray. Under intraoperative x-ray guidance, 2.9 mm wedge bur was used to prep the PIPJ joint space. Adequate resection of the articular surfaces was noted. Adequate joint apposition was noted. Then the surgical site was irrigated with copious saline to remove the osseous/cartilaginous debris from the PIPJ. A guidewire for 2.5 mm cannulated, fully threaded screw was introduced in a retrograde fashion from the distal tuft of the second digit to the base of the proximal phalanx. Adequate hardware position, length and apposition across the PIPJ were confirmed using x-ray. Then using standard AO technique, 2.5 mm cannulated screw was placed over the g uidewire to fix and compress the second PIPJ. Adequate hardware position, length were confirmed with intraoperative x-ray. The surgical site was closed with 4-0 nylon. Then the attention was directed to the lateral aspect of the left third PIPJ. A [place] blade was used to create a 2 mm portal just lateral to the second PIPJ under intraoperative x-ray guidance. Tenotomy scissors was used to carry the incision deep to the capsular layer. A capsulotomy was performed with a [place] blade confirmed under intraoperative x-ray. Under intraoperative x-ray guidance, 2.9 mm wedge bur was used to prep the PIPJ joint space. Adequate resection of the articular surfaces was noted. Adequate joint apposition was noted. Then the surgical site was irrigated with copious saline to remove the osseous/cartilaginous debris from the PIPJ. A guidewire for 2.5 mm cannulated, fully threaded screw was introduced in a retrograde fashion from the distal tuft of the third digit to the base of the proximal phalanx. Adequate hardware position, length and apposition across the PIPJ were confirmed using x-ray. Then using standard AO technique, 2.5 mm cannulated screw was placed over the guidewire to fix and compress the third PIPJ. Adequate hardware position, length were confirmed with intraoperative x-ray. The surgical site was closed with 4-0 nylon. Then the attention was directed to the plantar aspect of the fourth PIPJ. Using a [place] blade, the FDL and FDB were traversed at the level of the PIPJ. Manual manipulation noted adequate reduction of the adductovarus deformity across the PIPJ at the fourth digit. The surgical site was irrigated with copious saline solution. The incision site was closed with 4-0 nylon. All the surgical sites were dressed with Xeroform, gauze, Kerlix, ABD, Pee compression. Adequate digital perfusion was noted after surgery. Patient tolerated the procedure, anesthesia well with neurovascular status intact, vital signs stable. Patient was transferred to PACU for continuous recovery. Pending left foot 3 view x-ray. KAROLINA BAGLEY DPM February 18, 2022 09:21
[2022-02-18] MEDS ORDERED: PROCHLORPERAZINE 10 MG/2 ML VIAL. ONE (09:23)
[2022-02-18] MEDS: fentaNYL PF VIAL 100 MCG/2 ML VIAL IVP PRN ×2 (09:25→09:45)
[2022-02-18] MEDS ORDERED: ACETAMINOPHEN 325 MG TABLET. PO ONE (09:30)
[2022-02-18] MEDS ORDERED: ONDANSETRON PF 4 MG/2 ML VIAL. IVP PRN (09:30)
[2022-02-18] MEDS ORDERED: GABAPENTIN 100 MG CAPSULE. PO ONE (09:30)
[2022-02-18] MEDS ORDERED: oxyCODONE/APAP 5/325 1 TAB TABLET PO ONE (09:30)
[2022-02-18] MEDS ORDERED: KETOROLAC 30 MG/ML VIAL. IVP ONE (09:45)
[2022-02-18 10:00] VITALS: BP 111/52
--- NOTE | 2022-02-18 11:59 | RAD ---
EXAM: AP, oblique and lateral views of the left foot DATE: 02/18/2022 9:26 AM INDICATION: Reason: POST OP / Spl. Instructions: / History: COMPARISON: No Prior FINDINGS: Postoperative changes of second and third PIP osteotomy and arthrodesis with screw fixation, in good alignment without definite hardware complication. No discrete bony bridging is seen. Mild forefoot so ft tissue swelling. Decreased bone mineral density. Chronic changes PIP joint of the fifth toe and fi fth metatarsal head, grossly stable. IMPRESSION: 1. Second and third PIP joint arthrodesis postoperative fixation, in good alignment without definite hardware complication. 2. No evidence of acute fracture or dislocation. Electronically signed by: Davey Gannon MD (02/18/2022 11:57 AM) [id number]
== END 2022-02-18 10:40 | disposition home or self-care (01) ==
LOC: SURG 06:00
PROVIDERS: ATTEND Podiatrist
DX: M20.42 Other hammer toe(s) (acquired), left foot (principal); J43.9 Emphysema, unspecified; E78.00 Pure hypercholesterolemia, unspecified; K21.9 Gastro-esophageal reflux disease without esophagitis; M19.90 Unspecified osteoarthritis, unspecified site; F41.9 Anxiety disorder, unspecified; F32.9 Major depressive disorder, single episode, unspecified; F17.210 Nicotine dependence, cigarettes, uncomplicated; Z90.710 Acquired absence of both cervix and uterus; Z98.890 Other specified postprocedural states; Z90.49 Acquired absence of other specified parts of digestive tract; Z79.82 Long term (current) use of aspirin; Z79.899 Other long term (current) drug therapy
CPT/HCPCS: 28010; 28285; 28755; 73630; A4209; A4930; A6223; A6253; A6402; A6449; C1713; C1769; J0330; J0690; J0780; J1100; J1885; J2370; J2405; J2704; J3010; J3490; A4657; A6443

== ENCOUNTER 2022-03-11 07:25 | Day surgery (SDC) | payer BC ==
[~2022-03-11] VITALS: Ht 160 cm; Wt 52.0 kg
[~2022-03-11 07:25] MED LIST changes: -HYDROmorphone 2 MG/ML INJ. IVP PRN; -MORPHINE SULFATE 2 MG/ML INJ. IVP PRN; -ceFAZolin SODIUM IV Push 1 GM VIAL. IVP PRN
[2022-03-11] MEDS ORDERED: LIDOCAINE 1% PF 5 ML VIAL. ONE (07:53)
[2022-03-11] MEDS ORDERED: ONDANSETRON PF 4 MG/2 ML VIAL. ONE (07:53)
[2022-03-11] MEDS ORDERED: PROPOFOL 10 MG/ML (20ML) VIAL. IV ONE (07:53)
[2022-03-11] MEDS ORDERED: DEXAMETHASONE SOD PHOS 4 MG/ML VIAL ONE ×2 (07:53→09:06)
[2022-03-11] MEDS ORDERED: BUPIVACAINE MPF 0.25% 30 ML VIAL. ONE (09:06)
--- NOTE | 2022-03-11 09:22 | PDOC1 ---
History and Physical Date of Service: DOS: DATE: 03/11/22 TIME: 09:12 Chief Complaint: Chief Complain: left foot pain History of Present Illness: HPI: 61 yo F PMHx of osteopenia, neuropathy, tobacco abuse, with hammer toe of the left foot. This happened because she continued to work with her surgical boot after her surgery 02/18/22. She did complain of throbbing 6/10 pain in her left foot. She continues to smoke 1/2 pack per day. Denies SOB, chest pain, ABD pain, diarrhea, hematuria, constipation, palpitations. Past Medical/Surgical History: PMH/PSH: OA: Anxiety, OA Psurghx: cholecystectomy, hyerstectomy, Left fifth metatarsal head resection, ORIF for a distal left tibial Fx Allergies: Allergies: Coded Allergies: morphine (Verified Allergy, Intermediate, Rash, 03/06/22) Has tolerated oxycodone, hydrocodone, and hydromorphone Family History: Family History: Reviewed with no relevant findings in the chart Social History: Social History: 1/2 pack per day smoker. Denies alcohol and drug abuse. Current Medications: Current Medications Current Medications Fentanyl Citrate (Fentanyl 2ml Vial) 25 mcg PRN Q5MIN PRN IVP MILD PAIN 1-3; Start 03/11/22 at 06:00; Stop 03/11/22 at 20:00 Fentanyl Citrate (Fentanyl 2ml Vial) 50 mcg PRN Q5MIN PRN IVP MODERATE PAIN 4- 6; Start 03/11/22 at 06:00; Stop 03/11/22 at 20:00 Ringer's Solution 1,000 ml @ 30 mls/hr Q24H IV Last administered on 03/11/22at 07:58; Start 03/11/22 at 06:00; Stop 03/11/22 at 17:59 Prochlorperazine Edisylate (Compazine) 5 mg PACU PRN PRN IVP NAUSEA, MRX1; Start 03/11/22 at 06:00; Stop 03/11/22 at 20:00 Cefazolin Sodium/ Dextrose 50 ml @ 100 mls/hr 1X PREOP PRN IV PRIOR TO PROCEDURE; Start 03/11/22 at 06:00; Stop 03/11/22 at 18:00 Propofol (Diprivan) 200 mg STK-MED ONCE IV ; Start 03/11/22 at 07:53; Stop 03/11/22 at 07:54; Status DC Lidocaine HCl (Xylocaine-Mpf 1% 5ml Vial) 5 ml STK-MED ONCE .ROUTE ; Start 03/11/22 at 07:53; Stop 03/11/22 at 07:54; Status DC Ondansetron HCl (Zofran) 4 mg STK-MED ONCE .ROUTE ; Start 03/11/22 at 07:53; Stop 03/11/22 at 07:54; Status DC Dexamethasone Sodium Phosphate (Decadron) 4 mg STK-MED ONCE .ROUTE ; Start 03/11/22 at 07:53; Stop 03/11/22 at 07:54; Status DC Bupivacaine HCl (Sensorcaine Mpf 0.25%) 30 ml STK-MED ONCE .ROUTE ; Start 03/11/22 at 09:06; Stop 03/11/22 at 09:06; Status DC Dexamethasone Sodium Phosphate (Decadron) 4 mg STK-MED ONCE .ROUTE ; Start 03/11/22 at 09:06; Stop 03/11/22 at 09:06; Status DC Active Scripts Active Reported Tramadol Hcl 50 Mg Tablet 2 Tab PO TID PRN Atorvastatin Calcium 80 Mg Tablet 20 Mg PO QHS Aspirin 81 Mg Tab.chew 1 Tab PO DAILY Vitamin D2 (Ergocalciferol (Vitamin D2)) 1,250 Mcg Capsule 2,000 Units PO DAILY Proair Hfa (Albuterol Sulfate) 8.5 Gm Hfa.aer.ad 2 Puff IH PRN Q4-6HRS PRN 21 Days Ambien (Zolpidem Tartrate) 10 Mg Tablet 10 Mg PO PRN QHS PRN Gabapentin 400 Mg Capsule 600 Mg PO BID Zoloft (Sertraline Hcl) 50 Mg Tablet 50 Mg PO HS Xanax (Alprazolam) 0.5 Mg Tablet 1 Tab PO PRN Q6HRS PRN ROS: Review of Systems Review of System REVIEW OF SYSTEMS: GENERAL: Denies weakness SKIN: No bruising, hair changes or rashes. EYES: No blurred, double or loss of vision. NOSE AND THROAT: No history of nosebleeds, hoarseness or sore throat. HEART: No history of palpitations, chest pain or shortness of breath on exertion. LUNGS: Denies cough, hemoptysis, wheezing or shortness of breath. GASTROINTESTINAL: Denies changes in appetite, nausea, vomiting, diarrhea or constipation. GENITOURINARY: No history of frequency, urgency, hesitancy or nocturia. NEUROLOGIC: Denies history of numbness, tingling, or tremor. PSYCHIATRIC: No history of panic, anxiety or depression. ENDOCRINE: No history of heat or cold intolerance, polyuria or polydipsia. EXTREMITIES: Denies joint pain, pain on walking or stiffness. Physical Exam: Vital Signs: Vital Signs Date Time Temp Pulse Resp B/P (MAP) Pulse Ox O2 Delivery O2 Flow Rate FiO2 03/11/22 07:57 97.1 93 20 135/63 95 Room Air 97.1 Physcial Exam: GEN: No apparent distress. Alert and oriented HEENT: Normal cephalic, atraumatic, external auditory canals are patent EYES: Extraocular muscles are intact, pupil are equally round and reactive to light and accommodation MUSCULOSKELETAL: Well developed , well nourished, good range of motion ENDOCRINE: No thyromegaly was palpated LYMPHATICS: No cervical chain or axillary nodes were noted HEMATOPOIETIC: No bruising NECK: Supple, no JVD, no thyromegaly was noted LUNGS: Clear to auscultation in all lung olsen without rhonchi or wheezing HEART: RRR, S!, S2 present. Peripheral pulses intact, no obvious murmurs noted ABDOMEN: Soft, nontender. Positive bowel sounds, no organomegaly, normal bowel sounds EXTREMITIES: Without clubbing, cyanosis, or edema. Pedal pulses intact. Negative Homans sign. Left LE in surgical boot. NEUROLOGIC: Normal speech and tone. A&O x 3, moves all extremities, no obvious focal deficits PSYCHIATRIC: Normal affect, normal mood. Stable SKIN: No ulcerations or rashes, good skin turgor, no jaundice VASCULAR: Good capillary refill, neurovascular bundle appears to be intact Labs: Labs: Laboratory Tests Test 03/11/22 07:40 POC SARS CoV-2 Antigen Negative (NEGATIVE) Laboratory Tests Test 03/11/22 07:40 POC SARS CoV-2 Antigen Negative (NEGATIVE) Images: Images PROCEDURE: FOOT LEFT 3V Exam: XR FOOT_LEFT 3 VIEWS History: Status post hammertoe correction Comparison: 02/18/2022 Findings: Diffusely decreased osseous mineralization. Postsurgical features from osteotomy and cannulated screw arthrodesis of the second and third toe proximal interphalangeal joints. At the third toe, the middle phalanx appears displaced to the plantar aspect of the cannulated screw. Old postsurgical changes of the distal fifth metatarsal. Partially visualized intramedullary nail in the distal tibia. Mild degenerative changes of the first metatarsal phalangeal joint. Impression: 1. Post surgical changes from second and third toe proximal interphalangeal joint arthrodesis. Question abnormal plantar positioning of the third toe middle phalanx with respect to the arthrodesis screw. Assessment/Plan Assessment/Plan 61 yo F with Left foot post-surgical complication who presents for Left 3rd digi t hardware removal and 3rd proximal interphalangeal arthodesis revision Low Norton risk score and low risk for respiratory complications O2 supplementation PRN to maintain sats between 88-92% Plan for discharge to home after surgery Please call hospitalist for further assistance. Thank you Justifications for Admission Other Justification MALATHI LUNDBERG MD March 11, 2022 09:22
[2022-03-11] MEDS ORDERED: ePHEDrine PF IN SALINE 50 MG/10 ML SYRINGE. IV ONE (09:42)
[2022-03-11] MEDS ORDERED: fentaNYL PF VIAL 100 MCG/2 ML VIAL ONE (10:38)
--- NOTE | 2022-03-11 10:38 | PDOC4 ---
OPERATIVE NOTE Date: Date: March 11, 2022 Pre-Op Diagnosis: Hardware failure to the left third PIPJ after MIS arthrodesis in the setting of rigid hammertoe contracture, 3 weeks ago without any skin tenting, ulceration at the procedure site. Chronic pain syndrome Post-Op Diagnosis: Same as above Procedure Performed: Left third digit hardware removal Left third PIPJ revision and arthroplasty Surgeon: Karolina Bagley DPM Anesthesia Type: General Blood Loss: 10 cc Specimans Obtained: None Findings: Fragmented proximal dorsal cortical shelf at the middle third phalanx. After the prior attempted third PIPJ arthrodesis and joint prep, the remaining middle third phalanx was limited for additional/revision arthrodesis. The plantar shelf at the proximal middle phalanx margin was left in place and noted healthy with adequate bleeding. The decision was made to leave the plantar shelf in place to maintain the length of the third digit and convert attempted arthrodesis to arthroplasty across the third PIPJ. Diffused osteoporotic bone with adequate soft tissue bleeding after tourniquet release. Complications: None Operative Note: Under mild sedation, patient was brought into the operating room and placed on operating table in a supine position. A formal timeout confirming patient's identity, procedure, procedure site was carried out. Following IV prophylactic antibiotics, general anesthesia, a well-padded high ankle tourniquet was placed on the left lower extremity. After alcohol skin prep, 10 cc of 0.25% Marcaine plain was infiltrated to the distal third ray. The left lower extremity was then scrubbed, prepped and draped using aseptic techniques. The left lower extremity was elevated and then the tourniquet was inflated to 250 mill mercury. Then the attention was directed to the dorsal third PIPJ. A central linear full- thickness incision was made over the second PIPJ to allow visualization of the hardware and also re-preparation of the PIPJ. The incision was carried deep with a pair of Metzenbaum's scissors with care to protect and retract all the neurovascular bundles. At this time, the dorsal EDL was encountered and and was subsequently traverse across the PIPJ. The extensor tendon was elevated off the bone and capsule. A transverse capsulotomy and collateral ligament release were performed over the PIPJ to expose third of PIPJ and also the hardware. At this time, we noted mild to moderate amount of fibrotic tissue and scar tissue circumferential to the PIPJ. The screw was easily visualized dorsal to the middle phalanx. The screw was removed in toto without any complication. Fibrotic tissue was removed with a rongeur. The articular surface across the PIPJ was noted to healthy, flat with adequate bleeding. However, the middle phalanx had limited a cortical bone at the dorsal proximal aspect after the prior attempted PIPJ arthrodesis. Then the decision was made to preserve the plantar shelf at the middle phalanx to preserve the third digit length. The apposition across the middle phalanx and proximal phalanx was not able to achieve due to the limited cortical bone at the middle phalanx. Therefore, the arthrodesis will be converted to arthroplasty and possible pseudoarthrosis. The surgical site was irrigated with copious saline solution. Then a 0.062 K wire was used to traverse the DIPJ, PIPJ into the third MTPJ for third digit stabilization. Intraoperative x-ray noted adequate hardware position, length and apposition across the MTPJ and IPJs. Then the pin was bent to distally and capped. At this time, tourniquet was deflated and adequate soft tissue bleeding was noted. The dorsal EDL was repaired with 3-0 Vicryl and skin was repaired with 4-0 nylon. The surgical sites was further dressed with Xeroform, gauze, 4 x 4, Coban. Adequate digital perfusion was noted afterwards. Patient tolerated anesthesia and procedure well with vital signs stable and neurovascular status intact. Patient was then transferred to PACU for continuous recovery. Pending left foot 3 view x-ray. Patient to be nonweightbearing protected in the short E boot / for 4 weeks and partial heel weightbearing for 2 weeks per pain and swelling permit. The pin will be removed in the office after 6 weeks from the time of surgery. Patient will continue taking vitamin D3 for bone health and comply with elevation. KAROLINA BAGLEY DPM March 11, 2022 10:37
[2022-03-11] MEDS: fentaNYL PF VIAL 100 MCG/2 ML VIAL IVP PRN ×2 (10:44→10:57)
[2022-03-11] MEDS ORDERED: oxyCODONE/APAP 5/325 1 TAB TABLET PO ONE (10:45)
[2022-03-11] MEDS ORDERED: DEXTROSE 50% 25 GM / 50ML DISP.SYRIN. IV PRN (10:45)
[2022-03-11] MEDS ORDERED: ACETAMINOPHEN 325 MG TABLET. PO ONE (10:45)
[2022-03-11] MEDS ORDERED: GABAPENTIN 100 MG CAPSULE. PO SCH (10:45)
[2022-03-11] MEDS ORDERED: KETOROLAC 15 MG/ML VIAL. IVP ONE (11:00)
[2022-03-11] MEDS ORDERED: KETOROLAC 15 MG/ML VIAL. ONE (11:00)
[2022-03-11] MEDS ORDERED: GABAPENTIN 100 MG CAPSULE. PO ONE (11:15)
[2022-03-11] MEDS ORDERED: PROCHLORPERAZINE 10 MG/2 ML VIAL. ONE (11:15)
[2022-03-11 12:20] VITALS: BP 104/48
--- NOTE | 2022-03-12 08:12 | RAD ---
XR FOOT_LEFT 3 VIEWS History: Reason: POST OP / Spl. Instructions: / History: Technique: 3 views left foot Comparison: March 05, 2022 Findings: Interval postoperative changes external pinning third digit to the level of the metatarsal head. Prio r second digit arthrodesis. Diffuse osteopenia. Postoperative changes distal tibia with intramedullar y minnie. No dislocation. No acute fracture. Chronic deformity of the fifth metatarsal head. Mild first MTP DJD. Impression: 1. Interval postoperative changes third digit. Electronically signed by: Bunny Monte DO (03/12/2022 8:10 AM) [id number]
== END 2022-03-11 12:35 | disposition home or self-care (01) ==
LOC: SURG 07:25
PROVIDERS: ATTEND Podiatrist
DX: G89.4 Chronic pain syndrome (principal); M20.42 Other hammer toe(s) (acquired), left foot; E78.00 Pure hypercholesterolemia, unspecified; J43.9 Emphysema, unspecified; M19.90 Unspecified osteoarthritis, unspecified site; K21.9 Gastro-esophageal reflux disease without esophagitis; F41.9 Anxiety disorder, unspecified; F32.9 Major depressive disorder, single episode, unspecified; Z90.710 Acquired absence of both cervix and uterus; Z98.890 Other specified postprocedural states; Z79.899 Other long term (current) drug therapy; Z87.891 Personal history of nicotine dependence; Z88.6 Allergy status to analgesic agent; Z88.8 Allergy status to other drugs, medicaments and biological substances
CPT/HCPCS: 20680; 28285; 73630; A4930; A6257; J0690; J0780; J1100; J1885; J2405; J2704; J3010; J3490; A4657